=== PATIENT | male | born 1940 | race Caucasian/White ===

== ENCOUNTER → 2017-07-17 15:59 | Outpatient (CLI) | payer MEDICARE, OTHER, SELFPAY ==
--- NOTE | 2017-07-17 16:01 | RAD_ITS ---
STUDY: X-RAY CHEST REASON FOR EXAM: Male, 76 years old. Pacemaker generator change. TECHNIQUE: PA and lateral views of the chest. COMPARISON: PA and lateral chest x-ray on 3 films November 19, 2013. FINDINGS: The dual lead left subclavian cardiac pacemaker is unchanged The lungs are clear and expanded. There is no demonstrated pleural abnormality. Normal size heart. Sternal cerclage wires and vascular clips are present from a prior sternotomy and coronary artery bypass graft procedure (CABG). Normal mediastinum and nancy. Normal visualized pulmonary arteries. There is atherosclerotic calcification of the aortic arch. There are stable multilevel degenerative changes of the visualized thoracic spine. Normal visualized ribs, clavicles, and shoulders. There is no demonstrated abnormality of the visualized soft tissue structures of the upper abdomen. RAD/Chest PA and Lateral IMPRESSION: Stable x-ray examination of the chest since November 2013. Electronically Signed: Eulogio Christian MD at 12:39 EDT , Service support ,
[2017-07-17 16:21] LABS: Bacteria 0 SEEN /hpf (None Seen); Mucous, Urine 0 SEEN /hpf (<or=2+); White Blood Cells 0 SEEN /hpf (0-5)
[2017-07-17 17:31] LABS: Color, Urine Yellow (Yellow); Glucose, Dipstick Normal (Normal); Ketone-Dipstick 5 mg/dl (Negative); Leukocyte Esterase-Dipstick Negative /ul (Negative); Nitrite-Dipstick Negative (Negative); Occult Blood-Urine 250 /ul (Negative); Protein-Dipstick Negative (Negative); Specific Gravity, Urine 1.015 (1.002-1.030); Urine Bilirubin Dipstick Negative (Negative); Urine Urobilinogen Normal (Normal)
[2017-07-17 17:40] LABS: Hematocrit 35.9 % (40-54); Hemoglobin 11.7 g/dl (13.0-16.5); Mean Corp Hgb Conc 32.6 g/gl (32-36); Mean Corpuscular Hgb 30.1 pg (27.0-32.0); Mean Corpuscular Volume 92.3 fL (80-94); Mean Platelet Vol. 10.8 fl (6.2-12.0); Platelet Count 189 K/mm3 (150-450); RBC Distribution Width CV 13.9 % (11.6-14.6); RBC Distribution Width SD 46.3 fl (35.1-43.9); Red Blood Count 3.89 M/mm3 (4.6-6.2)
[2017-07-17 17:41] LABS: International Normalized Ratio 1.1; Prothrombin Time (Protime)PT. 14.6 SECONDS (11.7-14.9)
[2017-07-17 17:47] LABS: Anion Gap 8 (5-15); BUN 27 mg/dL (7-18); Calcium,Total 8.2 mg/dL (8.5-10.1); Chloride 109 mmol/L (98-107); Creatinine, Serum 1.04 mg/dL (0.70-1.30); EST Glomerular Filtration Rate 73 mL/min (>60); Est Glom Filt Rate - Afr Amer 89 mL/min (>60); Glucose 92 mg/dL (74-106); Potassium 4.3 mmol/L (3.5-5.1); Sodium Level 142 mmol/L (136-145)
[2017-07-17 17:50] LABS: Red Blood Cells-Urine 10-25 SEEN /hpf (0-5); Squamous Epithelial Cells - UA 0-5 SEEN /hpf (0-5)
[2017-07-17 17:51] LABS: Urine Clarity Sl. Cloudy (Clear)
[2017-07-17 18:25] LABS: Scan Indicated on CBC? Y/N NO
== END ==
PROVIDERS: Family Provider Internal Medicine; PCP Internal Medicine; Visit Provider Internal Medicine Cardiovascular Disease
DX: I49.5 Sick sinus syndrome (principal); I48.92 Unspecified atrial flutter; I25.10 Atherosclerotic heart disease of native coronary artery without angina pectoris; Z95.0 Presence of cardiac pacemaker
CPT/HCPCS: 36415; 71046; 80048; 81001; 85027; 85610

== ENCOUNTER → 2017-07-25 09:53 | Day surgery (SDC) | payer MEDICARE, OTHER, SELFPAY ==
[2017-07-24 09:23] VITALS: BMI 29.0
--- NOTE | 2017-07-25 10:24 | HP.PCM.COS_ITS ---
Problem List (1) Atherosclerotic heart disease of [place] coronary artery without angina pectoris Status: Chronic (2) Atrial fibrillation Status: Chronic (3) Benign essential hypertension Status: Chronic (4) Cardiac pacemaker in situ Status: Chronic Comment: Permanent Pacemaker insertion 04/20/09; Pacemaker generator change 2001, 04/13/09 (5) Hyperlipidemia Status: Chronic Qualifiers: History of Present Illness Date of Admission: 07/25/17 The patient is a 76 year old M a pacemaker generator change. He He is a gentleman with a remote history of coronary artery bypass surgery in 1996 with a left internal mammary artery to the left anterior descending artery, saphenous vein graft to obtuse marginal branch, saphenous vein graft to right coronary artery. He also has a pacemaker placed for sinus arrest. He does have parkinsons and has limited mobility. His device was interrogated on 07/11/2017 and was noted to have reached ERT on 07/04/2017. He does not have any chest discomfort/heaviness/tightness. He does not have any worsening symptoms of shortness of breath. He does not have any symptoms of congestive heart failure. He does not have any palpitations that he is aware of. He does not have any lightheadedness or dizziness. He does not have any near-syncope or syncope. He does have lower extremity edema this is not new. He does not have any symptoms of claudication. Past Medical History Past Medical History (Chronic Problems): Chronic Problems (Last Updated 07/24/17 @ 17:13 by Slim Haley) Sick sinus syndrome (Chronic) Atrial flutter (Chronic) History of coronary artery stent placement (Chronic) 03/02/08 PTCA/stent to SVG to RCA; 06/30/08 PTCA/stent to SVG to RCA; S/P CABG x 3 (Chronic) CABG, ANG to LAD, saphenous vein graft to OM1 & RCA May 1996; Cardiac pacemaker in situ (Chronic) Permanent Pacemaker insertion 04/20/09; Pacemaker generator change 04/13/09 Atherosclerotic heart disease of [place] coronary artery without angina pectoris (Chronic) Atrial fibrillation (Chronic) Benign essential hypertension (Chronic) Gastroesophageal reflux disease (Chronic) Hyperlipidemia (Chronic) CKD (chronic kidney disease), stage II (Chronic) Obstructive sleep apnea syndrome (Chronic) Parkinson's disease (Chronic) Allergies acetaminophen [From Vicodin] Allergy (Verified 07/24/17 17:09) Other hydrocodone bitartrate [From Vicodin] Allergy (Verified 07/24/17 17:09) Other Sulfa (Sulfonamide Antibiotics) Allergy (Verified 07/24/17 17:09) Other Home Medications: Ambulatory Orders Medication Instructions Recorded alfuzosin ER 10 mg tablet,extended 10 mg PO QDAY 02/24/17 release 24 hr aspirin 81 mg tablet,delayed 81 mg PO QDAY 02/24/17 release carbidopa 25 mg-levodopa 100 mg 1 tab PO BID tab 02/24/17 tablet clonazepam 0.5 mg tablet 0.5 mg PO QHS 02/24/17 finasteride 5 mg tablet 5 mg PO QDAY 02/24/17 furosemide 20 mg tablet 20 mg PO QDAY 02/24/17 isosorbide mononitrate ER 30 mg 30 mg PO QAM 02/24/17 tablet,extended release 24 hr memantine 10 mg tablet 10 mg PO BID 02/24/17 oxybutynin chloride ER 5 mg 5 mg PO QDAY 02/24/17 tablet,extended release 24 hr ranitidine 150 mg capsule 150 mg PO QHS 02/24/17 simvastatin 40 mg tablet 40 mg PO QPM 02/24/17 vitamins A,C,H-fcxy-fsytun 14,320 1 cap PO QDAY ea 02/24/17 unit-226 mg-200 unit capsule donepezil 10 mg tablet 10 mg PO QHS 02/25/17 Surgical History: coronary bypass surgery Smoking Status: Former smoker Review of Systems Constitutional: Denies: Chills, Fever, Weight Change Eyes: Denies: Blurred vision HEENT: Denies: Head Aches, Sinus Congestion, Sinus Drainage Cardiovascular: Denies: Chest Pain, Palpitations Respiratory: Denies: Cough, Shortness of breath at rest, Sputum production Gastrointestinal: Denies: Abdominal Pain, Nausea, Vomiting Genitourinary: Denies: Dysuria Musculoskeletal: Reports: Joint stiffness Neurological: Reports: Balance problems VTE Information - Inpt Only VTE Present on Admission: No - Physical Exam General: Alert, Oriented x3, - - Limited mobility d/t parkinsons HEENT: Atraumatic, PERRLA, EOMI Neck: Supple, No JVD, Negative Carotid Bruits, Trachea Midline Lungs: Clear to auscultation Cardiovascular: Regular rate, Regular Rhythm, Normal S1, Normal S2, Murmur, - - soft 2/6 CHARLIE Abdomen: Bowel Sounds Present, Soft, Non Tender, Non-Distended Extremities: No clubbing, No cyanosis, Edema Weight: 202 lb Body Mass Index (BMI) 29.0 Assessment/Plan 1. Sick sinus syndrome: Patient does have a pacemaker, he is scheduled to undergo a generator change as this has reached SNEHA opril 2017. He will scheduled to undergo a pacemaker change out today, he will follow up accordingly on an out patient basis. 2. CAD: stable, will continue with current home medications. 3. Hyperlipidemia: will continue with current medications.
--- NOTE | 2017-07-25 12:37 | CL.IE_ITS ---
Patient: LILA YOUNG Study Date: 07/25/2017 Performing: Ed Kilgore MD : [id number] Age: 76 Gender: male PROCEDURES PERFORMED [id number] REMOVAL+REPLACEMENT PACER-DUAL LEAD INDICATIONS Sinoatrial node dysfunction/Sick sinus syndrome PROCEDURE DETAILS The patient was brought to the Catheterization Lab in the postabsorptive nonsedated state. Informed consent was obtained prior to the procedure. Local anesthetic was given subcutaneously to the left up per chest area with Lidocaine 2%. Incision was made to the left upper chest. PPM generator was remove d and generator was exchanged. PPM generator was attached to the lead(s) and inserted into the pocket . PPM generator was then interrogated by the senior systems programmer. Device pocket was irrigated with antibiotic. Subcutaneous closure was completed with 3-0 Vicryl. Skin closure was completed with 4-0 Vicryl. Ster i-strips applied to left subclavicular incision. The patient tolerated the procedure well. Estimated Blood Loss: 10 ml's IMPLANTED / EX-PLANTED DEVICES EXPLANTED DEVICE(S): PPM Generator - Glue Jointer Operator: [employer] IMPLANTED DEVICE(S): PPM Generator - Glue Jointer Operator: [employer], Model #[id number] , Serial #[id number] DEVICE PARAMETERS DEVICE PARAMETERS: Mode- DDDR Lower rate- 60 Upper rate- 130 CONCLUSIONS / RECOMMENDATIONS Device Conclusions: Successful implantation of a dual chamber pacemaker battery change and replacemen t Device Recommendations: Follow up with Primary Care Physician PROCEDURE MEDICATIONS Versed 1 mg IV Oxygen: 2 L/min via nasal cannula Antibiotic given in appropriate timeframe. Ancef 2 Gm IV @ 07/25/2017 11:47:41 Signed By Ed Kilgore MD On 07/25/2017 12:36:14 Ed Kilgore MD
== END ==
PROVIDERS: Family Provider Internal Medicine; PCP Internal Medicine; Visit Provider Internal Medicine Cardiovascular Disease
DX: Z45.010 Encounter for checking and testing of cardiac pacemaker pulse generator [battery] (principal); I49.5 Sick sinus syndrome; I25.10 Atherosclerotic heart disease of native coronary artery without angina pectoris; I48.91 Unspecified atrial fibrillation; I48.92 Unspecified atrial flutter; I12.9 Hypertensive chronic kidney disease with stage 1 through stage 4 chronic kidney disease, or unspecified chronic kidney disease; N18.2 Chronic kidney disease, stage 2 (mild); E78.5 Hyperlipidemia, unspecified; K21.9 Gastro-esophageal reflux disease without esophagitis; Z95.1 Presence of aortocoronary bypass graft; G47.33 Obstructive sleep apnea (adult) (pediatric); G20 Parkinson's disease; Z95.5 Presence of coronary angioplasty implant and graft; Z87.891 Personal history of nicotine dependence; Z79.82 Long term (current) use of aspirin; Z79.899 Other long term (current) drug therapy; Z00.6 Encounter for examination for normal comparison and control in clinical research program
CPT/HCPCS: 33228; 99152; 99153; J7040; J7050

== ENCOUNTER 2017-10-01 09:31 | Inpatient (IN) | payer MEDICARE, OTHER, SELFPAY ==
[2017-10-01] VITALS (9 sets, daily range): BP systolic 115–148; BP diastolic 49–83; PULSE 60–67; RESP 15–18; TEMP 36.6–37.5; O2SAT 95–98; BMI 29.5; BMI 28.0; BMI 29.6
--- NOTE | 2017-10-01 10:06 | CT_ITS ---
STUDY: CT BRAIN WITHOUT CONTRAST REASON FOR EXAM: Male, 77 years old. Headache after a fall RADIATION DOSAGE (If Supplied By Facility): CTDIvol = ( 60.81 ) mGy, DLP = ( 1135.50 ) mGycm TECHNIQUE: Transaxial CT imaging of the brain was performed without administration of intravenous contrast material. Individualized dose optimization techniques were used for this CT. COMPARISON: None. FINDINGS: Normal soft tissue structures. Normal calvarium. There is mild cerebral atrophy with widening of the extra-axial spaces and ventricular dilatation. There are areas of decreased attenuation within the white matter tracts of the supratentorial brain, consistent with microvascular disease changes. Normal basal ganglia and thalami. Normal brainstem. Normal cerebellum. There is no intracranial hemorrhage. There are no findings of an acute ischemic infarction. There is mucoperiosteal inflammatory disease of the paranasal sinuses consistent with mild chronic sinusitis. CT/Brain/Head without Contrast IMPRESSION: Chronic involutional changes of the brain. No acute hemorrhage or significant interval change Electronically Signed: Eulogio Fernandez MD at 11:05 EDT , Service support ,
--- NOTE | 2017-10-01 10:07 | EKG12_ITS ---
Test Reason : Blood Pressure : / mmHG Vent. Rate : 060 BPM Atrial Rate : 057 BPM P-R Int : 236 ms QRS Dur : 082 ms QT Int : 434 ms P-R-T Axes : -59 000 -15 degrees QTc Int : 434 ms Atrial-paced rhythm with prolonged AV conduction Abnormal ECG Confirmed by YAMILEHT MURCIA, RADHA ([id number]), health editor CLADUIA YOUNG ([id number]) on 10/03/2017 1:41:41 PM Referred By: Tabitha Sahni Confirmed By:RADHA CARSON MD
--- NOTE | 2017-10-01 10:09 | CT_ITS ---
STUDY: CT CERVICAL SPINE WITHOUT CONTRAST REASON FOR EXAM: Male, 77 years old. Neck pain after a fall RADIATION DOSAGE (If Supplied By Facility): CTDIvol = ( 23.80 ) mGy, DLP = ( 395.53 ) mGycm TECHNIQUE: High resolution transaxial imaging was performed without contrast material. Sagittal and coronal images were reconstructed. Individualized dose optimization techniques were used for this CT. COMPARISON: 11/12/2011 FINDINGS: Normal craniovertebral junction. There are degenerative changes of the anterior atlantoaxial articulation. Normal odontoid process. There is straightening of the normal cervical lordosis. Bones are demineralized with sclerotic endplate changes. There is anatomic alignment of the cervical spine. No demonstrated fracture. Prominent degenerative spurs particularly at C5-6 and C6-7 which are causing borderline central canal stenosis. Bilateral foraminal narrowing noted throughout the C-spine. No upper rib fracture or pneumothorax. Normal visualized soft tissue structures. CT/Spine Cervical without Contras IMPRESSION: Multilevel degenerative changes, as described above. Electronically Signed: Eulogio Fernandez MD at 11:14 EDT , Service support ,
--- NOTE | 2017-10-01 10:09 | ED.RN ---
Pt monitor displays high tachy rate into 200's. palpated pulse during episode for rate of 60.
[2017-10-01 10:53] LABS: Absolute Lymphocyte Count 0.84 X10^3/ul (0.83-4.51); Absolute Neutrophil Count 8.9 X10^3/uL (2.0-7.7); Basophil# 0.01 X10^3/uL; Basophil% 0.1 % (0-1); Eosinophil# 0.04 X10^3/uL; Eosinophils% 0.4 % (0-5); Hemoglobin 12.3 g/dl (13.0-16.5); Lymphocyte # 0.84 X10^3/ul (4.0); Lymphocyte % 8.1 % (19-41); Mean Corp Hgb Conc 32.4 g/gl (32-36); Mean Corpuscular Hgb 29.5 pg (27.0-32.0); Mean Corpuscular Volume 91.1 fL (80-94); Mean Platelet Vol. 9.9 fl (6.2-12.0); Monocyte# 0.53 X10^3/uL; Monocyte% 5.1 % (0-10); Neutrophil % 86.1 % (47-70); POSITIVE COUNT NO; POSITIVE DIFFERENTIAL NO; POSITIVE MORPHOLOGY NO; Platelet Count 188 K/mm3 (150-450); RBC Distribution Width CV 13.9 % (11.6-14.6); RBC Distribution Width SD 46.3 fl (35.1-43.9); Red Blood Count 4.17 M/mm3 (4.6-6.2); White Blood Count 10.3 K/mm3 (4.4-11.0)
[2017-10-01 10:56] LABS: International Normalized Ratio 1.1; Prothrombin Time (Protime)PT. 14.3 SECONDS (11.7-14.9)
--- NOTE | 2017-10-01 11:00 | RAD_ITS ---
STUDY: X-RAY CHEST REASON FOR EXAM: Male, 77 years old. Chest pain and cough TECHNIQUE: PA and 2 lateral views of the chest. COMPARISON: 07/17/2017 FINDINGS: EKG leads overlie the chest. Stable appearance of a left subclavian pacemaker. The lungs are clear and expanded. There is no demonstrated pleural abnormality. Sternal cerclage wires and vascular clips are present from a prior sternotomy and coronary artery bypass graft procedure (CABG). Normal mediastinum and nancy. Normal visualized pulmonary arteries. Normal visualized aortic arch and descending thoracic aorta. There are diffuse degenerative changes of the visualized thoracic spine. Normal visualized ribs, clavicles, and shoulders. There is no demonstrated abnormality of the visualized soft tissue structures of the upper abdomen. RAD/Chest PA and Lateral IMPRESSION: No acute pulmonary process Electronically Signed: Eulogio Fernandez MD at 11:15 EDT , Service support ,
[2017-10-01 11:06] LABS: AST(SGOT) 21 U/L (15-37); Alanine Aminotransfer ALT/SGPT 10 U/L (16-61); Albumin, Serum 3.4 g/dL (3.2-5.0); Alkaline Phosphatase 128 U/L (45-117); Anion Gap 8 (5-15); BUN 28 mg/dL (7-18); BUN/Creat Ratio 26.9 RATIO (10-20); Calcium,Total 8.3 mg/dL (8.5-10.1); Chloride 106 mmol/L (98-107); Creatinine, Serum 1.04 mg/dL (0.70-1.30); EST Glomerular Filtration Rate 73 mL/min (>60); Est Glom Filt Rate - Afr Amer 89 mL/min (>60); Estimated Creatinine Clearance 57.59 ml/min; Globulin 3.4 g/dL (2.2-4.2); Glucose 88 mg/dL (74-106); Lipase 186 U/L (73-393); Potassium 4.2 mmol/L (3.5-5.1); Protein, Total 6.8 g/dL (6.4-8.2); Sodium Level 143 mmol/L (136-145)
[2017-10-01 12:04] LABS: Bacteria 0 SEEN /hpf (None Seen); Mucous, Urine 0 SEEN /hpf (<or=2+); Red Blood Cells-Urine 0 SEEN /hpf (0-5); Squamous Epithelial Cells - UA 0 SEEN /hpf (0-5); White Blood Cells 0 SEEN /hpf (0-5)
[2017-10-01 12:05] LABS: Color, Urine Yellow (Yellow); Glucose, Dipstick Normal (Normal); Ketone-Dipstick Negative (Negative); Leukocyte Esterase-Dipstick Negative /ul (Negative); Nitrite-Dipstick Negative (Negative); Occult Blood-Urine Negative /ul (Negative); Protein-Dipstick Negative (Negative); Urine Bilirubin Dipstick Negative (Negative); Urine Clarity Clear (Clear); Urine Urobilinogen Normal (Normal)
--- NOTE | 2017-10-01 12:34 | HP.PCM_ITS ---
Problem List (1) Syncope Status: Acute Qualifiers: Syncope type: unspecified Qualified Code(s): R55 - Syncope and collapse (2) Atrial flutter Status: Chronic Qualifiers: Atrial flutter type: unspecified Qualified Code(s): I48.92 - Unspecified atrial flutter (3) History of coronary artery stent placement Status: Chronic Comment: 03/02/08 PTCA/stent to SVG to RCA; 06/30/08 PTCA/ stent to SVG to RCA; (4) S/P CABG x 3 Status: Chronic Comment: CABG, ANG to LAD, saphenous vein graft to OM1 & RCA May 1996; (5) Cardiac pacemaker in situ Status: Chronic Comment: Permanent Pacemaker insertion 04/20/09; Pacemaker generator change 2001, 04/13/09 (6) Benign essential hypertension Status: Chronic (7) Obstructive sleep apnea syndrome Status: Chronic History of Present Illness Date of Admission: 10/01/17 Chief Complaint: Syncope The patient is a 77 year old M with PMHx of CAD s/p CABG, s/p pacemaker for sinus arrest, PAF/flutter, Parkinson's disease comes in after a syncopal episode. Patient lives with her son but is usually alone. He has a life alert watch. He has been feeling well and is in his usual state of health in the past few days. He lately complains of feeling dizzy, especially on moving. Chest pain or palpitations of fever or chills or nausea or vomiting or diarrhea. Vitals in the ED showed temperature 98.5, heart rate of 16, blood pressure 118/ 72, respiratory rate of 18, SPO2 97% on room air. Admitting blood work unremarkable. EKG shows paced rhythm, no acute ST-T changes, troponin is negative. CT scan of the brain shows chronic changes. CT scan of the spine shows multilevel degenerative changes. Past Medical History Past Medical History (Chronic Problems): Chronic Problems (Last Updated 07/24/17 @ 17:13 by Slim Haley) Sick sinus syndrome (Chronic) Atrial flutter (Chronic) History of coronary artery stent placement (Chronic) 03/02/08 PTCA/stent to SVG to RCA; 06/30/08 PTCA/stent to SVG to RCA; S/P CABG x 3 (Chronic) CABG, ANG to LAD, saphenous vein graft to OM1 & RCA May 1996; Cardiac pacemaker in situ (Chronic) Permanent Pacemaker insertion 04/20/09; Pacemaker generator change 2001, 04/13/09 Atherosclerotic heart disease of [place] coronary artery without angina pectoris (Chronic) Atrial fibrillation (Chronic) Benign essential hypertension (Chronic) Gastroesophageal reflux disease (Chronic) Hyperlipidemia (Chronic) CKD (chronic kidney disease), stage II (Chronic) Obstructive sleep apnea syndrome (Chronic) Parkinson's disease (Chronic) Medical History: Medical History (Last Updated 07/24/17 @ 17:13 by Slim Haley) Sick sinus syndrome (Chronic) I49.5 Atrial flutter (Chronic) I48.92 Atherosclerotic heart disease of [place] coronary artery without angina pectoris (Chronic) I25.10 Atrial fibrillation (Chronic) I48.91 Benign essential hypertension (Chronic) I10 Hyperlipidemia (Chronic) E78.5 CKD (chronic kidney disease), stage II (Chronic) N18.2 Obstructive sleep apnea syndrome (Chronic) G47.33 Parkinson's disease (Chronic) G20 Diverticulitis K57.92 Hiatal hernia K44.9 Nephrolithiasis N20.0 TIA (transient ischemic attack) Onset Date: ~08/2012 G45.9 Allergies acetaminophen [From Vicodin] Allergy (Verified 10/01/17 09:37) Other hydrocodone bitartrate [From Vicodin] Allergy (Verified 10/01/17 09:37) Other Sulfa (Sulfonamide Antibiotics) Allergy (Verified 10/01/17 09:37) Other Home Medications: Ambulatory Orders Medication Instructions Recorded alfuzosin ER 10 mg tablet,extended 10 mg PO QDAY 02/24/17 release 24 hr aspirin 81 mg tablet,delayed 81 mg PO QDAY 02/24/17 release carbidopa 25 mg-levodopa 100 mg 1 tab PO BID tab 02/24/17 tablet clonazepam 0.5 mg tablet 0.5 mg PO QHS 02/24/17 finasteride 5 mg tablet 5 mg PO QDAY 02/24/17 isosorbide mononitrate ER 30 mg 30 mg PO QAM 02/24/17 tablet,extended release 24 hr memantine 10 mg tablet 10 mg PO BID 02/24/17 oxybutynin chloride ER 5 mg 5 mg PO QDAY 02/24/17 tablet,extended release 24 hr ranitidine 150 mg capsule 150 mg PO QHS 02/24/17 vitamins A,C,A-csce-zywwnr 14,320 1 cap PO QDAY ea 02/24/17 unit-226 mg-200 unit capsule donepezil 10 mg tablet 10 mg PO QHS 02/25/17 furosemide 20 mg tablet 20 mg PO QDAY #90 tab 08/05/17 simvastatin 40 mg tablet 40 mg PO QPM #90 tab 09/08/17 Surgical History: Surgical History (Last Updated 07/24/17 @ 17:14 by Slim Haley) History of coronary artery stent placement (Chronic) Z95.5 03/02/08 PTCA/stent to SVG to RCA; 06/30/08 PTCA/stent to SVG to RCA; S/P CABG x 3 (Chronic) Z95.1 CABG, ANG to LAD, saphenous vein graft to OM1 & RCA May 1996; Cardiac pacemaker in situ (Chronic) Z95.0 Permanent Pacemaker insertion 04/20/09; Pacemaker generator change 2001, 04/13/09 History of knee replacement procedure of right knee Z96.651 History of laparoscopic cholecystectomy Z90.49 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 Denies: Chest Pain, Claudication, Chest Pressure, Chest Tightness, Palpitations Respiratory: Denies: Cough, Hemoptysis, Pleuritic Pain, Shortness of breath at rest, Shortness of breath upon exertion, Sputum production Gastrointestinal: Denies: Abdominal Pain, Constipation, Hematemesis, Hematochezia, Nausea, Vomiting Genitourinary: Denies: Dysuria, Frequency, Incontinence Musculoskeletal: Denies: Joint Pain, Joint stiffness, Joint swelling, Joint Tenderness Skin: Denies: Rash, Wounds Neurological: Denies: Difficulty swallowing, Focal weakness, Numbness, Tingling Psychiatric: Denies: Anxiety, Depression, Homicidal Ideations, Suicidal Ideations Hematologic/ Lymphatic: Denies: Easy Bruising, Easy Bleeding VTE Information - Inpt Only VTE Present on Admission: No VTE Pharm Prophylaxis ordered?: Yes Patient Problems: Active and Suspected Problems (Last Updated 07/24/17 @ 17:13 by Slim Haley) Syncope (Acute) - Physical Exam General: Alert, Oriented x3, Cooperative, No apparent distress HEENT: Atraumatic, PERRLA, EOMI, Normocephalic, - - Old blood, sutures over the left brow, mild periorbital edema Oral: Moist Mucosa Neck: Supple, No JVD, Negative Carotid Bruits Lungs: Clear to auscultation, Normal air movement, Diminished - at the lung bases Cardiovascular: Regular rate, Regular Rhythm, Normal S1, Normal S2, No murmurs Abdomen: Bowel Sounds Present, Soft, Non Tender, Non-Distended, No Hepato- splenomegaly Extremities: No edema Skin: No rashes, No breakdown Musculoskeletal: No Tenderness to Palpation of Joints or Extremities Lymphatic: No Cervical, Supraclavicular, or Inguinal Adenopathy Neurological: Cranial nerves II-XII grossly intact Psych/Mental Status: Normal Affect, Appropriate Vital Signs Temp Pulse Resp BP Pulse Ox 98.5 F 60 18 132/51 H 97 10/01/17 09:33 10/01/17 12:28 10/01/17 12:28 10/01/17 12:28 10/01/17 12:28 Oxygen Delivery Method Room Air Weight: 90.8 kg Body Mass Index (BMI) 29.5 Laboratory Tests Past 24 Hrs 10/01/17 10/01/17 10/01/17 10:40 10:40 10:40 WBC 10.3 RBC 4.17 L Hgb 12.3 L Hct 38.0 L MCV 91.1 MCH 29.5 MCHC 32.4 RDW 13.9 RDW Differential 46.3 H Plt Count 188 MPV 9.9 Immature Gran % (Auto) 0.200 Neut % (Auto) 86.1 H Lymph % (Auto) 8.1 L [place] % (Auto) 5.1 Eos % (Auto) 0.4 Baso % (Auto) 0.1 Absolute Neuts (auto) 8.9 H Absolute Lymphs (auto) 0.84 Total Counted Not Reportable PT 14.3 INR 1.1 Sodium 143 Potassium 4.2 Chloride 106 Carbon Dioxide 29.0 Anion Gap 8 BUN 28 H Creatinine 1.04 Estim Creat Clear Calc 57.59 Est GFR (MDRD) Af Amer 89 Est GFR (MDRD) Non-Af 73 BUN/Creatinine Ratio 26.9 H Glucose 88 Calcium 8.3 L Total Bilirubin 0.70 AST 21 ALT 10 L Alkaline Phosphatase 128 H Troponin I < 0.015 Total Protein 6.8 Albumin 3.4 Globulin 3.4 Albumin/Globulin Ratio 1.0 Lipase 186 Urine Color Urine Clarity Urine pH Ur Specific [place] Urine Protein Urine Glucose (UA) Urine Ketones Urine Occult Blood Urine Nitrite Urine Bilirubin Urine Urobilinogen Ur Leukocyte Esterase Urine RBC Urine WBC Ur Squamous Epith Cells Urine Bacteria Urine Mucus 10/01/17 11:58 WBC RBC Hgb Hct MCV MCH MCHC RDW RDW Differential Plt Count MPV Immature Gran % (Auto) Neut % (Auto) Lymph % (Auto) [place] % (Auto) Eos % (Auto) Baso % (Auto) Absolute Neuts (auto) Absolute Lymphs (auto) Total Counted PT INR Sodium Potassium Chloride Carbon Dioxide Anion Gap BUN Creatinine Estim Creat Clear Calc Est GFR (MDRD) Af Amer Est GFR (MDRD) Non-Af BUN/Creatinine Ratio Glucose Calcium Total Bilirubin AST ALT Alkaline Phosphatase Troponin I Total Protein Albumin Globulin Albumin/Globulin Ratio Lipase Urine Color Yellow Urine Clarity Clear Urine pH 6.0 Ur Specific [place] 1.010 Urine Protein Negative Urine Glucose (UA) Normal Urine Ketones Negative Urine Occult Blood Negative Urine Nitrite Negative Urine Bilirubin Negative Urine Urobilinogen Normal Ur Leukocyte Esterase Negative Urine RBC 0 SEEN Urine WBC 0 SEEN Ur Squamous Epith Cells 0 SEEN Urine Bacteria 0 SEEN Urine Mucus 0 SEEN Assessment/Plan All Active Problems (Last Updated 07/24/17 @ 17:13 by Slim Haley) Syncope (Acute) 77 year old M with PMHx of CAD s/p CABG, s/p pacemaker for sinus arrest, PAF/ Atrial flutter, Parkinson's disease comes in after a syncopal episode. 1. Syncope, unclear etiology, will ask for pacemaker interrogation, likely he could also be orthostatic from Parkinson's disease, will check orthostatic vitals, I do not see 2D-echo in the system, will order one, trend troponins, monitor on telemetry. 2. CAD s/p CABG, on aspirin, simvastatin 3. PAF/atrial flutter, status post pacemaker for sinus arrest, EKG shows paced rhythmn. 4. Parkinson's disease with dementia, on Memantine, clonazepam, Sinemet, Aricept 5. DVT prophylaxis with Heparin subcu Code Visit Inpatient E&M: 26110 Init Hosp L3
--- NOTE | 2017-10-01 12:35 | ED.DCSUM_ITS ---
- ER Visit Summary Date of Service: 10/01/17 Chief Complaint: [fAll] History of Present Illness: The patient is a 77 M [who presents the emergency department after a fall. He was in the kitchen and next thing he knows he did not know what happened and was on the floor. Complaining to a hit to the head he also has left rib pain and neck pain. He is not on any anticoagulation. He has Parkinson's disease and Parkinson's dementia and lives with his son. History and review of systems is limited because of this.] Physical Examination: [] No acute distress Contusion on right mid forehead as well as left lateral eye with overlying 2.5 cm full-thickness laceration to the left lateral orbital rim Pupils are constricted 2 mm and symmetric bilaterally Patient has mild tenderness to palpation at C3 Regular rate and rhythm no murmurs Here to auscultation bilaterally no respiratory distress he does have mild tenderness to palpation in the left lower anterior ribs there is no crepitus or bruising Abdomen is soft and nontender with no bruising Full range of motion the lower extremities without pain Motion of the upper extremities without pain Alert and oriented ?2 which is the patient's baseline he has a resting tremor more most predominant in the left upper extremity no focal neurologic deficits Test Results: [] Emergency Department Course and Treatment: [EKG was read by the computer as atrial fibrillation however I do think this is related to his artifact as is a very regular rhythm. There is no acute ischemic change. Screening labs are unremarkable. CT of the head and neck show no acute process. X-ray of the chest shows no acute process. Urinalysis is pending. This is the second episode in which he is gotten very lightheaded. Yesterday he got very dizzy and almost fell and his son took his pulse ox which is low. Here in the emergency department over several hours of observation his pulse ox has been 98 % without any dropping. I do think he requires admission and the son is agreeable. Procedure note Laceration left orbital rim Anesthetized with 2 mL's of lidocaine locally Cleanse with normal saline 5, 5-0 monofilament sutures were placed with good wound approximation and hemostasis Wound care instructions provided] Treatment Plan: [] Disposition: [Admit] Impression: [1. Syncope 2. Head laceration with suture repair] This note was generated with [employer] software. It may contain incorrect words, spelling, and punctuation that were not noted in review of the chart prior to signing ED Disposition - Plan for ED Patient: Chief Complaint: Fall Referrals: Chris Dean MD [Primary Care Provider] -
--- NOTE | 2017-10-01 12:46 | NURSING ---
Jun notified patient may transfer to PCU.
--- NOTE | 2017-10-01 15:11 | ECHOCS_ITS ---
Reason For Study: SYNCOPE/NEAR SYNCOPE Procedure This was a 2D Doppler, Color Flow transthoracic echocardiogram. Exam performed portable in patient room. Left Ventricle Normal size and thickness. The estimated ejection fraction is 65 %. Stage 1 diastolic dysfunction. No regional wall motion abnormalities noted. Right Ventricle Moderately dilated right ventricle. ICD or pacer leads identified within the right ventricle. Mild global right ventricular systolic dysfunction. Atria Normal left atrium. Normal right atrium. Normal atrial septum. Mitral Valve Mild diffuse mitral valve thickening. Tricuspid Valve Normal tricuspid valve. Mild to moderate (1-2+) tricuspid valve insufficiency. Right ventricular systolic pressure estimated to be 39 mmHg. Mild pulmonary hypertension. Aortic Valve Trisinus/trileaflet aortic valve. Mild diffuse aortic valve thickening. Pulmonic Valve Normal pulmonic valve. Great Vessels Calcified aortic root. Normal arch. Normal inferior vena cava. Inferior vena cava collapse with sniff. Pericardium/Pleural No pericardial effusion. Medication Diluted definity 2ml given slow IV push to enhance endocardial definition. MMode/2D Measurements & Calculations LVIDd: 4.5 cm IVSd: 0.89 cm Ao root diam: 3.3 cm LVIDs: 3.0 cm LVPWd: 0.91 cm LA dimension: 3.3 cm FS: 34.1 % LAV(MOD-bp): 45.8 ml LA A4 area: 15.4 cm2 LAV(MOD-bp) Indexed: 22.7 ml/m2 LAV(MOD-sp2): 58.0 ml LAV(MOD-sp4): 35.7 ml Time Measurements MV dec time: 0.26 sec Doppler Measurements & Calculations MV E max silvio: 84.8 cm/sec Lat Peak E' Silvio: 9.6 cm/sec Med Peak E' Silvio: 6.6 cm/sec MV A max silvio: 107.0 cm/sec E/E' lat: 8.8 E/E' med: 12.9 MV E/A: 0.79 Ao V2 max: 157.1 cm/sec LV V1 max: 116.9 cm/sec PA V2 max: 94.8 cm/sec Ao max P.9 mmHg LV V1 max P.5 mmHg TR max silvio: 301.8 cm/sec TR max P.5 mmHg Interpretation Summary The estimated ejection fraction is 65 %. Stage 1 diastolic dysfunction. Moderately dilated right ventricle. Mild to moderate (1-2+) tricuspid valve insufficiency. Right ventricular systolic pressure estimated to be 39 mmHg. Mild pulmonary hypertension. Compared to echo report dated 02/23/2011, no appreciable changes noted. The study was technically difficult. Contrast injection was performed. Ordering Physician: Padmini Sosa Referring Physician: SKY PAYNE Performed By: Marianne Boucher RDCS
--- NOTE | 2017-10-01 17:15 | PCM.CONS.C ---
Problem List (1) Syncope Status: Acute Qualifiers: Syncope type: unspecified Qualified Code(s): R55 - Syncope and collapse (2) Sick sinus syndrome Status: Chronic (3) Atrial flutter Status: Chronic Qualifiers: Atrial flutter type: unspecified Qualified Code(s): I48.92 - Unspecified atrial flutter (4) History of coronary artery stent placement Status: Chronic Comment: 03/02/08 PTCA/stent to SVG to RCA; 06/30/08 PTCA/stent to SVG to RCA; (5) S/P CABG x 3 Status: Chronic Comment: CABG, ANG to LAD, saphenous vein graft to OM1 & RCA May 1996; (6) Cardiac pacemaker in situ Status: Chronic Comment: Permanent Pacemaker insertion 04/20/09; Pacemaker generator change 2001, 04/13/09 (7) Atrial fibrillation Status: Chronic Qualifiers: Atrial fibrillation type: paroxysmal Qualified Code(s): I48.0 - Paroxysmal atrial fibrillation (8) Hyperlipidemia Status: Chronic Qualifiers: Reason for Consult Date of Consultation: 10/01/17 Reason for Consultation: Parkinson's disease, coronary disease status post bypass status post stents, hypertension, hypercholesterolemia, pacemaker placement History of Present Illness: The patient is a 77 year old M, patient of Dr. Giang with Parkinson's disease making it difficult to evaluate him clinically, with a history of hypertension, hypercholesterolemia, coronary disease status post bypass surgery ?3 vessels, ANG to LAD, saphenous vein graft to OM #1, and saphenous vein graft to RCA many years ago, in addition, the patient underwent angioplasty and stenting ?2 to the saphenous vein graft to the right coronary artery in February 2008, followed by repeat stenting of the in-stent restenosis of the saphenous vein graft to the RCA by Dr. Ha Stubbs at [facility] on 08/30/08 utilizing a 3.5X 23 and a 3.5X 15 Promus drug-eluting stent with an excellent result. Pacemaker initially was placed in 1975 and recently underwent battery change out in the last several months for end of life.. In addition he has paroxysmal atrial fibrillation and is apparently on anticoagulation therapy per the patient. At best I can tell the patient lives at home in a duplex next to his son, and apparently was walking on the sidewalk with his walker and fell down causing a laceration to the left side of his face. His best he can remember he did not have a syncopal event. He denied any chest pain or angina but does have chest wall pain after his fall which is reproducible. On further history he denies any previous exertional angina, chest pain and cannot recall the last time he had a stress test or an echocardiogram. Apparently he follows with an outside silk washing machine operator. His EKG demonstrated paced atrial rhythm with normal intrinsic ventricular response. According to pacemaker interrogation he preliminarily has an atrial lead which has a lot of noise and may require revision. Additional pacemaker evaluation will be completed tomorrow. [] Past Medical History Allergies/Adverse Reactions: Allergies acetaminophen [From Vicodin] Allergy (Verified 10/01/17 09:37) Other hydrocodone bitartrate [From Vicodin] Allergy (Verified 10/01/17 09:37) Other Sulfa (Sulfonamide Antibiotics) Allergy (Verified 10/01/17 09:37) Other Home Medications: Ambulatory Orders Medication Instructions Recorded alfuzosin ER 10 mg tablet,extended 10 mg PO QDAY 02/24/17 release 24 hr aspirin 81 mg tablet,delayed 81 mg PO QDAY 02/24/17 release carbidopa 25 mg-levodopa 100 mg 1 tab PO BID tab 02/24/17 tablet clonazepam 0.5 mg tablet 0.5 mg PO QHS 02/24/17 finasteride 5 mg tablet 5 mg PO QDAY 02/24/17 isosorbide mononitrate ER 30 mg 30 mg PO QAM 02/24/17 tablet,extended release 24 hr memantine 10 mg tablet 10 mg PO BID 02/24/17 oxybutynin chloride ER 5 mg 5 mg PO QDAY 02/24/17 tablet,extended release 24 hr ranitidine 150 mg capsule 150 mg PO QHS 02/24/17 vitamins A,C,A-gaqa-bpfjjm 14,320 1 cap PO QDAY ea 02/24/17 unit-226 mg-200 unit capsule donepezil 10 mg tablet 10 mg PO QHS 02/25/17 furosemide 20 mg tablet 20 mg PO QDAY #90 tab 08/05/17 simvastatin 40 mg tablet 40 mg PO QPM #90 tab 09/08/17 Past Medical History (Chronic Problems): Chronic Problems (Last Updated 07/24/17 @ 17:13 by Slim Haley) Sick sinus syndrome (Chronic) Atrial flutter (Chronic) History of coronary artery stent placement (Chronic) 03/02/08 PTCA/stent to SVG to RCA; 06/30/08 PTCA/stent to SVG to RCA; S/P CABG x 3 (Chronic) CABG, ANG to LAD, saphenous vein graft to OM1 & RCA May 1996; Cardiac pacemaker in situ (Chronic) Permanent Pacemaker insertion 04/20/09; Pacemaker generator change 2001, 04/13/09 Atherosclerotic heart disease of [place] coronary artery without angina pectoris (Chronic) Atrial fibrillation (Chronic) Benign essential hypertension (Chronic) Gastroesophageal reflux disease (Chronic) Hyperlipidemia (Chronic) CKD (chronic kidney disease), stage II (Chronic) Obstructive sleep apnea syndrome (Chronic) Parkinson's disease (Chronic) Surgical History: coronary bypass surgery Lives: With Family Smoking Status: Former smoker Tobacco Use: Non-smoker Alcohol: None Drugs: None Review of Systems - Review of Systems General: Denies: Fever, Night Sweats, Fatigue Cardiovascular: Denies: Chest Discomfort, Shortness of Breath, Orthopnea, PND, Peripheral Edema, Palpitations, Lightheadedness, Dizziness, Near Syncope, Syncope Respiratory: Denies: Cough, Sputum Production, Hemoptysis Gastrointestinal: Denies: Hematemesis, Hematochezia, Melena Genitourinary: Denies: Dysuria, Hematuria Skin: Denies: Rash Subjectve: Patient sitting in a chair, no acute distress. Objective: Vital Signs Temp Pulse Resp BP Pulse Ox 97.9 F 66 16 133/83 H 97 10/01/17 13:25 10/01/17 15:48 10/01/17 13:25 10/01/17 13:25 10/01/17 13:25 Oxygen Delivery Method Room Air Weight: 190 lb 4.143 oz Body Mass Index (BMI) 28.0 General: Awake, Alert, Oriented x 3 HEENT: PERRL, EOMI, Sclera Non Icteric Neck: Supple, Good ROM, No Lymph Node Enlargement Lungs: Clear to auscultation Cardiovascular: Regular Rhythm, Premature Ectopic Beats, Normal S1, Normal S2, No Murmurs, No Rubs, No Gallops Vascular: No Carotid Bruits, Normal Femoral Pulses, Normal Radial Pulses, Normal Dorsalis Pedal Pulse, Normal Posterior Tibial Pulses Abdomen: Bowel Sounds Present, Soft, Non Tender, No HSM, No Organomegaly Extremities: No Cyanosis, No Clubbing, No edema Neurological: No Focal Motor or Sensory Deficit 10/01/17 13:50: Troponin I < 0.015 Rhythm: EKG: ECHO: Stress Test: Cardiac Cath: PCI: CT Surgery: Holter monitor: EPS: PPM: CXR: Chest CT Scan: Assessment/Plan 1. Status post fall: Patient denies any syncopal event as a result of his fall. However his pacemaker shows an atrial lead that may require revision and may be undergoing incomplete capture. Recommend continuing the patient on telemetry at this time. We will have a more thorough evaluation of his pacemaker tomorrow with additional equipment. If the patient requires revision of his lead he may require transfer to an outside facility for this. Patient had a significant fall causing lacerations and bruising to the left side of his face. Would recommend holding off on any catheterization or intervention until this is healed. 2. Coronary artery disease: The patient denies any anginal symptoms prior to his event. I recommended that he undergo a 2D echo with Doppler if he has not done so in the last year in addition I would recommend a noninvasive dobutamine echocardiogram to evaluate for possible ischemia particularly of the inferior wall given his history of repetitive angioplasty and stenting to his saphenous vein graft to the RCA. Would recommend obtaining orthostatic blood pressures. We will hold off on adjustment to his medications until after his orthostatic blood pressures have been obtained. 3. Hyperlipidemia: His LDL and HDL cholesterol need to be evaluated. Recommend obtaining a fasting lipid profile. Continue Lipitor for now. 4. Thank you very much for the opportunity to participate in the cardiac care of your patient. Consultation time took place between 430 and 5 PM. Code Visit Inpatient E&M: 37685 Init Hosp L2
[2017-10-01] MEDS: Tamsulosin HCl 0.4 MG Capsule PO (18:23)
[2017-10-01 20:32] LABS: Cholesterol 96 mg/dL (200); High Density Lipoprotein 58 mg/dL; Triglycerides 65 mg/dL; Very Low Density Lipoprotein 13 mg/dL (5-40)
[2017-10-01] MEDS: Memantine Hydrochloride 10 MG Tablet PO (23:02)
[2017-10-01] MEDS: clonazePAM 0.5 MG Tablet PO (23:02)
[2017-10-01] MEDS: Donepezil HCl 10 MG Tablet PO (23:02)
[2017-10-01] MEDS: Famotidine 20 MG Tablet PO (23:03)
[2017-10-01] MEDS: Heparin Injection (Vial) 5,000 UNIT/ML VIAL 5000 UNIT SC (23:03)
[2017-10-01] MEDS: Atorvastatin Calcium 20 MG Tablet PO (23:03)
[2017-10-01] MEDS: Acetaminophen 325 MG Tablet 650 MG PO (23:06)
[2017-10-02] VITALS (12 sets, daily range): BP systolic 113–150; BP diastolic 60–69; PULSE 59–64; RESP 14–18; TEMP 36.5–36.8; O2SAT 96
[2017-10-02] MEDS: Heparin Injection (Vial) 5,000 UNIT/ML VIAL 5000 UNIT SC ×3 (05:16→21:55)
[2017-10-02 05:47] LABS: International Normalized Ratio 1.1; Prothrombin Time (Protime)PT. 14.3 SECONDS (11.7-14.9)
[2017-10-02 05:59] LABS: Anion Gap 6 (5-15); BUN 29 mg/dL (7-18); BUN/Creat Ratio 28.7 RATIO (10-20); Calcium,Total 8.3 mg/dL (8.5-10.1); Chloride 106 mmol/L (98-107); Creatinine, Serum 1.01 mg/dL (0.70-1.30); EST Glomerular Filtration Rate 76 mL/min (>60); Est Glom Filt Rate - Afr Amer 92 mL/min (>60); Estimated Creatinine Clearance 59.31 ml/min; Glucose 77 mg/dL (74-106); Potassium 4.1 mmol/L (3.5-5.1); Sodium Level 141 mmol/L (136-145)
[2017-10-02] MEDS: Tolterodine Tartrate 2 MG CAP.SA PO (09:34)
[2017-10-02] MEDS: Carbidopa/Levodopa 25/100 Tablet PO ×2 (09:34→16:58)
[2017-10-02] MEDS: Furosemide 20 MG Tablet PO (09:35)
[2017-10-02] MEDS: Memantine Hydrochloride 10 MG Tablet PO ×2 (09:35→21:56)
[2017-10-02] MEDS: Finasteride 5 MG Tablet PO (09:35)
[2017-10-02] MEDS: Isosorbide Mononitrate 30 MG Tablet PO (09:38)
[2017-10-02] MEDS: Aspirin E.C. 81 MG Tablet PO (09:38)
--- NOTE | 2017-10-02 10:22 | PN.CARD_ITS ---
Subjectve: Patient doing about the same as yesterday. Echo in progress. No chest pain overnight. Telemetry showed paced atrial rhythm with occasional failure to capture. Additional pacer interrogation pending. Echo pending. Objective: Vital Signs Temp Pulse Resp BP Pulse Ox 98.2 F 60 14 138/63 H 96 10/02/17 04:40 10/02/17 04:47 10/02/17 04:40 10/02/17 04:47 10/02/17 04:40 Oxygen Delivery Method Room Air Weight: 189 lb 13.088 oz Body Mass Index (BMI) 28.0 Orthostatic Vital Signs Start: 10/02/17 04:47 Freq: q24h Status: Active Protocol: Activity Type Activity Date Activity User E-Sign Co-Sign Detail Recorded Client Recorded Date Recorded By Document 10/02/17 04:47 BAM [id number] 10/02/17 04:48 BAM 10/02/17 04:47 Orthostatic Vitals Standing -Blood Pressure (90/60-120/80) 139/61 H -Extremity Use Left Arm -Pulse Rate (60-100) 62 Sitting -Blood Pressure (90/60-120/80) 150/69 H -Extremity Use Left Arm -Pulse Rate (60-100) 59 L Lying -Blood Pressure (90/60-120/80) 138/63 H -Extremity Use Left Arm -Pulse Rate (60-100) 60 Intake and Output for Last 24 Hours 09/30/17 10/01/17 10/02/17 23:59 23:59 23:59 Intake Total 360 / 360 Output Total 400 / 400 250 / 250 Balance -40 / -40 -250 / -250 General: Awake, Alert, Oriented x 3 HEENT: PERRL, EOMI, Sclera Non Icteric Neck: Supple, Good ROM, No Lymph Node Enlargement Lungs: Clear to auscultation Cardiovascular: Regular Rhythm, Normal S1, Normal S2, No Murmurs, No Rubs, No Gallops 10/01/17 13:50: Troponin I < 0.015 10/01/17 16:53: Troponin I < 0.015 10/01/17 16:53: Triglycerides 65, Cholesterol 96, LDL Cholesterol 25, VLDL Cholesterol 13, HDL Cholesterol 58 10/02/17 05:15: Sodium 141, Potassium 4.1, Chloride 106, Carbon Dioxide 29.0, Anion Gap 6, BUN 29 H, Creatinine 1.01, Est GFR (MDRD) Af Amer 92, Est GFR (MDRD ) Non-Af 76, BUN/Creatinine Ratio 28.7 H, Glucose 77, Calcium 8.3 L 10/02/17 05:15: PT 14.3, INR 1.1 Rhythm: EKG: ECHO: Normal LV function with EF of 65%, mild pulmonary hypertension with RVSP of 39 mmHg, mild to moderate tricuspid regurgitation. No pericardial effusion. Stress Test: Cardiac Cath: PCI: CT Surgery: Holter monitor: EPS: PPM: CXR: Chest CT Scan: Medical Necessity - Tobacco Use Smoking Status: Former smoker Tobacco Use: Non-smoker Assessment/Plan 1. Status post fall: Patient denies any syncopal event as a result of his fall. However his pacemaker shows an atrial lead that may require revision and may be undergoing incomplete capture. Telemetry shows a paced atrial rhythm with occasional failure to capture. Recommend continuing the patient on telemetry at this time. We will have a more thorough evaluation of his pacemaker later today with additional equipment. If the patient requires revision of his lead he may require transfer to an outside facility for this. Patient had a significant fall causing lacerations and bruising to the left side of his face. Would recommend holding off on any catheterization or intervention until this is healed. Echo today shows intact LV function with an EF of 65%, RVSP of 39 mmHg, mild to moderate TR, no pericardial effusion, no appreciable change from previous echocardiogram in 2010. His orthostatics are negative. Continue antihypertensive medications. 2. Coronary artery disease: The patient denies any anginal symptoms prior to his event. I recommended that he undergo a 2D echo with Doppler if he has not done so in the last year in addition I would recommend a noninvasive dobutamine echocardiogram to evaluate for possible ischemia particularly of the inferior wall given his history of repetitive angioplasty and stenting to his saphenous vein graft to the RCA. If his stress test is negative, I would refer him for revision of atrial lead if indicated. 3. Hyperlipidemia: His LDL and HDL cholesterol are at goal. Continue Lipitor for now. 4. Thank you very much for the opportunity to participate in the cardiac care of your patient. Code Visit Inpatient E&M: 00262 Subs Hosp L2
--- NOTE | 2017-10-02 13:18 | STRESSREP ---
Stress Test Report Date: 10/02/2017 Procedure: Pharmacologic stress nuclear imaging study Indications: Chest pain; CAD; PCI; CABG; atrial fibrillation/flutter; permanent pacemaker Consent: Per the patient Procedure: The patient underwent pharmacologic (Regadenoson) evaluation with a peak heart rate of 72 beats per minute (51 predicted maximal heart rate) and a peak blood pressure of 28/82 mmHg. The baseline ECG demonstrated a chronic atrial paced rhythm. The peak pharmacologic ECG demonstrated no obvious ECG changes. There were no cardiac dysrhythmias pretest, during pharmacologic infusion, or recovery. There was no complaint of chest discomfort during pharmacologic infusion or recovery. The examination was discontinued secondary to completion of protocol. Impression: 1. Pharmacologic (Regadenoson) evaluation 2. Peak pharmacologic ECG with no obvious ECG changes. 3. There were no additional cardiac dysrhythmias pretest, during pharmacologic infusion, or recovery 4. Nuclear images pending Myocardial perfusion imaging study: Technique: The patient was injected with 12 millicuries of technetium 99m Cardiolite and subsequently rest SPECT Cardiolite nuclear imaging was obtained in the horizontal long, vertical long, and short axis views. The patient underwent pharmacologic (Regadenoson) evaluation with a peak heart rate of 72 beats per minute (51 % percent predicted maximal heart rate) and a peak blood pressure of 128/82 mmHg. The patient was injected with 34.2 millicuries of technetium 99m Cardiolite and subsequently stress SPECT Cardiolite nuclear imaging was obtained in the horizontal long, vertical long, and short axis views. A gated Cardiolite study at peak stress was obtained. Interpretation: Rest and stress SPECT Cardiolite nuclear imaging status post realignment, normalization, and attenuation correction demonstrate the appearance of a small area of subtle diminished tracer uptake near the apical segments without significant change between rest and stress. There is end systolic thickening and brightening. The gated Cardiolite study demonstrates myocardial thickening and inward wall motion. The reported LVEF is 77 %. Impression: 1. Rest and stress SPECT currently nuclear imaging demonstrate a small area of subtle diminished tracer uptake near the apical segments without significant change between rest and stress appearing compatible with physiologic apical thinning with no myocardial perfusion changes consider diagnostic for associated stress-induced myocardial ischemia or previous myocardial injury/infarction. 2. The gated Cardiolite study reports an LVEF of 77 %. This note was generated with [employer] software. It may contain incorrect words, spelling, and punctuation that were not noted in checking the note before signing.
--- NOTE | 2017-10-02 13:36 | CASEMGMT ---
Addendum entered by Kelsi Nesbitt 10/02/17 16:57: Pt dgt in law here and asking about d/c plan. Pt present and gave SW permission to review d/c plan with dil. Information provided. She is agreeable to inpt rehab when medically ready. YANET Byrnes Original Note: Addendum entered by Kelsi Nesbitt 10/02/17 13:51: Return call from pt son and discharge plan discussed. Pt son agreeable to Inpt rehab upon discharge. SW will follow. YANET Byrnes Original Note: Social Work Met with pt in room to discuss discharge plan. Pt stating he lives in a home that is attached to his son yousuf's home and is alone during the day. Reviewed therapy notes with pt and pt agreed that he could not return home in his current state. SW presented option on inpatient rehab unit with pt as he does have a diagnosis of Parkinsons. Provided written and verbal information and pt is agreeable to inpt rehab upon d/c. Pt aware he will need to complete 3 hours of therapy a day. With pt permission, phone call placed to son Yousuf to discuss d/c plan. VM left requesting return call. Referral made to [facility] in Inpt Rehab. SW will continue to follow for post acute placement. Plan: Inpatient Rehab, pending approval YANET Byrnes
[2017-10-02] MEDS: Menthol/Lanolin/Calamine/Znox 113 GM Tube 1 APPLIC TOPICAL ×2 (14:26→21:53)
--- NOTE | 2017-10-02 16:15 | PCM.PN.HOSP ---
Patient Problems: Active and Suspected Problems (Last Updated 07/24/17 @ 17:13 by Slim Haley) Syncope (Acute) Subjective: Patient was seen and examined. Had a stress test today that was negative. Appreciate cardiology consult Pacemaker interrogation reportedly done; repeat to be done today because of questionable incomplete capture. Patient denies feeling dizzy or shortness of breath. Not orthostatic Objective: Physical Exam General: Alert, Oriented x3, Cooperative, No apparent distress HEENT: Atraumatic, PERRLA, EOMI, Normocephalic, sutures over the left brow, mild orbital ridge and periorbital edema Oral: Moist Mucosa Neck: Supple, No JVD, Negative Carotid Bruits Lungs: Clear to auscultation, Normal air movement, Diminished - at the lung bases Cardiovascular: Regular rate, Regular Rhythm, Normal S1, Normal S2, No murmurs Abdomen: Bowel Sounds Present, Soft, Non Tender, Non-Distended, No Hepato-splenomegaly Extremities: No edema Skin: No rashes, No breakdown Musculoskeletal: No Tenderness to Palpation of Joints or Extremities Lymphatic: No Cervical, Supraclavicular, or Inguinal Adenopathy Neurological: Cranial nerves II-XII grossly intact Psych/Mental Status: Normal Affect, Appropriate Vitals/I&O's: Vital Signs Temp Pulse Resp BP Pulse Ox 97.7 F L 60 18 136/68 H 96 10/02/17 15:15 10/02/17 15:20 10/02/17 15:15 10/02/17 15:15 10/02/17 15:15 Oxygen Delivery Method Room Air Weight: 86.1 kg Body Mass Index (BMI) 28.0 Orthostatic Vital Signs Start: 10/02/17 04:47 Freq: q24h Status: Active Protocol: Activity Type Activity Date Activity User E-Sign Co-Sign Detail Recorded Client Recorded Date Recorded By Document 10/02/17 04:47 BAM [id number] 10/02/17 04:48 BAM 10/02/17 04:47 Orthostatic Vitals Standing -Blood Pressure (90/60-120/80) 139/61 H -Extremity Use Left Arm -Pulse Rate (60-100) 62 Sitting -Blood Pressure (90/60-120/80) 150/69 H -Extremity Use Left Arm -Pulse Rate (60-100) 59 L Lying -Blood Pressure (90/60-120/80) 138/63 H -Extremity Use Left Arm -Pulse Rate (60-100) 60 Intake and Output for Last 24 Hours 09/30/17 10/01/17 10/02/17 23:59 23:59 23:59 Intake Total 360 / 360 300 / 300 Output Total 400 / 400 400 / 400 Balance -40 / -40 -100 / -100 Laboratory Results 10/01/17 16:53: Troponin I < 0.015 10/01/17 16:53: Triglycerides 65, Cholesterol 96, LDL Cholesterol 25, VLDL Cholesterol 13, HDL Cholesterol 58 10/02/17 05:15: Sodium 141, Potassium 4.1, Chloride 106, Carbon Dioxide 29.0, Anion Gap 6, BUN 29 H, Creatinine 1.01, Estim Creat Clear Calc 59.31, Est GFR (MDRD) Af Amer 92, Est GFR (MDRD) Non-Af 76, BUN/Creatinine Ratio 28.7 H, Glucose 77, Calcium 8.3 L 10/02/17 05:15: PT 14.3, INR 1.1 Current Medications Acetaminophen (Tylenol) 650 mg PO Q6H PRN PRN PRN Reason: Mild Pain (1-3)/Temp > 100.7 F Last Admin: 10/01/17 23:06 Dose: 650 mg [facility]) [facility] Last Admin: 10/02/17 09:38 Dose: 81 mg Atorvastatin Calcium (Lipitor) 20 mg PO QHS [facility] Last Admin: 10/01/17 23:03 Dose: 20 mg Bisacodyl (Dulcolax) 5 mg PO DAILY PRN PRN PRN Reason: Constipation Calamine/Phenol (Calmoseptine Ointment) 1 applic TOPICAL TID [facility] PRN Reason: Protocol Last Admin: 10/02/17 14:26 Dose: 1 applicatio Carbidopa/Levodopa (Sinemet) 1 tablet PO BIDAC [facility] Last Admin: 10/02/17 09:34 Dose: 1 tablet Clonazepam (Klonopin) 0.5 mg PO QHS [facility] Last Admin: 10/01/17 23:02 Dose: 0.5 mg Donepezil HCl (Aricept) 10 mg PO QHS [facility] Last Admin: 10/01/17 23:02 Dose: 10 mg Famotidine (Pepcid) 20 mg PO QHS [facility] Last Admin: 10/01/17 23:03 Dose: 20 mg Finasteride (Proscar) 5 mg PO DAILY [facility] Last Admin: 10/02/17 09:35 Dose: 5 mg Furosemide (Lasix) 20 mg PO DAILY [facility] Last Admin: 10/02/17 09:35 Dose: 20 mg Heparin Sodium (Porcine) (Heparin Na) 5,000 unit SC Q8 [facility] Last Admin: 10/02/17 14:27 Dose: 5,000 units Isosorbide Mononitrate (Imdur) 30 mg PO QAM [facility] Last Admin: 10/02/17 09:38 Dose: 30 mg Magnesium Hydroxide (Milk Of Magnesia) 30 ml PO DAILY PRN PRN Reason: Constipation Memantine (Namenda) 10 mg PO BID [facility] Last Admin: 10/02/17 09:35 Dose: 10 mg Nutritional Formula (Lactose Free) (Ensure Enlive) 120 ml PO 4X/DAY [facility] Last Admin: 10/02/17 14:39 Dose: 120 ml Ondansetron HCl (Zofran) 4 mg IV Q8H PRN PRN PRN Reason: Nausea Psyllium Hydrophilic Mucilloid (Metamucil) 1 packet PO DAILY PRN PRN PRN Reason: CONSTIPATION Tamsulosin HCl (Flomax) 0.4 mg PO DAILY@1730 [facility] Last Admin: 10/01/17 18:23 Dose: 0.4 mg Tolterodine Tartrate (Detrol La) 2 mg PO DAILY [facility] Last Admin: 10/02/17 09:34 Dose: 2 mg Medical Necessity - Tobacco Use Smoking Status: Former smoker Tobacco Use: Non-smoker Assessment/Plan All Active Problems (Last Updated 07/24/17 @ 17:13 by Slim Haley) Syncope (Acute) 77 year old M with PMHx of CAD s/p CABG, s/p pacemaker for sinus arrest, PAF/Atrial flutter, Parkinson's disease comes in after a syncopal episode. 1. Fall, Syncope, unwitnessed, patient denies syncope but no one was there to confirm, unclear etiology, pacemaker interrogation ongoing, not orthostatic, echo shows EF of 55%, diastolic dysfunction, moderately dilated right ventricle, +1-2 tricuspid regurgitation. Cardiology consulted, will up on recommendations We will continue to monitor telemetry for arrhythmias 2. Traumatic injury to the left eyebrow, status post fall, wound looks clean, will continue with conservative management 3. CAD s/p CABG, on aspirin, simvastatin 4. PAF/atrial flutter, status post pacemaker for sinus arrest, pacemaker interrogation ongoing 5. Parkinson's disease with dementia, on Memantine, clonazepam, Sinemet, Aricept 6. Debility related to recurrent falls from Parkinson's disease, patient was seen by physical and Occupational Therapy and skilled for assisted facility Patient said he will think about it. He is agreeable to go to inpatient rehab. 7. DVT prophylaxis with Heparin subcu Code Visit Inpatient E&M: 02398 Subs Hosp L2
--- NOTE | 2017-10-02 16:22 | PN_ITS ---
Patient Problems: Active and Suspected Problems (Last Updated 07/24/17 @ 17:13 by Slim Haley) Syncope (Acute) Subjective: Patient was seen and examined. Had a stress test today that was negative. Appreciate cardiology consult Pacemaker interrogation reportedly done; repeat to be done today because of questionable incomplete capture. Patient denies feeling dizzy or shortness of breath. Not orthostatic Objective: Physical Exam General: Alert, Oriented x3, Cooperative, No apparent distress HEENT: Atraumatic, PERRLA, EOMI, Normocephalic, sutures over the left brow, mild orbital ridge and periorbital edema Oral: Moist Mucosa Neck: Supple, No JVD, Negative Carotid Bruits Lungs: Clear to auscultation, Normal air movement, Diminished - at the lung bases Cardiovascular: Regular rate, Regular Rhythm, Normal S1, Normal S2, No murmurs Abdomen: Bowel Sounds Present, Soft, Non Tender, Non-Distended, No Hepato- splenomegaly Extremities: No edema Skin: No rashes, No breakdown Musculoskeletal: No Tenderness to Palpation of Joints or Extremities Lymphatic: No Cervical, Supraclavicular, or Inguinal Adenopathy Neurological: Cranial nerves II-XII grossly intact Psych/Mental Status: Normal Affect, Appropriate Vitals/I&O's: Vital Signs Temp Pulse Resp BP Pulse Ox 97.7 F L 60 18 136/68 H 96 10/02/17 15:15 10/02/17 15:20 10/02/17 15:15 10/02/17 15:15 10/02/17 15:15 Oxygen Delivery Method Room Air Weight: 86.1 kg Body Mass Index (BMI) 28.0 Orthostatic Vital Signs Start: 10/02/17 04:47 Freq: q24h Status: Active Protocol: Activity Type Activity Date Activity User E-Sign Co-Sign Detail Recorded Client Recorded Date Recorded By Document 10/02/17 04:47 BAM [id number] 10/02/17 04:48 BAM 10/02/17 04:47 Orthostatic Vitals Standing -Blood Pressure (90/60-120/80) 139/61 H -Extremity Use Left Arm -Pulse Rate (60-100) 62 Sitting -Blood Pressure (90/60-120/80) 150/69 H -Extremity Use Left Arm -Pulse Rate (60-100) 59 L Lying -Blood Pressure (90/60-120/80) 138/63 H -Extremity Use Left Arm -Pulse Rate (60-100) 60 Intake and Output for Last 24 Hours 09/30/17 10/01/17 10/02/17 23:59 23:59 23:59 Intake Total 360 / 360 300 / 300 Output Total 400 / 400 400 / 400 Balance -40 / -40 -100 / -100 Laboratory Results 10/01/17 16:53: Troponin I < 0.015 10/01/17 16:53: Triglycerides 65, Cholesterol 96, LDL Cholesterol 25, VLDL Cholesterol 13, HDL Cholesterol 58 10/02/17 05:15: Sodium 141, Potassium 4.1, Chloride 106, Carbon Dioxide 29.0, Anion Gap 6, BUN 29 H, Creatinine 1.01, Estim Creat Clear Calc 59.31, Est GFR ( MDRD) Af Amer 92, Est GFR (MDRD) Non-Af 76, BUN/Creatinine Ratio 28.7 H, Glucose 77, Calcium 8.3 L 10/02/17 05:15: PT 14.3, INR 1.1 Current Medications Acetaminophen (Tylenol) 650 mg PO Q6H PRN PRN PRN Reason: Mild Pain (1-3)/Temp > 100.7 F Last Admin: 10/01/17 23:06 Dose: 650 mg [facility] Admin: 10/02/17 09:38 Dose: 81 mg Atorvastatin Calcium (Lipitor) 20 mg PO QHS [facility] Last Admin: 10/01/17 23:03 Dose: 20 mg Bisacodyl (Dulcolax) 5 mg PO DAILY PRN PRN PRN Reason: Constipation Calamine/Phenol (Calmoseptine Ointment) 1 applic TOPICAL TID [facility] PRN Reason: Protocol Last Admin: 10/02/17 14:26 Dose: 1 applicatio Carbidopa/Levodopa (Sinemet) 1 tablet PO BIDAC [facility] Last Admin: 10/02/17 09:34 Dose: 1 tablet Clonazepam (Klonopin) 0.5 mg PO QHS [facility] Last Admin: 10/01/17 23:02 Dose: 0.5 mg Donepezil HCl (Aricept) 10 mg PO QHS [facility] Last Admin: 10/01/17 23:02 Dose: 10 mg Famotidine (Pepcid) 20 mg PO QHS [facility] Last Admin: 10/01/17 23:03 Dose: 20 mg Finasteride (Proscar) 5 mg PO DAILY [facility] Last Admin: 10/02/17 09:35 Dose: 5 mg Furosemide (Lasix) 20 mg PO DAILY [facility] Last Admin: 10/02/17 09:35 Dose: 20 mg Heparin Sodium (Porcine) (Heparin Na) 5,000 unit SC Q8 [facility] Last Admin: 10/02/17 14:27 Dose: 5,000 units Isosorbide Mononitrate (Imdur) 30 mg PO QAM [facility] Last Admin: 10/02/17 09:38 Dose: 30 mg Magnesium Hydroxide (Milk Of Magnesia) 30 ml PO DAILY PRN PRN Reason: Constipation Memantine (Namenda) 10 mg PO BID [facility] Last Admin: 10/02/17 09:35 Dose: 10 mg Nutritional Formula (Lactose Free) (Ensure Enlive) 120 ml PO 4X/DAY [facility] Last Admin: 10/02/17 14:39 Dose: 120 ml Ondansetron HCl (Zofran) 4 mg IV Q8H PRN PRN PRN Reason: Nausea Psyllium Hydrophilic Mucilloid (Metamucil) 1 packet PO DAILY PRN PRN PRN Reason: CONSTIPATION Tamsulosin HCl (Flomax) 0.4 mg PO DAILY@1730 [facility] Last Admin: 10/01/17 18:23 Dose: 0.4 mg Tolterodine Tartrate (Detrol La) 2 mg PO DAILY [facility] Last Admin: 10/02/17 09:34 Dose: 2 mg Medical Necessity - Tobacco Use Smoking Status: Former smoker Tobacco Use: Non-smoker Assessment/Plan All Active Problems (Last Updated 07/24/17 @ 17:13 by Slim Haley) Syncope (Acute) 77 year old M with PMHx of CAD s/p CABG, s/p pacemaker for sinus arrest, PAF/ Atrial flutter, Parkinson's disease comes in after a syncopal episode. 1. Fall, Syncope, unwitnessed, patient denies syncope but no one was there to confirm, unclear etiology, pacemaker interrogation ongoing, not orthostatic, echo shows EF of 55%, diastolic dysfunction, moderately dilated right ventricle , +1-2 tricuspid regurgitation. Cardiology consulted, will up on recommendations We will continue to monitor telemetry for arrhythmias 2. Traumatic injury to the left eyebrow, status post fall, wound looks clean, will continue with conservative management 3. CAD s/p CABG, on aspirin, simvastatin 4. PAF/atrial flutter, status post pacemaker for sinus arrest, pacemaker interrogation ongoing 5. Parkinson's disease with dementia, on Memantine, clonazepam, Sinemet, Aricept 6. Debility related to recurrent falls from Parkinson's disease, patient was seen by physical and Occupational Therapy and skilled for [facility] facility Patient said he will think about it. He is agreeable to go to inpatient rehab. 7. DVT prophylaxis with Heparin subcu Code Visit Inpatient E&M: 78980 Subs Hosp L2
[2017-10-02] MEDS: Tamsulosin HCl 0.4 MG Capsule PO (16:59)
[2017-10-02] MEDS: Famotidine 20 MG Tablet PO (21:56)
[2017-10-02] MEDS: Donepezil HCl 10 MG Tablet PO (21:56)
[2017-10-02] MEDS: clonazePAM 0.5 MG Tablet PO (21:56)
[2017-10-02] MEDS: Atorvastatin Calcium 20 MG Tablet PO (21:56)
[2017-10-02] MEDS: Acetaminophen 325 MG Tablet 650 MG PO (21:57)
[2017-10-03] VITALS (9 sets, daily range): BP systolic 109–137; BP diastolic 54–108; PULSE 59–62; RESP 16–18; TEMP 36.4–36.9; O2SAT 95–97
[2017-10-03] MEDS: Heparin Injection (Vial) 5,000 UNIT/ML VIAL 5000 UNIT SC ×2 (05:31→14:47)
[2017-10-03] MEDS: Menthol/Lanolin/Calamine/Znox 113 GM Tube 1 APPLIC TOPICAL ×2 (05:32→14:47)
[2017-10-03] MEDS: Acetaminophen 325 MG Tablet 650 MG PO (05:34)
[2017-10-03] MEDS: Carbidopa/Levodopa 25/100 Tablet PO ×2 (09:05→17:14)
[2017-10-03] MEDS: Aspirin E.C. 81 MG Tablet PO (09:05)
--- NOTE | 2017-10-03 09:08 | CASEMGMT ---
JULIANNE spoke with Rochelle in rehab and she said they will take patient when he is ready. JULIANNE will let her know when patient is ready as soon as JULIANNE finds out. Plan: [facility] 4th floor rehab. Yesica GIBSON
[2017-10-03] MEDS: Isosorbide Mononitrate 30 MG Tablet PO (09:21)
[2017-10-03] MEDS: Memantine Hydrochloride 10 MG Tablet PO (09:21)
[2017-10-03] MEDS: Finasteride 5 MG Tablet PO (09:21)
[2017-10-03] MEDS: Tolterodine Tartrate 2 MG CAP.SA PO (09:21)
[2017-10-03] MEDS: Furosemide 20 MG Tablet PO (09:21)
--- NOTE | 2017-10-03 11:01 | CASEMGMT ---
SW received a call from Rochelle in rehab and she said they are not going to be able to accept patient as therapy does not feel he will be able to do 3 hours of therapy. JULIANNE placed a call to referral line and requested a return call to see if they have any available beds. Yesica EVANS MSW
--- NOTE | 2017-10-03 12:00 | PCM.HP.STD ---
History of Present Illness Date of Admission: 10/03/17 Chief Complaint: Debility Rehab history and physical The patient is a 77 year old M with a history of parkinsonism, well-known to me in the outpatient setting. He is in the hospital as described by the admission H&P as below. He lives at home in an apartment which is attached to his son's house, does have intermittent falls. He was admitted to the hospital as below, and has suffered rapid decrease in his capacities as result of his hospitalization. He is now admitted to the rehab unit with a goal of maximizing his functional independence. Per admit H&P: The patient is a 77 year old M with PMHx of CAD s/p CABG, s/p pacemaker for sinus arrest, PAF/flutter, Parkinson's disease comes in after a syncopal episode. Patient lives with her son but is usually alone. He has a life alert watch. He has been feeling well and is in his usual state of health in the past few days. He lately complains of feeling dizzy, especially on moving. Chest pain or palpitations of fever or chills or nausea or vomiting or diarrhea. Vitals in the ED showed temperature 98.5, heart rate of 16, blood pressure 118/72, respiratory rate of 18, SPO2 97% on room air. Admitting blood work unremarkable. EKG shows paced rhythm, no acute ST-T changes, troponin is negative. CT scan of the brain shows chronic changes. CT scan of the spine shows multilevel degenerative changes. Past Medical History Past Medical History (Chronic Problems): Chronic Problems (Last Updated 07/24/17 @ 17:13 by Slim Haley) Sick sinus syndrome (Chronic) Atrial flutter (Chronic) History of coronary artery stent placement (Chronic) 03/02/08 PTCA/stent to SVG to RCA; 06/30/08 PTCA/stent to SVG to RCA; S/P CABG x 3 (Chronic) CABG, ANG to LAD, saphenous vein graft to OM1 & RCA May 1996; Cardiac pacemaker in situ (Chronic) Permanent Pacemaker insertion 04/20/09; Pacemaker generator change 2001, 04/13/09 Atherosclerotic heart disease of [place] coronary artery without angina pectoris (Chronic) Atrial fibrillation (Chronic) Benign essential hypertension (Chronic) Gastroesophageal reflux disease (Chronic) Hyperlipidemia (Chronic) CKD (chronic kidney disease), stage II (Chronic) Obstructive sleep apnea syndrome (Chronic) Parkinson's disease (Chronic) Medical History: Medical History (Last Updated 07/24/17 @ 17:13 by Slim Haley) Sick sinus syndrome (Chronic) I49.5 Atrial flutter (Chronic) I48.92 Atherosclerotic heart disease of [place] coronary artery without angina pectoris (Chronic) I25.10 Atrial fibrillation (Chronic) I48.91 Benign essential hypertension (Chronic) I10 Hyperlipidemia (Chronic) E78.5 CKD (chronic kidney disease), stage II (Chronic) N18.2 Obstructive sleep apnea syndrome (Chronic) G47.33 Parkinson's disease (Chronic) G20 Diverticulitis K57.92 Hiatal hernia K44.9 Nephrolithiasis N20.0 TIA (transient ischemic attack) Onset Date: ~08/2012 G45.9 Allergies acetaminophen [From Vicodin] Allergy (Verified 10/01/17 09:37) Other hydrocodone bitartrate [From Vicodin] Allergy (Verified 10/01/17 09:37) Other Sulfa (Sulfonamide Antibiotics) Allergy (Verified 10/01/17 09:37) Other Home Medications: Ambulatory Orders Medication Instructions Recorded alfuzosin ER 10 mg tablet,extended 10 mg PO QDAY 02/24/17 release 24 hr aspirin 81 mg tablet,delayed 81 mg PO QDAY 02/24/17 release carbidopa 25 mg-levodopa 100 mg 1 tab PO BID tab 02/24/17 tablet clonazepam 0.5 mg tablet 0.5 mg PO QHS 02/24/17 finasteride 5 mg tablet 5 mg PO QDAY 02/24/17 isosorbide mononitrate ER 30 mg 30 mg PO QAM 02/24/17 tablet,extended release 24 hr memantine 10 mg tablet 10 mg PO BID 02/24/17 oxybutynin chloride ER 5 mg 5 mg PO QDAY 02/24/17 tablet,extended release 24 hr ranitidine 150 mg capsule 150 mg PO QHS 02/24/17 vitamins A,C,Y-teku-mtatbf 14,320 1 cap PO QDAY ea 02/24/17 unit-226 mg-200 unit capsule donepezil 10 mg tablet 10 mg PO QHS 02/25/17 furosemide 20 mg tablet 20 mg PO QDAY #90 tab 08/05/17 simvastatin 40 mg tablet 40 mg PO QPM #90 tab 09/08/17 Surgical History: Surgical History (Last Updated 07/24/17 @ 17:14 by Slim Haley) History of coronary artery stent placement (Chronic) Z95.5 03/02/08 PTCA/stent to SVG to RCA; 06/30/08 PTCA/stent to SVG to RCA; S/P CABG x 3 (Chronic) Z95.1 CABG, AGN to LAD, saphenous vein graft to OM1 & RCA May 1996; Cardiac pacemaker in situ (Chronic) Z95.0 Permanent Pacemaker insertion 04/20/09; Pacemaker generator change 2001, 04/13/09 History of knee replacement procedure of right knee Z96.651 History of laparoscopic cholecystectomy Z90.49 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, left foot 1954 Surgical History: coronary bypass surgery Lives: With Family Smoking Status: Former smoker Tobacco Use: Non-smoker Alcohol: None Drugs: None Review of Systems Constitutional: Denies: Chills, Fever, Weight Change HEENT: Denies: Head Aches, Sinus Congestion, Sinus Drainage Cardiovascular: Denies: Chest Pain, Palpitations Respiratory: Denies: Cough, Shortness of breath at rest, Sputum production Gastrointestinal: Denies: Abdominal Pain, Nausea, Vomiting Genitourinary: Denies: Dysuria Musculoskeletal: Denies: Joint Pain, Joint Tenderness Skin: Denies: Rash, Wounds Neurological: Denies: Numbness, Tingling, Focal weakness Psychiatric: Denies: Anxiety, Depression, Homicidal Ideations, Suicidal Ideations Hematologic/ Lymphatic: Denies: Easy Bruising, Easy Bleeding VTE Information - Inpt Only VTE Present on Admission: Yes Patient Problems: Active and Suspected Problems (Last Updated 07/24/17 @ 17:13 by Slim Haley) Syncope (Acute) - Physical Exam General: Alert, Oriented x3, Cooperative, No apparent distress Abdomen: Bowel Sounds Present Extremities: No Calf Tenderness Musculoskeletal: No Tenderness to Palpation of Joints or Extremities Neurological: Cranial nerves II-XII grossly intact, - - He has a left eyebrow ecchymosis and sutured laceration. He is very bradycardia thymic, akinetic, with cogwheel rigidity. Vital Signs Temp Pulse Resp BP Pulse Ox 36.9 C 61 16 109/54 L 96 10/03/17 09:10 10/03/17 10:46 10/03/17 09:10 10/03/17 09:10 10/03/17 09:10 Oxygen Delivery Method Room Air Weight: 86.4 kg Body Mass Index (BMI) 28.0 Orthostatic Vital Signs Start: 10/02/17 04:47 Freq: q24h Status: Active Protocol: Activity Type Activity Date Activity User E-Sign Co-Sign Detail Recorded Client Recorded Date Recorded By Document 10/03/17 05:42 KDB [id number] 10/03/17 05:56 KDB 10/03/17 05:42 Orthostatic Vitals Standing -Blood Pressure (90/60-120/80) 137/108 H -Extremity Use Right Arm -Pulse Rate (60-100) 62 Sitting -Blood Pressure (90/60-120/80) 113/60 -Extremity Use Right Arm -Pulse Rate (60-100) 60 Lying -Blood Pressure (90/60-120/80) 132/63 H -Extremity Use Right Arm -Pulse Rate (60-100) 60 Intake and Output for Last 24 Hours 10/01/17 10/02/17 10/03/17 23:59 23:59 23:59 Intake Total 360 / 360 920 / 920 Output Total 400 / 400 700 / 700 Balance -40 / -40 220 / 220 Current Home Med List Medication Instructions Recorded Confirmed Type alfuzosin ER 10 mg tablet,extended 10 mg PO QDAY 02/24/17 10/01/17 History release 24 hr aspirin 81 mg tablet,delayed 81 mg PO QDAY 02/24/17 10/01/17 History release carbidopa 25 mg-levodopa 100 mg 1 tab PO BID tab 02/24/17 10/01/17 History tablet clonazepam 0.5 mg tablet 0.5 mg PO QHS 02/24/17 10/01/17 History finasteride 5 mg tablet 5 mg PO QDAY 02/24/17 10/01/17 History isosorbide mononitrate ER 30 mg 30 mg PO QAM 02/24/17 10/01/17 History tablet,extended release 24 hr memantine 10 mg tablet 10 mg PO BID 02/24/17 10/01/17 History oxybutynin chloride ER 5 mg 5 mg PO QDAY 02/24/17 10/01/17 History tablet,extended release 24 hr ranitidine 150 mg capsule 150 mg PO QHS 02/24/17 10/01/17 History vitamins A,C,K-rkxe-fnnifs 14,320 1 cap PO QDAY ea 02/24/17 10/01/17 History unit-226 mg-200 unit capsule donepezil 10 mg tablet 10 mg PO QHS 02/25/17 10/01/17 History furosemide 20 mg tablet 20 mg PO QDAY #90 tab 08/05/17 10/01/17 Rx simvastatin 40 mg tablet 40 mg PO QPM #90 tab 09/08/17 10/01/17 Rx Current Medications Generic Name Dose Route Start Last Admin Trade Name Freq PRN Reason Stop Dose Admin Acetaminophen 650 mg 10/01/17 13:23 10/03/17 05:34 Tylenol PO 650 mg Q6H PRN PRN Administration Mild Pain (1-3)/Temp > 100.7 F Aspirin 81 mg 10/02/17 08:00 10/03/17 09:05 Ecotrin PO 81 mg DAILYCM [facility] Administration Atorvastatin Calcium 20 mg 10/01/17 22:00 10/02/17 21:56 Lipitor PO 20 mg QHS [facility] Administration Bisacodyl 5 mg 10/01/17 13:23 Dulcolax PO DAILY PRN PRN Constipation Calamine/Phenol 1 applic 10/02/17 14:00 10/03/17 05:32 Calmoseptine Ointment TOPICAL 1 applicatio TID [facility] Administration Protocol Carbidopa/Levodopa 1 tablet 10/02/17 07:30 10/03/17 09:05 Sinemet PO 1 tablet BIDAC [facility] Administration Clonazepam 0.5 mg 10/01/17 22:00 10/02/17 21:56 Klonopin PO 0.5 mg QHS [facility] Administration Donepezil HCl 10 mg 10/01/17 22:00 10/02/17 21:56 Aricept PO 10 mg QHS [facility] Administration Famotidine 20 mg 10/01/17 22:00 10/02/17 21:56 Pepcid PO 20 mg QHS [facility] Administration Finasteride 5 mg 10/02/17 10:00 10/03/17 09:21 Proscar PO 5 mg DAILY [facility] Administration Furosemide 20 mg 10/02/17 10:00 10/03/17 09:21 Lasix PO 20 mg DAILY [facility] Administration Heparin Sodium (Porcine) 5,000 unit 10/01/17 22:00 10/03/17 05:31 Heparin Na SC 5,000 units Q8 [facility] Administration Isosorbide Mononitrate 30 mg 10/02/17 10:00 10/03/17 09:21 Imdur PO 30 mg QAM [facility] Administration Magnesium Hydroxide 30 ml 10/01/17 13:23 Milk Of Magnesia PO DAILY PRN Constipation Memantine 10 mg 10/01/17 22:00 10/03/17 09:21 Namenda PO 10 mg BID [facility] Administration Nutritional Formula (Lactose Free) 120 ml 10/02/17 14:00 10/03/17 09:21 Ensure Enlive PO 120 ml 4X/DAY [facility] Administration Ondansetron HCl 4 mg 10/01/17 13:23 Zofran IV Q8H PRN PRN Nausea Psyllium Hydrophilic Mucilloid 1 packet 10/01/17 13:23 Metamucil PO DAILY PRN PRN CONSTIPATION Tamsulosin HCl 0.4 mg 10/01/17 17:30 10/02/17 16:59 Flomax PO 0.4 mg DAILY@1730 [facility] Administration Tolterodine Tartrate 2 mg 10/02/17 10:00 10/03/17 09:21 Detrol La PO 2 mg DAILY [facility] Administration Assessment/Plan All Active Problems (Last Updated 07/24/17 @ 17:13 by Slim Haley) Syncope (Acute) debiltiy due to Parkinson's complicated by orthostatic hypotension status post syncope and fall. Goal of rehab is taoist of prior level functional independence. Plan: Physical therapy for gait and balance Occupational Therapy for ADLs Bowel protocol VT prophylaxis: Lovenox As needed analgesics Parkinsonism: Continue levodopa carbidopa and hydrate as needed Orthostatic hypotension: Can consider Northera
--- NOTE | 2017-10-03 12:04 | HP.PCM_ITS ---
History of Present Illness Date of Admission: 10/03/17 Chief Complaint: Debility Rehab history and physical The patient is a 77 year old M with a history of parkinsonism, well-known to me in the outpatient setting. He is in the hospital as described by the admission H&P as below. He lives at home in an apartment which is attached to his son's house, does have intermittent falls. He was admitted to the hospital as below, and has suffered rapid decrease in his capacities as result of his hospitalization. He is now admitted to the rehab unit with a goal of maximizing his functional independence. Per admit H&P: The patient is a 77 year old M with PMHx of CAD s/p CABG, s/p pacemaker for sinus arrest, PAF/flutter, Parkinson's disease comes in after a syncopal episode. Patient lives with her son but is usually alone. He has a life alert watch. He has been feeling well and is in his usual state of health in the past few days. He lately complains of feeling dizzy, especially on moving. Chest pain or palpitations of fever or chills or nausea or vomiting or diarrhea. Vitals in the ED showed temperature 98.5, heart rate of 16, blood pressure 118/ 72, respiratory rate of 18, SPO2 97% on room air. Admitting blood work unremarkable. EKG shows paced rhythm, no acute ST-T changes, troponin is negative. CT scan of the brain shows chronic changes. CT scan of the spine shows multilevel degenerative changes. Past Medical History Past Medical History (Chronic Problems): Chronic Problems (Last Updated 07/24/17 @ 17:13 by Slim Haley) Sick sinus syndrome (Chronic) Atrial flutter (Chronic) History of coronary artery stent placement (Chronic) 03/02/08 PTCA/stent to SVG to RCA; 06/30/08 PTCA/stent to SVG to RCA; S/P CABG x 3 (Chronic) CABG, ANG to LAD, saphenous vein graft to OM1 & RCA May 1996; Cardiac pacemaker in situ (Chronic) Permanent Pacemaker insertion 04/20/09; Pacemaker generator change 2001, 04/13/09 Atherosclerotic heart disease of [place] coronary artery without angina pectoris (Chronic) Atrial fibrillation (Chronic) Benign essential hypertension (Chronic) Gastroesophageal reflux disease (Chronic) Hyperlipidemia (Chronic) CKD (chronic kidney disease), stage II (Chronic) Obstructive sleep apnea syndrome (Chronic) Parkinson's disease (Chronic) Medical History: Medical History (Last Updated 07/24/17 @ 17:13 by Slim Haley) Sick sinus syndrome (Chronic) I49.5 Atrial flutter (Chronic) I48.92 Atherosclerotic heart disease of [place] coronary artery without angina pectoris (Chronic) I25.10 Atrial fibrillation (Chronic) I48.91 Benign essential hypertension (Chronic) I10 Hyperlipidemia (Chronic) E78.5 CKD (chronic kidney disease), stage II (Chronic) N18.2 Obstructive sleep apnea syndrome (Chronic) G47.33 Parkinson's disease (Chronic) G20 Diverticulitis K57.92 Hiatal hernia K44.9 Nephrolithiasis N20.0 TIA (transient ischemic attack) Onset Date: ~08/2012 G45.9 Allergies acetaminophen [From Vicodin] Allergy (Verified 10/01/17 09:37) Other hydrocodone bitartrate [From Vicodin] Allergy (Verified 10/01/17 09:37) Other Sulfa (Sulfonamide Antibiotics) Allergy (Verified 10/01/17 09:37) Other Home Medications: Ambulatory Orders Medication Instructions Recorded alfuzosin ER 10 mg tablet,extended 10 mg PO QDAY 02/24/17 release 24 hr aspirin 81 mg tablet,delayed 81 mg PO QDAY 02/24/17 release carbidopa 25 mg-levodopa 100 mg 1 tab PO BID tab 02/24/17 tablet clonazepam 0.5 mg tablet 0.5 mg PO QHS 02/24/17 finasteride 5 mg tablet 5 mg PO QDAY 02/24/17 isosorbide mononitrate ER 30 mg 30 mg PO QAM 02/24/17 tablet,extended release 24 hr memantine 10 mg tablet 10 mg PO BID 02/24/17 oxybutynin chloride ER 5 mg 5 mg PO QDAY 02/24/17 tablet,extended release 24 hr ranitidine 150 mg capsule 150 mg PO QHS 02/24/17 vitamins A,C,M-drgu-ywjonj 14,320 1 cap PO QDAY ea 02/24/17 unit-226 mg-200 unit capsule donepezil 10 mg tablet 10 mg PO QHS 02/25/17 furosemide 20 mg tablet 20 mg PO QDAY #90 tab 08/05/17 simvastatin 40 mg tablet 40 mg PO QPM #90 tab 09/08/17 Surgical History: Surgical History (Last Updated 07/24/17 @ 17:14 by Slim Haley) History of coronary artery stent placement (Chronic) Z95.5 03/02/08 PTCA/stent to SVG to RCA; 06/30/08 PTCA/stent to SVG to RCA; S/P CABG x 3 (Chronic) Z95.1 CABG, ANG to LAD, saphenous vein graft to OM1 & RCA May 1996; Cardiac pacemaker in situ (Chronic) Z95.0 Permanent Pacemaker insertion 04/20/09; Pacemaker generator change 2001, 04/13/09 History of knee replacement procedure of right knee Z96.651 History of laparoscopic cholecystectomy Z90.49 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, left foot 1954 Surgical History: coronary bypass surgery Lives: With Family Smoking Status: Former smoker Tobacco Use: Non-smoker Alcohol: None Drugs: None Review of Systems Constitutional: Denies: Chills, Fever, Weight Change HEENT: Denies: Head Aches, Sinus Congestion, Sinus Drainage Cardiovascular: Denies: Chest Pain, Palpitations Respiratory: Denies: Cough, Shortness of breath at rest, Sputum production Gastrointestinal: Denies: Abdominal Pain, Nausea, Vomiting Genitourinary: Denies: Dysuria Musculoskeletal: Denies: Joint Pain, Joint Tenderness Skin: Denies: Rash, Wounds Neurological: Denies: Numbness, Tingling, Focal weakness Psychiatric: Denies: Anxiety, Depression, Homicidal Ideations, Suicidal Ideations Hematologic/ Lymphatic: Denies: Easy Bruising, Easy Bleeding VTE Information - Inpt Only VTE Present on Admission: Yes Patient Problems: Active and Suspected Problems (Last Updated 07/24/17 @ 17:13 by Slim Haley) Syncope (Acute) - Physical Exam General: Alert, Oriented x3, Cooperative, No apparent distress Abdomen: Bowel Sounds Present Extremities: No Calf Tenderness Musculoskeletal: No Tenderness to Palpation of Joints or Extremities Neurological: Cranial nerves II-XII grossly intact, - - He has a left eyebrow ecchymosis and sutured laceration. He is very bradycardia thymic, akinetic, with cogwheel rigidity. Vital Signs Temp Pulse Resp BP Pulse Ox 36.9 C 61 16 109/54 L 96 10/03/17 09:10 10/03/17 10:46 10/03/17 09:10 10/03/17 09:10 10/03/17 09:10 Oxygen Delivery Method Room Air Weight: 86.4 kg Body Mass Index (BMI) 28.0 Orthostatic Vital Signs Start: 10/02/17 04:47 Freq: q24h Status: Active Protocol: Activity Type Activity Date Activity User E-Sign Co-Sign Detail Recorded Client Recorded Date Recorded By Document 10/03/17 05:42 KDB [id number] 10/03/17 05:56 KDB 10/03/17 05:42 Orthostatic Vitals Standing -Blood Pressure (90/60-120/80) 137/108 H -Extremity Use Right Arm -Pulse Rate (60-100) 62 Sitting -Blood Pressure (90/60-120/80) 113/60 -Extremity Use Right Arm -Pulse Rate (60-100) 60 Lying -Blood Pressure (90/60-120/80) 132/63 H -Extremity Use Right Arm -Pulse Rate (60-100) 60 Intake and Output for Last 24 Hours 10/01/17 10/02/17 10/03/17 23:59 23:59 23:59 Intake Total 360 / 360 920 / 920 Output Total 400 / 400 700 / 700 Balance -40 / -40 220 / 220 Current Home Med List Medication Instructions Recorded Confirmed Type alfuzosin ER 10 mg tablet,extended 10 mg PO QDAY 02/24/17 10/01/17 History release 24 hr aspirin 81 mg tablet,delayed 81 mg PO QDAY 02/24/17 10/01/17 History release carbidopa 25 mg-levodopa 100 mg 1 tab PO BID tab 02/24/17 10/01/17 History tablet clonazepam 0.5 mg tablet 0.5 mg PO QHS 02/24/17 10/01/17 History finasteride 5 mg tablet 5 mg PO QDAY 02/24/17 10/01/17 History isosorbide mononitrate ER 30 mg 30 mg PO QAM 02/24/17 10/01/17 History tablet,extended release 24 hr memantine 10 mg tablet 10 mg PO BID 02/24/17 10/01/17 History oxybutynin chloride ER 5 mg 5 mg PO QDAY 02/24/17 10/01/17 History tablet,extended release 24 hr ranitidine 150 mg capsule 150 mg PO QHS 02/24/17 10/01/17 History vitamins A,C,J-swwr-fktajq 14,320 1 cap PO QDAY ea 02/24/17 10/01/17 History unit-226 mg-200 unit capsule donepezil 10 mg tablet 10 mg PO QHS 02/25/17 10/01/17 History furosemide 20 mg tablet 20 mg PO QDAY #90 tab 08/05/17 10/01/17 Rx simvastatin 40 mg tablet 40 mg PO QPM #90 tab 09/08/17 10/01/17 Rx Current Medications Generic Name Dose Route Start Last Admin Trade Name Freq PRN Reason Stop Dose Admin Acetaminophen 650 mg 10/01/17 13:23 10/03/17 05:34 Tylenol PO 650 mg Q6H PRN PRN Administration Mild Pain (1-3)/Temp > 100.7 F Aspirin 81 mg 10/02/17 08:00 10/03/17 09:05 Ecotrin PO 81 mg DAILYCM OCTAVIO Administration Atorvastatin Calcium 20 mg 10/01/17 22:00 10/02/17 21:56 Lipitor PO 20 mg QHS OCTAVIO Administration Bisacodyl 5 mg 10/01/17 13:23 Dulcolax PO DAILY PRN PRN Constipation Calamine/Phenol 1 applic 10/02/17 14:00 10/03/17 05:32 Calmoseptine Ointment TOPICAL 1 applicatio TID OCTAVIO Administration Protocol Carbidopa/Levodopa 1 tablet 10/02/17 07:30 10/03/17 09:05 Sinemet PO 1 tablet BIDAC OCTAVIO Administration Clonazepam 0.5 mg 10/01/17 22:00 10/02/17 21:56 Klonopin PO 0.5 mg QHS OCTAVIO Administration Donepezil HCl 10 mg 10/01/17 22:00 10/02/17 21:56 Aricept PO 10 mg QHS OCTAVIO Administration Famotidine 20 mg 10/01/17 22:00 10/02/17 21:56 Pepcid PO 20 mg QHS OCTAVIO Administration Finasteride 5 mg 10/02/17 10:00 10/03/17 09:21 Proscar PO 5 mg DAILY OCTAVIO Administration Furosemide 20 mg 10/02/17 10:00 10/03/17 09:21 Lasix PO 20 mg DAILY OCTAVIO Administration Heparin Sodium (Porcine) 5,000 unit 10/01/17 22:00 10/03/17 05:31 Heparin Na SC 5,000 units Q8 OCTAVIO Administration Isosorbide Mononitrate 30 mg 10/02/17 10:00 10/03/17 09:21 Imdur PO 30 mg QAM OCTAVIO Administration Magnesium Hydroxide 30 ml 10/01/17 13:23 Milk Of Magnesia PO DAILY PRN Constipation Memantine 10 mg 10/01/17 22:00 10/03/17 09:21 Namenda PO 10 mg BID OCTAVIO Administration Nutritional Formula (Lactose Free) 120 ml 10/02/17 14:00 10/03/17 09:21 Ensure Enlive PO 120 ml 4X/DAY OCTAVIO Administration Ondansetron HCl 4 mg 10/01/17 13:23 Zofran IV Q8H PRN PRN Nausea Psyllium Hydrophilic Mucilloid 1 packet 10/01/17 13:23 Metamucil PO DAILY PRN PRN CONSTIPATION Tamsulosin HCl 0.4 mg 10/01/17 17:30 10/02/17 16:59 Flomax PO 0.4 mg DAILY@1730 OCTAVIO Administration Tolterodine Tartrate 2 mg 10/02/17 10:00 10/03/17 09:21 Detrol La PO 2 mg DAILY OCTAVIO Administration Assessment/Plan All Active Problems (Last Updated 07/24/17 @ 17:13 by Slim Haley) Syncope (Acute) debiltiy due to Parkinson's complicated by orthostatic hypotension status post syncope and fall. Goal of rehab is judaism of prior level functional independence. Plan: Physical therapy for gait and balance Occupational Therapy for ADLs Bowel protocol VT prophylaxis: Lovenox As needed analgesics Parkinsonism: Continue levodopa carbidopa and hydrate as needed Orthostatic hypotension: Can consider Northera
--- NOTE | 2017-10-03 12:38 | PCA ---
Patient has a difficult time with meals today, he keeps trying to feed himself and he begins using the fork properly but than all the food slides off of utensils sat next to patient for breakfast and lunch today for observation purposes i assisted him with both meals at times it was dependently feeding him
--- NOTE | 2017-10-03 13:14 | PN.CARD_ITS ---
Subjectve: Patient laying in bed, no acute distress. Telemetry showed atrial pacing. Stress test negative. Echocardiogram shows normal LV function. Objective: Vital Signs Temp Pulse Resp BP Pulse Ox 98.4 F 61 16 109/54 L 96 10/03/17 09:10 10/03/17 10:46 10/03/17 09:10 10/03/17 09:10 10/03/17 09:10 Oxygen Delivery Method Room Air Weight: 190 lb 7.67 oz Body Mass Index (BMI) 28.0 Orthostatic Vital Signs Start: 10/02/17 04:47 Freq: q24h Status: Active Protocol: Activity Type Activity Date Activity User E-Sign Co-Sign Detail Recorded Client Recorded Date Recorded By Document 10/03/17 05:42 KDB [id number] 10/03/17 05:56 KDB 10/03/17 05:42 Orthostatic Vitals Standing -Blood Pressure (90/60-120/80) 137/108 H -Extremity Use Right Arm -Pulse Rate (60-100) 62 Sitting -Blood Pressure (90/60-120/80) 113/60 -Extremity Use Right Arm -Pulse Rate (60-100) 60 Lying -Blood Pressure (90/60-120/80) 132/63 H -Extremity Use Right Arm -Pulse Rate (60-100) 60 Intake and Output for Last 24 Hours 10/01/17 10/02/17 10/03/17 23:59 23:59 23:59 Intake Total 360 / 360 920 / 920 Output Total 400 / 400 700 / 700 Balance -40 / -40 220 / 220 General: Awake, Alert, Oriented x 3 HEENT: PERRL, EOMI, Sclera Non Icteric Neck: Supple, Good ROM, No Lymph Node Enlargement Lungs: Clear to auscultation Cardiovascular: Irregular Rhythm, Normal S1, Normal S2, No Rubs, No Gallops Murmur Murmur: Grade 2/6, Holosystolic Rhythm: EKG: ECHO: Stress Test: Cardiac Cath: PCI: CT Surgery: Holter monitor: EPS: PPM: CXR: Chest CT Scan: Medical Necessity - Tobacco Use Smoking Status: Former smoker Tobacco Use: Non-smoker Assessment/Plan 1. Status post fall: Patient denies any syncopal event as a result of his fall. However his pacemaker shows an atrial lead that may require revision and may be undergoing incomplete capture. Telemetry shows a paced atrial rhythm with occasional failure to capture. Recommend continuing the patient on telemetry at this time. We will have a more thorough evaluation of his pacemaker later today with additional equipment. If the patient requires revision of his lead he may require transfer to an outside facility for this. Patient had a significant fall causing lacerations and bruising to the left side of his face. Would recommend holding off on any catheterization or intervention until this is healed. Echo today shows intact LV function with an EF of 65%, RVSP of 39 mmHg, mild to moderate TR, no pericardial effusion, no appreciable change from previous echocardiogram in 2010. His orthostatics are negative. Continue antihypertensive medications. 2. Coronary artery disease: The patient denies any anginal symptoms prior to his event. Stress test yesterday was negative for significant ischemia particularly of the inferior wall. Echocardiogram showed normal LV function, and mild pulmonary hypertension. 3. Hyperlipidemia: His LDL and HDL cholesterol are at goal. Continue Lipitor for now. 4. Thank you very much for the opportunity to participate in the cardiac care of your patient. Patient may be transferred back to halfway. Code Visit Inpatient E&M: 72087 Subs Hosp L2
--- NOTE | 2017-10-03 13:20 | CASEMGMT ---
SW spoke w/pt in room, let him know that inpt rehab is not able to take him. Pt agreeable to have SW call his son to discuss other options, though he states he is not sure SW will get a hold of him. SW explained will try. JULIANNE called son, SW explained to son Wander Friedman that now rehab is stating they can not take pt as they do not feel pt can manage 3 hours of therapy per day. Son would be okay with a referral to [facility], but does tell this SW that he thinks pt will do the 3 hours of therapy. JULIANNE called Rochelle and asked her to reconsider she states to speak w/the pt. SW spoke w/the pt about rehab. SW explained that pt would need to participate in 3 hours of therapy per day, broken up throughout the day. SW explained that if pt feels this is too much therapy, we can look into sending pt to a fpc. Pt states he wants to get back to how he was before, states was living in an apartment in his son's home, and did most things for himself. Pt states he has someone who takes him shopping every Friday, he walks through the store and pushes the cart. Pt states he will try and wants to do rehab, does not want to go to a fpc. JULIANNE called Rochelle back in rehab and let her know this, she states they will take pt. SW called son back and let him know that pt is agreeable to try and wants to go to inpt rehab, and does not want to go to a fpc. SW explained spoke to Rochelle again, reviewed what he and pt had said, and they are going to accept pt into inpt rehab when ready. SW explained it will likely be today, son asked SW to let him know when SW knows for certain. SW did also let pt know that rehab will take him, SW let him know that S spoke w/son and let him know also. Pt states understanding. SW will let son know once SW hears from doctor if pt will go to rehab today. MARGIE Dale, [employer]
--- NOTE | 2017-10-03 15:30 | CASEMGMT ---
JULIANNE spoke with physician and she said patient will be d/c to rehab today. JULIANNE called Rochelle in rehab and left her a voice mail letting her know patient is being d/c today. JULIANNE called patient's son and let him know patient will be discharged to rehab today. Plan: [facility] 4th floor rehab unit Yesica GIBSON
--- NOTE | 2017-10-03 15:49 | PCM.DC ---
- Discharge Diagnoses Current Active Problems: Current Active and Chronic Problems (Last Updated 07/24/17 @ 17:13 by Slim Haley) Syncope (Acute) Reason(s) for Visit for Discharge Instructions: Fall, ?Syncope You will use the following diet at home:: Cardiac Your food should be the consistency of: Regular Your liquids should be the consistency of: Regular/Thin Discharge Activity: Return to Normal Activity Allergies/Adverse Reactions: Allergies acetaminophen [From Vicodin] Allergy (Verified 10/01/17 09:37) Other hydrocodone bitartrate [From Vicodin] Allergy (Verified 10/01/17 09:37) Other Sulfa (Sulfonamide Antibiotics) Allergy (Verified 10/01/17 09:37) Other Medications to take at Discharge alfuzosin ER 10 mg tablet,extended release 24 hr 10 mg PO QDAY 02/24/17 aspirin 81 mg tablet,delayed release 81 mg PO QDAY 02/24/17 carbidopa 25 mg-levodopa 100 mg tablet 1 tab PO BID tab 02/24/17 clonazepam 0.5 mg tablet 0.5 mg PO QHS 02/24/17 finasteride 5 mg tablet 5 mg PO QDAY 02/24/17 isosorbide mononitrate ER 30 mg tablet,extended release 24 hr 30 mg PO QAM 02/24/17 memantine 10 mg tablet 10 mg PO BID 02/24/17 oxybutynin chloride ER 5 mg tablet,extended release 24 hr 5 mg PO QDAY 02/24/17 ranitidine 150 mg capsule 150 mg PO QHS 02/24/17 vitamins A,C,N-blrf-pqhrfe 14,320 unit-226 mg-200 unit capsule 1 cap PO QDAY ea 02/24/17 donepezil 10 mg tablet 10 mg PO QHS 02/25/17 furosemide 20 mg tablet 20 mg PO QDAY #90 tab 08/05/17 simvastatin 40 mg tablet 40 mg PO QPM #90 tab 09/08/17 Primary Care Physician: Chris Dean MD [Primary Care Provider] - Please follow up with your Primary Care Physician in: within 2 weeks of discharge Test Results: Test results from this visit will be discussed in further detail at your follow-up appointment, if applicable. Please Follow Up With: Ed Kilgore MD When: in 2 weeks Proposed Discharge Date: 10/03/17
--- NOTE | 2017-10-03 16:48 | PCM.DC.SUM ---
Discharge Date and Diagnosis - Problem List Patient Problems: Active and Suspected Problems (Last Updated 07/24/17 @ 17:13 by Slim Haley) Syncope (Acute) Date of Admission: 10/03/17 Date of Discharge: 10/03/17 - Primary Discharge Diagnosis Active and Suspected Problems (Last Updated 07/24/17 @ 17:13 by Slim Haley) Syncope (Acute) Fall - Secondary Discharge Diagnosis Chronic Problems (Last Updated 07/24/17 @ 17:13 by Slim Haley) Sick sinus syndrome (Chronic) Atrial flutter (Chronic) History of coronary artery stent placement (Chronic) 03/02/08 PTCA/stent to SVG to RCA; 06/30/08 PTCA/stent to SVG to RCA; S/P CABG x 3 (Chronic) CABG, ANG to LAD, saphenous vein graft to OM1 & RCA May 1996; Cardiac pacemaker in situ (Chronic) Permanent Pacemaker insertion 04/20/09; Pacemaker generator change 2001, 04/13/09 Atherosclerotic heart disease of [place] coronary artery without angina pectoris (Chronic) Atrial fibrillation (Chronic) Benign essential hypertension (Chronic) Gastroesophageal reflux disease (Chronic) Hyperlipidemia (Chronic) CKD (chronic kidney disease), stage II (Chronic) Obstructive sleep apnea syndrome (Chronic) Parkinson's disease (Chronic) Hospital Course and Treatment Imaging Results: Clinical Impression(s) from Imaging Studies Brain CT 10/01/17 10:06 IMPRESSION: Chronic involutional changes of the brain. No acute hemorrhage or significant interval change Electronically Signed: Eulogio Fernandez MD at 11:05 EDT , Service support , Cervical Spine CT 10/01/17 10:09 IMPRESSION: Multilevel degenerative changes, as described above. Electronically Signed: Eulogio Fernandez MD at 11:14 EDT , Service support , Chest X-Ray 10/01/17 11:00 IMPRESSION: No acute pulmonary process Electronically Signed: Eulogio Fernandez MD at 11:15 EDT , Service support , Cardiology - Dr. Trejo Operations: None Procedures: None Summary of Care Provided: T77 year old M with PMHx of CAD s/p CABG, s/p pacemaker for sinus arrest, PAF/Atrial flutter, Parkinson's disease comes in after a syncopal episode. 1. Fall, Syncope, unwitnessed, patient denies syncope but no one was there to confirm, unclear etiology, pacemaker interrogation did not review any events, not orthostatic on exam. 2D echo showed EF of 55%, diastolic dysfunction, moderately dilated right ventricle, +1-2 tricuspid regurgitation. Cardiology consulted, will up on recommendations. Cardiology consulted in this admission. Patient to follow-up with Dr. Kilgore in the outpatient 2. Traumatic injury to the left eyebrow, status post fall, wound looks clean, daily wound cleansing without dressing to be done, removal of stitches in a week. 3. CAD s/p CABG, on aspirin, simvastatin 4. PAF/atrial flutter, status post pacemaker for sinus arrest, no events on pacemaker interrogation 5. Parkinson's disease with dementia, on Memantine, clonazepam, Sinemet, Aricept Discharge Diet: Low fat/ Low Cholesterol, 2000 mg Sodium Diet Discharge Activity: Return to Normal Activity Home Medications: Medications to take at Discharge alfuzosin ER 10 mg tablet,extended release 24 hr 10 mg PO QDAY 02/24/17 aspirin 81 mg tablet,delayed release 81 mg PO QDAY 02/24/17 carbidopa 25 mg-levodopa 100 mg tablet 1 tab PO BID tab 02/24/17 clonazepam 0.5 mg tablet 0.5 mg PO QHS 02/24/17 finasteride 5 mg tablet 5 mg PO QDAY 02/24/17 isosorbide mononitrate ER 30 mg tablet,extended release 24 hr 30 mg PO QAM 02/24/17 memantine 10 mg tablet 10 mg PO BID 02/24/17 oxybutynin chloride ER 5 mg tablet,extended release 24 hr 5 mg PO QDAY 02/24/17 ranitidine 150 mg capsule 150 mg PO QHS 02/24/17 vitamins A,C,V-rdom-ezpqwd 14,320 unit-226 mg-200 unit capsule 1 cap PO QDAY ea 02/24/17 donepezil 10 mg tablet 10 mg PO QHS 02/25/17 furosemide 20 mg tablet 20 mg PO QDAY #90 tab 08/05/17 simvastatin 40 mg tablet 40 mg PO QPM #90 tab 09/08/17 Primary Care Physician: Chris Dean MD [Primary Care Provider] - Please follow up with your Primary Care Physician in: within 2 weeks of discharge Please Follow Up With: Ed Kilgore MD When: in 2 weeks Disposition: Inpt Rehab Unit/Facility Minutes spent on discharge:: 40 Patient Condition:: Stable Medical Necessity - Tobacco Use Smoking Status: Former smoker Tobacco Use: Non-smoker Meaningful Use Info Meaningful Use Diagnoses (Choose all that apply): None applicable Code Visit Inpatient E&M: 19605 Disch Hosp
[2017-10-03] MEDS: Tamsulosin HCl 0.4 MG Capsule PO (17:14)
== END 2017-10-03 18:07 | DRG 312 ==
LOC: ED 11:36 → PCU 12:43
PROVIDERS: Internal Medicine Cardiovascular Disease; Admitting Provider Internal Medicine; Emergency Provider Emergency Medicine; Family Provider Internal Medicine; PCP Internal Medicine; Visit Provider Internal Medicine
DX: R55 Syncope and collapse (principal); I48.92 Unspecified atrial flutter; G47.33 Obstructive sleep apnea (adult) (pediatric); K21.9 Gastro-esophageal reflux disease without esophagitis; E78.5 Hyperlipidemia, unspecified; I12.9 Hypertensive chronic kidney disease with stage 1 through stage 4 chronic kidney disease, or unspecified chronic kidney disease; N18.2 Chronic kidney disease, stage 2 (mild); I25.10 Atherosclerotic heart disease of native coronary artery without angina pectoris; I48.0 Paroxysmal atrial fibrillation; G31.83 Neurocognitive disorder with Lewy bodies; F02.80 Dementia in other diseases classified elsewhere, unspecified severity, without behavioral disturbance, psychotic disturbance, mood disturbance, and anxiety; I49.5 Sick sinus syndrome; S01.112A Laceration without foreign body of left eyelid and periocular area, initial encounter; W18.39XA Other fall on same level, initial encounter; Z91.81 History of falling; Z95.1 Presence of aortocoronary bypass graft; Z95.0 Presence of cardiac pacemaker; Z87.891 Personal history of nicotine dependence; Z79.82 Long term (current) use of aspirin; Z79.899 Other long term (current) drug therapy; Z86.73 Personal history of transient ischemic attack (TIA), and cerebral infarction without residual deficits
CPT/HCPCS: 36415; 70450; 71046; 72125; 78452; 80048; 80053; 80061; 81001; 83690; 84484; 85025; 85610; 93005; 93017; 93306; 97110; 97162; 97165; 97530; 97802; 99285; A9500; J7040; Q9957; A4216; C8929; J2785

== ENCOUNTER 2017-10-03 18:45 | Inpatient (IN) | payer MEDICARE, OTHER, SELFPAY ==
[2017-10-03 19:39] VITALS: BP 149/67; PULSE 62; RESP 17; TEMP 36.4; O2SAT 96; BMI 27.6; BMI 27.7
[2017-10-03] MEDS: clonazePAM 0.5 MG Tablet PO (21:46)
[2017-10-03] MEDS: Acetaminophen 325 MG Tablet 650 MG PO (21:46)
[2017-10-03] MEDS: Memantine Hydrochloride 10 MG Tablet PO (21:48)
[2017-10-03] MEDS: Atorvastatin Calcium 20 MG Tablet PO (21:48)
[2017-10-03] MEDS: Famotidine 20 MG Tablet PO (21:48)
[2017-10-03] MEDS: Donepezil HCl 10 MG Tablet PO (21:48)
[2017-10-03] MEDS: Menthol/Lanolin/Calamine/Znox 113 GM Tube 1 APPLIC TOPICAL (21:49)
[2017-10-04] MEDS: Menthol/Lanolin/Calamine/Znox 113 GM Tube 1 APPLIC TOPICAL ×3 (06:29→20:02)
[2017-10-04] MEDS: Acetaminophen 325 MG Tablet 650 MG PO ×2 (06:30→20:04)
--- NOTE | 2017-10-04 06:33 | NURSING ---
c/o chest pain when coughing. Coughing only noted this am. Denies chest pain when not coughing. No diaphoresis, nausea. Tylenol given for pain
[2017-10-04] MEDS: Carbidopa/Levodopa 25/100 Tablet PO ×2 (07:42→18:02)
[2017-10-04] MEDS: Memantine Hydrochloride 10 MG Tablet PO ×2 (07:42→20:01)
[2017-10-04] MEDS: Tolterodine Tartrate 2 MG CAP.SA PO (07:42)
[2017-10-04] MEDS: Furosemide 20 MG Tablet PO (07:42)
[2017-10-04] MEDS: Isosorbide Mononitrate 30 MG Tablet PO (07:42)
[2017-10-04] MEDS: Aspirin E.C. 81 MG Tablet PO (07:42)
[2017-10-04] MEDS: Finasteride 5 MG Tablet PO (07:52)
[2017-10-04 08:00] LABS: Hematocrit 40.8 % (40-54); Hemoglobin 13.6 g/dl (13.0-16.5); Mean Corp Hgb Conc 33.3 g/gl (32-36); Mean Corpuscular Hgb 30.6 pg (27.0-32.0); Mean Corpuscular Volume 91.7 fL (80-94); Mean Platelet Vol. 10.5 fl (6.2-12.0); Platelet Count 209 K/mm3 (150-450); RBC Distribution Width CV 13.9 % (11.6-14.6); RBC Distribution Width SD 46.2 fl (35.1-43.9); Red Blood Count 4.45 M/mm3 (4.6-6.2); White Blood Count 7.6 K/mm3 (4.4-11.0)
[2017-10-04 08:04] LABS: Scan Indicated on CBC? Y/N NO
[2017-10-04 08:25] VITALS: BP 147/76; PULSE 61; RESP 17; TEMP 36.7; O2SAT 95
[2017-10-04 08:31] LABS: Anion Gap 6 (5-15); BUN 27 mg/dL (7-18); BUN/Creat Ratio 25.7 RATIO (10-20); Calcium,Total 8.6 mg/dL (8.5-10.1); Chloride 104 mmol/L (98-107); Creatinine, Serum 1.05 mg/dL (0.70-1.30); EST Glomerular Filtration Rate 72 mL/min (>60); Est Glom Filt Rate - Afr Amer 88 mL/min (>60); Estimated Creatinine Clearance 55.19 ml/min; Glucose 82 mg/dL (74-106); Sodium Level 139 mmol/L (136-145)
[2017-10-04] MEDS: Enoxaparin 40 MG/0.4 ML Syringe SC (10:33)
[2017-10-04 11:27] VITALS: O2SAT 97
[2017-10-04] MEDS: Magnesium Hydroxide 30 ML UDC PO (13:13)
[2017-10-04] MEDS: Tamsulosin HCl 0.4 MG Capsule PO (18:02)
[2017-10-04 19:46] VITALS: BP 138/67; PULSE 64; RESP 17; TEMP 37; O2SAT 94
[2017-10-04] MEDS: Famotidine 20 MG Tablet PO (20:01)
[2017-10-04] MEDS: clonazePAM 0.5 MG Tablet PO (20:01)
[2017-10-04] MEDS: Senna/Docusate Sodium 1 Tablet 2 TABLET PO (20:02)
[2017-10-04] MEDS: Atorvastatin Calcium 20 MG Tablet PO (20:02)
[2017-10-04] MEDS: Donepezil HCl 10 MG Tablet PO (20:02)
[2017-10-04] MEDS: Bisacodyl 10 MG Suppository RECTAL (22:16)
[2017-10-05] MEDS: Enoxaparin 40 MG/0.4 ML Syringe SC (06:26)
[2017-10-05] MEDS: Menthol/Lanolin/Calamine/Znox 113 GM Tube 1 APPLIC TOPICAL ×3 (06:26→19:54)
[2017-10-05 07:45] VITALS: BP 122/65; PULSE 60; RESP 18; TEMP 36.8; O2SAT 94
[2017-10-05] MEDS: Isosorbide Mononitrate 30 MG Tablet PO (07:48)
[2017-10-05] MEDS: Senna/Docusate Sodium 1 Tablet 2 TABLET PO ×2 (07:48→19:53)
[2017-10-05] MEDS: Finasteride 5 MG Tablet PO (07:48)
[2017-10-05] MEDS: Furosemide 20 MG Tablet PO (07:48)
[2017-10-05] MEDS: Memantine Hydrochloride 10 MG Tablet PO ×2 (07:48→19:54)
[2017-10-05] MEDS: Carbidopa/Levodopa 25/100 Tablet PO ×2 (07:48→16:23)
[2017-10-05] MEDS: Aspirin E.C. 81 MG Tablet PO (07:48)
[2017-10-05] MEDS: Tolterodine Tartrate 2 MG CAP.SA PO (07:49)
--- NOTE | 2017-10-05 13:05 | PCM.PN.HOSP ---
Subjective: Patient was admitted to the rehab on 10/03/17 an episode of fall for which is unclear if he had syncope associated with it. He sustained laceration to the left eyebrow status post suturing. Patient was managed on the telemetry floor with no acute events. Prostatic vitals was negative. Cardiology was consulted. No events were seen on interrogation of the pacemaker. Patient has history of Parkinson's disease and has been having recurrent falls. Vitals/I&O's: Vital Signs Temp Pulse Resp BP Pulse Ox 98.3 F 60 18 122/65 H 94 10/05/17 07:45 10/05/17 07:45 10/05/17 07:45 10/05/17 07:45 10/05/17 07:45 Oxygen Delivery Method Room Air Weight: 84.8 kg Body Mass Index (BMI) 27.6 Intake and Output for Last 24 Hours 10/03/17 10/04/17 10/05/17 23:59 23:59 23:59 Intake Total 120 / 120 Output Total 100 / 100 400 / 400 Balance -100 / -100 -280 / -280 General: Alert, Oriented x3, Cooperative, No apparent distress, - - Slow to respond to questions ,which is not new HEENT: Atraumatic, PERRLA, EOMI, Normocephalic, - Oral: Moist Mucosa Neck: Supple Lungs: Clear to auscultation, Normal air movement Cardiovascular: Regular rate, Regular Rhythm, Normal S1, Normal S2, No murmurs Abdomen: Bowel Sounds Present, Soft, Non Tender, Non-Distended, No Hepato-splenomegaly Extremities: No edema Skin: No rashes, No breakdown Musculoskeletal: No Tenderness to Palpation of Joints or Extremities Lymphatic: No Cervical, Supraclavicular, or Inguinal Adenopathy Neurological: Cranial nerves II-XII grossly intact, Neuro grossly intact, - - Left upper extremity spasticity/cogwheel rigidity with bradycardia and power of about 3-4 out of 5. The rest of his extremities are6 5/5 Psych/Mental Status: Normal Affect, Appropriate Current Medications Acetaminophen (Tylenol) 650 mg PO Q6H PRN PRN PRN Reason: Mild Pain (0-3/10)/Headache Last Admin: 10/04/17 20:04 Dose: 650 mg Aspirin (Ecotrin) 81 mg PO DAILYCM [facility] Last Admin: 10/05/17 07:48 Dose: 81 mg Atorvastatin Calcium (Lipitor) 20 mg PO QHS [facility] Last Admin: 10/04/17 20:02 Dose: 20 mg Bisacodyl (Dulcolax) 10 mg RECTAL .PRN X 1 PRN PRN Reason: Constipation Last Admin: 10/04/17 22:16 Dose: 10 mg Calamine/Phenol (Calmoseptine Ointment) 1 applic TOPICAL TID [facility] PRN Reason: Protocol Last Admin: 10/05/17 06:26 Dose: 1 applicatio Carbidopa/Levodopa (Sinemet) 1 tablet PO 0730,1800 [facility] Last Admin: 10/05/17 07:48 Dose: 1 tablet Clonazepam (Klonopin) 0.5 mg PO QHS [facility] Last Admin: 10/04/17 20:01 Dose: 0.5 mg Donepezil HCl (Aricept) 10 mg PO QHS [facility] Last Admin: 10/04/17 20:02 Dose: 10 mg Enoxaparin Sodium (Lovenox) 40 mg SC DAILY@0600 [facility] Last Admin: 10/05/17 06:26 Dose: 40 mg Famotidine (Pepcid) 20 mg PO QHS [facility] Last Admin: 10/04/17 20:01 Dose: 20 mg Finasteride (Proscar) 5 mg PO DAILY [facility] Last Admin: 10/05/17 07:48 Dose: 5 mg Furosemide (Lasix) 20 mg PO DAILY [facility] Last Admin: 10/05/17 07:48 Dose: 20 mg Isosorbide Mononitrate (Imdur) 30 mg PO QAM [facility] Last Admin: 10/05/17 07:48 Dose: 30 mg Magnesium Hydroxide (Milk Of Magnesia) 30 ml PO .PRN X 1 PRN PRN Reason: Constipation Last Admin: 10/04/17 13:13 Dose: 30 ml Memantine (Namenda) 10 mg PO BID [facility] Last Admin: 10/05/17 07:48 Dose: 10 mg Nutritional Formula (Lactose Free) (Ensure Enlive) 120 ml PO 4X/DAY [facility] Last Admin: 10/05/17 07:48 Dose: 120 ml Senna/Docusate Sodium (Senokot-S, Yodit-Colace) 2 tablet PO BID [facility] Last Admin: 10/05/17 07:48 Dose: 2 tablet Tamsulosin HCl (Flomax) 0.4 mg PO DAILY@1730 [facility] Last Admin: 10/04/17 18:02 Dose: 0.4 mg Tolterodine Tartrate (Detrol La) 2 mg PO DAILY [facility] Last Admin: 10/05/17 07:49 Dose: 2 mg Medical Necessity - Tobacco Use Smoking Status: Former smoker Assessment/Plan All Active Problems (Last Updated 07/24/17 @ 17:13 by Slim Haley) Syncope (Acute) 77 year old M with PMHx of CAD s/p CABG, s/p pacemaker for sinus arrest, PAF/Atrial flutter, Parkinson's disease comes in after a syncopal episode. 1. Debility related to recent fall, history of recurrent falls, history of Parkinson's disease 2. Traumatic injury to the left eyebrow, sustained during fall, wound is clean, will follow up with wound care and removal of stitches in a couple of days. 3. CAD status post CABG, on aspirin and simvastatin, Lasix, Imdur, 4. Paroxysmal atrial fibrillation, 5. Status post pacemaker, recent pacemaker check in recent hospitalization 6. Parkinson's disease with dementia on Memantine, clonazepam, Sinemet, Aricept 7. BPH, overflow incontinence on Flomax and tolterodine 8. DVT prophylaxis - on Lovenox subcu Code Visit Inpatient E&M: 23137 Subs Hosp L2
[2017-10-05] MEDS: Tamsulosin HCl 0.4 MG Capsule PO (16:55)
--- NOTE | 2017-10-05 18:36 | NURSING ---
patient had 2 very small soft stool this shift, rectal check done, soft stool noted. no bm since 09/29/2017 soap suds enema given. patient tolerated well.
[2017-10-05] MEDS: Acetaminophen 325 MG Tablet 650 MG PO (19:53)
[2017-10-05] MEDS: clonazePAM 0.5 MG Tablet PO (19:53)
[2017-10-05] MEDS: Famotidine 20 MG Tablet PO (19:54)
[2017-10-05] MEDS: Donepezil HCl 10 MG Tablet PO (19:54)
[2017-10-05] MEDS: Atorvastatin Calcium 20 MG Tablet PO (19:54)
[2017-10-05 20:04] VITALS: BP 122/69; PULSE 64; RESP 16; TEMP 36.7; O2SAT 96
[2017-10-06] MEDS: Enoxaparin 40 MG/0.4 ML Syringe SC (05:31)
[2017-10-06] MEDS: Menthol/Lanolin/Calamine/Znox 113 GM Tube 1 APPLIC TOPICAL ×3 (05:31→20:43)
[2017-10-06] MEDS: Acetaminophen 325 MG Tablet 650 MG PO ×2 (05:35→13:55)
[2017-10-06 07:25] VITALS: BP 111/55; PULSE 60; RESP 18; TEMP 36.7; O2SAT 92
[2017-10-06] MEDS: Senna/Docusate Sodium 1 Tablet 2 TABLET PO ×2 (07:54→20:44)
[2017-10-06] MEDS: Finasteride 5 MG Tablet PO (07:54)
[2017-10-06] MEDS: Isosorbide Mononitrate 30 MG Tablet PO (07:55)
[2017-10-06] MEDS: Carbidopa/Levodopa 25/100 Tablet PO ×2 (07:55→15:49)
[2017-10-06] MEDS: Tolterodine Tartrate 2 MG CAP.SA PO (07:55)
[2017-10-06] MEDS: Furosemide 20 MG Tablet PO (07:55)
[2017-10-06] MEDS: Aspirin E.C. 81 MG Tablet PO (07:55)
[2017-10-06] MEDS: Memantine Hydrochloride 10 MG Tablet PO ×2 (07:55→20:44)
--- NOTE | 2017-10-06 10:46 | PCM.PN.NEU ---
Subjective: Patient seen and examined. No new events overnight. Having some back pain which is chronic, Tylenol works well for him. Tolerating therapy, denies any dizziness, or weakness. Tolerating regular diet. - Physical Exam General: Alert, Oriented x3, Cooperative HEENT: Atraumatic, PERRLA, EOMI, Normocephalic Neck: Supple, No JVD, Negative Carotid Bruits Lungs: Clear to auscultation, Normal air movement Cardiovascular: Regular rate, No murmurs Abdomen: Bowel Sounds Present, Soft, Non Tender Extremities: No edema, Capillary Refill Less than 3 Seconds Skin: No rashes, No breakdown Musculoskeletal: No Tenderness to Palpation of Joints or Extremities Neurological: Cranial nerves II-XII grossly intact Psych/Mental Status: Normal Affect, Appropriate, Alert and oriented to time, place, person, mood and affect Vital Signs Temp Pulse Resp BP Pulse Ox 98.1 F 60 18 111/55 L 92 10/06/17 07:25 10/06/17 07:25 10/06/17 07:25 10/06/17 07:25 10/06/17 07:25 Oxygen Delivery Method Room Air Weight: 84.8 kg Body Mass Index (BMI) 27.6 Intake and Output for Last 24 Hours 10/04/17 10/05/17 10/06/17 23:59 23:59 23:59 Intake Total 120 / 120 110 / 110 Output Total 400 / 400 Balance -280 / -280 110 / 110 Active Medications Acetaminophen (Tylenol) 650 mg PO Q6H PRN PRN PRN Reason: Mild Pain (0-3/10)/Headache Last Admin: 10/06/17 05:35 Dose: 650 mg [facility] ([facility]) [facility] Last Admin: 10/06/17 07:55 Dose: 81 mg Atorvastatin Calcium (Lipitor) 20 mg PO QHS [facility] Last Admin: 10/05/17 19:54 Dose: 20 mg Bisacodyl (Dulcolax) 10 mg RECTAL .PRN X 1 PRN PRN Reason: Constipation Last Admin: 10/04/17 22:16 Dose: 10 mg Calamine/Phenol (Calmoseptine Ointment) 1 applic TOPICAL TID [facility] PRN Reason: Protocol Last Admin: 10/06/17 05:31 Dose: 1 applicatio Carbidopa/Levodopa (Sinemet) 1 tablet PO 0700,1600 [facility] Last Admin: 10/06/17 07:55 Dose: 1 tablet Clonazepam (Klonopin) 0.5 mg PO QHS [facility] Last Admin: 10/05/17 19:53 Dose: 0.5 mg Donepezil HCl (Aricept) 10 mg PO QHS [facility] Last Admin: 10/05/17 19:54 Dose: 10 mg Enoxaparin Sodium (Lovenox) 40 mg SC DAILY@0600 [facility] Last Admin: 10/06/17 05:31 Dose: 40 mg Famotidine (Pepcid) 20 mg PO QHS [facility] Last Admin: 10/05/17 19:54 Dose: 20 mg Finasteride (Proscar) 5 mg PO DAILY [facility] Last Admin: 10/06/17 07:54 Dose: 5 mg Furosemide (Lasix) 20 mg PO DAILY [facility] Last Admin: 10/06/17 07:55 Dose: 20 mg Isosorbide Mononitrate (Imdur) 30 mg PO QAM [facility] Last Admin: 10/06/17 07:55 Dose: 30 mg Magnesium Hydroxide (Milk Of Magnesia) 30 ml PO .PRN X 1 PRN PRN Reason: Constipation Last Admin: 10/04/17 13:13 Dose: 30 ml Memantine (Namenda) 10 mg PO BID [facility] Last Admin: 10/06/17 07:55 Dose: 10 mg Nutritional Formula (Lactose Free) (Ensure Enlive) 120 ml PO 4X/DAY [facility] Last Admin: 10/06/17 10:01 Dose: 120 ml Senna/Docusate Sodium (Senokot-S, Yodit-Colace) 2 tablet PO BID [facility] Last Admin: 10/06/17 07:54 Dose: 2 tablet Tamsulosin HCl (Flomax) 0.4 mg PO DAILY@1730 [facility] Last Admin: 10/05/17 16:55 Dose: 0.4 mg Tolterodine Tartrate (Detrol La) 2 mg PO DAILY [facility] Last Admin: 10/06/17 07:55 Dose: 2 mg Medical Necessity - Tobacco Use Smoking Status: Former smoker Assessment/Plan All Active Problems (Last Updated 07/24/17 @ 17:13 by Slim Haley) Syncope (Acute) Debility due to Parkinson's complicated by orthostatic hypotension status post syncope and fall. Goal of rehab is yazidi of prior level functional independence. Plan: - Physical therapy for gait and balance - Occupational Therapy for ADLs - Bowel protocol - VT prophylaxis: Lovenox - As needed analgesics - Parkinsonism: Continue levodopa carbidopa and hydrate as needed - Orthostatic hypotension: Can consider Northera - Fall precautions
[2017-10-06 16:48] VITALS: O2SAT 96
[2017-10-06] MEDS: Tamsulosin HCl 0.4 MG Capsule PO (17:33)
[2017-10-06] MEDS: Donepezil HCl 10 MG Tablet PO (20:43)
[2017-10-06] MEDS: Famotidine 20 MG Tablet PO (20:44)
[2017-10-06] MEDS: clonazePAM 0.5 MG Tablet PO (20:44)
[2017-10-06] MEDS: Atorvastatin Calcium 20 MG Tablet PO (20:44)
[2017-10-06 22:00] VITALS: BP 120/68; PULSE 62; RESP 18; TEMP 36.8; O2SAT 94
--- NOTE | 2017-10-07 02:27 | NURSING ---
Reviewed and agree with [employer]IST documentation and FIMs charting.
[2017-10-07] MEDS: Menthol/Lanolin/Calamine/Znox 113 GM Tube 1 APPLIC TOPICAL ×3 (07:30→20:24)
[2017-10-07] MEDS: Enoxaparin 40 MG/0.4 ML Syringe SC (07:30)
[2017-10-07] MEDS: Carbidopa/Levodopa 25/100 Tablet PO ×3 (07:30→17:33)
[2017-10-07 09:17] VITALS: BP 97/53; PULSE 60; RESP 17; TEMP 36.8; O2SAT 95
--- NOTE | 2017-10-07 09:46 | PN.NEURO_ITS ---
Subjective: Patient seen and examined. Became very dizzy orthostatic blood pressures where obtain was severely orthostatic started on Midodrine 2.5 mg, his lasix, and Imdur was held, along with his Flomax. He also complained of chest pains during physical therapy session. He has a pacemaker in place and has an extensive history of coronary artery disease. He said chest pain was fleeting and could only describe the nature of the chest pain. has since resolved, he had a EKG and troponins check. He denies any shortness of breath, blurry vision , or headaches. - Physical Exam General: Alert, Oriented x3, Cooperative HEENT: Atraumatic, PERRLA, EOMI, Normocephalic Neck: Supple, No JVD, Negative Carotid Bruits Lungs: Clear to auscultation, Normal air movement Cardiovascular: Regular rate, No murmurs Abdomen: Bowel Sounds Present, Soft, Non Tender Extremities: No edema, Capillary Refill Less than 3 Seconds Skin: No rashes, No breakdown Musculoskeletal: No Tenderness to Palpation of Joints or Extremities Neurological: Cranial nerves II-XII grossly intact Psych/Mental Status: Normal Affect, Appropriate, Alert and oriented to time, place, person, mood and affect Vital Signs Temp Pulse Resp BP Pulse Ox 98.2 F 60 17 97/53 L 95 10/07/17 09:17 10/07/17 09:17 10/07/17 09:17 10/07/17 09:17 10/07/17 09:17 Oxygen Delivery Method Room Air Weight: 84.8 kg Body Mass Index (BMI) 27.6 Intake and Output for Last 24 Hours 10/05/17 10/06/17 10/07/17 23:59 23:59 23:59 Intake Total 270 / 270 180 / 180 Balance 270 / 270 180 / 180 Active Medications Acetaminophen (Tylenol) 650 mg PO Q6H PRN PRN PRN Reason: Mild Pain (0-3/10)/Headache Last Admin: 10/06/17 13:55 Dose: 650 mg Aspirin (Ecotrin) 81 mg PO DAILYCM [facility] Last Admin: 10/07/17 10:27 Dose: 81 mg Atorvastatin Calcium (Lipitor) 20 mg PO QHS [facility] Last Admin: 10/06/17 20:44 Dose: 20 mg Bisacodyl (Dulcolax) 10 mg RECTAL .PRN X 1 PRN PRN Reason: Constipation Last Admin: 10/04/17 22:16 Dose: 10 mg Calamine/Phenol (Calmoseptine Ointment) 1 applic TOPICAL TID [facility] PRN Reason: Protocol Last Admin: 10/07/17 15:53 Dose: 1 applicatio Carbidopa/Levodopa (Sinemet) 1 tablet PO 0700,1000,1600 [facility] Last Admin: 10/07/17 10:27 Dose: 1 tablet Clonazepam (Klonopin) 0.5 mg PO QHS [facility] Last Admin: 10/06/17 20:44 Dose: 0.5 mg Donepezil HCl (Aricept) 10 mg PO QHS [facility] Last Admin: 10/06/17 20:43 Dose: 10 mg Enoxaparin Sodium (Lovenox) 40 mg SC DAILY@0600 [facility] Last Admin: 10/07/17 07:30 Dose: 40 mg Famotidine (Pepcid) 20 mg PO QHS [facility] Last Admin: 10/06/17 20:44 Dose: 20 mg Finasteride (Proscar) 5 mg PO DAILY [facility] Last Admin: 10/07/17 10:27 Dose: 5 mg Magnesium Hydroxide (Milk Of Magnesia) 30 ml PO .PRN X 1 PRN PRN Reason: Constipation Last Admin: 10/04/17 13:13 Dose: 30 ml Memantine (Namenda) 10 mg PO BID [facility] Last Admin: 10/07/17 10:27 Dose: 10 mg Midodrine (Proamatine) 2.5 mg PO 0700,1100,1600 [facility] Nutritional Formula (Lactose Free) (Ensure Enlive) 120 ml PO 4X/DAY [facility] Last Admin: 10/07/17 15:53 Dose: 120 ml Senna/Docusate Sodium (Senokot-S, Yodit-Colace) 2 tablet PO BID [facility] Last Admin: 10/07/17 10:26 Dose: 2 tablet Sodium Chloride ([place] Nasal [place]) 1 spray NASAL TID PRN PRN PRN Reason: NASAL DRYNESS Tolterodine Tartrate (Detrol La) 2 mg PO DAILY [facility] Last Admin: 10/07/17 10:28 Dose: 2 mg Medical Necessity - Tobacco Use Smoking Status: Former smoker Assessment/Plan All Active Problems (Last Updated 07/24/17 @ 17:13 by Slim Haley) Syncope (Acute) Debility due to Parkinson's complicated by orthostatic hypotension status post syncope and fall. Goal of rehab is quaker of prior level functional independence. Plan: - Physical therapy for gait and balance - Occupational Therapy for ADLs - Bowel protocol - VT prophylaxis: Lovenox - As needed analgesics - Parkinsonism: levodopa carbidopa dosage was increased, continue to hydrate as needed - Orthostatic hypotension: started on Midodrine 2.5mg, 500cc fluid bolus given, his Lasix and Imdur are being held, Hospitalist recommended holding the Flomax as well. - Fall precautions
[2017-10-07 10:17] VITALS: BP 129/73; BP 152/68; BP 65/32; PULSE 60; PULSE 63; PULSE 95
[2017-10-07] MEDS: Senna/Docusate Sodium 1 Tablet 2 TABLET PO ×2 (10:26→20:24)
[2017-10-07] MEDS: Aspirin E.C. 81 MG Tablet PO (10:27)
[2017-10-07] MEDS: Finasteride 5 MG Tablet PO (10:27)
[2017-10-07] MEDS: Memantine Hydrochloride 10 MG Tablet PO ×2 (10:27→20:23)
[2017-10-07] MEDS: Tolterodine Tartrate 2 MG CAP.SA PO (10:28)
[2017-10-07] MEDS: Midodrine HCl 5 MG Tablet 2.5 MG PO ×2 (13:16→16:00)
--- NOTE | 2017-10-07 13:21 | PN_ITS ---
Subjective: Patient seen and examined. He had complained of some chest pain while having physical therapy. He has a pacemaker in place and has an extensive history of coronary artery disease. He said chest pain was fleeting and could only describe the nature of the chest pain. At resolved at time of review. He was in the process of getting an EKG done and troponins check. He denied any fever or chills, any cough or chest pain and shortness of breath, abdominal pain, any diarrhea vomiting. He was also noted to be orthostatics positive today and his Imdur and Lasix were held. Review of systems otherwise negative. Vitals/I&O's: Vital Signs Temp Pulse Resp BP Pulse Ox 98.2 F 63 17 152/68 H 95 10/07/17 09:17 10/07/17 10:17 10/07/17 09:17 10/07/17 10:17 10/07/17 09:17 Oxygen Delivery Method Room Air Weight: 186 lb 15.232 oz Body Mass Index (BMI) 27.6 Orthostatic Vital Signs Start: 10/07/17 10:17 Freq: q24h Status: Active Protocol: Activity Type Activity Date Activity User E-Sign Co-Sign Detail Recorded Client Recorded Date Recorded By Document 10/07/17 10:17 AO [id number] 10/07/17 10:18 AO 10/07/17 10:17 Orthostatic Vitals Standing -Blood Pressure (90/60-120/80) 65/32 L -Pulse Rate (60-100) 95 Sitting -Blood Pressure (90/60-120/80) 129/73 H -Extremity Use Right Arm -Pulse Rate (60-100) 60 Lying -Blood Pressure (90/60-120/80) 152/68 H -Extremity Use Right Arm -Pulse Rate (60-100) 63 Intake and Output for Last 24 Hours 10/05/17 10/06/17 10/07/17 23:59 23:59 23:59 Intake Total 270 / 270 180 / 180 Balance 270 / 270 180 / 180 General: Alert, Oriented x3, Cooperative HEENT: Atraumatic, PERRLA, EOMI, Normocephalic Oral: Moist Mucosa Neck: Supple, No JVD, Negative Carotid Bruits Lungs: Clear to auscultation, Normal air movement, No rhonchi, No wheeze, No rales Cardiovascular: Regular rate, Regular Rhythm, Normal S1, Normal S2, No murmurs, - - pace maker in situ Abdomen: Bowel Sounds Present, Soft, Non Tender, Non-Distended, No Hepato- splenomegaly Extremities: No clubbing, No cyanosis, No edema, Capillary Refill Less than 3 Seconds Skin: No rashes, No breakdown Musculoskeletal: No Tenderness to Palpation of Joints or Extremities Lymphatic: No Cervical, Supraclavicular, or Inguinal Adenopathy Neurological: Cranial nerves II-XII grossly intact, - - resting tremors, mainly of RUE. Psych/Mental Status: Flat Affect Current Medications Acetaminophen (Tylenol) 650 mg PO Q6H PRN PRN PRN Reason: Mild Pain (0-3/10)/Headache Last Admin: 10/06/17 13:55 Dose: 650 mg [facility] Admin: 10/07/17 10:27 Dose: 81 mg Atorvastatin Calcium (Lipitor) 20 mg PO QHS [facility] Last Admin: 10/06/17 20:44 Dose: 20 mg Bisacodyl (Dulcolax) 10 mg RECTAL .PRN X 1 PRN PRN Reason: Constipation Last Admin: 10/04/17 22:16 Dose: 10 mg Calamine/Phenol (Calmoseptine Ointment) 1 applic TOPICAL TID [facility] PRN Reason: Protocol Last Admin: 10/07/17 07:30 Dose: 1 applicatio Carbidopa/Levodopa (Sinemet) 1 tablet PO 0700,1000,1600 [facility] Last Admin: 10/07/17 10:27 Dose: 1 tablet Clonazepam (Klonopin) 0.5 mg PO QHS [facility] Last Admin: 10/06/17 20:44 Dose: 0.5 mg Donepezil HCl (Aricept) 10 mg PO QHS [facility] Last Admin: 10/06/17 20:43 Dose: 10 mg Enoxaparin Sodium (Lovenox) 40 mg SC DAILY@0600 [facility] Last Admin: 10/07/17 07:30 Dose: 40 mg Famotidine (Pepcid) 20 mg PO QHS [facility] Last Admin: 10/06/17 20:44 Dose: 20 mg Finasteride (Proscar) 5 mg PO DAILY [facility] Last Admin: 10/07/17 10:27 Dose: 5 mg Furosemide (Lasix) 20 mg PO DAILY [facility] Last Admin: 10/07/17 11:50 Dose: Not Given Isosorbide Mononitrate (Imdur) 30 mg PO QAM [facility] Last Admin: 10/07/17 11:50 Dose: Not Given Magnesium Hydroxide (Milk Of Magnesia) 30 ml PO .PRN X 1 PRN PRN Reason: Constipation Last Admin: 10/04/17 13:13 Dose: 30 ml Memantine (Namenda) 10 mg PO BID [facility] Last Admin: 10/07/17 10:27 Dose: 10 mg Midodrine (Proamatine) 2.5 mg PO 0700,1100,1600 [facility] Nutritional Formula (Lactose Free) (Ensure Enlive) 120 ml PO 4X/DAY [facility] Last Admin: 10/07/17 10:28 Dose: 120 ml Senna/Docusate Sodium (Senokot-S, Yodit-Colace) 2 tablet PO BID [facility] Last Admin: 10/07/17 10:26 Dose: 2 tablet Sodium Chloride ([place] Nasal [place]) 1 spray NASAL TID PRN PRN PRN Reason: NASAL DRYNESS Tamsulosin HCl (Flomax) 0.4 mg PO DAILY@1730 [facility] Last Admin: 10/06/17 17:33 Dose: 0.4 mg Tolterodine Tartrate (Detrol La) 2 mg PO DAILY [facility] Last Admin: 10/07/17 10:28 Dose: 2 mg Medical Necessity - Tobacco Use Smoking Status: Former smoker Assessment/Plan All Active Problems (Last Updated 07/24/17 @ 17:13 by Slim Haley) Syncope (Acute) 77 year old M with PMHx of CAD s/p CABG, s/p pacemaker for sinus arrest, PAF/ Atrial flutter, Parkinson's disease admitted s/p syncopal episode and frequent falls. 1. Debility due to mechanical fall * has history of frequent falls. May be related to gait imbalance from Parkinson 's disease * fall precautions. * PT/OT on board * will monitor * 3. Traumatic laceration to left eyebrow * stitches clean. Resolving. * will monitor * 3. Chest pain * had a fleeting episode of chest pain today; cannot give much history about the chest pain. * troponin and EKG ordered * 4. paroxysmal atrial fibrillation: rate controlled. stable 5. Orthostatic hypotension: * was severely orthstatic today. Imdur and lasix on hold. Will hold flomax also.Received a bolus of IVF of NS 500cc * started on fludrocortisone today 6. Parkinsons' disease with dementia * on memantine, clonazepam, sinemet and aricept * 7. BPH: on flomax and tolterodine. Will hold flomax o/a of urinary incontinence DVT prophylaxis: lovenox Code status: full code Code Visit Inpatient E&M: 01118 Subs Hosp L2
--- NOTE | 2017-10-07 14:28 | EKG12_ITS ---
Test Reason : CHEST PAIN Blood Pressure : / mmHG Vent. Rate : 060 BPM Atrial Rate : 036 BPM P-R Int : 000 ms QRS Dur : 084 ms QT Int : 408 ms P-R-T Axes : 000 003 -02 degrees QTc Int : 408 ms Electronic atrial pacemaker Confirmed by YAMILETH MURCIA, RADHA ([id number]), communications editor CLAUDIA YOUNG ([id number] on 10/13/2017 3:41:53 PM Referred By: JIMENA Confirmed By:RADHA CARSON MD
[2017-10-07 19:40] VITALS: PULSE 62; RESP 17; O2SAT 95
[2017-10-07 19:42] VITALS: BP 107/61; PULSE 62; RESP 17; TEMP 36.6; O2SAT 95
[2017-10-07] MEDS: Atorvastatin Calcium 20 MG Tablet PO (20:23)
[2017-10-07] MEDS: Donepezil HCl 10 MG Tablet PO (20:23)
[2017-10-07] MEDS: Famotidine 20 MG Tablet PO (20:23)
[2017-10-07] MEDS: clonazePAM 0.5 MG Tablet PO (20:23)
[2017-10-08] MEDS: Enoxaparin 40 MG/0.4 ML Syringe SC (06:11)
[2017-10-08] MEDS: Carbidopa/Levodopa 25/100 Tablet PO ×3 (06:12→16:40)
[2017-10-08] MEDS: Midodrine HCl 5 MG Tablet 2.5 MG PO ×3 (06:12→16:40)
[2017-10-08] MEDS: Menthol/Lanolin/Calamine/Znox 113 GM Tube 1 APPLIC TOPICAL ×3 (06:13→19:54)
[2017-10-08 07:43] VITALS: BP 119/59; PULSE 60; RESP 18; TEMP 36.6; O2SAT 94
[2017-10-08] MEDS: Finasteride 5 MG Tablet PO (07:57)
[2017-10-08] MEDS: Aspirin E.C. 81 MG Tablet PO (07:57)
[2017-10-08] MEDS: Memantine Hydrochloride 10 MG Tablet PO ×2 (07:57→19:55)
[2017-10-08] MEDS: Lactulose 20 GM/30 ML UDC 10 GM PO (07:57)
[2017-10-08] MEDS: Tolterodine Tartrate 2 MG CAP.SA PO (07:57)
[2017-10-08] MEDS: Senna/Docusate Sodium 1 Tablet 2 TABLET PO ×2 (07:57→19:55)
[2017-10-08] MEDS: Polyethylene Glycol 3350 17 GM PACKET PO (07:58)
--- NOTE | 2017-10-08 08:51 | PN.NEURO_ITS ---
Subjective: Patient seen and examined. Tolerating adjustment to his Parkinson's medication , staff feels he is moving slightly better. Was started on Midodrine 2.5mg for positive Orthostatic blood pressures, on Saturday 10/07. - Physical Exam General: Alert, Oriented x3, Cooperative HEENT: Atraumatic, PERRLA, EOMI, Normocephalic Neck: Supple, No JVD, Negative Carotid Bruits Lungs: Clear to auscultation, Normal air movement Cardiovascular: Regular rate, No murmurs Abdomen: Bowel Sounds Present, Soft, Non Tender Extremities: No edema, Capillary Refill Less than 3 Seconds Skin: No rashes, No breakdown Musculoskeletal: No Tenderness to Palpation of Joints or Extremities Neurological: Cranial nerves II-XII grossly intact Psych/Mental Status: Normal Affect, Appropriate, Alert and oriented to time, place, person, mood and affect Vital Signs Temp Pulse Resp BP Pulse Ox 97.9 F 60 18 119/59 L 94 10/08/17 07:43 10/08/17 07:43 10/08/17 07:43 10/08/17 07:43 10/08/17 07:43 Oxygen Delivery Method Room Air Weight: 84.8 kg Body Mass Index (BMI) 27.6 Orthostatic Vital Signs Start: 10/07/17 10:17 Freq: q24h Status: Active Protocol: Activity Type Activity Date Activity User E-Sign Co-Sign Detail Recorded Client Recorded Date Recorded By Document 10/07/17 10:17 AO [id number] 10/07/17 10:18 AO 10/07/17 10:17 Orthostatic Vitals Standing -Blood Pressure (90/60-120/80) 65/32 L -Pulse Rate (60-100) 95 Sitting -Blood Pressure (90/60-120/80) 129/73 H -Extremity Use Right Arm -Pulse Rate (60-100) 60 Lying -Blood Pressure (90/60-120/80) 152/68 H -Extremity Use Right Arm -Pulse Rate (60-100) 63 Intake and Output for Last 24 Hours 10/06/17 10/07/17 10/08/17 23:59 23:59 23:59 Intake Total 270 / 270 420 / 420 Balance 270 / 270 420 / 420 Laboratory Tests Past 24 Hrs 10/07/17 15:00 Troponin I < 0.015 Active Medications Acetaminophen (Tylenol) 650 mg PO Q6H PRN PRN PRN Reason: Mild Pain (0-3/10)/Headache Last Admin: 10/06/17 13:55 Dose: 650 mg [facility]) [facility] Last Admin: 10/08/17 07:57 Dose: 81 mg Atorvastatin Calcium (Lipitor) 20 mg PO QHS [facility] Last Admin: 10/07/17 20:23 Dose: 20 mg Bisacodyl (Dulcolax) 10 mg RECTAL .PRN X 1 PRN PRN Reason: Constipation Last Admin: 10/04/17 22:16 Dose: 10 mg Calamine/Phenol (Calmoseptine Ointment) 1 applic TOPICAL TID [facility] PRN Reason: Protocol Last Admin: 10/08/17 06:13 Dose: 1 applicatio Carbidopa/Levodopa (Sinemet) 1 tablet PO 0700,1000,1600 [facility] Last Admin: 10/08/17 06:12 Dose: 1 tablet Clonazepam (Klonopin) 0.5 mg PO QHS [facility] Last Admin: 10/07/17 20:23 Dose: 0.5 mg Donepezil HCl (Aricept) 10 mg PO QHS [facility] Last Admin: 10/07/17 20:23 Dose: 10 mg Enoxaparin Sodium (Lovenox) 40 mg SC DAILY@0600 [facility] Last Admin: 10/08/17 06:11 Dose: 40 mg Famotidine (Pepcid) 20 mg PO QHS [facility] Last Admin: 10/07/17 20:23 Dose: 20 mg Finasteride (Proscar) 5 mg PO DAILY [facility] Last Admin: 10/08/17 07:57 Dose: 5 mg Lactulose (Chronulac, Cephulac) 10 gm PO DAILY [facility] Last Admin: 10/08/17 07:57 Dose: 10 gm Magnesium Hydroxide (Milk Of Magnesia) 30 ml PO .PRN X 1 PRN PRN Reason: Constipation Last Admin: 10/04/17 13:13 Dose: 30 ml Memantine (Namenda) 10 mg PO BID [facility] Last Admin: 10/08/17 07:57 Dose: 10 mg Midodrine (Proamatine) 2.5 mg PO 0700,1100,1600 [facility] Last Admin: 10/08/17 06:12 Dose: 2.5 mg Nutritional Formula (Lactose Free) (Ensure Enlive) 120 ml PO 4X/DAY [facility] Last Admin: 10/07/17 20:23 Dose: 120 ml Polyethylene Glycol (Miralax) 17 gm PO DAILY [facility] Last Admin: 10/08/17 07:58 Dose: 17 gm Senna/Docusate Sodium (Senokot-S, Yodit-Colace) 2 tablet PO BID [facility] Last Admin: 10/08/17 07:57 Dose: 2 tablet Sodium Chloride ([place] Nasal [place]) 1 spray NASAL TID PRN PRN PRN Reason: NASAL DRYNESS Tolterodine Tartrate (Detrol La) 2 mg PO DAILY [facility] Last Admin: 10/08/17 07:57 Dose: 2 mg Medical Necessity - Tobacco Use Smoking Status: Former smoker Assessment/Plan All Active Problems (Last Updated 07/24/17 @ 17:13 by Slim Haley) Syncope (Acute) Debility due to Parkinson's complicated by orthostatic hypotension status post syncope and fall. Goal of rehab is restorationist of prior level functional independence. Plan: - Physical therapy for gait and balance - Occupational Therapy for ADLs - Bowel protocol - VT prophylaxis: Lovenox - As needed analgesics - Parkinsonism: levodopa carbidopa dosage was increased, continue to hydrate as needed - Orthostatic hypotension: started on Midodrine 2.5mg, 500cc fluid bolus given, his Lasix and Imdur are being held, Hospitalist recommended holding the Flomax as well. - Fall precautions - D/C sutures from left eyebrow on Friday, 10/11
[2017-10-08] MEDS: Acetaminophen 325 MG Tablet 650 MG PO ×2 (09:21→16:41)
[2017-10-08 10:17] VITALS: BP 104/68; BP 122/67; BP 129/60; PULSE 60; PULSE 66; PULSE 74
[2017-10-08 19:45] VITALS: BP 124/74; PULSE 60; RESP 16; TEMP 36.5; O2SAT 95
[2017-10-08] MEDS: clonazePAM 0.5 MG Tablet PO (19:54)
[2017-10-08] MEDS: Donepezil HCl 10 MG Tablet PO (19:54)
[2017-10-08] MEDS: Famotidine 20 MG Tablet PO (19:55)
[2017-10-08] MEDS: Atorvastatin Calcium 20 MG Tablet PO (19:55)
--- NOTE | 2017-10-09 03:14 | NURSING ---
Reviewed and agree with DRIVER UTILITY WORKER documentation and FIMs charting
--- NOTE | 2017-10-09 03:14 | NURSING ---
Pt repositioned to supine position with heels and legs elevated on pillows. Pt Attends dry at this time and pt denies need to urinate.
[2017-10-09] MEDS: Enoxaparin 40 MG/0.4 ML Syringe SC (05:23)
[2017-10-09] MEDS: Menthol/Lanolin/Calamine/Znox 113 GM Tube 1 APPLIC TOPICAL ×3 (05:23→21:06)
[2017-10-09] MEDS: Acetaminophen 325 MG Tablet 650 MG PO ×2 (05:23→21:08)
[2017-10-09] MEDS: Magnesium Hydroxide 30 ML UDC PO (05:25)
[2017-10-09] MEDS: Carbidopa/Levodopa 25/100 Tablet PO ×4 (07:32→16:33)
[2017-10-09] MEDS: Midodrine HCl 5 MG Tablet 2.5 MG PO ×3 (07:32→16:00)
[2017-10-09] MEDS: Aspirin E.C. 81 MG Tablet PO (07:32)
[2017-10-09] MEDS: Lactulose 20 GM/30 ML UDC 10 GM PO (07:33)
[2017-10-09] MEDS: Polyethylene Glycol 3350 17 GM PACKET PO (07:33)
[2017-10-09 08:07] VITALS: PULSE 61; RESP 16; TEMP 36.5; O2SAT 95
[2017-10-09 10:00] VITALS: BP 110/57; BP 114/60; BP 89/45; PULSE 60; PULSE 61; PULSE 68
[2017-10-09] MEDS: Finasteride 5 MG Tablet PO (10:00)
[2017-10-09] MEDS: Tolterodine Tartrate 2 MG CAP.SA PO (10:00)
[2017-10-09] MEDS: Memantine Hydrochloride 10 MG Tablet PO ×2 (10:04→21:02)
--- NOTE | 2017-10-09 14:41 | CASEMGMT ---
Team meeting held. Patient present as well as patient sonWander. No discharge date set at this time. Patient approved 16 Medicare days with a discharge on or by 10/19/17. Patient to continue with further care and treatment on the Inpatient Rehab Unit. Patient with a discharge plan of home vs. SNF. Patient family planning to have chosen possible SNF options by the next team meeting. Patient family declining for this psychosocial rehabilitation counselor to provide patient with a list of SNF's. Plan is to re-team patient next week. Support given. Will continue to follow. Radha HOLT, G[employer]VEL TRUCK DRIVER
--- NOTE | 2017-10-09 15:48 | PCM.PN.NEU ---
Subjective: Staffed in team meeting. Family at bed side, questions answered. With Physical therapy, requires a max assist of 2 - 3 to get in and out of the bed. He is able to walk 200 feet with a walker and assist of 2 with wheel chair follow. With Occupational therapy, he is a total assist for basic care. He is max assist for personal care, he requires 2 persons for toileting due to balance issues. He is minimal assist for feeding, occasionally requiring more help and requiring total feed. With Speech therapy, they will do a meal analysis to see if he would be appropriate for mechanical soft diet. They will continue to do voice therapy. With Nursing, patient was positive for Orthostatic blood pressures, he was started on Midodrine 2.5 mg TID. His Sinemet was increased to QID to help with his freezing episodes and stiffness. Will re-team next 10/16. - Physical Exam General: Alert, Oriented x3, Cooperative HEENT: Atraumatic, PERRLA, EOMI, Normocephalic Neck: Supple, No JVD, Negative Carotid Bruits Lungs: Clear to auscultation, Normal air movement Cardiovascular: Regular rate, No murmurs Abdomen: Bowel Sounds Present, Soft, Non Tender Extremities: No edema, Capillary Refill Less than 3 Seconds Skin: No rashes, No breakdown Musculoskeletal: No Tenderness to Palpation of Joints or Extremities Neurological: Cranial nerves II-XII grossly intact Psych/Mental Status: Normal Affect, Appropriate, Alert and oriented to time, place, person, mood and affect Vital Signs Temp Pulse Resp BP Pulse Ox 97.7 F L 61 16 114/60 95 10/09/17 08:07 10/09/17 10:00 10/09/17 08:07 10/09/17 10:00 10/09/17 08:07 Oxygen Delivery Method Room Air Weight: 84.8 kg Body Mass Index (BMI) 27.6 Orthostatic Vital Signs Start: 10/07/17 10:17 Freq: q24h Status: Active Protocol: Activity Type Activity Date Activity User E-Sign Co-Sign Detail Recorded Client Recorded Date Recorded By Document 10/09/17 10:00 BL [id number] 10/09/17 10:38 BL 10/09/17 10:00 Orthostatic Vitals Standing -Blood Pressure (90/60-120/80) 89/45 L -Extremity Use Right Arm -Pulse Rate (60-100) 68 Sitting -Blood Pressure (90/60-120/80) 110/57 L -Extremity Use Right Arm -Pulse Rate (60-100) 60 Lying -Blood Pressure (90/60-120/80) 114/60 -Extremity Use Right Arm -Pulse Rate (60-100) 61 Intake and Output for Last 24 Hours 10/07/17 10/08/17 10/09/17 23:59 23:59 23:59 Intake Total 420 / 420 200 / 200 Balance 420 / 420 200 / 200 Active Medications Acetaminophen (Tylenol) 650 mg PO Q6H PRN PRN PRN Reason: Mild Pain (0-3/10)/Headache Last Admin: 10/09/17 05:23 Dose: 650 mg [facility] Last Admin: 10/09/17 07:32 Dose: 81 mg Atorvastatin Calcium (Lipitor) 20 mg PO QHS [facility] Last Admin: 10/08/17 19:55 Dose: 20 mg Bisacodyl (Dulcolax) 10 mg RECTAL .PRN X 1 PRN PRN Reason: Constipation Last Admin: 10/04/17 22:16 Dose: 10 mg Calamine/Phenol (Calmoseptine Ointment) 1 applic TOPICAL TID [facility] PRN Reason: Protocol Last Admin: 10/09/17 05:23 Dose: 1 applicatio Carbidopa/Levodopa (Sinemet) 1 tablet PO 0700,1000,1300,1700 [facility] Last Admin: 10/09/17 13:25 Dose: 1 tablet Clonazepam (Klonopin) 0.5 mg PO QHS [facility] Last Admin: 10/08/17 19:54 Dose: 0.5 mg Donepezil HCl (Aricept) 10 mg PO QHS [facility] Last Admin: 10/08/17 19:54 Dose: 10 mg Enoxaparin Sodium (Lovenox) 40 mg SC DAILY@0600 [facility] Last Admin: 10/09/17 05:23 Dose: 40 mg Famotidine (Pepcid) 20 mg PO QHS [facility] Last Admin: 10/08/17 19:55 Dose: 20 mg Finasteride (Proscar) 5 mg PO DAILY [facility] Last Admin: 10/09/17 10:00 Dose: 5 mg Lactulose (Chronulac, Cephulac) 10 gm PO DAILY [facility] Last Admin: 10/09/17 07:33 Dose: 10 gm Loratadine (Claritin) 5 mg PO DAILY PRN PRN Reason: ALLERGIES Magnesium Hydroxide (Milk Of Magnesia) 30 ml PO .PRN X 1 PRN PRN Reason: Constipation Last Admin: 10/09/17 05:25 Dose: 30 ml Memantine (Namenda) 10 mg PO BID [facility] Last Admin: 10/09/17 10:04 Dose: 10 mg Midodrine (Proamatine) 2.5 mg PO 0700,1100,1600 [facility] Last Admin: 10/09/17 11:15 Dose: 2.5 mg Nutritional Formula (Lactose Free) (Ensure Enlive) 120 ml PO 4X/DAY [facility] Last Admin: 10/09/17 14:54 Dose: Not Given Polyethylene Glycol (Miralax) 17 gm PO DAILY [facility] Last Admin: 10/09/17 07:33 Dose: 17 gm Senna/Docusate Sodium (Senokot-S, Yodit-Colace) 2 tablet PO BID [facility] Last Admin: 10/09/17 12:15 Dose: Not Given Sodium Chloride ([place] Nasal [place]) 1 spray NASAL TID PRN PRN PRN Reason: NASAL DRYNESS Tolterodine Tartrate (Detrol La) 2 mg PO DAILY [facility] Last Admin: 10/09/17 10:00 Dose: 2 mg Medical Necessity - Tobacco Use Smoking Status: Former smoker Assessment/Plan All Active Problems (Last Updated 07/24/17 @ 17:13 by Slim Haley) Syncope (Acute) Debility due to Parkinson's complicated by orthostatic hypotension status post syncope and fall. Goal of rehab is muslim of prior level functional independence. Plan: - Physical therapy for gait and balance - Occupational Therapy for ADLs - Bowel protocol - VT prophylaxis: Lovenox - As needed analgesics - Parkinsonism: levodopa carbidopa dosage was increased, continue to hydrate as needed - Orthostatic hypotension: started on Midodrine 2.5mg, 500cc fluid bolus given, his Lasix and Imdur are being held, Hospitalist recommended holding the Flomax as well. - Fall precautions - D/C sutures from left eyebrow on Friday, 10/11 - Meal analysis by speech therapy to assess the appropriateness of a mechanical soft diet.
--- NOTE | 2017-10-09 15:57 | PN.NEURO_ITS ---
Subjective: Staffed in team meeting. Family at bed side, questions answered. With Physical therapy, requires a max assist of 2 - 3 to get in and out of the bed. He is able to walk 200 feet with a walker and assist of 2 with wheel chair follow. With Occupational therapy, he is a total assist for basic care. He is max assist for personal care, he requires 2 persons for toileting due to balance issues. He is minimal assist for feeding, occasionally requiring more help and requiring total feed. With Speech therapy, they will do a meal analysis to see if he would be appropriate for mechanical soft diet. They will continue to do voice therapy. With Nursing, patient was positive for Orthostatic blood pressures, he was started on Midodrine 2.5 mg TID. His Sinemet was increased to QID to help with his freezing episodes and stiffness. Will re-team next 10/16. - Physical Exam General: Alert, Oriented x3, Cooperative HEENT: Atraumatic, PERRLA, EOMI, Normocephalic Neck: Supple, No JVD, Negative Carotid Bruits Lungs: Clear to auscultation, Normal air movement Cardiovascular: Regular rate, No murmurs Abdomen: Bowel Sounds Present, Soft, Non Tender Extremities: No edema, Capillary Refill Less than 3 Seconds Skin: No rashes, No breakdown Musculoskeletal: No Tenderness to Palpation of Joints or Extremities Neurological: Cranial nerves II-XII grossly intact Psych/Mental Status: Normal Affect, Appropriate, Alert and oriented to time, place, person, mood and affect Vital Signs Temp Pulse Resp BP Pulse Ox 97.7 F L 61 16 114/60 95 10/09/17 08:07 10/09/17 10:00 10/09/17 08:07 10/09/17 10:00 10/09/17 08:07 Oxygen Delivery Method Room Air Weight: 84.8 kg Body Mass Index (BMI) 27.6 Orthostatic Vital Signs Start: 10/07/17 10:17 Freq: q24h Status: Active Protocol: Activity Type Activity Date Activity User E-Sign Co-Sign Detail Recorded Client Recorded Date Recorded By Document 10/09/17 10:00 BL [id number] 10/09/17 10:38 BL 10/09/17 10:00 Orthostatic Vitals Standing -Blood Pressure (90/60-120/80) 89/45 L -Extremity Use Right Arm -Pulse Rate (60-100) 68 Sitting -Blood Pressure (90/60-120/80) 110/57 L -Extremity Use Right Arm -Pulse Rate (60-100) 60 Lying -Blood Pressure (90/60-120/80) 114/60 -Extremity Use Right Arm -Pulse Rate (60-100) 61 Intake and Output for Last 24 Hours 10/07/17 10/08/17 10/09/17 23:59 23:59 23:59 Intake Total 420 / 420 200 / 200 Balance 420 / 420 200 / 200 Active Medications Acetaminophen (Tylenol) 650 mg PO Q6H PRN PRN PRN Reason: Mild Pain (0-3/10)/Headache Last Admin: 10/09/17 05:23 Dose: 650 mg [facility] Last Admin: 10/09/17 07:32 Dose: 81 mg Atorvastatin Calcium (Lipitor) 20 mg PO QHS [facility] Last Admin: 10/08/17 19:55 Dose: 20 mg Bisacodyl (Dulcolax) 10 mg RECTAL .PRN X 1 PRN PRN Reason: Constipation Last Admin: 10/04/17 22:16 Dose: 10 mg Calamine/Phenol (Calmoseptine Ointment) 1 applic TOPICAL TID [facility] PRN Reason: Protocol Last Admin: 10/09/17 05:23 Dose: 1 applicatio Carbidopa/Levodopa (Sinemet) 1 tablet PO 0700,1000,1300,1700 [facility] Last Admin: 10/09/17 13:25 Dose: 1 tablet Clonazepam (Klonopin) 0.5 mg PO QHS [facility] Last Admin: 10/08/17 19:54 Dose: 0.5 mg Donepezil HCl (Aricept) 10 mg PO QHS [facility] Last Admin: 10/08/17 19:54 Dose: 10 mg Enoxaparin Sodium (Lovenox) 40 mg SC DAILY@0600 [facility] Last Admin: 10/09/17 05:23 Dose: 40 mg Famotidine (Pepcid) 20 mg PO QHS [facility] Last Admin: 10/08/17 19:55 Dose: 20 mg Finasteride (Proscar) 5 mg PO DAILY [facility] Last Admin: 10/09/17 10:00 Dose: 5 mg Lactulose (Chronulac, Cephulac) 10 gm PO DAILY [facility] Last Admin: 10/09/17 07:33 Dose: 10 gm Loratadine (Claritin) 5 mg PO DAILY PRN PRN Reason: ALLERGIES Magnesium Hydroxide (Milk Of Magnesia) 30 ml PO .PRN X 1 PRN PRN Reason: Constipation Last Admin: 10/09/17 05:25 Dose: 30 ml Memantine (Namenda) 10 mg PO BID [facility] Last Admin: 10/09/17 10:04 Dose: 10 mg Midodrine (Proamatine) 2.5 mg PO 0700,1100,1600 [facility] Last Admin: 10/09/17 11:15 Dose: 2.5 mg Nutritional Formula (Lactose Free) (Ensure Enlive) 120 ml PO 4X/DAY [facility] Last Admin: 10/09/17 14:54 Dose: Not Given Polyethylene Glycol (Miralax) 17 gm PO DAILY [facility] Last Admin: 10/09/17 07:33 Dose: 17 gm Senna/Docusate Sodium (Senokot-S, Yodit-Colace) 2 tablet PO BID [facility] Last Admin: 10/09/17 12:15 Dose: Not Given Sodium Chloride ([place] Nasal [place]) 1 spray NASAL TID PRN PRN PRN Reason: NASAL DRYNESS Tolterodine Tartrate (Detrol La) 2 mg PO DAILY [facility] Last Admin: 10/09/17 10:00 Dose: 2 mg Medical Necessity - Tobacco Use Smoking Status: Former smoker Assessment/Plan All Active Problems (Last Updated 07/24/17 @ 17:13 by Slim Haley) Syncope (Acute) Debility due to Parkinson's complicated by orthostatic hypotension status post syncope and fall. Goal of rehab is protestant of prior level functional independence. Plan: - Physical therapy for gait and balance - Occupational Therapy for ADLs - Bowel protocol - VT prophylaxis: Lovenox - As needed analgesics - Parkinsonism: levodopa carbidopa dosage was increased, continue to hydrate as needed - Orthostatic hypotension: started on Midodrine 2.5mg, 500cc fluid bolus given, his Lasix and Imdur are being held, Hospitalist recommended holding the Flomax as well. - Fall precautions - D/C sutures from left eyebrow on Friday, 10/11 - Meal analysis by speech therapy to assess the appropriateness of a mechanical soft diet.
--- NOTE | 2017-10-09 16:27 | PCM.PN.HOSP ---
Subjective: Patient seen and examined. He was comfortably watching TV and had no complaints. Per nurse, Sinemet increased per neurology. Patient had no complaints and denied any fever, chills, cough, chest pain, SOB, abdominal pain, diarrhea or vomiting. Review of systems otherwise negative. Vitals/I&O's: Vital Signs Temp Pulse Resp BP Pulse Ox 97.7 F L 61 16 114/60 95 10/09/17 08:07 10/09/17 10:00 10/09/17 08:07 10/09/17 10:00 10/09/17 08:07 Oxygen Delivery Method Room Air Weight: 186 lb 15.232 oz Body Mass Index (BMI) 27.6 Orthostatic Vital Signs Start: 10/07/17 10:17 Freq: q24h Status: Active Protocol: Activity Type Activity Date Activity User E-Sign Co-Sign Detail Recorded Client Recorded Date Recorded By Document 10/09/17 10:00 BL [id number] 10/09/17 10:38 BL 10/09/17 10:00 Orthostatic Vitals Standing -Blood Pressure (90/60-120/80) 89/45 L -Extremity Use Right Arm -Pulse Rate (60-100) 68 Sitting -Blood Pressure (90/60-120/80) 110/57 L -Extremity Use Right Arm -Pulse Rate (60-100) 60 Lying -Blood Pressure (90/60-120/80) 114/60 -Extremity Use Right Arm -Pulse Rate (60-100) 61 Intake and Output for Last 24 Hours 10/07/17 10/08/17 10/09/17 23:59 23:59 23:59 Intake Total 420 / 420 200 / 200 Balance 420 / 420 200 / 200 General: Alert, Cooperative, No apparent distress HEENT: Atraumatic, PERRLA, EOMI, Normocephalic Oral: Moist Mucosa Neck: Supple, No JVD, Negative Carotid Bruits Lungs: Clear to auscultation, Normal air movement, No rhonchi, No wheeze, No rales Cardiovascular: Regular rate, Regular Rhythm, Normal S1, Normal S2, No murmurs Abdomen: Bowel Sounds Present, Soft, Non Tender, Non-Distended, No Hepato-splenomegaly Extremities: No clubbing, No cyanosis, No edema, Capillary Refill Less than 3 Seconds Skin: No rashes, No breakdown, - - resolving laceration with stitches on left supraorbital region Musculoskeletal: No Tenderness to Palpation of Joints or Extremities Lymphatic: No Cervical, Supraclavicular, or Inguinal Adenopathy Neurological: Cranial nerves II-XII grossly intact, - - tremors of UEs have improved Current Medications Acetaminophen (Tylenol) 650 mg PO Q6H PRN PRN PRN Reason: Mild Pain (0-3/10)/Headache Last Admin: 10/09/17 05:23 Dose: 650 mg [facility] Last Admin: 10/09/17 07:32 Dose: 81 mg Atorvastatin Calcium (Lipitor) 20 mg PO QHS [facility] Last Admin: 10/08/17 19:55 Dose: 20 mg Bisacodyl (Dulcolax) 10 mg RECTAL .PRN X 1 PRN PRN Reason: Constipation Last Admin: 10/04/17 22:16 Dose: 10 mg Calamine/Phenol (Calmoseptine Ointment) 1 applic TOPICAL TID [facility] PRN Reason: Protocol Last Admin: 10/09/17 16:02 Dose: 1 applicatio Carbidopa/Levodopa (Sinemet) 1 tablet PO 0700,1000,1300,1700 [facility] Last Admin: 10/09/17 13:25 Dose: 1 tablet Clonazepam (Klonopin) 0.5 mg PO QHS [facility] Last Admin: 10/08/17 19:54 Dose: 0.5 mg Donepezil HCl (Aricept) 10 mg PO QHS [facility] Last Admin: 10/08/17 19:54 Dose: 10 mg Enoxaparin Sodium (Lovenox) 40 mg SC DAILY@0600 [facility] Last Admin: 10/09/17 05:23 Dose: 40 mg Famotidine (Pepcid) 20 mg PO QHS [facility] Last Admin: 10/08/17 19:55 Dose: 20 mg Finasteride (Proscar) 5 mg PO DAILY [facility] Last Admin: 10/09/17 10:00 Dose: 5 mg Lactulose (Chronulac, Cephulac) 10 gm PO DAILY [facility] Last Admin: 10/09/17 07:33 Dose: 10 gm Loratadine (Claritin) 5 mg PO DAILY PRN PRN Reason: ALLERGIES Magnesium Hydroxide (Milk Of Magnesia) 30 ml PO .PRN X 1 PRN PRN Reason: Constipation Last Admin: 10/09/17 05:25 Dose: 30 ml Memantine (Namenda) 10 mg PO BID [facility] Last Admin: 10/09/17 10:04 Dose: 10 mg Midodrine (Proamatine) 2.5 mg PO 0700,1100,1600 [facility] Last Admin: 10/09/17 16:00 Dose: 2.5 mg Nutritional Formula (Lactose Free) (Ensure Enlive) 120 ml PO 4X/DAY [facility] Last Admin: 10/09/17 14:54 Dose: Not Given Polyethylene Glycol (Miralax) 17 gm PO DAILY [facility] Last Admin: 10/09/17 07:33 Dose: 17 gm Senna/Docusate Sodium (Senokot-S, Yodit-Colace) 2 tablet PO BID [facility] Last Admin: 10/09/17 12:15 Dose: Not Given Sodium Chloride ([place] Nasal [place]) 1 spray NASAL TID PRN PRN PRN Reason: NASAL DRYNESS Tolterodine Tartrate (Detrol La) 2 mg PO DAILY [facility] Last Admin: 10/09/17 10:00 Dose: 2 mg Medical Necessity - Tobacco Use Smoking Status: Former smoker Assessment/Plan All Active Problems (Last Updated 07/24/17 @ 17:13 by Slim Haley) Syncope (Acute) 77 year old M with PMHx of CAD s/p CABG, s/p pacemaker for sinus arrest, PAF/Atrial flutter, Parkinson's disease admitted s/p syncopal episode and frequent falls. 1. Debility due to mechanical fall has history of frequent falls. May be related to gait imbalance from Parkinson's disease fall precautions. PT/OT on board will monitor 3. Traumatic laceration to left eyebrow Resolving. will monitor 4. paroxysmal atrial fibrillation: rate controlled. stable 5. Orthostatic hypotension: remains orthostatic positive. On midodrine; lasix and imdur remain on hold. 6. Parkinsons' disease with dementia on memantine, clonazepam, sinemet and aricept. Sinemet increased per neurology 7. BPH: on flomax and tolterodine. flomax on hold o/a of orthostatic hypotension. DVT prophylaxis: lovenox Code status: full code Code Visit Inpatient E&M: 47334 Subs Hosp L2
--- NOTE | 2017-10-09 16:31 | PN_ITS ---
Subjective: Patient seen and examined. He was comfortably watching TV and had no complaints. Per nurse, Sinemet increased per neurology. Patient had no complaints and denied any fever, chills, cough, chest pain, SOB, abdominal pain , diarrhea or vomiting. Review of systems otherwise negative. Vitals/I&O's: Vital Signs Temp Pulse Resp BP Pulse Ox 97.7 F L 61 16 114/60 95 10/09/17 08:07 10/09/17 10:00 10/09/17 08:07 10/09/17 10:00 10/09/17 08:07 Oxygen Delivery Method Room Air Weight: 186 lb 15.232 oz Body Mass Index (BMI) 27.6 Orthostatic Vital Signs Start: 10/07/17 10:17 Freq: q24h Status: Active Protocol: Activity Type Activity Date Activity User E-Sign Co-Sign Detail Recorded Client Recorded Date Recorded By Document 10/09/17 10:00 BL [id number] 10/09/17 10:38 BL 10/09/17 10:00 Orthostatic Vitals Standing -Blood Pressure (90/60-120/80) 89/45 L -Extremity Use Right Arm -Pulse Rate (60-100) 68 Sitting -Blood Pressure (90/60-120/80) 110/57 L -Extremity Use Right Arm -Pulse Rate (60-100) 60 Lying -Blood Pressure (90/60-120/80) 114/60 -Extremity Use Right Arm -Pulse Rate (60-100) 61 Intake and Output for Last 24 Hours 10/07/17 10/08/17 10/09/17 23:59 23:59 23:59 Intake Total 420 / 420 200 / 200 Balance 420 / 420 200 / 200 General: Alert, Cooperative, No apparent distress HEENT: Atraumatic, PERRLA, EOMI, Normocephalic Oral: Moist Mucosa Neck: Supple, No JVD, Negative Carotid Bruits Lungs: Clear to auscultation, Normal air movement, No rhonchi, No wheeze, No rales Cardiovascular: Regular rate, Regular Rhythm, Normal S1, Normal S2, No murmurs Abdomen: Bowel Sounds Present, Soft, Non Tender, Non-Distended, No Hepato- splenomegaly Extremities: No clubbing, No cyanosis, No edema, Capillary Refill Less than 3 Seconds Skin: No rashes, No breakdown, - - resolving laceration with stitches on left supraorbital region Musculoskeletal: No Tenderness to Palpation of Joints or Extremities Lymphatic: No Cervical, Supraclavicular, or Inguinal Adenopathy Neurological: Cranial nerves II-XII grossly intact, - - tremors of UEs have improved Current Medications Acetaminophen (Tylenol) 650 mg PO Q6H PRN PRN PRN Reason: Mild Pain (0-3/10)/Headache Last Admin: 10/09/17 05:23 Dose: 650 mg [facility] ([facility]) [facility] Last Admin: 10/09/17 07:32 Dose: 81 mg Atorvastatin Calcium (Lipitor) 20 mg PO QHS [facility] Last Admin: 10/08/17 19:55 Dose: 20 mg Bisacodyl (Dulcolax) 10 mg RECTAL .PRN X 1 PRN PRN Reason: Constipation Last Admin: 10/04/17 22:16 Dose: 10 mg Calamine/Phenol (Calmoseptine Ointment) 1 applic TOPICAL TID [facility] PRN Reason: Protocol Last Admin: 10/09/17 16:02 Dose: 1 applicatio Carbidopa/Levodopa (Sinemet) 1 tablet PO 0700,1000,1300,1700 [facility] Last Admin: 10/09/17 13:25 Dose: 1 tablet Clonazepam (Klonopin) 0.5 mg PO QHS [facility] Last Admin: 10/08/17 19:54 Dose: 0.5 mg Donepezil HCl (Aricept) 10 mg PO QHS [facility] Last Admin: 10/08/17 19:54 Dose: 10 mg Enoxaparin Sodium (Lovenox) 40 mg SC DAILY@0600 [facility] Last Admin: 10/09/17 05:23 Dose: 40 mg Famotidine (Pepcid) 20 mg PO QHS [facility] Last Admin: 10/08/17 19:55 Dose: 20 mg Finasteride (Proscar) 5 mg PO DAILY [facility] Last Admin: 10/09/17 10:00 Dose: 5 mg Lactulose (Chronulac, Cephulac) 10 gm PO DAILY [facility] Last Admin: 10/09/17 07:33 Dose: 10 gm Loratadine (Claritin) 5 mg PO DAILY PRN PRN Reason: ALLERGIES Magnesium Hydroxide (Milk Of Magnesia) 30 ml PO .PRN X 1 PRN PRN Reason: Constipation Last Admin: 10/09/17 05:25 Dose: 30 ml Memantine (Namenda) 10 mg PO BID [facility] Last Admin: 10/09/17 10:04 Dose: 10 mg Midodrine (Proamatine) 2.5 mg PO 0700,1100,1600 [facility] Last Admin: 10/09/17 16:00 Dose: 2.5 mg Nutritional Formula (Lactose Free) (Ensure Enlive) 120 ml PO 4X/DAY [facility] Last Admin: 10/09/17 14:54 Dose: Not Given Polyethylene Glycol (Miralax) 17 gm PO DAILY [facility] Last Admin: 10/09/17 07:33 Dose: 17 gm Senna/Docusate Sodium (Senokot-S, Yodit-Colace) 2 tablet PO BID [facility] Last Admin: 10/09/17 12:15 Dose: Not Given Sodium Chloride ([place] Nasal [place]) 1 spray NASAL TID PRN PRN PRN Reason: NASAL DRYNESS Tolterodine Tartrate (Detrol La) 2 mg PO DAILY [facility] Last Admin: 10/09/17 10:00 Dose: 2 mg Medical Necessity - Tobacco Use Smoking Status: Former smoker Assessment/Plan All Active Problems (Last Updated 07/24/17 @ 17:13 by Slim Haley) Syncope (Acute) 77 year old M with PMHx of CAD s/p CABG, s/p pacemaker for sinus arrest, PAF/ Atrial flutter, Parkinson's disease admitted s/p syncopal episode and frequent falls. 1. Debility due to mechanical fall * has history of frequent falls. May be related to gait imbalance from Parkinson 's disease * fall precautions. * PT/OT on board * will monitor * 3. Traumatic laceration to left eyebrow * Resolving. * will monitor * 4. paroxysmal atrial fibrillation: rate controlled. stable 5. Orthostatic hypotension: * remains orthostatic positive. On midodrine; lasix and imdur remain on hold. 6. Parkinsons' disease with dementia * on memantine, clonazepam, sinemet and aricept. Sinemet increased per neurology * 7. BPH: on flomax and tolterodine. flomax on hold o/a of orthostatic hypotension. DVT prophylaxis: lovenox Code status: full code Code Visit Inpatient E&M: 54271 Subs Hosp L2
[2017-10-09 20:49] VITALS: BP 114/59; PULSE 61; RESP 18; TEMP 36.6; O2SAT 96
[2017-10-09] MEDS: Senna/Docusate Sodium 1 Tablet 2 TABLET PO (21:01)
[2017-10-09] MEDS: Famotidine 20 MG Tablet PO (21:02)
[2017-10-09] MEDS: Donepezil HCl 10 MG Tablet PO (21:02)
[2017-10-09] MEDS: Atorvastatin Calcium 20 MG Tablet PO (21:02)
[2017-10-09] MEDS: clonazePAM 0.5 MG Tablet PO (21:02)
[2017-10-10] MEDS: Enoxaparin 40 MG/0.4 ML Syringe SC (06:21)
[2017-10-10] MEDS: Midodrine HCl 5 MG Tablet 2.5 MG PO ×3 (06:22→16:29)
[2017-10-10] MEDS: Menthol/Lanolin/Calamine/Znox 113 GM Tube 1 APPLIC TOPICAL ×3 (06:23→22:09)
[2017-10-10] MEDS: Carbidopa/Levodopa 25/100 Tablet PO ×4 (06:23→16:29)
[2017-10-10 06:49] VITALS: BP 156/67; BP 159/77; BP 97/47; PULSE 60; PULSE 62; PULSE 98; RESP 16; TEMP 36.6; O2SAT 97
--- NOTE | 2017-10-10 07:02 | NURSING ---
reviewed and agree with charting of Kenya Mccarthy, student nurse
[2017-10-10] MEDS: Aspirin E.C. 81 MG Tablet PO (08:11)
[2017-10-10] MEDS: Lactulose 20 GM/30 ML UDC 10 GM PO (08:11)
[2017-10-10] MEDS: Memantine Hydrochloride 10 MG Tablet PO ×2 (08:12→21:42)
[2017-10-10] MEDS: Tolterodine Tartrate 2 MG CAP.SA PO (08:12)
[2017-10-10] MEDS: Polyethylene Glycol 3350 17 GM PACKET PO (08:12)
[2017-10-10] MEDS: Finasteride 5 MG Tablet PO (08:12)
[2017-10-10] MEDS: Loratadine 10 MG Tablet 5 MG PO (08:13)
--- NOTE | 2017-10-10 16:18 | NURSING ---
right eye sclera reddened. upper eye lid lashes a small amt of moist green drng noted. dr pradhan notified new order for ciprofloxacin eye drops to right eye for total of 5 days.
[2017-10-10] MEDS: Ciprofloxacin 0.3% 2.5ml Bottle 1 DRP RIGHT EYE ×2 (17:51→21:42)
[2017-10-10 19:03] VITALS: BP 123/63; PULSE 60; RESP 20; TEMP 36.4; O2SAT 95
[2017-10-10] MEDS: Famotidine 20 MG Tablet PO (21:41)
[2017-10-10] MEDS: clonazePAM 0.5 MG Tablet PO (21:41)
[2017-10-10] MEDS: Donepezil HCl 10 MG Tablet PO (21:42)
[2017-10-10] MEDS: Atorvastatin Calcium 20 MG Tablet PO (21:42)
[2017-10-10] MEDS: Senna/Docusate Sodium 1 Tablet 2 TABLET PO (21:43)
[2017-10-10 22:00] VITALS: PULSE 60; RESP 15; O2SAT 95
[2017-10-11] MEDS: Ciprofloxacin 0.3% 2.5ml Bottle 1 DRP RIGHT EYE ×6 (02:30→21:19)
[2017-10-11] MEDS: Menthol/Lanolin/Calamine/Znox 113 GM Tube 1 APPLIC TOPICAL ×3 (06:01→21:19)
[2017-10-11] MEDS: Enoxaparin 40 MG/0.4 ML Syringe SC (06:01)
[2017-10-11] MEDS: Midodrine HCl 5 MG Tablet 2.5 MG PO ×3 (06:54→15:55)
[2017-10-11] MEDS: Carbidopa/Levodopa 25/100 Tablet PO ×4 (06:54→16:16)
[2017-10-11 07:06] VITALS: BP 141/74; BP 146/70; BP 94/39; PULSE 60
[2017-10-11] MEDS: Aspirin E.C. 81 MG Tablet PO (09:13)
[2017-10-11] MEDS: Lactulose 20 GM/30 ML UDC 10 GM PO (09:13)
[2017-10-11] MEDS: Tolterodine Tartrate 2 MG CAP.SA PO (09:14)
[2017-10-11] MEDS: Memantine Hydrochloride 10 MG Tablet PO ×2 (09:14→21:18)
[2017-10-11] MEDS: Finasteride 5 MG Tablet PO (09:14)
[2017-10-11] MEDS: Senna/Docusate Sodium 1 Tablet 2 TABLET PO ×2 (09:14→21:18)
[2017-10-11] MEDS: Polyethylene Glycol 3350 17 GM PACKET PO (09:14)
[2017-10-11] MEDS: Loratadine 10 MG Tablet 5 MG PO (09:15)
[2017-10-11 09:30] VITALS: BP 100/59; PULSE 60; RESP 16; TEMP 36.6; O2SAT 93
[2017-10-11 09:52] VITALS: PULSE 60
--- NOTE | 2017-10-11 15:43 | PCM.PN.HOSP ---
Subjective: Patient seen and examined. He was noticed to have a pink right eye yesterday with pus-like discharge, so I started him on ciprofloxacin eye drops. Patient had no complaints and was sitting comfortably watching TV. Per his nurse, patient remains orthostatic positive and neurology has increased his morning dose of midodrine. Review of systems otherwise negative. Right pinkeye is improving and discharges likely resolved. Patient denies any fever chills, cough or chest pain, shortness of breath, any abdominal pain, any diarrhea or vomiting. Review of systems was otherwise negative. Vitals/I&O's: Vital Signs Temp Pulse Resp BP Pulse Ox 97.9 F 60 16 100/59 L 93 10/11/17 09:30 10/11/17 09:52 10/11/17 09:30 10/11/17 09:30 10/11/17 09:30 Oxygen Delivery Method Room Air Weight: 186 lb 15.232 oz Body Mass Index (BMI) 27.6 Orthostatic Vital Signs Start: 10/07/17 10:17 Freq: q24h Status: Active Protocol: Activity Type Activity Date Activity User E-Sign Co-Sign Detail Recorded Client Recorded Date Recorded By Document 10/11/17 07:06 [facility] [id number] 10/11/17 07:17 [facility] 10/11/17 07:06 Orthostatic Vitals Standing -Blood Pressure (90/60-120/80) 94/39 L -Extremity Use Left Arm -Pulse Rate (60-100) 60 Sitting -Blood Pressure (90/60-120/80) 146/70 H -Extremity Use Left Arm -Pulse Rate (60-100) 60 Lying -Blood Pressure (90/60-120/80) 141/74 H -Extremity Use Left Arm -Pulse Rate (60-100) 60 Intake and Output for Last 24 Hours 10/09/17 10/10/17 10/11/17 23:59 23:59 23:59 Intake Total 200 / 200 360 / 360 360 / 360 Output Total 150 / 150 Balance 200 / 200 210 / 210 360 / 360 General: Alert, Oriented x3, Cooperative, No apparent distress HEENT: Atraumatic, PERRLA, EOMI, Normocephalic, - - mild right conjuctival erythema; minimal crusting over right eyelids Oral: Moist Mucosa Neck: Supple, No JVD, Negative Carotid Bruits Lungs: Clear to auscultation, Normal air movement, No rhonchi, No wheeze, No rales Cardiovascular: Regular rate, Regular Rhythm, Normal S1, Normal S2, No murmurs Abdomen: Bowel Sounds Present, Soft, Non Tender, Non-Distended, No Hepato-splenomegaly Extremities: No clubbing, No cyanosis, No edema, Capillary Refill Less than 3 Seconds Skin: No rashes, No breakdown Musculoskeletal: No Tenderness to Palpation of Joints or Extremities Lymphatic: No Cervical, Supraclavicular, or Inguinal Adenopathy Neurological: Cranial nerves II-XII grossly intact, Neuro grossly intact, - - still has mild resting tremors of mainly the LUE Current Medications Acetaminophen (Tylenol) 650 mg PO Q6H PRN PRN PRN Reason: Mild Pain (0-3/10)/Headache Last Admin: 10/09/17 21:08 Dose: 650 mg [facility]) [facility] Last Admin: 10/11/17 09:13 Dose: 81 mg Atorvastatin Calcium (Lipitor) 20 mg PO QHS [facility] Last Admin: 10/10/17 21:42 Dose: 20 mg Bisacodyl (Dulcolax) 10 mg RECTAL .PRN X 1 PRN PRN Reason: Constipation Last Admin: 10/04/17 22:16 Dose: 10 mg Calamine/Phenol (Calmoseptine Ointment) 1 applic TOPICAL TID [facility] PRN Reason: Protocol Last Admin: 10/11/17 14:16 Dose: 1 applicatio Carbidopa/Levodopa (Sinemet) 1 tablet PO 0700,1000,1300,1700 [facility] Last Admin: 10/11/17 12:09 Dose: 1 tablet Ciprofloxacin HCl (Ciloxan) 1 drop RIGHT EYE Q4 [facility] Stop: 10/15/17 18:01 Last Admin: 10/11/17 14:17 Dose: 1 drop Clonazepam (Klonopin) 0.5 mg PO QHS [facility] Last Admin: 10/10/17 21:41 Dose: 0.5 mg Donepezil HCl (Aricept) 10 mg PO QHS [facility] Last Admin: 10/10/17 21:42 Dose: 10 mg Enoxaparin Sodium (Lovenox) 40 mg SC DAILY@0600 [facility] Last Admin: 10/11/17 06:01 Dose: 40 mg Famotidine (Pepcid) 20 mg PO QHS [facility] Last Admin: 10/10/17 21:41 Dose: 20 mg Finasteride (Proscar) 5 mg PO DAILY [facility] Last Admin: 10/11/17 09:14 Dose: 5 mg Lactulose (Chronulac, Cephulac) 10 gm PO DAILY [facility] Last Admin: 10/11/17 09:13 Dose: 10 gm Loratadine (Claritin) 5 mg PO DAILY PRN PRN Reason: ALLERGIES Last Admin: 10/11/17 09:15 Dose: 5 mg Magnesium Hydroxide (Milk Of Magnesia) 30 ml PO .PRN X 1 PRN PRN Reason: Constipation Last Admin: 10/09/17 05:25 Dose: 30 ml Memantine (Namenda) 10 mg PO BID [facility] Last Admin: 10/11/17 09:14 Dose: 10 mg Midodrine (Proamatine) 5 mg PO 0700 [facility] Midodrine (Proamatine) 2.5 mg PO 1100,1600 [facility] Nutritional Formula (Lactose Free) (Ensure Enlive) 120 ml PO 4X/DAY [facility] Last Admin: 10/11/17 14:17 Dose: 120 ml Polyethylene Glycol (Miralax) 17 gm PO DAILY [facility] Last Admin: 10/11/17 09:14 Dose: 17 gm Senna/Docusate Sodium (Senokot-S, Yodit-Colace) 2 tablet PO BID [facility] Last Admin: 10/11/17 09:14 Dose: 2 tablet Sodium Chloride ([place] Nasal [place]) 1 spray NASAL TID PRN PRN PRN Reason: NASAL DRYNESS Tolterodine Tartrate (Detrol La) 2 mg PO DAILY [facility] Last Admin: 10/11/17 09:14 Dose: 2 mg Medical Necessity - Tobacco Use Smoking Status: Former smoker Assessment/Plan All Active Problems (Last Updated 07/24/17 @ 17:13 by Silm Haley) Syncope (Acute) 77 year old M with PMHx of CAD s/p CABG, s/p pacemaker for sinus arrest, PAF/Atrial flutter, Parkinson's disease admitted s/p syncopal episode and frequent falls. 1. Debility due to mechanical fall has history of frequent falls. May be related to gait imbalance from Parkinson's disease fall precautions. PT/OT on board will monitor 2. Bacterial conjuctivitis of right eye erythema and discharge resolving. on ciprofloxacin eye drops to right eye 4x daily-stop date is 10/15/17 4. Traumatic laceration to left eyebrow Resolving. will monitor 5. paroxysmal atrial fibrillation: rate controlled. stable 6. Orthostatic hypotension: remains orthostatic positive. On midodrin per neuro, morning midodrine dose increased. lasix and imdur remain on hold. 6. Parkinsons' disease with dementia on memantine, clonazepam, sinemet and aricept. Sinemet increased per neurology 7. BPH: on flomax and tolterodine. flomax on hold o/a of orthostatic hypotension. DVT prophylaxis: lovenox Code status: full code Code Visit Inpatient E&M: 53933 Subs Hosp L2
--- NOTE | 2017-10-11 15:48 | PN_ITS ---
Subjective: Patient seen and examined. He was noticed to have a pink right eye yesterday with pus-like discharge, so I started him on ciprofloxacin eye drops. Patient had no complaints and was sitting comfortably watching TV. Per his nurse, patient remains orthostatic positive and neurology has increased his morning dose of midodrine. Review of systems otherwise negative. Right pinkeye is improving and discharges likely resolved. Patient denies any fever chills, cough or chest pain, shortness of breath, any abdominal pain, any diarrhea or vomiting. Review of systems was otherwise negative. Vitals/I&O's: Vital Signs Temp Pulse Resp BP Pulse Ox 97.9 F 60 16 100/59 L 93 10/11/17 09:30 10/11/17 09:52 10/11/17 09:30 10/11/17 09:30 10/11/17 09:30 Oxygen Delivery Method Room Air Weight: 186 lb 15.232 oz Body Mass Index (BMI) 27.6 Orthostatic Vital Signs Start: 10/07/17 10:17 Freq: q24h Status: Active Protocol: Activity Type Activity Date Activity User E-Sign Co-Sign Detail Recorded Client Recorded Date Recorded By Document 10/11/17 07:06 [facility] [id number] 10/11/17 07:17 [facility] 10/11/17 07:06 Orthostatic Vitals Standing -Blood Pressure (90/60-120/80) 94/39 L -Extremity Use Left Arm -Pulse Rate (60-100) 60 Sitting -Blood Pressure (90/60-120/80) 146/70 H -Extremity Use Left Arm -Pulse Rate (60-100) 60 Lying -Blood Pressure (90/60-120/80) 141/74 H -Extremity Use Left Arm -Pulse Rate (60-100) 60 Intake and Output for Last 24 Hours 10/09/17 10/10/17 10/11/17 23:59 23:59 23:59 Intake Total 200 / 200 360 / 360 360 / 360 Output Total 150 / 150 Balance 200 / 200 210 / 210 360 / 360 General: Alert, Oriented x3, Cooperative, No apparent distress HEENT: Atraumatic, PERRLA, EOMI, Normocephalic, - - mild right conjuctival erythema; minimal crusting over right eyelids Oral: Moist Mucosa Neck: Supple, No JVD, Negative Carotid Bruits Lungs: Clear to auscultation, Normal air movement, No rhonchi, No wheeze, No rales Cardiovascular: Regular rate, Regular Rhythm, Normal S1, Normal S2, No murmurs Abdomen: Bowel Sounds Present, Soft, Non Tender, Non-Distended, No Hepato- splenomegaly Extremities: No clubbing, No cyanosis, No edema, Capillary Refill Less than 3 Seconds Skin: No rashes, No breakdown Musculoskeletal: No Tenderness to Palpation of Joints or Extremities Lymphatic: No Cervical, Supraclavicular, or Inguinal Adenopathy Neurological: Cranial nerves II-XII grossly intact, Neuro grossly intact, - - still has mild resting tremors of mainly the LUE Current Medications Acetaminophen (Tylenol) 650 mg PO Q6H PRN PRN PRN Reason: Mild Pain (0-3/10)/Headache Last Admin: 10/09/17 21:08 Dose: 650 mg [facility]) [facility] Admin: 10/11/17 09:13 Dose: 81 mg Atorvastatin Calcium (Lipitor) 20 mg PO QHS [facility] Last Admin: 10/10/17 21:42 Dose: 20 mg Bisacodyl (Dulcolax) 10 mg RECTAL .PRN X 1 PRN PRN Reason: Constipation Last Admin: 10/04/17 22:16 Dose: 10 mg Calamine/Phenol (Calmoseptine Ointment) 1 applic TOPICAL TID [facility] PRN Reason: Protocol Last Admin: 10/11/17 14:16 Dose: 1 applicatio Carbidopa/Levodopa (Sinemet) 1 tablet PO 0700,1000,1300,1700 [facility] Last Admin: 10/11/17 12:09 Dose: 1 tablet Ciprofloxacin HCl (Ciloxan) 1 drop RIGHT EYE Q4 [facility] Stop: 10/15/17 18:01 Last Admin: 10/11/17 14:17 Dose: 1 drop Clonazepam (Klonopin) 0.5 mg PO QHS [facility] Last Admin: 10/10/17 21:41 Dose: 0.5 mg Donepezil HCl (Aricept) 10 mg PO QHS [facility] Last Admin: 10/10/17 21:42 Dose: 10 mg Enoxaparin Sodium (Lovenox) 40 mg SC DAILY@0600 [facility] Last Admin: 10/11/17 06:01 Dose: 40 mg Famotidine (Pepcid) 20 mg PO QHS [facility] Last Admin: 10/10/17 21:41 Dose: 20 mg Finasteride (Proscar) 5 mg PO DAILY [facility] Last Admin: 10/11/17 09:14 Dose: 5 mg Lactulose (Chronulac, Cephulac) 10 gm PO DAILY [facility] Last Admin: 10/11/17 09:13 Dose: 10 gm Loratadine (Claritin) 5 mg PO DAILY PRN PRN Reason: ALLERGIES Last Admin: 10/11/17 09:15 Dose: 5 mg Magnesium Hydroxide (Milk Of Magnesia) 30 ml PO .PRN X 1 PRN PRN Reason: Constipation Last Admin: 10/09/17 05:25 Dose: 30 ml Memantine (Namenda) 10 mg PO BID [facility] Last Admin: 10/11/17 09:14 Dose: 10 mg Midodrine (Proamatine) 5 mg PO 0700 [facility] Midodrine (Proamatine) 2.5 mg PO 1100,1600 [facility] Nutritional Formula (Lactose Free) (Ensure Enlive) 120 ml PO 4X/DAY [facility] Last Admin: 10/11/17 14:17 Dose: 120 ml Polyethylene Glycol (Miralax) 17 gm PO DAILY [facility] Last Admin: 10/11/17 09:14 Dose: 17 gm Senna/Docusate Sodium (Senokot-S, Yodit-Colace) 2 tablet PO BID [facility] Last Admin: 10/11/17 09:14 Dose: 2 tablet Sodium Chloride ([place] Nasal [place]) 1 spray NASAL TID PRN PRN PRN Reason: NASAL DRYNESS Tolterodine Tartrate (Detrol La) 2 mg PO DAILY [facility] Last Admin: 10/11/17 09:14 Dose: 2 mg Medical Necessity - Tobacco Use Smoking Status: Former smoker Assessment/Plan All Active Problems (Last Updated 07/24/17 @ 17:13 by Slim Haley) Syncope (Acute) 77 year old M with PMHx of CAD s/p CABG, s/p pacemaker for sinus arrest, PAF/ Atrial flutter, Parkinson's disease admitted s/p syncopal episode and frequent falls. 1. Debility due to mechanical fall * has history of frequent falls. May be related to gait imbalance from Parkinson 's disease * fall precautions. * PT/OT on board * will monitor * 2. Bacterial conjuctivitis of right eye * erythema and discharge resolving. * on ciprofloxacin eye drops to right eye 4x daily-stop date is 10/15/17 * 4. Traumatic laceration to left eyebrow * Resolving. * will monitor * 5. paroxysmal atrial fibrillation: rate controlled. stable 6. Orthostatic hypotension: * remains orthostatic positive. On midodrin per neuro, morning midodrine dose increased. * lasix and imdur remain on hold. 6. Parkinsons' disease with dementia * on memantine, clonazepam, sinemet and aricept. Sinemet increased per neurology * 7. BPH: on flomax and tolterodine. flomax on hold o/a of orthostatic hypotension. DVT prophylaxis: lovenox Code status: full code Code Visit Inpatient E&M: 50751 Subs Hosp L2
[2017-10-11 19:25] VITALS: BP 113/56; PULSE 61; RESP 18; TEMP 36.6; O2SAT 97
[2017-10-11 20:28] VITALS: BP 124/61; BP 84/37; BP 96/54; PULSE 60; PULSE 62; PULSE 63
[2017-10-11] MEDS: Atorvastatin Calcium 20 MG Tablet PO (21:18)
[2017-10-11] MEDS: clonazePAM 0.5 MG Tablet PO (21:18)
[2017-10-11] MEDS: Famotidine 20 MG Tablet PO (21:18)
[2017-10-11] MEDS: Donepezil HCl 10 MG Tablet PO (21:19)
[2017-10-12] MEDS: Ciprofloxacin 0.3% 2.5ml Bottle 1 DRP RIGHT EYE ×6 (02:28→21:00)
[2017-10-12 06:37] VITALS: BP 133/69; BP 151/78; BP 73/38; PULSE 60; PULSE 61; PULSE 79
[2017-10-12] MEDS: Carbidopa/Levodopa 25/100 Tablet PO ×4 (07:01→17:07)
[2017-10-12] MEDS: Menthol/Lanolin/Calamine/Znox 113 GM Tube 1 APPLIC TOPICAL ×3 (07:02→21:00)
[2017-10-12] MEDS: Midodrine HCl 5 MG Tablet PO (07:02)
[2017-10-12] MEDS: Enoxaparin 40 MG/0.4 ML Syringe SC (07:02)
[2017-10-12] MEDS: Memantine Hydrochloride 10 MG Tablet PO ×2 (09:01→20:59)
[2017-10-12] MEDS: Aspirin E.C. 81 MG Tablet PO (09:01)
[2017-10-12] MEDS: Finasteride 5 MG Tablet PO (09:01)
[2017-10-12] MEDS: Senna/Docusate Sodium 1 Tablet 2 TABLET PO ×2 (09:01→20:58)
[2017-10-12] MEDS: Tolterodine Tartrate 2 MG CAP.SA PO (09:01)
[2017-10-12] MEDS: Lactulose 20 GM/30 ML UDC 10 GM PO (09:01)
[2017-10-12] MEDS: Polyethylene Glycol 3350 17 GM PACKET PO (09:02)
[2017-10-12 10:00] VITALS: BP 123/66; PULSE 60; RESP 17; TEMP 36.5; O2SAT 96
[2017-10-12] MEDS: Midodrine HCl 5 MG Tablet 2.5 MG PO ×2 (11:03→16:15)
--- NOTE | 2017-10-12 12:29 | NURSING ---
Walked pt 1 lap in hallway with wheelchair follow, pt tolerated well.
--- NOTE | 2017-10-12 13:21 | NURSING ---
pt doing nustep
--- NOTE | 2017-10-12 18:03 | NURSING ---
Pt. ambulated in hallway with wheelchair follow by hand paint mixer, pt tolerated well.
[2017-10-12 19:16] VITALS: BP 133/69; PULSE 64; RESP 16; TEMP 36.6; O2SAT 96
[2017-10-12 20:30] VITALS: BP 115/59; BP 123/64; PULSE 59
--- NOTE | 2017-10-12 20:30 | NURSING ---
PT BEING HELD UPRIGHT WITH 2 STAFF AND USE OF WALKER AND BP MACHINE UNABLE TO REGISTER BY WITH 3 ATTEMPTS. STAFF UNABLE TO SUPPORT PT SAFELY ANY LONGER AND PT RETURNED TO BED WITH MUCH EFFORT.
[2017-10-12] MEDS: Atorvastatin Calcium 20 MG Tablet PO (20:59)
[2017-10-12] MEDS: Famotidine 20 MG Tablet PO (20:59)
[2017-10-12] MEDS: Donepezil HCl 10 MG Tablet PO (21:00)
[2017-10-12] MEDS: clonazePAM 0.5 MG Tablet PO (21:00)
[2017-10-13] MEDS: Ciprofloxacin 0.3% 2.5ml Bottle 1 DRP RIGHT EYE ×6 (02:21→20:23)
[2017-10-13] MEDS: Enoxaparin 40 MG/0.4 ML Syringe SC (05:34)
[2017-10-13] MEDS: Menthol/Lanolin/Calamine/Znox 113 GM Tube 1 APPLIC TOPICAL ×3 (05:35→20:24)
[2017-10-13 06:16] VITALS: BP 101/53; BP 149/77; PULSE 60; PULSE 64
[2017-10-13] MEDS: Midodrine HCl 5 MG Tablet PO ×2 (06:20→16:02)
[2017-10-13] MEDS: Carbidopa/Levodopa 25/100 Tablet PO ×4 (06:24→16:49)
[2017-10-13] MEDS: Aspirin E.C. 81 MG Tablet PO (08:21)
[2017-10-13 10:00] VITALS: BP 155/73; PULSE 60; RESP 12; TEMP 36.4; O2SAT 95
[2017-10-13] MEDS: Tolterodine Tartrate 2 MG CAP.SA PO (10:09)
[2017-10-13] MEDS: Polyethylene Glycol 3350 17 GM PACKET PO (10:09)
[2017-10-13] MEDS: Finasteride 5 MG Tablet PO (10:09)
[2017-10-13] MEDS: Lactulose 20 GM/30 ML UDC 10 GM PO (10:09)
[2017-10-13] MEDS: Senna/Docusate Sodium 1 Tablet 2 TABLET PO ×2 (10:09→20:26)
[2017-10-13] MEDS: Memantine Hydrochloride 10 MG Tablet PO ×2 (10:09→20:25)
[2017-10-13] MEDS: Midodrine HCl 5 MG Tablet 2.5 MG PO ×2 (10:32→16:02)
[2017-10-13 18:00] VITALS: BP 135/62; BP 135/67; BP 82/47; PULSE 60; PULSE 62; PULSE 64
[2017-10-13 20:11] VITALS: BP 150/72; PULSE 66; RESP 17; TEMP 36.5; O2SAT 94
[2017-10-13] MEDS: Sodium Chloride 0.65% 1 SPRAY SPRAY.BTL NASAL (20:20)
[2017-10-13] MEDS: Donepezil HCl 10 MG Tablet PO (20:24)
[2017-10-13] MEDS: Atorvastatin Calcium 20 MG Tablet PO (20:25)
[2017-10-13] MEDS: Famotidine 20 MG Tablet PO (20:25)
[2017-10-13] MEDS: clonazePAM 0.5 MG Tablet PO (20:25)
[2017-10-13 21:45] VITALS: BP 130/64; BP 138/66; BP 86/49; PULSE 60; PULSE 64; PULSE 66
[2017-10-14] MEDS: Ciprofloxacin 0.3% 2.5ml Bottle 1 DRP RIGHT EYE ×6 (02:30→20:29)
[2017-10-14] MEDS: Enoxaparin 40 MG/0.4 ML Syringe SC (05:38)
[2017-10-14] MEDS: Menthol/Lanolin/Calamine/Znox 113 GM Tube 1 APPLIC TOPICAL ×3 (05:38→20:30)
[2017-10-14 07:03] VITALS: BP 144/77; PULSE 60; RESP 17; TEMP 36.5; O2SAT 95
[2017-10-14] MEDS: Aspirin E.C. 81 MG Tablet PO (07:24)
[2017-10-14] MEDS: Senna/Docusate Sodium 1 Tablet 2 TABLET PO ×2 (07:24→20:31)
[2017-10-14] MEDS: Carbidopa/Levodopa 25/100 Tablet PO ×4 (07:24→16:01)
[2017-10-14] MEDS: Lactulose 20 GM/30 ML UDC 10 GM PO (07:24)
[2017-10-14] MEDS: Finasteride 5 MG Tablet PO (07:24)
[2017-10-14] MEDS: Memantine Hydrochloride 10 MG Tablet PO ×2 (10:54→20:31)
[2017-10-14] MEDS: Tolterodine Tartrate 2 MG CAP.SA PO (10:54)
[2017-10-14] MEDS: Midodrine HCl 5 MG Tablet 2.5 MG PO ×2 (10:57→16:01)
[2017-10-14] MEDS: Loratadine 10 MG Tablet 5 MG PO (13:23)
--- NOTE | 2017-10-14 16:34 | PCM.PN.HOSP ---
Subjective: Patient seen and examined. He was working with speech therapy at time of review. Patient still needs assistance to carry out his activities of daily living. He denies any fever or chills, any cough or chest pain, shortness of breath, abdominal pain, any diarrhea or vomiting. Review of systems otherwise negative. Family meeting scheduled for to decide goals of care. Vitals/I&O's: Vital Signs Temp Pulse Resp BP Pulse Ox 97.7 F L 60 17 144/77 H 95 10/14/17 07:03 10/14/17 07:03 10/14/17 07:03 10/14/17 07:03 10/14/17 07:03 Oxygen Delivery Method Room Air Weight: 186 lb 15.232 oz Body Mass Index (BMI) 27.6 Orthostatic Vital Signs Start: 10/07/17 10:17 Freq: Status: Active Protocol: Activity Type Activity Date Activity User E-Sign Co-Sign Detail Recorded Client Recorded Date Recorded By Document 10/13/17 21:45 CAK [id number] 10/14/17 01:17 CAK 10/13/17 21:45 Orthostatic Vitals Standing -Blood Pressure (90/60-120/80) 86/49 L -Extremity Use Right Arm -Pulse Rate (60-100) 64 Sitting -Blood Pressure (90/60-120/80) 130/64 H -Extremity Use Right Arm -Pulse Rate (60-100) 60 Lying -Blood Pressure (90/60-120/80) 138/66 H -Extremity Use Right Arm -Pulse Rate (60-100) 66 Intake and Output for Last 24 Hours 10/12/17 10/13/17 10/14/17 23:59 23:59 23:59 Intake Total 720 / 720 480 / 480 Balance 720 / 720 480 / 480 General: Alert, Oriented x3, Cooperative, No apparent distress HEENT: Atraumatic, PERRLA, EOMI, Normocephalic Oral: Moist Mucosa Neck: Supple, No JVD, Negative Carotid Bruits Lungs: Clear to auscultation, Normal air movement, No rhonchi, No wheeze Cardiovascular: Regular rate, Regular Rhythm, Normal S1, Normal S2, No murmurs Abdomen: Bowel Sounds Present, Soft, Non Tender, Non-Distended, No Hepato-splenomegaly Extremities: No clubbing, No cyanosis, No edema, Capillary Refill Less than 3 Seconds, - - in PETE stockings o/a of orthostatic hypotension Skin: No rashes, No breakdown Musculoskeletal: No Tenderness to Palpation of Joints or Extremities Lymphatic: No Cervical, Supraclavicular, or Inguinal Adenopathy Neurological: Cranial nerves II-XII grossly intact, Motor Exam 5/5 strength throughout Psych/Mental Status: Normal Affect, Appropriate Current Medications Acetaminophen (Tylenol) 650 mg PO Q6H PRN PRN PRN Reason: Mild Pain (0-3/10)/Headache Last Admin: 10/09/17 21:08 Dose: 650 mg [facility]) [facility] Last Admin: 10/14/17 07:24 Dose: 81 mg Atorvastatin Calcium (Lipitor) 20 mg PO QHS [facility] Last Admin: 10/13/17 20:25 Dose: 20 mg Bisacodyl (Dulcolax) 10 mg RECTAL .PRN X 1 PRN PRN Reason: Constipation Last Admin: 10/04/17 22:16 Dose: 10 mg Calamine/Phenol (Calmoseptine Ointment) 1 applic TOPICAL TID [facility] PRN Reason: Protocol Last Admin: 10/14/17 13:19 Dose: 1 applicatio Carbidopa/Levodopa (Sinemet) 1 tablet PO 0700,1000,1300,1700 [facility] Last Admin: 10/14/17 16:01 Dose: 1 tablet Ciprofloxacin HCl (Ciloxan) 1 drop RIGHT EYE Q4 [facility] Stop: 10/15/17 18:01 Last Admin: 10/14/17 13:13 Dose: 1 drop Clonazepam (Klonopin) 0.5 mg PO QHS [facility] Last Admin: 10/13/17 20:25 Dose: 0.5 mg Donepezil HCl (Aricept) 10 mg PO QHS [facility] Last Admin: 10/13/17 20:24 Dose: 10 mg Enoxaparin Sodium (Lovenox) 40 mg SC DAILY@0600 [facility] Last Admin: 10/14/17 05:38 Dose: 40 mg Famotidine (Pepcid) 20 mg PO QHS [facility] Last Admin: 10/13/17 20:25 Dose: 20 mg Finasteride (Proscar) 5 mg PO DAILY [facility] Last Admin: 10/14/17 07:24 Dose: 5 mg Lactulose (Chronulac, Cephulac) 10 gm PO DAILY [facility] Last Admin: 10/14/17 07:24 Dose: 10 gm Loratadine (Claritin) 5 mg PO DAILY PRN PRN Reason: ALLERGIES Last Admin: 10/14/17 13:23 Dose: 5 mg Magnesium Hydroxide (Milk Of Magnesia) 30 ml PO .PRN X 1 PRN PRN Reason: Constipation Last Admin: 10/09/17 05:25 Dose: 30 ml Memantine (Namenda) 10 mg PO BID [facility] Last Admin: 10/14/17 10:54 Dose: 10 mg Midodrine (Proamatine) 5 mg PO 0700 [facility] Last Admin: 10/13/17 16:02 Dose: 5 mg Midodrine (Proamatine) 2.5 mg PO 1100,1600 [facility] Last Admin: 10/14/17 16:01 Dose: 2.5 mg Nutritional Formula (Lactose Free) (Ensure Enlive) 120 ml PO 4X/DAY [facility] Last Admin: 10/14/17 13:13 Dose: 120 ml Polyethylene Glycol (Miralax) 17 gm PO DAILY [facility] Last Admin: 10/14/17 10:56 Dose: Not Given Senna/Docusate Sodium (Senokot-S, Yodit-Colace) 2 tablet PO BID [facility] Last Admin: 10/14/17 07:24 Dose: 2 tablet Sodium Chloride ([place] Nasal [place]) 1 spray NASAL TID PRN PRN PRN Reason: NASAL DRYNESS Last Admin: 10/13/17 20:20 Dose: 1 drop Tolterodine Tartrate (Detrol La) 2 mg PO DAILY [facility] Last Admin: 10/14/17 10:54 Dose: 2 mg Medical Necessity - Tobacco Use Smoking Status: Former smoker Assessment/Plan All Active Problems (Last Updated 07/24/17 @ 17:13 by Slim Haley) Syncope (Acute) 77 year old M with PMHx of CAD s/p CABG, s/p pacemaker for sinus arrest, PAF/Atrial flutter, Parkinson's disease admitted s/p syncopal episode and frequent falls. 1. Debility due to mechanical fall fall precautions. PT/OT on board will monitor 2. Bacterial conjuctivitis of right eye erythema and discharge resolved. on ciprofloxacin eye drops to right eye 4x daily-stop date is 10/15/17 4. Traumatic laceration to left eyebrow Resolved 5. paroxysmal atrial fibrillation: rate controlled. stable 6. Orthostatic hypotension: remains orthostatic positive. On midodrine per neuro, morning midodrine dose increased. lasix and imdur remain on hold. PETE hose stockings in place 6. Parkinsons' disease with dementia on memantine, clonazepam, sinemet and aricept. Sinemet increased per neurology 7. BPH: on flomax and tolterodine. flomax on hold o/a of orthostatic hypotension. DVT prophylaxis: lovenox Code status: full code Code Visit Inpatient E&M: 13385 Subs Hosp L2
--- NOTE | 2017-10-14 16:39 | PN_ITS ---
Subjective: Patient seen and examined. He was working with speech therapy at time of review. Patient still needs assistance to carry out his activities of daily living. He denies any fever or chills, any cough or chest pain, shortness of breath, abdominal pain, any diarrhea or vomiting. Review of systems otherwise negative. Family meeting scheduled for to decide goals of care. Vitals/I&O's: Vital Signs Temp Pulse Resp BP Pulse Ox 97.7 F L 60 17 144/77 H 95 10/14/17 07:03 10/14/17 07:03 10/14/17 07:03 10/14/17 07:03 10/14/17 07:03 Oxygen Delivery Method Room Air Weight: 186 lb 15.232 oz Body Mass Index (BMI) 27.6 Orthostatic Vital Signs Start: 10/07/17 10:17 Freq: Status: Active Protocol: Activity Type Activity Date Activity User E-Sign Co-Sign Detail Recorded Client Recorded Date Recorded By Document 10/13/17 21:45 CAK [id number] 10/14/17 01:17 CAK 10/13/17 21:45 Orthostatic Vitals Standing -Blood Pressure (90/60-120/80) 86/49 L -Extremity Use Right Arm -Pulse Rate (60-100) 64 Sitting -Blood Pressure (90/60-120/80) 130/64 H -Extremity Use Right Arm -Pulse Rate (60-100) 60 Lying -Blood Pressure (90/60-120/80) 138/66 H -Extremity Use Right Arm -Pulse Rate (60-100) 66 Intake and Output for Last 24 Hours 10/12/17 10/13/17 10/14/17 23:59 23:59 23:59 Intake Total 720 / 720 480 / 480 Balance 720 / 720 480 / 480 General: Alert, Oriented x3, Cooperative, No apparent distress HEENT: Atraumatic, PERRLA, EOMI, Normocephalic Oral: Moist Mucosa Neck: Supple, No JVD, Negative Carotid Bruits Lungs: Clear to auscultation, Normal air movement, No rhonchi, No wheeze Cardiovascular: Regular rate, Regular Rhythm, Normal S1, Normal S2, No murmurs Abdomen: Bowel Sounds Present, Soft, Non Tender, Non-Distended, No Hepato- splenomegaly Extremities: No clubbing, No cyanosis, No edema, Capillary Refill Less than 3 Seconds, - - in PETE stockings o/a of orthostatic hypotension Skin: No rashes, No breakdown Musculoskeletal: No Tenderness to Palpation of Joints or Extremities Lymphatic: No Cervical, Supraclavicular, or Inguinal Adenopathy Neurological: Cranial nerves II-XII grossly intact, Motor Exam 5/5 strength throughout Psych/Mental Status: Normal Affect, Appropriate Current Medications Acetaminophen (Tylenol) 650 mg PO Q6H PRN PRN PRN Reason: Mild Pain (0-3/10)/Headache Last Admin: 10/09/17 21:08 Dose: 650 mg [facility]) [facility] Last Admin: 10/14/17 07:24 Dose: 81 mg Atorvastatin Calcium (Lipitor) 20 mg PO QHS [facility] Last Admin: 10/13/17 20:25 Dose: 20 mg Bisacodyl (Dulcolax) 10 mg RECTAL .PRN X 1 PRN PRN Reason: Constipation Last Admin: 10/04/17 22:16 Dose: 10 mg Calamine/Phenol (Calmoseptine Ointment) 1 applic TOPICAL TID [facility] PRN Reason: Protocol Last Admin: 10/14/17 13:19 Dose: 1 applicatio Carbidopa/Levodopa (Sinemet) 1 tablet PO 0700,1000,1300,1700 [facility] Last Admin: 10/14/17 16:01 Dose: 1 tablet Ciprofloxacin HCl (Ciloxan) 1 drop RIGHT EYE Q4 [facility] Stop: 10/15/17 18:01 Last Admin: 10/14/17 13:13 Dose: 1 drop Clonazepam (Klonopin) 0.5 mg PO QHS [facility] Last Admin: 10/13/17 20:25 Dose: 0.5 mg Donepezil HCl (Aricept) 10 mg PO QHS [facility] Last Admin: 10/13/17 20:24 Dose: 10 mg Enoxaparin Sodium (Lovenox) 40 mg SC DAILY@0600 [facility] Last Admin: 10/14/17 05:38 Dose: 40 mg Famotidine (Pepcid) 20 mg PO QHS [facility] Last Admin: 10/13/17 20:25 Dose: 20 mg Finasteride (Proscar) 5 mg PO DAILY [facility] Last Admin: 10/14/17 07:24 Dose: 5 mg Lactulose (Chronulac, Cephulac) 10 gm PO DAILY [facility] Last Admin: 10/14/17 07:24 Dose: 10 gm Loratadine (Claritin) 5 mg PO DAILY PRN PRN Reason: ALLERGIES Last Admin: 10/14/17 13:23 Dose: 5 mg Magnesium Hydroxide (Milk Of Magnesia) 30 ml PO .PRN X 1 PRN PRN Reason: Constipation Last Admin: 10/09/17 05:25 Dose: 30 ml Memantine (Namenda) 10 mg PO BID [facility] Last Admin: 10/14/17 10:54 Dose: 10 mg Midodrine (Proamatine) 5 mg PO 0700 [facility] Last Admin: 10/13/17 16:02 Dose: 5 mg Midodrine (Proamatine) 2.5 mg PO 1100,1600 [facility] Last Admin: 10/14/17 16:01 Dose: 2.5 mg Nutritional Formula (Lactose Free) (Ensure Enlive) 120 ml PO 4X/DAY [facility] Last Admin: 10/14/17 13:13 Dose: 120 ml Polyethylene Glycol (Miralax) 17 gm PO DAILY [facility] Last Admin: 10/14/17 10:56 Dose: Not Given Senna/Docusate Sodium (Senokot-S, Yodit-Colace) 2 tablet PO BID [facility] Last Admin: 10/14/17 07:24 Dose: 2 tablet Sodium Chloride ([place] Nasal [place]) 1 spray NASAL TID PRN PRN PRN Reason: NASAL DRYNESS Last Admin: 10/13/17 20:20 Dose: 1 drop Tolterodine Tartrate (Detrol La) 2 mg PO DAILY [facility] Last Admin: 10/14/17 10:54 Dose: 2 mg Medical Necessity - Tobacco Use Smoking Status: Former smoker Assessment/Plan All Active Problems (Last Updated 07/24/17 @ 17:13 by Slim Haley) Syncope (Acute) 77 year old M with PMHx of CAD s/p CABG, s/p pacemaker for sinus arrest, PAF/ Atrial flutter, Parkinson's disease admitted s/p syncopal episode and frequent falls. 1. Debility due to mechanical fall * fall precautions. * PT/OT on board * will monitor * 2. Bacterial conjuctivitis of right eye * erythema and discharge resolved. * on ciprofloxacin eye drops to right eye 4x daily-stop date is 10/15/17 * 4. Traumatic laceration to left eyebrow * Resolved 5. paroxysmal atrial fibrillation: rate controlled. stable 6. Orthostatic hypotension: * remains orthostatic positive. On midodrine per neuro, morning midodrine dose increased. * lasix and imdur remain on hold. * PETE hose stockings in place 6. Parkinsons' disease with dementia * on memantine, clonazepam, sinemet and aricept. Sinemet increased per neurology * 7. BPH: on flomax and tolterodine. flomax on hold o/a of orthostatic hypotension. DVT prophylaxis: lovenox Code status: full code Code Visit Inpatient E&M: 07761 Subs Hosp L2
[2017-10-14 20:17] VITALS: BP 148/70; PULSE 62; RESP 18; TEMP 36.4; O2SAT 18
[2017-10-14] MEDS: clonazePAM 0.5 MG Tablet PO (20:23)
[2017-10-14] MEDS: Donepezil HCl 10 MG Tablet PO (20:30)
[2017-10-14] MEDS: Atorvastatin Calcium 20 MG Tablet PO (20:31)
[2017-10-14] MEDS: Famotidine 20 MG Tablet PO (20:31)
[2017-10-15] MEDS: Ciprofloxacin 0.3% 2.5ml Bottle 1 DRP RIGHT EYE ×5 (01:04→16:55)
[2017-10-15] MEDS: Enoxaparin 40 MG/0.4 ML Syringe SC (06:22)
[2017-10-15] MEDS: Menthol/Lanolin/Calamine/Znox 113 GM Tube 1 APPLIC TOPICAL ×3 (06:22→20:35)
[2017-10-15] MEDS: Midodrine HCl 5 MG Tablet PO (06:23)
[2017-10-15] MEDS: Carbidopa/Levodopa 25/100 Tablet PO ×4 (06:23→16:55)
[2017-10-15 08:09] VITALS: BP 136/66; PULSE 62; RESP 17; TEMP 36.4; O2SAT 96
[2017-10-15] MEDS: Polyethylene Glycol 3350 17 GM PACKET PO (08:19)
[2017-10-15] MEDS: Senna/Docusate Sodium 1 Tablet 2 TABLET PO ×2 (08:19→20:34)
[2017-10-15] MEDS: Finasteride 5 MG Tablet PO (08:20)
[2017-10-15] MEDS: Memantine Hydrochloride 10 MG Tablet PO ×2 (08:20→20:34)
[2017-10-15] MEDS: Aspirin E.C. 81 MG Tablet PO (08:20)
[2017-10-15] MEDS: Tolterodine Tartrate 2 MG CAP.SA PO (08:20)
[2017-10-15] MEDS: Lactulose 20 GM/30 ML UDC 10 GM PO (08:20)
[2017-10-15] MEDS: Loratadine 10 MG Tablet 5 MG PO (09:50)
[2017-10-15] MEDS: Midodrine HCl 5 MG Tablet 2.5 MG PO (11:00)
--- NOTE | 2017-10-15 12:05 | PCM.RU.PYE ---
Admission Information Status Changes from Prescreening?: No changes Identified Actual Problem List:: Falls, Cognitve Impr/Memory Loss, Alteration in Nutrition, Mobility Impaired, Self Care Deficit, Ineffect.D/C Plan r/t Psy Potential Problem List:: DVT, Bleeding, Infection, UTI, Aspiration, Falls, Skin Integrity, Depression Risk of Complications DVT: LMWH, PETE Hose, Sequential Compression Device Bleeding: Monitor Lab Values, Nursing to Teach Precautions for anti-coagulation therapy., Wound, if applicable, to be assessed every shift., Stroke patients assessed for lethargy or change in status. Infection: Clinical Staff to Monitor for S/S of infection:, S/S of infection include fever, redness, warmth, etc. Urinary Tract Infection: Monitor for frequency, burning, discomfort, or incontinence., Nursing will obtain urine sample for urinalysis and C&S when ordered. Aspiration: Clinical staff will monitor for coughing, drooling, congestion., Speech will evaluate swallowing and dsyphasia., Nursing will monitor patient swallowing during meals. Falls: Patient will be evaluated for Fall Precautions, Patient will be placed on Fall Precautions as indicated per protocol. Skin Breakdown: Nursing will assess skin daily using assessment tool., Nursing will place on Skin Breakdown Precautions as indicated. Pain: Clinical staff will assess patient's pain level per protocol., Medications will be given, if needed, and the pain level reassessed., Other methods: Massage, distraction, decrease stimulus, etc. used PRN. Plan of Care Patient requires physician specializing in physical medicine and rehab oversight to provide close medical supervision of rehab issues including: Pain Management, Sleep Problems, Bowel and Bladder, Medical and co-morbidity Management, DVT prophylaxis, Rehabilitation Leadership, Coordination of treatment team Patient needs Physical Therapy: For a minimum of 1 hour, At least 5 out of 7 days Patient needs Physical Therapy to improve:: Mobility, Mobility, Mobility, Strengthening, Transfers, Stretching, ROM, Endurance, Stairs, Gait, Balance Patient needs Occupational Therapy: For a minimum of 1 hour, At least 5 out of 7 days Patient needs Occupational Therapy to improve ADL's incl.: Eating, Grooming, Bathing, Dressing, Toileting, Toilet transfers, Community Reintegration, Higher functioning activities, Household tasks, Adaptive Equipment, Splinting, Other activities as determined Patient requires speech therapy: For a minimum of 1 hour, At least 5 out of 7 days Patient requires speech therapy for: Swallowing, Cognition, Language Skills, Compensatory Strategies Patient requires 24/ Rehabilitation Nursing for: Pain Issues, Identifying and preventing risk factors, Monitoring and reporting current medical conditions, Assisting with ambulation, transfer, and all ADL's, Teaching patients about disease process and medications, Family teaching, Providing safe environment, Bowel and Bladder Issues, Skin integrity, Medication Management Patient needs Food Quality Tester/ Case Management for: Discharge Planning, Arranging Home Equipment or Services, Family Interventions Patient needs Dietary and Nutrition Services for: Adequate Nutrition, Nutritional Supplements, Nutritional Education Goals Patient will remain: free from falls, or injury at time of discharge. Patient will perform bed mobility at: MOD I level of assist. Patient will complete transfers from bed to chair at: MOD I level of assist. Patient will ambulate: 100 feet, with MOD I assist, with LRD Patient will complete upper body dressing at: MOD I level of assist. Patient will complete lower body dressing at: MOD I level of assist. Patient will complete toileting at: MOD I level of assist. Patient will perform bathing at: MOD I level of assist. Patient will complete grooming at: MOD I level of assist. Patient will complete home management skills at: MOD I level of assist. Patient will achieve: 12 stairs, at MOD I assist Patient will have pain level of: of 3 or less Patient's skin will: remain intact, free from infection. Patient will receive: adequate nutrition. Discharge Planning Pt Prognosis for Sig. Practical Improv. w/in Reasonable Time: Good Anticipated D/C Destination: Home with Outpt Therapy Was Preadmission Assessment Accurate?: Yes
--- NOTE | 2017-10-15 16:52 | NURSING ---
Pt. returned from Dr. Kilgore appt. NNOs at this time.
[2017-10-15 20:00] VITALS: BP 105/57; PULSE 84; RESP 16; TEMP 36.8; O2SAT 93
[2017-10-15] MEDS: Atorvastatin Calcium 20 MG Tablet PO (20:34)
[2017-10-15] MEDS: Donepezil HCl 10 MG Tablet PO (20:34)
[2017-10-15] MEDS: Famotidine 20 MG Tablet PO (20:34)
[2017-10-15] MEDS: clonazePAM 0.5 MG Tablet PO (20:34)
--- NOTE | 2017-10-16 01:47 | NURSING ---
REVIEWED AND AGREE WITH DIRECTOR TECHNICAL'S FIM AND HANDOFF CHARTING.
[2017-10-16] MEDS: Menthol/Lanolin/Calamine/Znox 113 GM Tube 1 APPLIC TOPICAL ×3 (06:05→21:34)
[2017-10-16] MEDS: Magnesium Hydroxide 30 ML UDC PO (06:05)
[2017-10-16] MEDS: Enoxaparin 40 MG/0.4 ML Syringe SC (06:05)
[2017-10-16] MEDS: Carbidopa/Levodopa 25/100 Tablet PO ×4 (06:57→16:16)
[2017-10-16] MEDS: Midodrine HCl 5 MG Tablet PO (06:58)
[2017-10-16 07:18] VITALS: BP 138/75; PULSE 60; RESP 16; TEMP 36.5; O2SAT 96
[2017-10-16] MEDS: Tolterodine Tartrate 2 MG CAP.SA PO (08:33)
[2017-10-16] MEDS: Loratadine 10 MG Tablet 5 MG PO (08:33)
[2017-10-16] MEDS: Finasteride 5 MG Tablet PO (08:34)
[2017-10-16] MEDS: Aspirin E.C. 81 MG Tablet PO (08:34)
[2017-10-16] MEDS: Lactulose 20 GM/30 ML UDC 10 GM PO (08:34)
[2017-10-16] MEDS: Senna/Docusate Sodium 1 Tablet 2 TABLET PO ×2 (08:36→21:33)
[2017-10-16] MEDS: Memantine Hydrochloride 10 MG Tablet PO ×2 (08:37→21:33)
--- NOTE | 2017-10-16 09:34 | CASEMGMT ---
Team meeting held. Patient present as well as patient family. Patient Medicare days are up on 10/19/17. Team currently recommending for patient to transition to a skilled facility. Patient and patient family agreeable to recommendation and are between either the [facility] or the [facility]. The family and patient are wanting to discuss further and get back to this social insurance specialist later today or by 9:00am tomorrow morning. Support given. Proposed discharge date: 10/19/17 PLAN: Discharge to SNF. Radha HOLT, PROJECT ADMINISTRATIVE ASSISTANT
--- NOTE | 2017-10-16 09:41 | PCM.TXEXTCAR ---
- Diet 10/03/17 19:48 Diet: Regular Diet Food consistency:: Soft Liquid Consistency:: Regular/Thin Dietary Modifications:: Soft Diet Diet Comments: Cut into bites sizes; weighted utensils, scoop dish, dble handled cup w/lid - Routine Orders/Code Status O2 Liters per Minute: 2 O2 Frequency: PRN Keep PO Greater than or Equal to (%): 90 Code Status: Full Code - Wound(s) left elbow Wound Type: Abrasion left eyebrow Wound Type: Laceration - Therapies Weight Bearing: Full weight bearing Physical Therapy: Eval and Treat Occupational Therapy: Eval and Treat Speech Therapy: Eval and Treat - Problem/Diagnosis (1) Parkinson's disease Status: Chronic Current Visit: Yes - Allergies/Procedures Done in Hospital Allergies/Adverse Reactions: Allergies acetaminophen [From Vicodin] Allergy (Verified 10/15/17 15:28) Other hydrocodone bitartrate [From Vicodin] Allergy (Verified 10/15/17 15:28) Other Sulfa (Sulfonamide Antibiotics) Allergy (Verified 10/15/17 15:28) Other Procedures: None - Type of Care/Length of Stay Estimated LOS: More Than 30 Days Type of Care Needed: Skilled Rehab Potential: Good Prognosis: Good - Additional Orders/Day of Discharge H&P will serve as current which was dated: 10/03/17 Day of Discharge: 10/19/17 - Dietary and Speech Recommendations Dietitian Recommendations/Changes: Current weight as able. Continue regular/soft diet with ensure enlive on medpass as tolerated. - Follow Up Care Primary Care Physician: Chris Dean MD [Primary Care Provider] -
--- NOTE | 2017-10-16 09:44 | TREXTCAR_ITS ---
- Diet 10/03/17 19:48 Diet: Regular Diet Food consistency:: Soft Liquid Consistency:: Regular/Thin Dietary Modifications:: Soft Diet Diet Comments: Cut into bites sizes; weighted utensils, scoop dish, dble handled cup w/lid - Routine Orders/Code Status O2 Liters per Minute: 2 O2 Frequency: PRN Keep PO Greater than or Equal to (%): 90 Code Status: Full Code - Wound(s) left elbow Wound Type: Abrasion left eyebrow Wound Type: Laceration - Therapies Weight Bearing: Full weight bearing Physical Therapy: Eval and Treat Occupational Therapy: Eval and Treat Speech Therapy: Eval and Treat - Problem/Diagnosis (1) Parkinson's disease Status: Chronic Current Visit: Yes - Allergies/Procedures Done in Hospital Allergies/Adverse Reactions: Allergies acetaminophen [From Vicodin] Allergy (Verified 10/15/17 15:28) Other hydrocodone bitartrate [From Vicodin] Allergy (Verified 10/15/17 15:28) Other Sulfa (Sulfonamide Antibiotics) Allergy (Verified 10/15/17 15:28) Other Procedures: None - Type of Care/Length of Stay Estimated LOS: More Than 30 Days Type of Care Needed: Skilled Rehab Potential: Good Prognosis: Good - Additional Orders/Day of Discharge H&P will serve as current which was dated: 10/03/17 Day of Discharge: 10/19/17 - Dietary and Speech Recommendations Dietitian Recommendations/Changes: Current weight as able. Continue regular/ soft diet with ensure enlive on medpass as tolerated. - Follow Up Care Primary Care Physician: Chris Dean MD [Primary Care Provider] -
--- NOTE | 2017-10-16 09:46 | DCINST_ITS ---
- Discharge Diagnoses Current Active Problems: Current Active and Chronic Problems (Last Updated 07/24/17 @ 17:13 by Slim Haley) Parkinson's disease (Chronic) Reason(s) for Visit for Discharge Instructions: parkinsons, debility You will use the following diet at home:: No restrictions Your food should be the consistency of: Regular Your liquids should be the consistency of: Regular/Thin Discharge Activity: Return to Normal Activity Weight Bearing Status: Weight bearing as tolerated Lifting Restrictions: 10 lbs Allergies/Adverse Reactions: Allergies acetaminophen [From Vicodin] Allergy (Verified 10/15/17 15:28) Other hydrocodone bitartrate [From Vicodin] Allergy (Verified 10/15/17 15:28) Other Sulfa (Sulfonamide Antibiotics) Allergy (Verified 10/15/17 15:28) Other Medications to take at Discharge alfuzosin ER 10 mg tablet,extended release 24 hr 10 mg PO QDAY 02/24/17 aspirin 81 mg tablet,delayed release 81 mg PO QDAY 02/24/17 carbidopa 25 mg-levodopa 100 mg tablet 1 tab PO BID tab 02/24/17 clonazepam 0.5 mg tablet 0.5 mg PO QHS 02/24/17 finasteride 5 mg tablet 5 mg PO QDAY 02/24/17 memantine 10 mg tablet 10 mg PO BID 02/24/17 oxybutynin chloride ER 5 mg tablet,extended release 24 hr 5 mg PO QDAY 02/24/17 ranitidine 150 mg capsule 150 mg PO QHS 02/24/17 vitamins A,C,O-[id number]-qywzki 14,320 unit-226 mg-200 unit capsule 1 cap PO QDAY ea 02/24/17 donepezil 10 mg tablet 10 mg PO QHS 02/25/17 Simvastatin 40 mg PO QPM 10/03/17 midodrine 2.5 mg tablet 2.5 mg PO QDAY tab 10/16/17 midodrine 5 mg tablet 5 mg PO BID tab 10/16/17 Primary Care Physician: Chris Dean MD [Primary Care Provider] - Test Results: Test results from this visit will be discussed in further detail at your follow- up appointment, if applicable. Proposed Discharge Date: 10/19/17
--- NOTE | 2017-10-16 09:47 | DS.PCM_ITS ---
Rehab Discharge Summary DATE OF ADMISSION: 10/03/17 DATE OF DISCHARGE: 10/19/17 - Rehab Diagnosis parkinsons, debility Discharge Diet: No Restrictions Discharge Activity: Return to Normal Activity Weight Bearing Status: Weight bearing as tolerated Lifting Restrict to (lbs):: 10 Home Medications: Medications to take at Discharge alfuzosin ER 10 mg tablet,extended release 24 hr 10 mg PO QDAY 02/24/17 aspirin 81 mg tablet,delayed release 81 mg PO QDAY 02/24/17 carbidopa 25 mg-levodopa 100 mg tablet 1 tab PO BID tab 02/24/17 clonazepam 0.5 mg tablet 0.5 mg PO QHS 02/24/17 finasteride 5 mg tablet 5 mg PO QDAY 02/24/17 memantine 10 mg tablet 10 mg PO BID 02/24/17 oxybutynin chloride ER 5 mg tablet,extended release 24 hr 5 mg PO QDAY 02/24/17 ranitidine 150 mg capsule 150 mg PO QHS 02/24/17 vitamins A,C,L-jvwo-hqeopw 14,320 unit-226 mg-200 unit capsule 1 cap PO QDAY ea 02/24/17 donepezil 10 mg tablet 10 mg PO QHS 02/25/17 Simvastatin 40 mg PO QPM 10/03/17 midodrine 2.5 mg tablet 2.5 mg PO QDAY tab 10/16/17 midodrine 5 mg tablet 5 mg PO BID tab 10/16/17 Primary Care Physician: Chris Dean MD [Primary Care Provider] - Disposition: Home Minutes spent on discharge:: 45 Patient Condition:: Good Rehab Course The patient is a 77 year old M with a history of parkinsonism, well-known to me in the outpatient setting. He was in the hospital as described by the admission H&P as below. He lives at home in an apartment which is attached to his son's house, does have intermittent falls. He was admitted to the hospital as below, and has suffered rapid decrease in his capacities as result of his hospitalization. He is now admitted to the rehab unit with a goal of maximizing his functional independence. Per admit H&P: The patient is a 77 year old M with PMHx of CAD s/p CABG, s/p pacemaker for sinus arrest, PAF/flutter, Parkinson's disease comes in after a syncopal episode. Patient lives with her son but is usually alone. He has a life alert watch. He has been feeling well and is in his usual state of health in the past few days. He lately complains of feeling dizzy, especially on moving. Chest pain or palpitations of fever or chills or nausea or vomiting or diarrhea. Vitals in the ED showed temperature 98.5, heart rate of 16, blood pressure 118/ 72, respiratory rate of 18, SPO2 97% on room air. Admitting blood work unremarkable. EKG shows paced rhythm, no acute ST-T changes, troponin is negative. CT scan of the brain shows chronic changes. CT scan of the spine shows multilevel degenerative changes. the patients rehab course was uneventful. He tolerated therapies. Physical therapy, Occupational Therapy and speech therapy were all initiated. He improved however it was not felt that he could yet returned home so he will be transferred to a [facility] today for further therapies and convalescence in the hopes that he can still return home to his previous level functional independence. Meaningful Use Info Meaningful Use Diagnoses (Choose all that apply): None applicable
--- NOTE | 2017-10-16 09:50 | PCM.PN.NEU ---
Subjective: No new complaints. Tolerating therapies. No GI or complaints. He is staffed in team meeting today. He is doing well with a Rollator walker. He requires minimal assistance with his upper body care but does need help with his lower body care due to balance. Nursing is noting no issues although he does need 2 people assistance for toileting. Speech therapy is noted improved swallowing and feeding and he is consuming 100% of his diet. Plan to discharge to alf on Friday. His son is present as well as his [id number], questions are answered. - Physical Exam General: Alert, No apparent distress Neurological: Cranial nerves II-XII grossly intact, - - His bradycardia phrenic, masked facies. No tremor. Vital Signs Temp Pulse Resp BP Pulse Ox 36.5 C L 60 16 138/75 H 96 10/16/17 07:18 10/16/17 07:18 10/16/17 07:18 10/16/17 07:18 10/16/17 07:18 Oxygen Delivery Method Room Air Weight: 84.4 kg Body Mass Index (BMI) 27.6 Orthostatic Vital Signs Start: 10/07/17 10:17 Freq: Status: Active Protocol: Activity Type Activity Date Activity User E-Sign Co-Sign Detail Recorded Client Recorded Date Recorded By Document 10/13/17 21:45 [facility] [id number] 10/14/17 01:17 CABenjie 10/13/17 21:45 Orthostatic Vitals Standing -Blood Pressure (90/60-120/80) 86/49 L -Extremity Use Right Arm -Pulse Rate (60-100) 64 Sitting -Blood Pressure (90/60-120/80) 130/64 H -Extremity Use Right Arm -Pulse Rate (60-100) 60 Lying -Blood Pressure (90/60-120/80) 138/66 H -Extremity Use Right Arm -Pulse Rate (60-100) 66 Intake and Output for Last 24 Hours 10/14/17 10/15/17 10/16/17 23:59 23:59 23:59 Intake Total 480 / 480 520 / 520 80 / 80 Balance 480 / 480 520 / 520 80 / 80 Current Medications Generic Name Dose Route Start Last Admin Trade Name Freq PRN Reason Stop Dose Admin Acetaminophen 650 mg 10/03/17 19:43 10/09/17 21:08 Tylenol PO 650 mg Q6H PRN PRN Administration Mild Pain (0-3/10)/Headache Aspirin 81 mg 10/04/17 08:00 10/16/17 08:34 Ecotrin PO 81 mg DAILYCM OCTAVIO Administration Atorvastatin Calcium 20 mg 10/03/17 22:00 10/15/17 20:34 Lipitor PO 20 mg QHS OCTAVIO Administration Bisacodyl 10 mg 10/03/17 19:43 10/04/17 22:16 Dulcolax RECTAL 10 mg .PRN X 1 PRN Administration Constipation Calamine/Phenol 1 applic 10/03/17 22:00 10/16/17 06:05 Calmoseptine Ointment TOPICAL 1 applicatio TID OCTAVIO Administration Protocol Carbidopa/Levodopa 1 tablet 10/09/17 13:00 10/16/17 06:57 Sinemet PO 1 tablet 0700,1000,1300,1700 OCTAVIO Administration Clonazepam 0.5 mg 10/03/17 22:00 10/15/17 20:34 Klonopin PO 0.5 mg QHS OCTAVIO Administration Donepezil HCl 10 mg 10/03/17 22:00 10/15/17 20:34 Aricept PO 10 mg QHS OCTAVIO Administration Enoxaparin Sodium 40 mg 10/05/17 06:00 10/16/17 06:05 Lovenox SC 40 mg DAILY@0600 OCTAVIO Administration Famotidine 20 mg 10/03/17 22:00 10/15/17 20:34 Pepcid PO 20 mg QHS OCTAVIO Administration Finasteride 5 mg 10/04/17 10:00 10/16/17 08:34 Proscar PO 5 mg DAILY OCTAVIO Administration Lactulose 10 gm 10/08/17 10:00 10/16/17 08:34 Chronulac, Cephulac PO 10 gm DAILY OCTAVIO Administration Loratadine 5 mg 10/09/17 09:24 10/16/17 08:33 Claritin PO 5 mg DAILY PRN Administration ALLERGIES Magnesium Hydroxide 30 ml 10/03/17 19:43 10/16/17 06:05 Milk Of Magnesia PO 30 ml .PRN X 1 PRN Administration Constipation Memantine 10 mg 10/03/17 22:00 10/16/17 08:37 Namenda PO 10 mg BID OCTAVIO Administration Midodrine 5 mg 10/12/17 07:00 10/16/17 06:58 Proamatine PO 5 mg 0700 OCTAVIO Administration Midodrine 2.5 mg 10/11/17 16:00 10/15/17 16:54 Proamatine PO Not Given 1100,1600 OCTAIVO Nutritional Formula (Lactose Free) 120 ml 10/03/17 22:00 10/16/17 08:32 Ensure Enlive PO 120 ml 4X/DAY OCTAVIO Administration Polyethylene Glycol 17 gm 10/08/17 10:00 10/15/17 08:19 Miralax PO 17 gm DAILY OCTAVIO Administration Senna/Docusate Sodium 2 tablet 10/04/17 22:00 10/16/17 08:36 Senokot-S, Yodit-Colace PO 2 tablet BID OCTAVIO Administration Sodium Chloride 1 spray 10/07/17 09:32 10/13/17 20:20 [place] Nasal [place] NASAL 1 drop TID PRN PRN Administration NASAL DRYNESS Tolterodine Tartrate 2 mg 10/04/17 10:00 10/16/17 08:33 Detrol La PO 2 mg DAILY OCTAVIO Administration Medical Necessity - Tobacco Use Smoking Status: Former smoker Assessment/Plan All Active Problems (Last Updated 07/24/17 @ 17:13 by Slim Haley) Syncope (Acute) He will be due to parkinsonism complicated by static hypotension and mild to moderate dementia. Goal of therapy is cheondoism of prior level functional independence. Plan: Physical therapy for gait and balance Occupational Therapy for ADLs Speech therapy As needed analgesics Bowel protocol DT prophylaxis: Lovenox Orthostatic hypotension: Asymptomatic on Midrin. No hypertension. Continue. Discharge to [facility] planned 10/19
--- NOTE | 2017-10-16 09:53 | PN.NEURO_ITS ---
Subjective: No new complaints. Tolerating therapies. No GI or complaints. He is staffed in team meeting today. He is doing well with a Rollator walker. He requires minimal assistance with his upper body care but does need help with his lower body care due to balance. Nursing is noting no issues although he does need 2 people assistance for toileting. Speech therapy is noted improved swallowing and feeding and he is consuming 100% of his diet. Plan to discharge to group home on Friday. His son is present as well as his [id number] , questions are answered. - Physical Exam General: Alert, No apparent distress Neurological: Cranial nerves II-XII grossly intact, - - His bradycardia phrenic , masked facies. No tremor. Vital Signs Temp Pulse Resp BP Pulse Ox 36.5 C L 60 16 138/75 H 96 10/16/17 07:18 10/16/17 07:18 10/16/17 07:18 10/16/17 07:18 10/16/17 07:18 Oxygen Delivery Method Room Air Weight: 84.4 kg Body Mass Index (BMI) 27.6 Orthostatic Vital Signs Start: 10/07/17 10:17 Freq: Status: Active Protocol: Activity Type Activity Date Activity User E-Sign Co-Sign Detail Recorded Client Recorded Date Recorded By Document 10/13/17 21:[address] [facility] [id number] 10/14/17 01:17 CABenjie 10/13/17 21:45 Orthostatic Vitals Standing -Blood Pressure (90/60-120/80) 86/49 L -Extremity Use Right Arm -Pulse Rate (60-100) 64 Sitting -Blood Pressure (90/60-120/80) 130/64 H -Extremity Use Right Arm -Pulse Rate (60-100) 60 Lying -Blood Pressure (90/60-120/80) 138/66 H -Extremity Use Right Arm -Pulse Rate (60-100) 66 Intake and Output for Last 24 Hours 10/14/17 10/15/17 10/16/17 23:59 23:59 23:59 Intake Total 480 / 480 520 / 520 80 / 80 Balance 480 / 480 520 / 520 80 / 80 Current Medications Generic Name Dose Route Start Last Admin Trade Name Freq PRN Reason Stop Dose Admin Acetaminophen 650 mg 10/03/17 19:43 10/09/17 21:08 Tylenol PO 650 mg Q6H PRN PRN Administration Mild Pain (0-3/10)/Headache Aspirin 81 mg 10/04/17 08:00 10/16/17 08:34 Ecotrin PO 81 mg DAILYCM OCTAVIO Administration Atorvastatin Calcium 20 mg 10/03/17 22:00 10/15/17 20:34 Lipitor PO 20 mg QHS OCTAVIO Administration Bisacodyl 10 mg 10/03/17 19:43 10/04/17 22:16 Dulcolax RECTAL 10 mg .PRN X 1 PRN Administration Constipation Calamine/Phenol 1 applic 10/03/17 22:00 10/16/17 06:05 Calmoseptine Ointment TOPICAL 1 applicatio TID OCTAVIO Administration Protocol Carbidopa/Levodopa 1 tablet 10/09/17 13:00 10/16/17 06:57 Sinemet PO 1 tablet 0700,1000,1300,1700 OCTAVIO Administration Clonazepam 0.5 mg 10/03/17 22:00 10/15/17 20:34 Klonopin PO 0.5 mg QHS OCTAVIO Administration Donepezil HCl 10 mg 10/03/17 22:00 10/15/17 20:34 Aricept PO 10 mg QHS OCTAVIO Administration Enoxaparin Sodium 40 mg 10/05/17 06:00 10/16/17 06:05 Lovenox SC 40 mg DAILY@0600 OCTAVIO Administration Famotidine 20 mg 10/03/17 22:00 10/15/17 20:34 Pepcid PO 20 mg QHS OCTAVIO Administration Finasteride 5 mg 10/04/17 10:00 10/16/17 08:34 Proscar PO 5 mg DAILY OCTAVIO Administration Lactulose 10 gm 10/08/17 10:00 10/16/17 08:34 Chronulac, Cephulac PO 10 gm DAILY OCTAVIO Administration Loratadine 5 mg 10/09/17 09:24 10/16/17 08:33 Claritin PO 5 mg DAILY PRN Administration ALLERGIES Magnesium Hydroxide 30 ml 10/03/17 19:43 10/16/17 06:05 Milk Of Magnesia PO 30 ml .PRN X 1 PRN Administration Constipation Memantine 10 mg 10/03/17 22:00 10/16/17 08:37 Namenda PO 10 mg BID OCTAVIO Administration Midodrine 5 mg 10/12/17 07:00 10/16/17 06:58 Proamatine PO 5 mg 0700 OCTAVIO Administration Midodrine 2.5 mg 10/11/17 16:00 10/15/17 16:54 Proamatine PO Not Given 1100,1600 OCTAVIO Nutritional Formula (Lactose Free) 120 ml 10/03/17 22:00 10/16/17 08:32 Ensure Enlive PO 120 ml 4X/DAY OCTAVIO Administration Polyethylene Glycol 17 gm 10/08/17 10:00 10/15/17 08:19 Miralax PO 17 gm DAILY OCTAVIO Administration Senna/Docusate Sodium 2 tablet 10/04/17 22:00 10/16/17 08:36 Senokot-S, Yodit-Colace PO 2 tablet BID OCTAVIO Administration Sodium Chloride 1 spray 10/07/17 09:32 10/13/17 20:20 Nadine Nasal [place] NASAL 1 drop TID PRN PRN Administration NASAL DRYNESS Tolterodine Tartrate 2 mg 10/04/17 10:00 10/16/17 08:33 Detrol La PO 2 mg DAILY OCTAVIO Administration Medical Necessity - Tobacco Use Smoking Status: Former smoker Assessment/Plan All Active Problems (Last Updated 07/24/17 @ 17:13 by Slim Haley) Syncope (Acute) He will be due to parkinsonism complicated by static hypotension and mild to moderate dementia. Goal of therapy is [place] of prior level functional independence. Plan: Physical therapy for gait and balance Occupational Therapy for ADLs Speech therapy As needed analgesics Bowel protocol DT prophylaxis: Lovenox Orthostatic hypotension: Asymptomatic on Midrin. No hypertension. Continue. Discharge to [facility] planned 10/19
[2017-10-16] MEDS: Midodrine HCl 5 MG Tablet 2.5 MG PO ×2 (10:57→16:16)
[2017-10-16] MEDS: Polyethylene Glycol 3350 17 GM PACKET PO (10:57)
--- NOTE | 2017-10-16 14:35 | PCM.PN.HOSP ---
Subjective: Patient seen and examined. He has no complaints and feels well. Per nurse, no active events. He is scheduled to be discharged to a retirement on Friday. He has been doing well with speech therapy and physical therapy. He denies any fever or chills, cough or chest pain, shortness of breath, abdominal pain, diarrhea vomiting. Review of systems is otherwise negative. Labs and vitals reviewed. Vitals/I&O's: Vital Signs Temp Pulse Resp BP Pulse Ox 97.7 F L 60 16 138/75 H 96 10/16/17 07:18 10/16/17 07:18 10/16/17 07:18 10/16/17 07:18 10/16/17 07:18 Oxygen Delivery Method Room Air Weight: 186 lb 1.122 oz Body Mass Index (BMI) 27.6 Orthostatic Vital Signs Start: 10/07/17 10:17 Freq: Status: Active Protocol: Activity Type Activity Date Activity User E-Sign Co-Sign Detail Recorded Client Recorded Date Recorded By Document 10/13/17 21:45 [facility] [id number] 10/14/17 01:17 CAK 10/13/17 21:45 Orthostatic Vitals Standing -Blood Pressure (90/60-120/80) 86/49 L -Extremity Use Right Arm -Pulse Rate (60-100) 64 Sitting -Blood Pressure (90/60-120/80) 130/64 H -Extremity Use Right Arm -Pulse Rate (60-100) 60 Lying -Blood Pressure (90/60-120/80) 138/66 H -Extremity Use Right Arm -Pulse Rate (60-100) 66 Intake and Output for Last 24 Hours 10/14/17 10/15/17 10/16/17 23:59 23:59 23:59 Intake Total 480 / 480 520 / 520 80 / 80 Balance 480 / 480 520 / 520 80 / 80 General: Alert, Oriented x3, Cooperative, No apparent distress HEENT: Atraumatic, PERRLA, EOMI, Normocephalic Oral: Moist Mucosa Neck: Supple, No JVD, Negative Carotid Bruits Lungs: Clear to auscultation, Normal air movement, No rhonchi, No wheeze, No rales Cardiovascular: Regular rate, Regular Rhythm, Normal S1, Normal S2, No murmurs Abdomen: Bowel Sounds Present, Soft, Non Tender, Non-Distended, No Hepato-splenomegaly Extremities: No clubbing, No cyanosis, No edema, Capillary Refill Less than 3 Seconds Skin: No rashes, No breakdown Musculoskeletal: No Tenderness to Palpation of Joints or Extremities Lymphatic: No Cervical, Supraclavicular, or Inguinal Adenopathy Neurological: Cranial nerves II-XII grossly intact, Motor Exam 5/5 strength throughout Psych/Mental Status: Normal Affect, Appropriate, Alert and oriented to time, place, person, mood and affect Current Medications Acetaminophen (Tylenol) 650 mg PO Q6H PRN PRN PRN Reason: Mild Pain (0-3/10)/Headache Last Admin: 10/09/17 21:08 Dose: 650 mg [facility]) [facility] Last Admin: 10/16/17 08:34 Dose: 81 mg Atorvastatin Calcium (Lipitor) 20 mg PO QHS [facility] Last Admin: 10/15/17 20:34 Dose: 20 mg Bisacodyl (Dulcolax) 10 mg RECTAL .PRN X 1 PRN PRN Reason: Constipation Last Admin: 10/04/17 22:16 Dose: 10 mg Calamine/Phenol (Calmoseptine Ointment) 1 applic TOPICAL TID [facility] PRN Reason: Protocol Last Admin: 10/16/17 14:11 Dose: 1 applicatio Carbidopa/Levodopa (Sinemet) 1 tablet PO 0700,1000,1300,1700 [facility] Last Admin: 10/16/17 14:10 Dose: 1 tablet Clonazepam (Klonopin) 0.5 mg PO QHS [facility] Last Admin: 10/15/17 20:34 Dose: 0.5 mg Donepezil HCl (Aricept) 10 mg PO QHS [facility] Last Admin: 10/15/17 20:34 Dose: 10 mg Enoxaparin Sodium (Lovenox) 40 mg SC DAILY@0600 [facility] Last Admin: 10/16/17 06:05 Dose: 40 mg Famotidine (Pepcid) 20 mg PO QHS [facility] Last Admin: 10/15/17 20:34 Dose: 20 mg Finasteride (Proscar) 5 mg PO DAILY [facility] Last Admin: 10/16/17 08:34 Dose: 5 mg Lactulose (Chronulac, Cephulac) 10 gm PO DAILY [facility] Last Admin: 10/16/17 08:34 Dose: 10 gm Loratadine (Claritin) 5 mg PO DAILY PRN PRN Reason: ALLERGIES Last Admin: 10/16/17 08:33 Dose: 5 mg Magnesium Hydroxide (Milk Of Magnesia) 30 ml PO .PRN X 1 PRN PRN Reason: Constipation Last Admin: 10/16/17 06:05 Dose: 30 ml Memantine (Namenda) 10 mg PO BID [facility] Last Admin: 10/16/17 08:37 Dose: 10 mg Midodrine (Proamatine) 5 mg PO 0700 [facility] Last Admin: 10/16/17 06:58 Dose: 5 mg Midodrine (Proamatine) 2.5 mg PO 1100,1600 [facility] Last Admin: 10/16/17 10:57 Dose: 2.5 mg Nutritional Formula (Lactose Free) (Ensure Enlive) 120 ml PO 4X/DAY [facility] Last Admin: 10/16/17 14:11 Dose: 120 ml Polyethylene Glycol (Miralax) 17 gm PO DAILY [facility] Last Admin: 10/16/17 10:57 Dose: 17 gm Senna/Docusate Sodium (Senokot-S, Yodit-Colace) 2 tablet PO BID [facility] Last Admin: 10/16/17 08:36 Dose: 2 tablet Sodium Chloride ([place] Nasal [place]) 1 spray NASAL TID PRN PRN PRN Reason: NASAL DRYNESS Last Admin: 10/13/17 20:20 Dose: 1 drop Tolterodine Tartrate (Detrol La) 2 mg PO DAILY [facility] Last Admin: 10/16/17 08:33 Dose: 2 mg Medical Necessity - Tobacco Use Smoking Status: Former smoker Assessment/Plan All Active Problems (Last Updated 07/24/17 @ 17:13 by Slim Haley) Syncope (Acute) 77 year old M with PMHx of CAD s/p CABG, s/p pacemaker for sinus arrest, PAF/Atrial flutter, Parkinson's disease admitted s/p syncopal episode and frequent falls. 1. Debility due to mechanical fall fall precautions. PT/OT on board due to be discharged to SNF on Friday 2. Bacterial conjuctivitis of right eye resolved. Ended a course of ciprofloxacin eye drop on 10/15/17. 4. Traumatic laceration to left eyebrow Resolved 5. paroxysmal atrial fibrillation: rate controlled. stable 6. Orthostatic hypotension: remains orthostatic positive. On midodrine lasix and imdur remain on hold. PETE hose stockings in place 6. Parkinsons' disease with dementia on memantine, clonazepam, sinemet and aricept. Sinemet increased per neurology 7. BPH: on flomax and tolterodine. flomax on hold o/a of orthostatic hypotension. DVT prophylaxis: lovenox Code status: full code Code Visit Inpatient E&M: 33471 Subs Hosp L2
--- NOTE | 2017-10-16 14:39 | PN_ITS ---
Subjective: Patient seen and examined. He has no complaints and feels well. Per nurse, no active events. He is scheduled to be discharged to a long-term on Friday. He has been doing well with speech therapy and physical therapy. He denies any fever or chills, cough or chest pain, shortness of breath, abdominal pain, diarrhea vomiting. Review of systems is otherwise negative. Labs and vitals reviewed. Vitals/I&O's: Vital Signs Temp Pulse Resp BP Pulse Ox 97.7 F L 60 16 138/75 H 96 10/16/17 07:18 10/16/17 07:18 10/16/17 07:18 10/16/17 07:18 10/16/17 07:18 Oxygen Delivery Method Room Air Weight: 186 lb 1.122 oz Body Mass Index (BMI) 27.6 Orthostatic Vital Signs Start: 10/07/17 10:17 Freq: Status: Active Protocol: Activity Type Activity Date Activity User E-Sign Co-Sign Detail Recorded Client Recorded Date Recorded By Document 10/13/17 21:45 [facility]K [id number] 10/14/17 01:17 CAK 10/13/17 21:45 Orthostatic Vitals Standing -Blood Pressure (90/60-120/80) 86/49 L -Extremity Use Right Arm -Pulse Rate (60-100) 64 Sitting -Blood Pressure (90/60-120/80) 130/64 H -Extremity Use Right Arm -Pulse Rate (60-100) 60 Lying -Blood Pressure (90/60-120/80) 138/66 H -Extremity Use Right Arm -Pulse Rate (60-100) 66 Intake and Output for Last 24 Hours 10/14/17 10/15/17 10/16/17 23:59 23:59 23:59 Intake Total 480 / 480 520 / 520 80 / 80 Balance 480 / 480 520 / 520 80 / 80 General: Alert, Oriented x3, Cooperative, No apparent distress HEENT: Atraumatic, PERRLA, EOMI, Normocephalic Oral: Moist Mucosa Neck: Supple, No JVD, Negative Carotid Bruits Lungs: Clear to auscultation, Normal air movement, No rhonchi, No wheeze, No rales Cardiovascular: Regular rate, Regular Rhythm, Normal S1, Normal S2, No murmurs Abdomen: Bowel Sounds Present, Soft, Non Tender, Non-Distended, No Hepato- splenomegaly Extremities: No clubbing, No cyanosis, No edema, Capillary Refill Less than 3 Seconds Skin: No rashes, No breakdown Musculoskeletal: No Tenderness to Palpation of Joints or Extremities Lymphatic: No Cervical, Supraclavicular, or Inguinal Adenopathy Neurological: Cranial nerves II-XII grossly intact, Motor Exam 5/5 strength throughout Psych/Mental Status: Normal Affect, Appropriate, Alert and oriented to time, place, person, mood and affect Current Medications Acetaminophen (Tylenol) 650 mg PO Q6H PRN PRN PRN Reason: Mild Pain (0-3/10)/Headache Last Admin: 10/09/17 21:08 Dose: 650 mg [facility] Last Admin: 10/16/17 08:34 Dose: 81 mg Atorvastatin Calcium (Lipitor) 20 mg PO QHS [facility] Last Admin: 10/15/17 20:34 Dose: 20 mg Bisacodyl (Dulcolax) 10 mg RECTAL .PRN X 1 PRN PRN Reason: Constipation Last Admin: 10/04/17 22:16 Dose: 10 mg Calamine/Phenol (Calmoseptine Ointment) 1 applic TOPICAL TID [facility] PRN Reason: Protocol Last Admin: 10/16/17 14:11 Dose: 1 applicatio Carbidopa/Levodopa (Sinemet) 1 tablet PO 0700,1000,1300,1700 [facility] Last Admin: 10/16/17 14:10 Dose: 1 tablet Clonazepam (Klonopin) 0.5 mg PO QHS [facility] Last Admin: 10/15/17 20:34 Dose: 0.5 mg Donepezil HCl (Aricept) 10 mg PO QHS [facility] Last Admin: 10/15/17 20:34 Dose: 10 mg Enoxaparin Sodium (Lovenox) 40 mg SC DAILY@0600 [facility] Last Admin: 10/16/17 06:05 Dose: 40 mg Famotidine (Pepcid) 20 mg PO QHS [facility] Last Admin: 10/15/17 20:34 Dose: 20 mg Finasteride (Proscar) 5 mg PO DAILY [facility] Last Admin: 10/16/17 08:34 Dose: 5 mg Lactulose (Chronulac, Cephulac) 10 gm PO DAILY [facility] Last Admin: 10/16/17 08:34 Dose: 10 gm Loratadine (Claritin) 5 mg PO DAILY PRN PRN Reason: ALLERGIES Last Admin: 10/16/17 08:33 Dose: 5 mg Magnesium Hydroxide (Milk Of Magnesia) 30 ml PO .PRN X 1 PRN PRN Reason: Constipation Last Admin: 10/16/17 06:05 Dose: 30 ml Memantine (Namenda) 10 mg PO BID [facility] Last Admin: 10/16/17 08:37 Dose: 10 mg Midodrine (Proamatine) 5 mg PO 0700 [facility] Last Admin: 10/16/17 06:58 Dose: 5 mg Midodrine (Proamatine) 2.5 mg PO 1100,1600 [facility] Last Admin: 10/16/17 10:57 Dose: 2.5 mg Nutritional Formula (Lactose Free) (Ensure Enlive) 120 ml PO 4X/DAY [facility] Last Admin: 10/16/17 14:11 Dose: 120 ml Polyethylene Glycol (Miralax) 17 gm PO DAILY [facility] Last Admin: 10/16/17 10:57 Dose: 17 gm Senna/Docusate Sodium (Senokot-S, Yodit-Colace) 2 tablet PO BID [facility] Last Admin: 10/16/17 08:36 Dose: 2 tablet Sodium Chloride (Traill Nasal Woodman) 1 spray NASAL TID PRN PRN PRN Reason: NASAL DRYNESS Last Admin: 10/13/17 20:20 Dose: 1 drop Tolterodine Tartrate (Detrol La) 2 mg PO DAILY [facility] Last Admin: 10/16/17 08:33 Dose: 2 mg Medical Necessity - Tobacco Use Smoking Status: Former smoker Assessment/Plan All Active Problems (Last Updated 07/24/17 @ 17:13 by Slim Haley) Syncope (Acute) 77 year old M with PMHx of CAD s/p CABG, s/p pacemaker for sinus arrest, PAF/ Atrial flutter, Parkinson's disease admitted s/p syncopal episode and frequent falls. 1. Debility due to mechanical fall * fall precautions. * PT/OT on board * due to be discharged to SNF on Friday * 2. Bacterial conjuctivitis of right eye * resolved. Ended a course of ciprofloxacin eye drop on 10/15/17. * * 4. Traumatic laceration to left eyebrow * Resolved 5. paroxysmal atrial fibrillation: rate controlled. stable 6. Orthostatic hypotension: * remains orthostatic positive. On midodrine * lasix and imdur remain on hold. * PETE hose stockings in place 6. Parkinsons' disease with dementia * on memantine, clonazepam, sinemet and aricept. Sinemet increased per neurology * 7. BPH: on flomax and tolterodine. flomax on hold o/a of orthostatic hypotension. DVT prophylaxis: lovenox Code status: full code Code Visit Inpatient E&M: 54514 Subs Hosp L2
[2017-10-16 19:00] VITALS: BP 135/67; PULSE 62; RESP 17; TEMP 36.6; O2SAT 97
[2017-10-16] MEDS: Donepezil HCl 10 MG Tablet PO (21:33)
[2017-10-16] MEDS: clonazePAM 0.5 MG Tablet PO (21:33)
[2017-10-16] MEDS: Atorvastatin Calcium 20 MG Tablet PO (21:34)
[2017-10-16 22:00] VITALS: RESP 17
[2017-10-17] MEDS: Enoxaparin 40 MG/0.4 ML Syringe SC (06:04)
[2017-10-17] MEDS: Menthol/Lanolin/Calamine/Znox 113 GM Tube 1 APPLIC TOPICAL ×3 (06:33→23:29)
[2017-10-17] MEDS: Carbidopa/Levodopa 25/100 Tablet PO ×4 (07:45→16:07)
[2017-10-17] MEDS: Midodrine HCl 5 MG Tablet PO (07:45)
[2017-10-17] MEDS: Senna/Docusate Sodium 1 Tablet 2 TABLET PO ×2 (07:46→23:16)
[2017-10-17] MEDS: Memantine Hydrochloride 10 MG Tablet PO ×2 (07:46→23:16)
[2017-10-17] MEDS: Aspirin E.C. 81 MG Tablet PO (07:46)
[2017-10-17] MEDS: Finasteride 5 MG Tablet PO (07:46)
[2017-10-17] MEDS: Tolterodine Tartrate 2 MG CAP.SA PO (07:46)
[2017-10-17] MEDS: Lactulose 20 GM/30 ML UDC 10 GM PO (07:48)
[2017-10-17] MEDS: Polyethylene Glycol 3350 17 GM PACKET PO (07:48)
--- NOTE | 2017-10-17 09:17 | CASEMGMT ---
Social Work Telephone call from patient son, Wander. Wander reporting that first choice for placement in the [facility] and second choice is the [facility]. Telephone call to [facility], they do not have any openings at this time. Telephone call to the [facility], Jan[facility]. Referral made. Janett to get back with this long term care social worker after clinicals have been reviewed. Proposed discharge date: 10/19/17 PLAN: Discharge to [facility] pending response. Radha HOLT, GUIDANCE SERVICES COORDINATOR
[2017-10-17 10:00] VITALS: BP 117/58; PULSE 59; RESP 17; TEMP 36.6; O2SAT 96
[2017-10-17] MEDS: Midodrine HCl 5 MG Tablet 2.5 MG PO ×2 (10:36→16:00)
[2017-10-17] MEDS: Loratadine 10 MG Tablet 5 MG PO (10:37)
--- NOTE | 2017-10-17 11:33 | CASEMGMT ---
Social Work Telephone call from the [facility]. Janett reporting to be able to accept patient on 10/19/17. Telephone call to patient son, Wander. This community mental health social worker communicating above information. Wander voicing understanding and aware that the [facility] was unable to accept patient due to not having any openings. Wander is planning to provide transportation for patient on day of discharge in the afternoon. Wander reporting to have family to assist with the transfer as well. Support given. PASRR completed in [facility]. Results faxed to the [facility]. Will fax discharge information when obtained. Proposed discharge date: 10/19/17 PLAN: Discharge to the [facility] [facility]. Radha HOLT, CENTRAL OFFICE OPERATOR
--- NOTE | 2017-10-17 12:19 | CASEMGMT ---
Social Work Discharge orders faxed to the [facility]. Proposed discharge date: 10/19/17 PLAN: Discharge to the [facility] skilled. Radha HOLT, ORNAMENTAL IRONWORKER
[2017-10-17 20:20] VITALS: BP 155/78; PULSE 61; RESP 18; TEMP 36.6; O2SAT 98
[2017-10-17 22:00] VITALS: RESP 15
[2017-10-17] MEDS: clonazePAM 0.5 MG Tablet PO (23:15)
[2017-10-17] MEDS: Atorvastatin Calcium 20 MG Tablet PO (23:16)
[2017-10-17] MEDS: Donepezil HCl 10 MG Tablet PO (23:16)
[2017-10-17] MEDS: Famotidine 20 MG Tablet PO (23:16)
[2017-10-18] MEDS: Enoxaparin 40 MG/0.4 ML Syringe SC (05:44)
[2017-10-18] MEDS: Menthol/Lanolin/Calamine/Znox 113 GM Tube 1 APPLIC TOPICAL ×3 (05:48→21:29)
[2017-10-18] MEDS: Carbidopa/Levodopa 25/100 Tablet PO ×4 (07:30→16:53)
[2017-10-18] MEDS: Midodrine HCl 5 MG Tablet PO (07:30)
[2017-10-18] MEDS: Polyethylene Glycol 3350 17 GM PACKET PO (07:31)
[2017-10-18] MEDS: Aspirin E.C. 81 MG Tablet PO (07:31)
[2017-10-18] MEDS: Senna/Docusate Sodium 1 Tablet 2 TABLET PO ×2 (07:31→21:29)
[2017-10-18] MEDS: Lactulose 20 GM/30 ML UDC 10 GM PO (07:31)
[2017-10-18] MEDS: Finasteride 5 MG Tablet PO (07:32)
[2017-10-18] MEDS: Tolterodine Tartrate 2 MG CAP.SA PO (07:33)
[2017-10-18] MEDS: Memantine Hydrochloride 10 MG Tablet PO ×2 (07:33→21:29)
[2017-10-18] MEDS: Loratadine 10 MG Tablet 5 MG PO (07:34)
[2017-10-18 09:03] VITALS: BP 94/53; PULSE 60; RESP 14; TEMP 36.4; O2SAT 96
[2017-10-18] MEDS: Midodrine HCl 5 MG Tablet 2.5 MG PO ×2 (11:03→15:59)
--- NOTE | 2017-10-18 14:26 | PCM.PROGNOTE ---
Subjective: Chief complaint: Follow-up after consultation for medical management after admission to rehabilitation unit after patient suffered syncope due to orthostatic hypotension secondary to Parkinson's disease, debility and functional decline. Patient seen and examined. No acute events overnight. Nursing staff reported no problems. His vital signs are stable. - Physical Exam General: Alert, Cooperative, No apparent distress HEENT: Atraumatic, PERRLA, EOMI, Normocephalic Oral: Moist Mucosa, No Gingival or Mucosal Lesions/ Ulcerations Neck: Supple, No JVD, Negative Carotid Bruits, Trachea Midline, Thyroid Normal Size and Texture Lungs: Clear to auscultation, No rhonchi, No wheeze, No rales, Diminished Cardiovascular: Normal S1, Normal S2, PMI Normal, Irregular Rate Abdomen: Bowel Sounds Present, Soft, Non Tender, Non-Distended, No Hepato-splenomegaly Extremities: No clubbing, No cyanosis, No edema Skin: No rashes, No breakdown Lymphatic: No Cervical, Supraclavicular, or Inguinal Adenopathy Neurological: Cranial nerves II-XII grossly intact, Motor Exam 5/5 strength throughout Psych/Mental Status: Normal Affect, Appropriate Vital Signs Temp Pulse Resp BP Pulse Ox 97.6 F L 60 14 94/53 L 96 10/18/17 09:03 10/18/17 09:03 10/18/17 09:03 10/18/17 09:03 10/18/17 09:03 Oxygen Delivery Method Room Air Weight: 186 lb 1.122 oz Body Mass Index (BMI) 27.6 Orthostatic Vital Signs Start: 10/07/17 10:17 Freq: Status: Active Protocol: Activity Type Activity Date Activity User E-Sign Co-Sign Detail Recorded Client Recorded Date Recorded By Document 10/13/17 21:45 [facility] [id number] 10/14/17 01:17 CAK 10/13/17 21:45 Orthostatic Vitals Standing -Blood Pressure (90/60-120/80) 86/49 L -Extremity Use Right Arm -Pulse Rate (60-100) 64 Sitting -Blood Pressure (90/60-120/80) 130/64 H -Extremity Use Right Arm -Pulse Rate (60-100) 60 Lying -Blood Pressure (90/60-120/80) 138/66 H -Extremity Use Right Arm -Pulse Rate (60-100) 66 Intake and Output for Last 24 Hours 08/09/18 08/10/18 08/11/18 23:59 23:59 23:59 Intake Total 200 / 200 540 / 540 240 / 240 Output Total 150 / 150 Balance 200 / 200 390 / 390 240 / 240 Medical Necessity - Tobacco Use Smoking Status: Former smoker Assessment/Plan All Active Problems (Last Updated 07/24/17 @ 17:13 by Slim Haley) Syncope (Acute) This is a 77 years old male patient admitted to rehabilitation unit for physical and occupational therapy after he suffered syncope secondary to orthostatic hypotension due to Parkinson's disease also found to have significant debility and functional decline. #1 functional decline/debility: Due to mechanical fall. Multifactorial secondary to aging, multiple medical problems including Parkinson's disease and dementia. Patient's vital signs are stable. Routine blood work from October 05, 2079 reviewed, was unremarkable. Nursing staff reported no issues or acute problems. Plan is to have patient go to senior care facility tomorrow. #2 syncope/orthostatic hypotension: Attributed to autonomic dysfunction secondary to Parkinson's disease. Patient's blood pressure has been stable but still having orthostatic hypotension. He is on midodrine. He is not on any antihypertensive medications or diuretics. Plan for close monitoring. #3 bacterial conjunctivitis of the right eye: Completed course of ciprofloxacin eyedrops. #4 paroxysmal atrial fibrillation: Status post pacemaker. Rate stable. He is on aspirin only. He is not on any medication for rate control and he is not on anticoagulation. #5 traumatic laceration of the left eyebrow: Resolved. #6 Parkinson's disease/dementia: Continue Sinemet, Aricept and Namenda. #7 benign prostatic hypertrophy: Continue Proscar and Detrol. #8 DVT prophylaxis: Subcu Lovenox. This note was generated with [employer] dictation software. It may contain incorrect words, spelling, and punctuation that were not noted in checking the note before signing. Code Visit Inpatient E&M: 89456 Subs Hosp L2
--- NOTE | 2017-10-18 14:34 | PN_ITS ---
Subjective: Chief complaint: Follow-up after consultation for medical management after admission to rehabilitation unit after patient suffered syncope due to orthostatic hypotension secondary to Parkinson's disease, debility and functional decline. Patient seen and examined. No acute events overnight. Nursing staff reported no problems. His vital signs are stable. - Physical Exam General: Alert, Cooperative, No apparent distress HEENT: Atraumatic, PERRLA, EOMI, Normocephalic Oral: Moist Mucosa, No Gingival or Mucosal Lesions/ Ulcerations Neck: Supple, No JVD, Negative Carotid Bruits, Trachea Midline, Thyroid Normal Size and Texture Lungs: Clear to auscultation, No rhonchi, No wheeze, No rales, Diminished Cardiovascular: Normal S1, Normal S2, PMI Normal, Irregular Rate Abdomen: Bowel Sounds Present, Soft, Non Tender, Non-Distended, No Hepato- splenomegaly Extremities: No clubbing, No cyanosis, No edema Skin: No rashes, No breakdown Lymphatic: No Cervical, Supraclavicular, or Inguinal Adenopathy Neurological: Cranial nerves II-XII grossly intact, Motor Exam 5/5 strength throughout Psych/Mental Status: Normal Affect, Appropriate Vital Signs Temp Pulse Resp BP Pulse Ox 97.6 F L 60 14 94/53 L 96 10/18/17 09:03 10/18/17 09:03 10/18/17 09:03 10/18/17 09:03 10/18/17 09:03 Oxygen Delivery Method Room Air Weight: 186 lb 1.122 oz Body Mass Index (BMI) 27.6 Orthostatic Vital Signs Start: 10/07/17 10:17 Freq: Status: Active Protocol: Activity Type Activity Date Activity User E-Sign Co-Sign Detail Recorded Client Recorded Date Recorded By Document 10/13/17 21:45 [facility] [id number] 10/14/17 01:17 CAK 10/13/17 21:45 Orthostatic Vitals Standing -Blood Pressure (90/60-120/80) 86/49 L -Extremity Use Right Arm -Pulse Rate (60-100) 64 Sitting -Blood Pressure (90/60-120/80) 130/64 H -Extremity Use Right Arm -Pulse Rate (60-100) 60 Lying -Blood Pressure (90/60-120/80) 138/66 H -Extremity Use Right Arm -Pulse Rate (60-100) 66 Intake and Output for Last 24 Hours 08/09/18 08/10/18 08/11/18 23:59 23:59 23:59 Intake Total 200 / 200 540 / 540 240 / 240 Output Total 150 / 150 Balance 200 / 200 390 / 390 240 / 240 Medical Necessity - Tobacco Use Smoking Status: Former smoker Assessment/Plan All Active Problems (Last Updated 07/24/17 @ 17:13 by Slim Haley) Syncope (Acute) This is a 77 years old male patient admitted to rehabilitation unit for physical and occupational therapy after he suffered syncope secondary to orthostatic hypotension due to Parkinson's disease also found to have significant debility and functional decline. #1 functional decline/debility: Due to mechanical fall. Multifactorial secondary to aging, multiple medical problems including Parkinson's disease and dementia. Patient's vital signs are stable. Routine blood work from October 05, 2079 reviewed, was unremarkable. Nursing staff reported no issues or acute problems. Plan is to have patient go to alf facility tomorrow. #2 syncope/orthostatic hypotension: Attributed to autonomic dysfunction secondary to Parkinson's disease. Patient's blood pressure has been stable but still having orthostatic hypotension. He is on midodrine. He is not on any antihypertensive medications or diuretics. Plan for close monitoring. #3 bacterial conjunctivitis of the right eye: Completed course of ciprofloxacin eyedrops. #4 paroxysmal atrial fibrillation: Status post pacemaker. Rate stable. He is on aspirin only. He is not on any medication for rate control and he is not on anticoagulation. #5 traumatic laceration of the left eyebrow: Resolved. #6 Parkinson's disease/dementia: Continue Sinemet, Aricept and Namenda. #7 benign prostatic hypertrophy: Continue Proscar and Detrol. #8 DVT prophylaxis: Subcu Lovenox. This note was generated with [employer] dictation software. It may contain incorrect words, spelling, and punctuation that were not noted in checking the note before signing. Code Visit Inpatient E&M: 49678 Subs Hosp L2
[2017-10-18 19:10] VITALS: BP 133/62; PULSE 61; RESP 18; TEMP 36.6; O2SAT 98
[2017-10-18] MEDS: Donepezil HCl 10 MG Tablet PO (21:29)
[2017-10-18] MEDS: Famotidine 20 MG Tablet PO (21:29)
[2017-10-18] MEDS: Atorvastatin Calcium 20 MG Tablet PO (21:29)
[2017-10-18] MEDS: clonazePAM 0.5 MG Tablet PO (21:31)
[2017-10-19] MEDS: Menthol/Lanolin/Calamine/Znox 113 GM Tube 1 APPLIC TOPICAL ×2 (06:00→13:38)
[2017-10-19] MEDS: Midodrine HCl 5 MG Tablet PO (06:00)
[2017-10-19] MEDS: Carbidopa/Levodopa 25/100 Tablet PO ×4 (06:00→16:29)
[2017-10-19] MEDS: Enoxaparin 40 MG/0.4 ML Syringe SC (06:00)
[2017-10-19] MEDS: Lactulose 20 GM/30 ML UDC 10 GM PO (08:37)
[2017-10-19] MEDS: Senna/Docusate Sodium 1 Tablet 2 TABLET PO (08:38)
[2017-10-19] MEDS: Polyethylene Glycol 3350 17 GM PACKET PO (08:38)
[2017-10-19] MEDS: Tolterodine Tartrate 2 MG CAP.SA PO (08:38)
[2017-10-19] MEDS: Loratadine 10 MG Tablet 5 MG PO (08:38)
[2017-10-19] MEDS: Memantine Hydrochloride 10 MG Tablet PO (08:38)
[2017-10-19] MEDS: Finasteride 5 MG Tablet PO (08:38)
[2017-10-19] MEDS: Aspirin E.C. 81 MG Tablet PO (08:38)
[2017-10-19 09:55] VITALS: BP 118/58; PULSE 60; RESP 18; TEMP 36.6; O2SAT 96
[2017-10-19] MEDS: Midodrine HCl 5 MG Tablet 2.5 MG PO ×2 (11:07→16:28)
--- NOTE | 2017-10-19 16:37 | NURSING ---
report given to [facility] at the [facility] [place] and family here now to take patient.
[2017-10-19 16:38] VITALS: BP 118/58; PULSE 60; RESP 18; TEMP 36.6; O2SAT 96
== END 2017-10-19 16:44 | disposition skilled nursing facility (03) | DRG 948 ==
PROVIDERS: Psychiatry & Neurology Neurology; Admitting Provider Psychiatry & Neurology Neurology; Family Provider Internal Medicine; PCP Internal Medicine; Visit Provider Student in an Organized Health Care Education/Training Program
DX: R53.81 Other malaise (principal); G20 Parkinson's disease; I48.0 Paroxysmal atrial fibrillation; Z95.1 Presence of aortocoronary bypass graft; I25.10 Atherosclerotic heart disease of native coronary artery without angina pectoris; Z87.891 Personal history of nicotine dependence; I12.9 Hypertensive chronic kidney disease with stage 1 through stage 4 chronic kidney disease, or unspecified chronic kidney disease; N18.2 Chronic kidney disease, stage 2 (mild); G47.33 Obstructive sleep apnea (adult) (pediatric); K21.9 Gastro-esophageal reflux disease without esophagitis; E78.5 Hyperlipidemia, unspecified; Z91.81 History of falling; S01.112D Laceration without foreign body of left eyelid and periocular area, subsequent encounter; W19.XXXD Unspecified fall, subsequent encounter; Z95.0 Presence of cardiac pacemaker; N39.490 Overflow incontinence; N40.1 Benign prostatic hyperplasia with lower urinary tract symptoms; I95.1 Orthostatic hypotension; H10.89 Other conjunctivitis
CPT/HCPCS: 80048; 84484; 85027; 92507; 92522; 92526; 93005; 97110; 97116; 97163; 97166; 97530; 97535; 97802; J7040; A4216

== ENCOUNTER → 2018-01-30 14:00 | Outpatient (REF) | payer MEDICARE, OTHER, SELFPAY | LOC: OLS.WCC 14:00 | PROVIDERS: Visit Provider Family Medicine | DX: R30.0 Dysuria (principal) | CPT/HCPCS: 87086; 87088; 87186 ==

== ENCOUNTER → 2018-02-20 14:00 | Outpatient (REF) | payer MEDICARE, OTHER, SELFPAY ==
--- OUTSIDE RECORDS SUMMARY | 2018-05-27 10:10 | XMS RPT_ITS ---
:1940 Author Organization OHIP Support Name Relationship Address Phone Jcarlos Young Unavailable Unavailable + [place] [address] Kenny Young Unavailable Unavailable + [place] [address] R Unavailable Unavailable Unavailable Jcarlos Young Unavailable Unavailable + [place] [address] Kenny Young Unavailable Unavailable + [place] [address] R Unavailable Unavailable Unavailable Jcarlos Young Unavailable Unavailable + [place] [address] Kenny Young Unavailable Unavailable + [place] [address] R Unavailable Unavailable Unavailable Jcarlos Young Unavailable Unavailable + [place] [address] Kenny Young Unavailable Unavailable + [place] [address] R Unavailable Unavailable Unavailable Jcarlos Young Unavailable Unavailable + [place] [address] Kenny Young Unavailable Unavailable + [place] [address] R Unavailable Unavailable Unavailable Jcarlos Young Unavailable Unavailable + [place] [address] Kenny Young Unavailable Unavailable + [place] [address] R Unavailable Unavailable Unavailable JCARLOS YOUNG Unavailable Unavailable + [place] [address] WOODROW YOUNGE Unavailable Unavailable + [place] [address] R Unavailable Unavailable Unavailable Jcarlos Young Unavailable Unavailable + [place] [address] Woodrow Younge Unavailable Unavailable + [place] [address] R Unavailable Unavailable Unavailable YOUNG, JCARLOS Unavailable Unavailable + [place] [address] YOUNG, KENNY Unavailable Unavailable + [place] [address] R Unavailable Unavailable Unavailable YOUNG, JCARLOS Unavailable Unavailable + [place] [address] YOUNG, KENNY Unavailable Unavailable + [place] [address] R Unavailable Unavailable Unavailable YOUNG, JCARLOS Unavailable Unavailable + [place] [address] YOUNG, KENNY Unavailable Unavailable + [place] [address] R Unavailable Unavailable Unavailable YOUNG, JCARLOS Unavailable Unavailable + [place] [address] YOUNG, KENNY Unavailable Unavailable + [place] [address] R Unavailable Unavailable Unavailable YOUNG, JCARLOS Unavailable Unavailable + [place] [address] YOUNG, KENNY Unavailable Unavailable + [place] [address] R Unavailable Unavailable Unavailable YOUNG, JCARLOS Unavailable Unavailable + [place] [address] YOUNG, KENNY Unavailable Unavailable + [place] [address] R Unavailable Unavailable Unavailable YOUNG, JCARLOS Unavailable Unavailable + [place] [address] YOUNG, KENNY Unavailable Unavailable + [place] [address] R Unavailable Unavailable Unavailable YOUNG, JCARLOS Unavailable Unavailable + [place] [address] YOUNG, KENNY Unavailable Unavailable + [place] [address] R Unavailable Unavailable Unavailable YOUNG, JCARLOS Unavailable Unavailable + [place] [address] YOUNG, KENNY Unavailable Unavailable + [place] [address] R Unavailable Unavailable Unavailable YOUNG, JCARLOS Unavailable Unavailable + [place] [address] YOUNG, KENNY Unavailable Unavailable + [place] [address] R Unavailable Unavailable Unavailable YOUNG, JCARLOS Unavailable Unavailable + [place] [address] YOUNG, KENNY Unavailable . + [place] [address] R Unavailable Unavailable Unavailable YOUNG, JCARLOS Unavailable Unavailable + [place] [address] YOUNG, KENNY Unavailable . + [place] [address] R Unavailable Unavailable Unavailable YOUNG, JCARLOS Unavailable Unavailable + [place] [address] YOUNG, KENNY Unavailable Unavailable + [place] [address] R Unavailable Unavailable Unavailable YOUNG, JCARLOS Unavailable Unavailable + [place] [address] YOUNG, KENNY Unavailable Unavailable + [place] [address] R Unavailable Unavailable Unavailable YOUNG, JCARLOS Unavailable Unavailable + [place] [address] YOUNG, KENNY Unavailable Unavailable + [place] [address] R Unavailable Unavailable Unavailable YOUNG, JCARLOS Unavailable Unavailable + [place] [address] YOUNG, KENNY Unavailable Unavailable + [place] [address] R Unavailable Unavailable Unavailable YOUNG, JCARLOS Unavailable Unavailable + [place] [address] YOUNG, KENNY Unavailable Unavailable + [place] [address] R Unavailable Unavailable Unavailable YOUNG, JCARLOS Unavailable Unavailable + YOUNG, KENNY Unavailable Unavailable + R Unavailable Unavailable Unavailable YOUNG, JCARLOS Unavailable Unavailable + YOUNG, KENNY Unavailable Unavailable + R Unavailable Unavailable Unavailable YOUNG, JCARLOS Unavailable Unavailable + YOUNG, KENNY Unavailable Unavailable + R Unavailable Unavailable Unavailable YOUNG, JCARLOS Unavailable Unavailable + YOUNG, KENNY Unavailable Unavailable + R Unavailable Unavailable Unavailable YOUNG, JCARLOS Unavailable Unavailable + YOUNG, KENNY Unavailable Unavailable + R Unavailable Unavailable Unavailable YOUNG, JCARLOS Unavailable Unavailable + YOUNG, KENNY Unavailable Unavailable + R Unavailable Unavailable Unavailable JCARLOS YOUNG Unavailable NA + [place], [place] YOUNGWOODROWE Unavailable NA + [place], [place] R Unavailable Unavailable Unavailable JCARLOS YOUNG Unavailable NA + [place], [place] YOUNG, KENNY Unavailable NA + [place], [place] R Unavailable Unavailable Unavailable JCARLOS YOUNG Unavailable NA + [place], [place] YOUNG, KENNY Unavailable NA + [place], [place] R Unavailable Unavailable Unavailable JCARLOS YOUNG Unavailable NA + [place], [place] YOUNG, KENNY Unavailable NA + [place], [place] R Unavailable Unavailable Unavailable Care Team Providers Name Role Phone CHRIS DEAN Attending Unavailable MITCHELL PETERS (C S S REPRESENTATIVE) Referring Unavailable CHRIS DEAN Referring Unavailable Driss Young Attending Unavailable Berkley Carson Attending Unavailable Chris Dean Referring Unavailable Chris Dean Primary Care Unavailable Paintsil, Whigham Admitting Unavailable Burt Trejo Attending Unavailable Tabitha Sahni Referring Unavailable Chris Dean Primary Care Unavailable Burt Trejo Consulting Unavailable Paintsil, Whigham Consulting Unavailable Morgan Tinsley Admitting Unavailable Nereyda Dunn Attending Unavailable Chris Dean Primary Care Unavailable Win Teran Consulting Unavailable Paintsil, Whigham Consulting Unavailable Alicia Duval Consulting Unavailable OsifeAbdi wang Consulting Unavailable Merna Jacob Consulting Unavailable Megan Carver Consulting Unavailable Gerald Paulson Consulting Unavailable Sherwin Castillo Consulting Unavailable Burt Rae Consulting Unavailable Alok Sams Consulting Unavailable Blake Buck Consulting Unavailable Blake Babin Consulting Unavailable Carolyn Melgoza Consulting Unavailable Carlos Mcneal Consulting Unavailable Rayna English Consulting Unavailable Lynda Kellogg Consulting Unavailable Ana Maria Grimaldo Consulting Unavailable Migdalia Casey Consulting Unavailable Getachew La Consulting Unavailable Yuval Lawton Consulting Unavailable Ruslan Kapoor Consulting Unavailable Jose Alejandro Kemp Consulting Unavailable Linnea, Farhat Consulting Unavailable Gbaruk, Kombian Consulting Unavailable [place], Dann Consulting Unavailable Tone Cárdenas Consulting Unavailable Abe Monroe Consulting Unavailable Ha Charles Consulting Unavailable Koram, Nereyda Starla Consulting Unavailable Felicia, Chalo Consulting Unavailable Anil, Shane Consulting Unavailable Hemanth, Poncho Consulting Unavailable Mg De Consulting Unavailable Mg Dimas Consulting Unavailable Mahnazsktate, Danica Consulting Unavailable Geoffrey, Reagan Consulting Unavailable Jensen Hoang Consulting Unavailable Mae, Agaai Consulting Unavailable Ukponmwan, Uyigue Consulting Unavailable Raul Smith Consulting Unavailable Mushtaq Caban Consulting Unavailable Dorota Sorto GREY INSPECTOR-C Consulting Unavailable Ha Rodriguez GREY INSPECTOR-C Consulting Unavailable Angelo Wheatley Consulting Unavailable Karen Cano Consulting Unavailable Luis Eduardo Santillan Consulting Unavailable Mg De Attending Unavailable Morgan Tinsley Admitting Unavailable Paintsil, Whigham Attending Unavailable Chris Dean Primary Care Unavailable Win Teran Consulting Unavailable Paintsil, Whigham Consulting Unavailable Alicia Duval Consulting Unavailable Osashvin, Madikfarheenuma Consulting Unavailable Merna Jacob Consulting Unavailable Megan Carver Consulting Unavailable Lorene, Gerald Consulting Unavailable Sherwin Castillo Consulting Unavailable Burt Rae Consulting Unavailable Alok Sams Consulting Unavailable Blake Buck Consulting Unavailable Blake Babin Consulting Unavailable Carolyn Melgoza Consulting Unavailable Elizabet, Ghasem Consulting Unavailable Rayna English Consulting Unavailable Lynda Kellogg Consulting Unavailable Ana Maria Grimaldo Consulting Unavailable Migdalia Casey Consulting Unavailable Getachew La Consulting Unavailable Yuval Lawton Consulting Unavailable Ruslan Kapoor Consulting Unavailable GolJose Alejandro krishna Consulting Unavailable Linnea, Farhat Consulting Unavailable Gbaruk, Kombian Consulting Unavailable Jeremiah, Dann Consulting Unavailable Tone Cárdenas Consulting Unavailable Abe Monroe Consulting Unavailable Ha Charles Consulting Unavailable Koram, Nereyda Starla Consulting Unavailable Felicia, Chalo Consulting Unavailable Anil, Shane Consulting Unavailable Hemanth, Poncho Consulting Unavailable Mg De Consulting Unavailable Mg Dimas Consulting Unavailable Annabellee, Danica Consulting Unavailable Geoffrey, Reagan Consulting Unavailable Jensen Hoang Consulting Unavailable Luis Wall Consulting Unavailable Ukponmwan, Uyigue Consulting Unavailable Imamura, Yoichi Consulting Unavailable Hourmouzis, Mushtaq Consulting Unavailable Dorota Sorto NP-C Consulting Unavailable Ha Rodriguez NP-C Consulting Unavailable Angelo Wheatley Consulting Unavailable Karen Cano Consulting Unavailable Luis Eduardo Santillan Consulting Unavailable Morgan Tinsley Consulting Unavailable Morgan Tinsley Admitting Unavailable Chris Dean Primary Care Unavailable Quin Terandoyiefren Consulting Unavailable Nereyda Dunn Attending Unavailable Paintsil, Whigham Consulting Unavailable Alicia Duval Consulting Unavailable Mikaela Adenuma Consulting Unavailable Merna Jacob Consulting Unavailable Megan Carver Consulting Unavailable Gerald Paulson Consulting Unavailable Sherwin Castillo Consulting Unavailable Burt Rae Consulting Unavailable Alok Sams Consulting Unavailable Blake Buck Consulting Unavailable Blake Babin Consulting Unavailable Carolyn Melgoza Consulting Unavailable Carlos Mcneal Consulting Unavailable Rayna English Consulting Unavailable Lynda Kellogg Consulting Unavailable Ana Maria Grimaldo Consulting Unavailable Migdalia Casey Consulting Unavailable Getachew La Consulting Unavailable Yuval Lawton Consulting Unavailable Ruslan Kapoor Consulting Unavailable Jose Alejandro Kemp Consulting Unavailable Farhat Yarbrough Consulting Unavailable Katrina Gonzalez Consulting Unavailable Dann Daniels Consulting Unavailable Tone Cárdenas Consulting Unavailable Abe Monroe Consulting Unavailable Ha Charles Consulting Unavailable Mona, Nereyda Starla Consulting Unavailable Chalo [place] Consulting Unavailable Shane Ma Consulting Unavailable Hemanth Poncho Consulting Unavailable Mg De Consulting Unavailable Mg Dimas Consulting Unavailable Danica Mendez Consulting Unavailable Reagan Hale Consulting Unavailable Jensen Hoang Consulting Unavailable Mae, Rahulrmlalaai Consulting Unavailable Ukponmwan, Uyigue Consulting Unavailable Imamura, Yoichi Consulting Unavailable Chellymouzscout, Mushtaq Consulting Unavailable Dorota Sorto NP-C Consulting Unavailable Ha Rodriguez NP-C Consulting Unavailable Angelo Wheatley Consulting Unavailable Karen Cano Consulting Unavailable Luis Eduardo Santillan Consulting Unavailable Paintsil, Whigham Admitting Unavailable Burt Trejo Attending Unavailable Tabitha Sahni Referring Unavailable Dean, Chris Primary Care Unavailable Burt Trejo Consulting Unavailable Paintsil, Whigham Consulting Unavailable Paintsil, Whigham Admitting Unavailable Paintsil, Whigham Attending Unavailable Kaitlyn, Tabitha Referring Unavailable Dean, Chris Primary Care Unavailable Burt Trejo Consulting Unavailable Paintsil, Whigham Consulting Unavailable Paintsil, Whigham Admitting Unavailable Burt Trejo Attending Unavailable Kaitlyn, Tabitha Referring Unavailable Dean, Chris Primary Care Unavailable Burt Trejo Consulting Unavailable Paintsil, Whigham Consulting Unavailable Paintsil, Whigham Admitting Unavailable Paintsil, Whigham Attending Unavailable Kaitlyn, Tabitha Referring Unavailable Dean, Chris Primary Care Unavailable Burt Trejo Consulting Unavailable Paintsil, Whigham Consulting Unavailable Karen Cano Attending Unavailable Dean, Chris Referring Unavailable Dean, Chris Primary Care Unavailable Ornelas, Lacy Attending Unavailable Berkley Carson Attending Unavailable Karen Cano Attending Unavailable Dean, Chris Primary Care Unavailable Jame, Ed Consulting Unavailable DeFinSlim butterfield Attending Unavailable Jame, Ed Attending Unavailable Edan, Chris Primary Care Unavailable Jame, Colden Attending Unavailable Jame, Colden Referring Unavailable Dean, Chris Primary Care Unavailable Berkley Carson Attending Unavailable Dean, Chris Referring Unavailable Dean, Chris Primary Care Unavailable Jame, Colden Attending Unavailable Dean, Chris Referring Unavailable OrnelasLacy Attending Unavailable Driss Young Attending Unavailable Hannah, Driss Attending Unavailable Kenisha, Mg Attending Unavailable Moodbobbi, gM Attending Unavailable DavyHandyDeandre SAnu Referring Unavailable Mg De Attending Unavailable Burt Trejo Attending Unavailable Mg Mckinney Attending Unavailable Morgan Tinsley Admitting Unavailable Ashelfah, Ghasejenn Attending Unavailable Dean, Chris Primary Care Unavailable Adetoro, Adedoyin Consulting Unavailable Paintsil, Whigham Consulting Unavailable Alicia Duval Consulting Unavailable Osifeso, Chukwuma Consulting Unavailable Merna Jacob Consulting Unavailable Megan Carver Consulting Unavailable Gerald Paulson Consulting Unavailable Sherwin Castillo Consulting Unavailable Burt Rae Consulting Unavailable Alok Sams Consulting Unavailable Blake Buck Consulting Unavailable Blake Babin Consulting Unavailable AdugCarolyn murphy Consulting Unavailable Ashelfah, Ghasem Consulting Unavailable Rayna English Consulting Unavailable Lynda Kellogg Consulting Unavailable Ana Maria Grimaldo Consulting Unavailable Migdalia Casey Consulting Unavailable Abhinav, Rosajen Consulting Unavailable Yuval Lawton Consulting Unavailable Ruslan Kapoor Consulting Unavailable Jose Alejandro Kemp Consulting Unavailable Farhat Yarbrough Consulting Unavailable Katrina Gonzalez Consulting Unavailable Dann Daniels Consulting Unavailable Tone Cárdenas Consulting Unavailable Abe Monroe Consulting Unavailable Ha Charles Consulting Unavailable Eirka Dunna Starla Consulting Unavailable Chalo [place] Consulting Unavailable Shane Ma Consulting Unavailable Hemanth, Poncho Consulting Unavailable Mg De Consulting Unavailable Mg Dimas Consulting Unavailable Danica Mendez Consulting Unavailable Reagan Hale Consulting Unavailable Jensen Hoang Consulting Unavailable Luis Wall Consulting Unavailable Noel Garcia Consulting Unavailable Raul Smith Consulting Unavailable Mushtaq Caban Consulting Unavailable Dorota Sorto NP-C Consulting Unavailable Ha Rodriguez GREY INSPECTOR-C Consulting Unavailable Angelo Wheatley Consulting Unavailable Karen Cano Consulting Unavailable Luis Eduardo Santillan Consulting Unavailable Driss Diaz Attending Unavailable Chris Dean Referring Unavailable Chris Dean Primary Care Unavailable Erika Dunna Starla Attending Unavailable Erika Dunna Starla Attending Unavailable Morgan Tinsley Admitting Unavailable Nereyda Dunn Attending Unavailable Chris Dean Primary Care Unavailable Adetoro, Adedoyin Consulting Unavailable Paintsil, Whigham Consulting Unavailable Alicia Duval Consulting Unavailable Osifeso, Chukwuma Consulting Unavailable Greenup, Merna Consulting Unavailable Semenramses, Megan Consulting Unavailable Gagandeepingraza, Gerald Consulting Unavailable Sherwin Castillo Consulting Unavailable Burt Rae Consulting Unavailable Alok Sams Consulting Unavailable Blake Buck Consulting Unavailable Blake Babin Consulting Unavailable Adugna, Fraol Consulting Unavailable Ashelfah, Ghasem Consulting Unavailable , Kymberlyel Consulting Unavailable Lynda Kellogg Consulting Unavailable Dillan, Ana Maria Consulting Unavailable Migdalia Casey Consulting Unavailable Abhinav, Ifijen Consulting Unavailable Yuval Lawton Consulting Unavailable Ruslan Kapoor Consulting Unavailable Goltomi, Jose Alejandro Consulting Unavailable Farhat Yarbrough Consulting Unavailable Gbaruk, Kombian Consulting Unavailable Dann Daniels Consulting Unavailable Tone Cárdenas Consulting Unavailable Abe Monroe Consulting Unavailable Ha Charles Consulting Unavailable Nereyda Dunn Consulting Unavailable Felicia, Chalo Consulting Unavailable Anil, Shane Consulting Unavailable Hemanth, Poncho Consulting Unavailable Kenisha, Mg Consulting Unavailable Mg Dimas Consulting Unavailable Semasktate, Danica Consulting Unavailable Geoffrey, Reagan Consulting Unavailable Jensen Hoang Consulting Unavailable Rahul Wallrmrebecca Consulting Unavailable Ukponmwan, Uyigue Consulting Unavailable Imamura, Yoichi Consulting Unavailable Hourmouzscout, Mushtaq Consulting Unavailable Dorota Sorto NP-C Consulting Unavailable Ha Rodriguez GREY INSPECTOR-C Consulting Unavailable Angelo Wheatley Consulting Unavailable Karen Cano Consulting Unavailable Luis Eduardo Santillan Consulting Unavailable Chris Dean Primary Care Unavailable Kaitlyn, Tabitha Referring Unavailable Paintsil, Whigham Admitting Unavailable Paintsil, Whigham Attending Unavailable Burt Trejo Consulting Unavailable Paintsil, Whigham Admitting Unavailable Paintsil, Whigham Attending Unavailable Kaitlyn, Tabitha Referring Unavailable Chris Dean Primary Care Unavailable Burt Trejo Consulting Unavailable Paintsil, Whigham Consulting Unavailable PROBLEMS PROBLEMS DATE TYPE CONDITION / CODE ATTENDING STATUS SOURCE 03/12/2018 Unknown N39.0 - Urinary tract YoungDriss infection, site not Community specified / Hospital N39.0(ICD-10) Repository 03/25/2018 Unknown R30.0 - Dysuria / Driss Young R30.0(ICD-10) Community Hospital Repository 10/15/2017 Unknown R06.00 - Dyspnea, RoofDriss Active [place] unspecified / Community R06.00(ICD-10) Hospital Repository 11/17/2017 Unknown 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 / I25.10(ICD-10) 11/17/2017 Unknown I48.0 - Paroxysmal MoodisMg montoya Active [place] atrial fibrillation / Community I48.0(ICD-10) Hospital Repository 10/13/2017 Unknown Z95.0 - Presence of Antoni Cano cardiac pacemaker / [facility] Community Z95.0(ICD-10) Hospital Repository 07/18/2017 Unknown I49.5 - Sick sinus Berkley Carson Active [place] syndrome / Community I49.5(ICD-10) Hospital Repository 07/18/2017 Unknown I48.92 - Unspecified Berkley Carson Active [place] atrial flutter / Community I48.92(ICD-10) Hospital Repository 07/18/2017 Unknown I48.91 - Unspecified Berkley Carson Active [place] atrial fibrillation / Community I48.91(ICD-10) Hospital Repository 07/18/2017 Unknown Z95.5 - 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 coli Raymond Count >100,000 Presumptive E. coli: REACTION Amoxacillin/Clavulanic Acid $ 16 I Ampicillin $ >=32 R Ampicillin/Sulbactam $ 16 I Cefazolin $ 16 I Cefepime $ <=1 S Ceftriaxone $ <=1 S Ciprofloxacin $ <=0.25 S ESBL - Ertapenim $$$ <=0.5 S Gentamicin $ <=1 S Imipenem *NF <=0.25 S Levofloxacin $ <=0.12 S Nitrofurantoin $ <=16 S Piperacillin/Tazobactam $$ <=4 S Tobramycin $ <=1 S Trimethoprim/Sulfametho $ <=20 S (NF) indicates non-formulary drug at [facility]. Approval by Infectious Disease Specialist required before non-formulary drugs may be ordered and/or dispensed. Performed By: #### M100.0650 #### [facility] [address] [place], [address] Observed: 01/30/2018 Status: F Source: [place] CULTURE, URINE 2:00 PM [facility] REPOSITORY Urine Culture ORGANISM 1: Presumptive E. coli Raymond Count >100,000 Presumptive E. coli: REACTION Amoxacillin/Clavulanic Acid $ 16 I Ampicillin $ >=32 R Ampicillin/Sulbactam $ 16 I Cefazolin $ <=4 S Cefepime $ <=1 S Ceftriaxone $ <=1 S Ciprofloxacin $ <=0.25 S ESBL - Ertapenim $$$ <=0.5 S Gentamicin $ <=1 S Imipenem *NF <=0.25 S Levofloxacin $ <=0.12 S Nitrofurantoin $ <=16 S Piperacillin/Tazobactam $$ <=4 S Tobramycin $ <=1 S Trimethoprim/Sulfametho $ <=20 S (NF) indicates non-formulary drug at [facility]. Approval by Infectious Disease Specialist required before non-formulary drugs may be ordered and/or dispensed. Performed By: #### M100.0650 #### [facility] [address], [place], [id number] CBC-COMPLETE BLOOD CNT Collected: 01/05/2018 Status: F Source: [place] NO DIFF 5:10 AM [facility] REPOSITORY Order Comment: 128/1 TYPE CODE TESTS RESULT OUT OF RANGE REFERENCE UNITS LAB L100.1000 4.4-11.0 K/mm3 Normal WBC 8.9 LAB L100.1200 4.6-6.2 M/mm3 Low RBC 4.06 LAB L100.1300 13.0-16.5 g/dl Low HGB 12.2 LAB L100.1400 40-54 % Low HCT 38.2 LAB L100.1500 80-94 fL High MCV 94.1 LAB L100.1600 27.0-32.0 pg Normal MCH 30.0 LAB L100.1700 32-36 g/gl Low MCHC 31.9 LAB L100.1810 11.6-14.6 % Normal RDW CV 14.3 LAB L100.1820 35.1-43.9 fl High RDW SD 47.4 LAB L100.1900 150-450 K/mm3 Normal PLT 247 LAB L100.2000 6.2-12.0 fl Normal MPV 10.7 Performed By: #### L100.0500 #### [facility] [address] [place], [address] BASIC METABOLIC Collected: 01/05/2018 Status: F Source: [place] PROFILE (BMP) 5:10 AM [facility] REPOSITORY Order Comment: 128/1 TYPE CODE TESTS RESULT OUT OF RANGE REFERENCE UNITS LAB L501.0100 74-106 mg/dL Normal GLU 74 Result Comment: Please note revised GLUCOSE reference range effective 2017. LAB L501.1000 7-18 mg/dL High BUN 27 LAB L501.1100 0.70-1.30 mg/dL Normal CREAT,SERUM 0.74 Result Comment: The validity of the calculated GFR AND GFRAA in patients over 70 years has not been determined. Clinical correlation is essential. LAB L501.1110 >60 mL/min Normal EST GFR 108 Result Comment: Non- GFR Calc LAB L501.1115 >60 mL/min Normal EST GFR - AA 130 Result Comment: GFR Calc LAB L501.1300 10-20 RATIO High BUN/CRE 36.3 LAB L501.2200 8.5-10.1 mg/dL Low CA 8.1 LAB L501.5300 136-145 mmol/L NA Normal 145 LAB L501.5600 3.5-5.1 mmol/L K Normal 3.9 LAB L501.5900 98-107 mmol/L High CL 108 LAB L501.6100 21.0-32.0 mmol/L Normal CO2 28.0 LAB L501.6200 5-15 Normal GAP 9 Performed By: #### L500.2500 #### [facility] [address] [place], [address] CBC-COMPLETE BLOOD CNT Collected: 11/28/2017 Status: F Source: [place] NO DIFF 6:30 AM [facility] REPOSITORY Order Comment: ROOM 137 TYPE CODE TESTS RESULT OUT OF RANGE REFERENCE UNITS LAB L100.1000 4.4-11.0 K/mm3 Normal WBC 8.6 LAB L100.1200 4.6-6.2 M/mm3 Low RBC 4.39 LAB L100.1300 13.0-16.5 g/dl Normal HGB 13.4 LAB L100.1400 40-54 % Low HCT 39.8 LAB L100.1500 80-94 fL Normal MCV 90.7 LAB L100.1600 27.0-32.0 pg Normal MCH 30.5 LAB L100.1700 32-36 g/gl Normal MCHC 33.7 LAB L100.1810 11.6-14.6 % Normal RDW CV 13.8 LAB L100.1820 35.1-43.9 fl High RDW SD 45.4 LAB L100.1900 150-450 K/mm3 Normal PLT 243 LAB L100.2000 6.2-12.0 fl Normal MPV 10.4 Performed By: #### L100.0500 #### [facility] [address] [place], [place], [id number] BASIC METABOLIC Collected: 11/28/2017 Status: F Source: [place] PROFILE ([facility]) 6:30 AM [facility] REPOSITORY Order Comment: ROOM 137 TYPE CODE TESTS RESULT OUT OF RANGE REFERENCE UNITS LAB L501.0100 74-106 mg/dL Normal GLU 79 Result Comment: Please note revised GLUCOSE reference range effective 2017. LAB L501.1000 7-18 mg/dL High BUN 21 LAB L501.1100 0.70-1.30 mg/dL Normal CREAT,SERUM 0.94 Result Comment: The validity of the calculated GFR AND GFRAA in patients over 70 years has not been determined. Clinical correlation is essential. LAB L501.1110 >60 mL/min Normal EST GFR 82 Result Comment: Non- GFR Calc LAB L501.1115 >60 mL/min Normal EST GFR - AA 100 Result Comment: GFR Calc LAB L501.1300 10-20 RATIO High BUN/CRE 22.4 LAB L501.2200 8.5-10.1 mg/dL Low CA 8.4 LAB L501.5300 136-145 mmol/L NA Normal 141 LAB L501.5600 3.5-5.1 mmol/L K Normal 4.0 LAB L501.5900 98-107 mmol/L CL Normal 104 LAB L501.6100 21.0-32.0 mmol/L Normal CO2 29.0 LAB L501.6200 5-15 Normal GAP 8 Performed By: #### L500.2500 #### [facility] [address] [place], [place], [address] URINALYSIS, ROUTINE Collected: 11/27/2017 Status: F Source: DEVANTE (DIPSTICK) 2:00 AM [facility] REPOSITORY Order Comment: How was Urine Obtained? CLEAN CATCH TYPE CODE TESTS RESULT OUT OF RANGE REFERENCE UNITS LAB L400.3000 Yellow COLOR Normal Yellow LAB L400.3050 Clear Normal CLARITY Clear LAB L400.3200 Normal mg/dl Normal GLUCOSE, UR Normal LAB L400.3300 Negative mg/dL Normal BILIRUBIN URINE Negative LAB L400.3400 Negative mg/dl High 5 KETONE UR LAB L400.3465 1.002-1.030 Normal SP.GR. DIPSTX 1.025 LAB L400.3550 5.0 - 8.0 pH UR Normal 5.0 LAB L400.3600 Negative mg/dl High PROT 15 DIPSTX LAB L400.3700 Normal mg/dl High 1 UROBILI LAB L400.3750 Negative Normal NITRITE UR Negative LAB L400.3780 Negative /ul Normal OCCULT BLOOD-UR Negative LAB L400.3800 Negative /ul High LEUK 25 ESTERASE Performed By: #### L400.2010 #### [facility] [address] [place], [address] Observed: 11/27/2017 Status: F Source: DEVANTE CULTURE, URINE 2:00 AM [facility] REPOSITORY Urine Culture Below infection level. ORGANISM 1: Mixed Gram Pos AND Gram Neg Org Raymond Count <1000 Performed By: #### M100.0650 #### [facility] [address] [place], [address] URINALYSIS, COMPLETE Collected: 11/15/2017 Status: F Source: DEVANTE 3:00 AM [facility] REPOSITORY Order Comment: How was Urine Obtained? CATHETER SPECIMEN TYPE CODE TESTS RESULT OUT OF RANGE REFERENCE UNITS LAB L400.3000 Yellow COLOR Normal Yellow LAB L400.3050 Clear Normal CLARITY Clear LAB L400.3200 Normal mg/dl Normal GLUCOSE, UR Normal LAB L400.3300 Negative mg/dL Normal BILIRUBIN URINE Negative LAB L400.3400 Negative mg/dl Normal KETONE UR Negative LAB L400.3465 1.002-1.030 Normal SP.GR. DIPSTX 1.015 LAB L400.3550 5.0 - 8.0 pH UR Normal 6.5 LAB L400.3600 Negative mg/dl PROT Normal DIPSTX Negative LAB L400.3700 Normal mg/dl Normal UROBILI Normal LAB L400.3750 Negative Normal NITRITE UR Negative LAB L400.3780 Negative /ul Normal OCCULT BLOOD-UR Negative LAB L400.3800 Negative /ul LEUK Normal ESTERASE Negative LAB L400.4050 0-5 /hpf WBC 0 Normal SEEN LAB L400.4100 0-5 /hpf 0 Normal RBC-UA SEEN LAB L400.4150 0-5 /hpf SQUAM 0 Normal EPI SEEN LAB L400.4300 None Seen /hpf 0 Normal BACTERIA SEEN LAB L400.4350 <or=2+ /hpf 0 Normal MUCUS, URINE SEEN Performed By: #### L400.0001 #### [facility] [address] [place], [address] Observed: 11/15/2017 Status: F Source: MERRILL CULTURE, URINE 3:00 AM [facility] REPOSITORY Urine Culture Culture exhibits no growth. Performed By: #### M100.0650 #### [facility] [address] [place], [address] CARDIOLOGY VISIT Observed: 10/22/2017 Status: F Source: MERRILL REPORT 11:51 AM [facility] REPOSITORY [facility] [place] [address] OFFICE VISIT Date of Service: 10/15/17 MR#: [id number] Acct: [id number] Name: IVAN YOUNG Rep #: [id number] : 1940 Provider: NIKOLAY Diaz Age/Sex: 77/M Location: [facility] Status: Signed HPI HPI Details: IVAN YOUNG is a 77 M who presents to the office today for a cardiovascular follow-up. He has a history of coronary artery disease with bypass surgery 1996. He had an ANG to his LAD, SVG to OM1 and RCA. He also has a pacemaker for sinus arrest. He also has a history of paroxysmal atrial fibrillation/flutter. He presented to [facility] emergency department in September 2017 after a syncopal episode. He underwent an echocardiogram that showed ejection fraction of 65%, RVSP of 39 mmHg, mild to moderate TR, no pericardial effusion, and no appreciable changes compared to echocardiogram in 2010. He also underwent a stress test which was negative for stress-induced myocardial ischemia. He was then transferred to rehab unit. While on rehab unit he was noted to be significantly orthostatic. His Lasix and Imdur was discontinued and he was started on midodrine. He presents today from the rehab unit. Staff expressed some concern regarding SOB. Patient is unable to elaborate. He believes this has occurred at rest and when doing spirometer. He describes some decreased sensation and feeling as if he is always falling over and that his feet are sliding from underneath him. He denies any chest pain, left arm, jaw, or neck pain. His activity level is currently very minimal with physical therapy. He denies any lightheadedness, dizziness, near syncope, syncope, edema, claudication, orthopnea, PND, fever, chills, blood in urine, blood in stool, myalgia, or on expandable fatigue. Intake Vital Signs10/15/17 Height 5 ft 9 in 10/15/17 Blood Pressure 110/58 10/15/17 Blood Pressure Location Lt brachial 10/15/17 Blood Pressure Position Sitting Intake Visit Reasons: DC 7-27, currently in IR unit Lye Boiler Required: No Accompanied by: Daughter In Law Is patient in pain?: No Allergies acetaminophen [From Vicodin] Allergy (Verified 10/15/17 15:28) Other hydrocodone bitartrate [From Vicodin] Allergy (Verified 10/15/17 15:28) Other Sulfa (Sulfonamide Antibiotics) Allergy (Verified 10/15/17 15:28) Other Medications alfuzosin ER 10 mg tablet,extended release 24 hr 10 mg PO QDAY 02/24/17 [History Confirmed 10/03/17] aspirin 81 mg tablet,delayed release 81 mg PO QDAY 02/24/17 [History Confirmed 10/03/17] carbidopa 25 mg-levodopa 100 mg tablet 1 tab PO BID tab 02/24/17 [History Confirmed 10/03/17] clonazepam 0.5 mg tablet 0.5 mg PO QHS 02/24/17 [History Confirmed 10/03/17] finasteride 5 mg tablet 5 mg PO QDAY 02/24/17 [History Confirmed 10/03/17] memantine 10 mg tablet 10 mg PO BID 02/24/17 [History Confirmed 10/03/17] oxybutynin chloride ER 5 mg tablet,extended release 24 hr 5 mg PO QDAY 02/24/17 [History Confirmed 10/03/17] ranitidine 150 mg capsule 150 mg PO QHS 02/24/17 [History Confirmed 10/03/17] vitamins A,C,K-qion-pauogp 14,320 unit-226 mg-200 unit capsule 1 cap PO QDAY ea 02/24/17 [History Confirmed 10/03/17] donepezil 10 mg tablet 10 mg PO QHS 02/25/17 [History Confirmed 10/03/17] Simvastatin 40 mg PO QPM 10/03/17 [History Confirmed 10/03/17] midodrine 2.5 mg tablet 2.5 mg PO QDAY tab 10/16/17 [History Confirmed 10/16/17] midodrine 5 mg tablet 5 mg PO BID tab 10/16/17 [History Confirmed 10/16/17] Ejection fraction %: 55 to 59 PFSH Medical History Sick sinus syndrome (Chronic) Atrial flutter (Chronic) Atherosclerotic heart disease of [place] coronary artery without angina pectoris (Chronic) Atrial fibrillation (Chronic) Benign essential hypertension (Chronic) Hyperlipidemia (Chronic) CKD (chronic kidney disease), stage II (Chronic) Obstructive sleep apnea syndrome (Chronic) Parkinson's disease (Chronic) Diverticulitis (Chronic) Hiatal hernia (Chronic) Nephrolithiasis (Chronic) TIA (transient ischemic attack) (Chronic 08/2012) Surgical History History of coronary artery stent placement (Chronic) S/P CABG x 3 (Chronic) Cardiac pacemaker in situ (Chronic) History of knee replacement procedure of right knee (Chronic) History of laparoscopic cholecystectomy (Chronic) Hx of amputation (Chronic) History of cataract surgery (Resolved) Family History Father CHF (congestive heart failure) Mother CAD (coronary artery disease) Hx of CABG Social History Smoking Status: Former smoker alcohol intake: never caffeine: Yes Type: coffee Number of servings: 1 ROS Const Const: Negative for fatigue, weakness, body ache, fever(s) or chills ENT ENT: Negative for dizziness Cardio Chest Pain: No Palpitations: No Edema: None Muscle aches with walking: None Resp Respiratory: Positive for SOB with activity and SOB at rest; negative for SOB orthopnea\SOB lying down or paroxysmal nocturnal dyspnea GI GI: Negative nausea, black,tarry stools, bright, red blood in stools or vomiting blood/hematemesis : Negative for hematuria or frequent nighttime urination/ nocturia Musc Musc: Negative for muscle aches/ myalgia Skin Skin: Negative non-healing lesions or rash Neuro Neuro: Negative for weakness, dizziness, lightheadedness, near syncope, syncope or orthostatic symptoms Endo Endo: Negative for fatigue Allergy Allergy/Immunology: Negative for rash Cardiology Exam Const Appearance: cooperative, healthy appearing, well developed, well groomed and no acute distress Nutritional Appearance: well nourished and average body habitus Orientation: alert, awake and oriented x3 Limitations: physical limitations Has Parkinson's Head Head: normal to inspection, normocephalic and atraumatic Ears: hearing grossly normal bilaterally and external ears normal Nose: external nose normal, nasal mucous membranes and turbinates normal, nares normal, septum normal, no nasal discharge Face and Sinus: face symmetric Mouth: oral mucosae normal, tongue normal, oropharynx normal and moist mucous membranes Teeth and gingiva: dentition normal Throat: posterior oropharynx normal, tonsils normal and uvula midline Eyes General: appearance normal, both eyes and all related structures Eyelids: eyelids normal Conjunctivae: conjunctivae normal Pupils: PERRL, normal by confrontation and accommodation normal EOM: EOM intact bilaterally Neck Neck: normal visual inspection, trachea midline and no JVD JVD: +5 Carotids: normal carotid upstroke and bounding pulses Chest Chest inspection: normal inspection of the chest, symmetric chest movement, normal respiratory effort and Pacemaker/ICD Yes left pectoral incision Auscultation: Bilateral: Clear to Auscultation Cardio Palpation: normal PMI Rate: regular rate Rhythm: regular rhythm Heart sounds: S1 normal, S2 normal and normal, physiologic split S2; negative rub, gallop or murmur GI GI: normal to inspection, soft, no hepatosplenomegaly and bowel sounds present Neuro General: alert, awake and oriented x3 Gait: ataxic and gait assisted Motor: tremor Skin Skin: no rashes or lesions noted Extremities Pulses: Normal: Right Femoral Pulse, Left Femoral Pulse Lower Extremity Edema: +1: Bilateral Musculoskel Musculoskeletal: No joint tenderness Psych Psychological: normal affect Supplemental Info Echocardiogram from September 2017 showed ejection fraction of 65%, stage I diastolic dysfunction, moderately dilated right ventricle, mild to moderate tricuspid valve insufficiency, RVSP of 39 mmHg, mild pulmonary hypertension, and when compared to previous echo in February 2011 no appreciable changes noted. Stress test from September 2017 showed a peak EKG with no obvious EKG changes and nuclear images considered negative for stress-induced myocardial ischemia. Heart catheterization in 2008 demonstrated normal left main, LAD with moderate proximal to mid segment disease. Left circumflex with first obtuse marginal branch totally occluded. RCA with totally occluded in the mid segment. SVG to the RCA which was previously stented and noted to have patent stents with mild disease. SVG to the circumflex is patent with no significant disease. ANG nonselectively engaged which is noted to be patent. Pacemaker check from September 2017 no MS episodes, no VT episodes, presenting rhythm of AAI pacing at 60 ppm with no noise on atrial lead, AP=93%, MATERIAL SPREADER=less than 1%, and battery longevity approximately 10 years. Assessment AND Plan 1. Shortness of breath R06.02; R06.00; R06.01 Plan - FER Perez The exact etiology of patient's dyspnea is unclear at this time. Given that his Imdur and Lasix has been discontinued due to orthostatic hypotension it is possible that his pulmonary pressures are slightly increased and/or he has some fluid volume component. Thus a BNP will be added to his next lab draw to ensure fluid volume status and to obtain baseline to guide future care. Due to significant orthostatic hypotension these medications will continue to be held. Depending on his overall course, he may require low-dose as needed diuretic. Orders Orders: 2. Atherosclerosis of [place] coronary artery of [place] heart without angina pectoris I25.10 Plan - FER Perez His most recent echocardiogram in September 2017 showed a preserved ejection fraction of 65%. His stress test in September 2007 was negative for stress-induced myocardial ischemia. Patient denies any chest pain, arm pain, jaw pain, neck pain, or fatigue suggestive of angina at this time. We will continue to monitor this. We will not make any medication regimen changes and will continue risk factor modification. 3. S/P CABG x 3 Z95.1 CABG, ANG to LAD, saphenous vein graft to OM1 AND RCA May 1996; Plan - FER Perez He will continue current treatment plan as outlined above. 4. History of coronary artery stent placement Z95.5 03/02/08 PTCA/stent to SVG to RCA; 06/30/08 PTCA/stent to SVG to RCA; Plan - FER Perez He will continue current treatment plan as outlined. 5. Paroxysmal atrial fibrillation I48.0 FER Nance His most recent pacemaker check from September 2017 showed no MS episodes. His rate is well controlled. We will continue to monitor. 6. Cardiac pacemaker in situ Z95.0 Permanent Pacemaker insertion 04/20/09; Pacemaker generator change 2001, 04/13/09 FER Nance Pacemaker check from September 2017 no MS episodes, no VT episodes, presenting rhythm of AAI pacing at 60 ppm with no noise on atrial lead, AP=93%, MATERIAL SPREADER=less than 1%, and battery longevity approximately 10 years. Patient's pacemaker/ICD appears to be functioning appropriately. We will continue to monitor this with routine/scheduled follow-ups. 7. Benign essential hypertension I10 FER Nance Most recently his blood pressure has been noted to be low when going to a standing position. He has been started on midodrine for this. 8. Pure hypercholesterolemia E78.00; E78.0 FER Nance Lipid panel from September 2017 show cholesterol: 96, HDL: 58, LDL: 25, and triglycerides: 65. He will continue with current statin medication. 9. Parkinson's disease G20 Plan - FER Perez This may be contributing to his fluctuating blood pressure readings. Plan Detail Additional Comments - FER Perez Discussed the above patient with Dr. Kilgore, he agrees with the plan of care. Thank you for allowing us to participate in the patients plan of care, if you have any questions please do not hesitate to call. This note was generated using a voice recognition system and there may be incorrect words, spelling or punctuation that were not noted when reviewing the office note prior to saving. Follow Up 3 Months (GREY INSPECTOR/PA) Coding Level of Care Code Off vis,est,level 3 Diagnoses Shortness of breath R06.02; R06.00; R06.01 Dyspnea type: shortness of breath Atherosclerosis of [place] coronary artery of [place] heart without angina pectoris I25.10 [place] vs. transplanted heart: [place] heart S/P CABG x 3 Z95.1 History of coronary artery stent placement Z95.5 Paroxysmal atrial fibrillation I48.0 Atrial fibrillation type: paroxysmal Cardiac pacemaker in situ Z95.0 Benign essential hypertension I10 Pure hypercholesterolemia E78.00; E78.0 Hyperlipidemia type: pure hypercholesterolemia Parkinson's disease G20 Coding Level of Care Code Off vis,est,level 3 Diagnoses Shortness of breath R06.02; R06.00; R06.01 Dyspnea type: shortness of breath Atherosclerosis of [place] coronary artery of [place] heart without angina pectoris I25.10 [place] vs. transplanted heart: [place] heart S/P CABG x 3 Z95.1 History of coronary artery stent placement Z95.5 Paroxysmal atrial fibrillation I48.0 Atrial fibrillation type: paroxysmal Cardiac pacemaker in situ Z95.0 Benign essential hypertension I10 Pure hypercholesterolemia E78.00; E78.0 Hyperlipidemia type: pure hypercholesterolemia Parkinson's disease G20 10/16/17 0915 <Electronically signed by Driss Diaz GREY INSPECTOR-C> Date Driss Diaz GREY INSPECTOR-C 10/22/17 1151<Electronically signed by Ed Kilgore MD> Cosigner Signature: Date (if applicable) Ed Kilgore MD CC: Chris Dean MD TRANSFER TO [facility] Observed: 10/17/2017 Status: F Source: [facility] 11:37 AM [facility] REPOSITORY [facility] Medical Records Department [address] [place] [address] Transfer to [facility] MR#: [id number] Acct: [id number] Name: IVAN YOUNG Rep #: [id number] : 1940 77 From: Morgan Tinsley MD PCP: Chris Dean MD Status: ADM IN IVAN YOUNG [id number] (Patient) (Health Ins. Claim No.) (Day of Discharge to Facility) Certification of patient admission REQUIRED AT TIME OF ADMISSION. I CERTIFY THAT POST-HOSPITAL ECF SERVICES ARE REQUIRED TO BE GIVEN ON AN IN-PATIENT BASIS BECAUSE OF THE ABOVE NAMED PATIENT'S NEED FOR CORRECTION CARE ON A CONTINUING BASIS FOR THE CONDITION(S) FOR WHICH HE/SHE WAS RECEIVING IN-PATIENT HOSPITAL SERVICES PRIOR TO HIS/HER TRANSFER TO THE [facility]. 10/17/171136 <Electronically signed by Morgan Tinsley MD> Date Morgan Tinsley MD - Diet 10/03/17 19:48 Diet: Regular Diet Food consistency:: Soft Liquid Consistency:: Regular/Thin Dietary Modifications:: Soft Diet Diet Comments: Cut into bites sizes; weighted utensils, scoop dish, dble handled cup w/lid - Routine Orders/Code Status O2 Liters per Minute: 2 O2 Frequency: PRN Keep PO Greater than or Equal to (%): 90 Code Status: Full Code - Wound(s) left elbow Wound Type: Abrasion left eyebrow Wound Type: Laceration - Therapies Weight Bearing: Full weight bearing Physical Therapy: Eval and Treat Occupational Therapy: Eval and Treat Speech Therapy: Eval and Treat - Problem/Diagnosis (1) Parkinson's disease Status: Chronic Current Visit: Yes - Allergies/Procedures Done in Hospital Allergies/Adverse Reactions: Allergies acetaminophen [From Vicodin] Allergy (Verified 10/15/17 15:28) Other hydrocodone bitartrate [From Vicodin] Allergy (Verified 10/15/17 15:28) Other Sulfa (Sulfonamide Antibiotics) Allergy (Verified 10/15/17 15:28) Other Procedures: None - Type of Care/Length of Stay Estimated LOS: More Than 30 Days Type of Care Needed: Skilled Rehab Potential: Good Prognosis: Good - Additional Orders/Day of Discharge H AND P will serve as current which was dated: 10/03/17 Day of Discharge: 10/19/17 - Dietary and Speech Recommendations Dietitian Recommendations/Changes: Current weight as able. Continue regular/soft diet with ensure enlive on medpass as tolerated. - Follow Up Care Primary Care Physician: Chris Dean MD [Primary Care Provider] - 10/17/171136 <Electronically signed by Morgan Tinsley MD> Date Morgan Tinsley MD CC: FER Sorto; MARCOS Wheatley; Luis Wall MD; Mushtaq Caban; Win Teran M.D.; Padmini Sosa MD; Alicia Duval; Merna Jacob MD; Megan Carver; Abdi Aden MD; Burt Rae MD; Gerald Paulson; Sherwin Castillo MD; Alok Sams MD; Blake Buck DO; Blake Babin MD; Carolyn Melgoza MD; Carlos Mcneal; Lynda Kellogg MD; Rayna English MD; Ana Maria Grimaldo MD; Migdalia Casey MD; Getachew La M.D.; Jose Alejandro Kemp M.D.; Yuval Lawton MD; Farhat Yarbrough D.O.; Ruslan Kapoor MD; Katrina Gonzalez MD; Dann Daniels M.D.; Tone Cárdenas; Ha Charles DO; Ha Rodriguez NP; Karen Cano; Abe Monroe M.D.; Nereyda Dunn MD; Chalo Duarte MD; Mg De MD; Mg Dimas MD; Shane Ma MD; Poncho Saxena M.D.; Danica Mendez MD; Luis Eduardo Santillan; Jensen Hoang MD; Reagan Hale M.D.; Noel Garcia MD; Chris Dean MD; Raul Smith M.D. Signed DISCHARGE INSTRUCTION Observed: 10/17/2017 Status: F Source: [place] 11:37 AM [facility] REPOSITORY [facility] Medical Records Department [address] [place] [address] Instructions for Home/Discharge Instructions 10/16/17 0944 MR#: [id number] Acct: [id number] Name: IVAN YOUNG Rep #: [id number] : 1940 77 From: Morgan Tinsley MD PCP: Chris Dean MD Status: ADM IN - Discharge Diagnoses Current Active Problems: Current Active and Chronic Problems (Last Updated 07/24/17 @ 17:13 by Slim Halye) Parkinson's disease (Chronic) Reason(s) for Visit for Discharge Instructions: parkinsons, debility You will use the following diet at home:: No restrictions Your food should be the consistency of: Regular Your liquids should be the consistency of: Regular/Thin Discharge Activity: Return to Normal Activity Weight Bearing Status: Weight bearing as tolerated Lifting Restrictions: 10 lbs Allergies/Adverse Reactions: Allergies acetaminophen [From Vicodin] Allergy (Verified 10/15/17 15:28) Other hydrocodone bitartrate [From Vicodin] Allergy (Verified 10/15/17 15:28) Other Sulfa (Sulfonamide Antibiotics) Allergy (Verified 10/15/17 15:28) Other Medications to take at Discharge alfuzosin ER 10 mg tablet,extended release 24 hr 10 mg PO QDAY 02/24/17 aspirin 81 mg tablet,delayed release 81 mg PO QDAY 02/24/17 carbidopa 25 mg-levodopa 100 mg tablet 1 tab PO BID tab 02/24/17 clonazepam 0.5 mg tablet 0.5 mg PO QHS 02/24/17 finasteride 5 mg tablet 5 mg PO QDAY 02/24/17 memantine 10 mg tablet 10 mg PO BID 02/24/17 oxybutynin chloride ER 5 mg tablet,extended release 24 hr 5 mg PO QDAY 02/24/17 ranitidine 150 mg capsule 150 mg PO QHS 02/24/17 vitamins A,C,W-abei-iextab 14,320 unit-226 mg-200 unit capsule 1 cap PO QDAY ea 02/24/17 donepezil 10 mg tablet 10 mg PO QHS 02/25/17 Simvastatin 40 mg PO QPM 10/03/17 midodrine 2.5 mg tablet 2.5 mg PO QDAY tab 10/16/17 midodrine 5 mg tablet 5 mg PO BID tab 10/16/17 Primary Care Physician: Chris Dean MD [Primary Care Provider] - Test Results: Test results from this visit will be discussed in further detail at your follow-up appointment, if applicable. Proposed Discharge Date: 10/19/17 10/17/17 1137 <Electronically signed by Morgan Tinsley MD> Date Morgan Tinsley MD CC: FER Sorto; MARCOS Wheatley; Luis Wall MD; Mushtaq Caban; Win Teran M.D.; Padmini Sosa MD; Alicia Duval; Merna Jacob MD; Megan Carver; Abdi Aden MD; Burt Rae MD; Gerald Paulson; Sherwin Castillo MD; Alok aSms MD; Blake Buck DO; Blake Babin MD; Carolyn Melgoza MD; Carlos Mcneal; Lynda Kellogg MD; Rayna English MD; Ana Maria Grimaldo MD; Migdalia Casey MD; Getachew La M.D.; Jose Alejandro Kemp M.D.; Yuval Lawton MD; Farhat Yarbrough D.O.; Ruslan Kapoor MD; Katrina Gonzalez MD; Dann Daniels M.D.; Tone Cárdenas; Ha Charles DO; Ha Rodriguez NP; Karen Cano; Abe Monroe M.D.; Nereyda Dunn MD; Chalo Duarte MD; Mg De MD; Mg Dimas MD; Shane Ma MD; Poncho Saxena M.D.; Danica Mendez MD; Luis Eduardo Santillan; Jensen Hoang MD; Reagan Hale M.D.; Noel Garcia MD; Chris Dean MD; Raul Smith M.D. DISCHARGE SUMMARY Observed: 10/17/2017 Status: F Source: [place] 11:37 AM [facility] REPOSITORY [facility] Medical Records Department [address] [place] [address] Discharge Summary 10/16/17 0946 MR#: [id number] Acct: [id number] Name: IVAN YOUNG Rep #: [id number] : 1940 77 From: Morgan Tinsley MD PCP: Chris Dean MD Status: ADM IN Y Location: [place] [address] Rehab Discharge Summary DATE OF ADMISSION: 10/03/17 DATE OF DISCHARGE: 10/19/17 - Rehab Diagnosis parkinsons, debility Discharge Diet: No Restrictions Discharge Activity: Return to Normal Activity Weight Bearing Status: Weight bearing as tolerated Lifting Restrict to (lbs):: 10 Home Medications: Medications to take at Discharge alfuzosin ER 10 mg tablet,extended release 24 hr 10 mg PO QDAY 02/24/17 aspirin 81 mg tablet,delayed release 81 mg PO QDAY 02/24/17 carbidopa 25 mg-levodopa 100 mg tablet 1 tab PO BID tab 02/24/17 clonazepam 0.5 mg tablet 0.5 mg PO QHS 02/24/17 finasteride 5 mg tablet 5 mg PO QDAY 02/24/17 memantine 10 mg tablet 10 mg PO BID 02/24/17 oxybutynin chloride ER 5 mg tablet,extended release 24 hr 5 mg PO QDAY 02/24/17 ranitidine 150 mg capsule 150 mg PO QHS 02/24/17 vitamins A,C,Z-dhot-cfclqg 14,320 unit-226 mg-200 unit capsule 1 cap PO QDAY ea 02/24/17 donepezil 10 mg tablet 10 mg PO QHS 02/25/17 Simvastatin 40 mg PO QPM 10/03/17 midodrine 2.5 mg tablet 2.5 mg PO QDAY tab 10/16/17 midodrine 5 mg tablet 5 mg PO BID tab 10/16/17 Primary Care Physician: Chris Dean MD [Primary Care Provider] - Disposition: Home Minutes spent on discharge:: 45 Patient Condition:: Good Rehab Course The patient is a 77 year old M with a history of parkinsonism, well-known to me in the outpatient setting. He was in the hospital as described by the admission H AND P as below. He lives at home in an apartment which is attached to his son's house, does have intermittent falls. He was admitted to the hospital as below, and has suffered rapid decrease in his capacities as result of his hospitalization. He is now admitted to the rehab unit with a goal of maximizing his functional independence. Per admit H AND P: The patient is a 77 year old M with PMHx of CAD s/p CABG, s/p pacemaker for sinus arrest, PAF/flutter, Parkinson's disease comes in after a syncopal episode. Patient lives with her son but is usually alone. He has a life alert watch. He has been feeling well and is in his usual state of health in the past few days. He lately complains of feeling dizzy, especially on moving. Chest pain or palpitations of fever or chills or nausea or vomiting or diarrhea. Vitals in the ED showed temperature 98.5, heart rate of 16, blood pressure 118/72, respiratory rate of 18, SPO2 97% on room air. Admitting blood work unremarkable. EKG shows paced rhythm, no acute ST-T changes, troponin is negative. CT scan of the brain shows chronic changes. CT scan of the spine shows multilevel degenerative changes. the patients rehab course was uneventful. He tolerated therapies. Physical therapy, Occupational Therapy and speech therapy were all initiated. He improved however it was not felt that he could yet returned home so he will be transferred to a fci today for further therapies and convalescence in the hopes that he can still return home to his previous level functional independence. Meaningful Use Info Meaningful Use Diagnoses (Choose all that apply): None applicable 10/17/17 1137 <Electronically signed by Morgan Tinsley MD> Date Morgan Tinsley MD Cosigner Signature (if applicable): Date CC: Morgan Tinsley MD; Chris Dean MD Signed 12 LEAD ELECTROCARDIOGRAM Observed: 10/13/2017 Status: F Source: DEVANTE 3:42 PM [facility] REPOSITORY [facility] [place] [address] 12 Lead EKG 10/07/17 1556 MR#: [id number] Acct: [id number] Name: IVAN YOUNG Rep #: [id number] : 1940 77 From: Mg Mckinney MD Attending Dr: Nereyda Dunn MD Status: ADM IN Ordering Dr: Deandre Bhatti MD Date: 10/07/17 Location: Sex: M C Admitted: 10/03/17 Test Reason : CHEST PAIN Blood Pressure : / mmHG Vent. Rate : 060 BPM Atrial Rate : 036 BPM P-R Int : 000 ms QRS Dur : 084 ms QT Int : 408 ms P-R-T Axes : 000 003 -02 degrees QTc Int : 408 ms Electronic atrial pacemaker Confirmed by YAMILETH MURCIA, MG ([id number]), editor index CLAUDIA YOUNG ([id number]) on 10/13/2017 3:41:53 PM Referred By: DAVY Confirmed By:MG MCKINNEY MD 10/13/17 1542 Date Mg Mckinney MD CC: Xander Bhatti MD; Nereyda Dunn MD; Chris Dean MD Signed TROPONIN-I Collected: 10/07/2017 Status: F Source: MERRILL 3:00 PM [facility] REPOSITORY TYPE CODE TESTS RESULT OUT OF RANGE REFERENCE UNITS LAB L501.4010 <0.045 ng/mL Normal < 0.015 TROPONIN-I Result Comment: TROPONIN-I EXPECTED VALUES <0.045 Negative 0.045 - 0.590 Consistent with Cardiac Damage > OR = 0.600 Critical Value Not every elevated troponin is indicative of KS. These values should be used with clinical judgement in examining the patient's clinical picture for diagnosis. To establish a diagnosis of KS versus myocardial injury, there must be a demonstrated rise and/or fall in the troponin values, in addition to ischemic symptoms, EKG changes, new regional wall motion abnormality, and/or angiographical evidence. PLEASE NOTE: REFERENCE RANGES EDITED 17 Performed By: #### L501.4010 #### [facility] [place], [address] HISTORY AND PHYSICAL Observed: 10/06/2017 Status: F Source: MERRILL EXAM 7:43 AM [facility] REPOSITORY [facility] Medical Records Department [address] [place] [address] History and Physical 10/03/17 1200 MR#: [id number] Acct: [id number] Name: IVAN YOUNG Rep #: [id number] : 1940 77 From: Morgan Tinsley MD PCP: Chris Dean MD Status: DIS IN Y Location: [place] [address] History of Present Illness Date of Admission: 10/03/17 Chief Complaint: Debility Rehab history and physical The patient is a 77 year old M with a history of parkinsonism, well-known to me in the outpatient setting. He is in the hospital as described by the admission H AND P as below. He lives at home in an apartment which is attached to his son's house, does have intermittent falls. He was admitted to the hospital as below, and has suffered rapid decrease in his capacities as result of his hospitalization. He is now admitted to the rehab unit with a goal of maximizing his functional independence. Per admit H AND P: The patient is a 77 year old M with PMHx of CAD s/p CABG, s/p pacemaker for sinus arrest, PAF/flutter, Parkinson's disease comes in after a syncopal episode. Patient lives with her son but is usually alone. He has a life alert watch. He has been feeling well and is in his usual state of health in the past few days. He lately complains of feeling dizzy, especially on moving. Chest pain or palpitations of fever or chills or nausea or vomiting or diarrhea. Vitals in the ED showed temperature 98.5, heart rate of 16, blood pressure 118/72, respiratory rate of 18, SPO2 97% on room air. Admitting blood work unremarkable. EKG shows paced rhythm, no acute ST-T changes, troponin is negative. CT scan of the brain shows chronic changes. CT scan of the spine shows multilevel degenerative changes. Past Medical History Past Medical History (Chronic Problems): Chronic Problems (Last Updated 07/24/17 @ 17:13 by Slim Haley) Sick sinus syndrome (Chronic) Atrial flutter (Chronic) History of coronary artery stent placement (Chronic) 03/02/08 PTCA/stent to SVG to RCA; 06/30/08 PTCA/stent to SVG to RCA; S/P CABG x 3 (Chronic) CABG, ANG to LAD, saphenous vein graft to OM1 AND RCA May 1996; Cardiac pacemaker in situ (Chronic) Permanent Pacemaker insertion 04/20/09; Pacemaker generator change 2001, 04/13/09 Atherosclerotic heart disease of [place] coronary artery without angina pectoris (Chronic) Atrial fibrillation (Chronic) Benign essential hypertension (Chronic) Gastroesophageal reflux disease (Chronic) Hyperlipidemia (Chronic) CKD (chronic kidney disease), stage II (Chronic) Obstructive sleep apnea syndrome (Chronic) Parkinson's disease (Chronic) Medical History: Medical History (Last Updated 07/24/17 @ 17:13 by Slim Haley) Sick sinus syndrome (Chronic) I49.5 Atrial flutter (Chronic) I48.92 Atherosclerotic heart disease of [place] coronary artery without angina pectoris (Chronic) I25.10 Atrial fibrillation (Chronic) I48.91 Benign essential hypertension (Chronic) I10 Hyperlipidemia (Chronic) E78.5 CKD (chronic kidney disease), stage II (Chronic) N18.2 Obstructive sleep apnea syndrome (Chronic) G47.33 Parkinson's disease (Chronic) G20 Diverticulitis K57.92 Hiatal hernia K44.9 Nephrolithiasis N20.0 TIA (transient ischemic attack) Onset Date: 08/2012 G45.9 Allergies acetaminophen [From Vicodin] Allergy (Verified 10/01/17 09:37) Other hydrocodone bitartrate [From Vicodin] Allergy (Verified 10/01/17 09:37) Other Sulfa (Sulfonamide Antibiotics) Allergy (Verified 10/01/17 09:37) Other Home Medications: Ambulatory Orders Medication Instructions Recorded alfuzosin ER 10 mg tablet,extended 10 mg PO QDAY 02/24/17 Surgical History: Surgical History (Last Updated 07/24/17 @ 17:14 by Slim Haley) History of coronary artery stent placement (Chronic) Z95.5 03/02/08 PTCA/stent to SVG to RCA; 06/30/08 PTCA/stent to SVG to RCA; S/P CABG x 3 (Chronic) Z95.1 CABG, ANG to LAD, saphenous vein graft to OM1 AND RCA May 1996; Cardiac pacemaker in situ (Chronic) Z95.0 Permanent Pacemaker insertion 04/20/09; Pacemaker generator change 2001, 04/13/09 History of knee replacement procedure of right knee Z96.651 History of laparoscopic cholecystectomy Z90.49 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, left foot 1954 Surgical History: coronary bypass surgery Lives: With Family Smoking Status: Former smoker Tobacco Use: Non-smoker Alcohol: None Drugs: None Review of Systems Constitutional: Denies: Chills, Fever, Weight Change HEENT: Denies: Head Aches, Sinus Congestion, Sinus Drainage Cardiovascular: Denies: Chest Pain, Palpitations Respiratory: Denies: Cough, Shortness of breath at rest, Sputum production Gastrointestinal: Denies: Abdominal Pain, Nausea, Vomiting Genitourinary: Denies: Dysuria Musculoskeletal: Denies: Joint Pain, Joint Tenderness Skin: Denies: Rash, Wounds Neurological: Denies: Numbness, Tingling, Focal weakness Psychiatric: Denies: Anxiety, Depression, Homicidal Ideations, Suicidal Ideations Hematologic/ Lymphatic: Denies: Easy Bruising, Easy Bleeding VTE Information - Inpt Only VTE Present on Admission: Yes Patient Problems: Active and Suspected Problems (Last Updated 07/24/17 @ 17:13 by Slim Haley) Syncope (Acute) - Physical Exam General: Alert, Oriented x3, Cooperative, No apparent distress Abdomen: Bowel Sounds Present Extremities: No Calf Tenderness Musculoskeletal: No Tenderness to Palpation of Joints or Extremities Neurological: Cranial nerves II-XII grossly intact, - - He has a left eyebrow ecchymosis and sutured laceration. He is very bradycardia thymic, akinetic, with cogwheel rigidity. Vital Signs Temp Pulse Resp BP Pulse Ox 36.9 C 61 16 109/54 L 96 10/03/17 09:10 10/03/17 10:46 10/03/17 09:10 10/03/17 09:10 10/03/17 09:10 Oxygen Delivery Method Room Air Weight: 86.4 kg Body Mass Index (BMI) 28.0 Orthostatic Vital Signs Start: 10/02/17 04:47 Freq: q24h Status: Active Protocol: Activity Type Activity Date Activity User E-Sign Co-Sign Detail Recorded Client Recorded Date Recorded By Document 10/03/17 05:42 KDB [id number] 10/03/17 05:56 KDB Orthostatic Vitals Standing -Blood Pressure (90/60-120/80) 137/108 H -Extremity Use Right Arm -Pulse Rate (60-100) 62 Sitting -Blood Pressure (90/60-120/80) 113/60 Intake and Output for Last 24 Hours Intake Total 360 / 360 920 / 920 Output Total 400 / 400 700 / 700 Balance -40 / -40 220 / 220 Current Home Med List Medication Instructions Recorded Confirmed Type alfuzosin ER 10 mg tablet,extended 10 mg PO QDAY 02/24/17 10/01/17 History Current Medications Generic Name Dose Route Start Last Admin Trade Name Freq PRN Reason Stop Dose Admin Acetaminophen 650 mg 10/01/17 13:23 10/03/17 05:34 Tylenol PO 650 mg Assessment/Plan All Active Problems (Last Updated 07/24/17 @ 17:13 by Slim Haley) Syncope (Acute) debiltiy due to Parkinson's complicated by orthostatic hypotension status post syncope and fall. Goal of rehab is sikh of prior level functional independence. Plan: Physical therapy for gait and balance Occupational Therapy for ADLs Bowel protocol VT prophylaxis: Lovenox As needed analgesics Parkinsonism: Continue levodopa carbidopa and hydrate as needed Orthostatic hypotension: Can consider Northera 10/06/17 0743 <Electronically signed by Morgan Tinsley MD> Date Morgan Tinsley MD Cosigner Signature: Date (if applicable) CC: Morgan Tinsley MD; Chris Dean MD Signed CBC-COMPLETE BLOOD CNT Collected: 10/04/2017 Status: F Source: DEVANTE NO DIFF 7:30 AM [facility] REPOSITORY TYPE CODE TESTS RESULT OUT OF RANGE REFERENCE UNITS LAB L100.1000 4.4-11.0 K/mm3 Normal WBC 7.6 LAB L100.1200 4.6-6.2 M/mm3 Low RBC 4.45 LAB L100.1300 13.0-16.5 g/dl Normal HGB 13.6 LAB L100.1400 40-54 % Normal HCT 40.8 LAB L100.1500 80-94 fL Normal MCV 91.7 LAB L100.1600 27.0-32.0 pg Normal MCH 30.6 LAB L100.1700 32-36 g/gl Normal MCHC 33.3 LAB L100.1810 11.6-14.6 % Normal RDW CV 13.9 LAB L100.1820 35.1-43.9 fl High RDW SD 46.2 LAB L100.1900 150-450 K/mm3 Normal PLT 209 LAB L100.2000 6.2-12.0 fl Normal MPV 10.5 Performed By: #### L100.0500 #### [facility] [address] [place], [address] BASIC METABOLIC Collected: 10/04/2017 Status: F Source: [place] PROFILE (BMP) 7:20 AM [facility] REPOSITORY TYPE CODE TESTS RESULT OUT OF RANGE REFERENCE UNITS LAB L501.0100 74-106 mg/dL Normal GLU 82 Result Comment: Please note revised GLUCOSE reference range effective 2017. LAB L501.1000 7-18 mg/dL High BUN 27 LAB L501.1100 0.70-1.30 mg/dL Normal CREAT,SERUM 1.05 Result Comment: The validity of the calculated GFR AND GFRAA in patients over 70 years has not been determined. Clinical correlation is essential. LAB L501.1110 >60 mL/min Normal EST GFR 72 Result Comment: Non- GFR Calc LAB L501.1115 >60 mL/min Normal EST GFR - AA 88 Result Comment: GFR Calc LAB L501.1255 ml/min Normal Estimated CRCL 55.19 LAB L501.1300 10-20 RATIO High BUN/CRE 25.7 LAB L501.2200 8.5-10 mg/dL Normal .1 CA 8.6 LAB L501.5300 136-14 mmol/L Normal 5 NA 139 LAB L501.5600 3.5-5. mmol/L Normal 1 K 5.0 Result Comment: Slight Hemolysis, Result may be falsely increased. LAB L501.5900 98-107 mmol/L Normal CL 104 LAB L501.6100 21.0-32.0 mmol/L Normal CO2 29.0 LAB L501.6200 5-15 Normal 6 GAP Performed By: #### L500.2500 #### [facility] [address] [place], [address] DISCHARGE SUMMARY Observed: 10/03/2017 Status: F Source: [place]LL 5:16 PM [facility] REPOSITORY [facility] Medical Records Department [address] [place] [address] Discharge Summary 10/03/17 1648 MR#: [id number] Acct: [id number] Name: IVAN YOUNG Rep #: [id number] : 1940 77 From: Padmini Sosa MD PCP: Chris Dean MD Status: ADM IN Y Location: [place] [address] Discharge Date and Diagnosis - Problem List Patient Problems: Active and Suspected Problems (Last Updated 07/24/17 @ 17:13 by [employer]) Syncope (Acute) Date of Admission: 10/03/17 Date of Discharge: 10/03/17 - Primary Discharge Diagnosis Active and Suspected Problems (Last Updated 07/24/17 @ 17:13 by [employer]) Syncope (Acute) Fall - Secondary Discharge Diagnosis Chronic Problems (Last Updated 07/24/17 @ 17:13 by Slim Haley) Sick sinus syndrome (Chronic) Atrial flutter (Chronic) History of coronary artery stent placement (Chronic) 03/02/08 PTCA/stent to SVG to RCA; 06/30/08 PTCA/stent to SVG to RCA; S/P CABG x 3 (Chronic) CABG, ANG to LAD, saphenous vein graft to OM1 AND RCA May 1996; Cardiac pacemaker in situ (Chronic) Permanent Pacemaker insertion 04/20/09; Pacemaker generator change 2001, 04/13/09 Atherosclerotic heart disease of [place] coronary artery without angina pectoris (Chronic) Atrial fibrillation (Chronic) Benign essential hypertension (Chronic) Gastroesophageal reflux disease (Chronic) Hyperlipidemia (Chronic) CKD (chronic kidney disease), stage II (Chronic) Obstructive sleep apnea syndrome (Chronic) Parkinson's disease (Chronic) Hospital Course and Treatment Imaging Results: Clinical Impression(s) from Imaging Studies Brain CT 10/01/17 10:06 IMPRESSION: Chronic involutional changes of the brain. No acute hemorrhage or significant interval change Electronically Signed: Eulogio Fernandez MD at 11:05 EDT , Service support , Cervical Spine CT 10/01/17 10:09 IMPRESSION: Multilevel degenerative changes, as described above. Electronically Signed: Eulogio Fernandez MD at 11:14 EDT , Service support , Chest X-Ray 10/01/17 11:00 IMPRESSION: No acute pulmonary process Electronically Signed: Eulogio Fernandez MD at 11:15 EDT , Service support , Cardiology - Dr. Trejo Operations: None Procedures: None Summary of Care Provided: T77 year old M with PMHx of CAD s/p CABG, s/p pacemaker for sinus arrest, PAF/Atrial flutter, Parkinson's disease comes in after a syncopal episode. 1. Fall, Syncope, unwitnessed, patient denies syncope but no one was there to confirm, unclear etiology, pacemaker interrogation did not review any events, not orthostatic on exam. 2D echo showed EF of 55%, diastolic dysfunction, moderately dilated right ventricle, +1-2 tricuspid regurgitation. Cardiology consulted, will up on recommendations. Cardiology consulted in this admission. Patient to follow-up with Dr. Kilgore in the outpatient 2. Traumatic injury to the left eyebrow, status post fall, wound looks clean, daily wound cleansing without dressing to be done, removal of stitches in a week. 3. CAD s/p CABG, on aspirin, simvastatin 4. PAF/atrial flutter, status post pacemaker for sinus arrest, no events on pacemaker interrogation 5. Parkinson's disease with dementia, on Memantine, clonazepam, Sinemet, Aricept Discharge Diet: Low fat/ Low Cholesterol, 2000 mg Sodium Diet Discharge Activity: Return to Normal Activity Home Medications: Medications to take at Discharge alfuzosin ER 10 mg tablet,extended release 24 hr 10 mg PO QDAY 02/24/17 aspirin 81 mg tablet,delayed release 81 mg PO QDAY 12/18/17 carbidopa 25 mg-levodopa 100 mg tablet 1 tab PO BID tab 02/24/17 clonazepam 0.5 mg tablet 0.5 mg PO QHS 02/24/17 finasteride 5 mg tablet 5 mg PO QDAY 02/24/17 isosorbide mononitrate ER 30 mg tablet,extended release 24 hr 30 mg PO QAM 02/24/17 memantine 10 mg tablet 10 mg PO BID 02/24/17 oxybutynin chloride ER 5 mg tablet,extended release 24 hr 5 mg PO QDAY 02/24/17 ranitidine 150 mg capsule 150 mg PO QHS 02/24/17 vitamins A,C,A-vyvh-bgqvsv 14,320 unit-226 mg-200 unit capsule 1 cap PO QDAY ea 02/24/17 donepezil 10 mg tablet 10 mg PO QHS 02/25/17 furosemide 20 mg tablet 20 mg PO QDAY #90 tab 08/05/17 simvastatin 40 mg tablet 40 mg PO QPM #90 tab 09/08/17 Primary Care Physician: Chris Dean MD [Primary Care Provider] - Please follow up with your Primary Care Physician in: within 2 weeks of discharge Please Follow Up With: Ed Kilgore MD When: in 2 weeks Disposition: Inpt Rehab Unit/Facility Minutes spent on discharge:: 40 Patient Condition:: Stable Medical Necessity - Tobacco Use Smoking Status: Former smoker Tobacco Use: Non-smoker Meaningful Use Info Meaningful Use Diagnoses (Choose all that apply): None applicable Code Visit Inpatient E AND M: 88378 Disch Hosp 10/03/17 1716 <Electronically signed by Padmini Sosa MD> Date Padmini Sosa MD Cosigner Signature (if applicable): Date CC: Padmini Sosa MD; Chris Dean MD Signed DISCHARGE INSTRUCTION Observed: 10/03/2017 Status: F Source: [place] 4:48 PM [facility] REPOSITORY [facility] Medical Records Department [address] [place] [address] Instructions for Home/Discharge Instructions 10/03/17 1549 MR#: [id number] Acct: [id number] Name: IVAN YOUNG Rep #: [id number] : 1940 77 From: Padmini Sosa MD PCP: Chris Dean MD Status: ADM IN - Discharge Diagnoses Current Active Problems: Current Active and Chronic Problems (Last Updated 07/24/17 @ 17:13 by Slim Haley) Syncope (Acute) Reason(s) for Visit for Discharge Instructions: Fall, ?Syncope You will use the following diet at home:: Cardiac Your food should be the consistency of: Regular Your liquids should be the consistency of: Regular/Thin Discharge Activity: Return to Normal Activity Allergies/Adverse Reactions: Allergies acetaminophen [From Vicodin] Allergy (Verified 10/01/17 09:37) Other hydrocodone bitartrate [From Vicodin] Allergy (Verified 10/01/17 09:37) Other Sulfa (Sulfonamide Antibiotics) Allergy (Verified 10/01/17 09:37) Other Medications to take at Discharge alfuzosin ER 10 mg tablet,extended release 24 hr 10 mg PO QDAY 02/24/17 aspirin 81 mg tablet,delayed release 81 mg PO QDAY 02/24/17 carbidopa 25 mg-levodopa 100 mg tablet 1 tab PO BID tab 02/24/17 clonazepam 0.5 mg tablet 0.5 mg PO QHS 02/24/17 finasteride 5 mg tablet 5 mg PO QDAY 02/24/17 isosorbide mononitrate ER 30 mg tablet,extended release 24 hr 30 mg PO QAM 02/24/17 memantine 10 mg tablet 10 mg PO BID 02/24/17 oxybutynin chloride ER 5 mg tablet,extended release 24 hr 5 mg PO QDAY 02/24/17 ranitidine 150 mg capsule 150 mg PO QHS 02/24/17 vitamins A,C,H-btew-xqdnpk 14,320 unit-226 mg-200 unit capsule 1 cap PO QDAY ea 02/24/17 donepezil 10 mg tablet 10 mg PO QHS 02/25/17 furosemide 20 mg tablet 20 mg PO QDAY #90 tab 08/05/17 simvastatin 40 mg tablet 40 mg PO QPM #90 tab 09/08/17 Primary Care Physician: Chris Dean MD [Primary Care Provider] - Please follow up with your Primary Care Physician in: within 2 weeks of discharge Test Results: Test results from this visit will be discussed in further detail at your follow-up appointment, if applicable. Please Follow Up With: Ed Kilgore MD When: in 2 weeks Proposed Discharge Date: 10/03/17 10/03/17 1648 <Electronically signed by Padmini Sosa MD> Date Padmini Sosa MD CC: Burt Trejo MD; Chris Dean MD 12 LEAD ELECTROCARDIOGRAM Observed: 10/03/2017 Status: F Source: [place] 1:41 PM [facility] REPOSITORY [facility] Cardiovascular Services [address] [place] [address] 12 Lead EKG 10/01/17 1028 MR#: [id number] Acct: [id number] Name: HANNAHIVAN Rep #: [id number] : 1940 77 From: Mg Mckinney MD Attending Dr: Padmini Sosa MD Status: ADM IN Ordering Dr: Tabitha Sahni Date: 10/01/17 Location: [facility] Sex: M C Admitted: 10/01/17 Test Reason : Blood Pressure : / mmHG Vent. Rate : 060 BPM Atrial Rate : 057 BPM P-R Int : 236 ms QRS Dur : 082 ms QT Int : 434 ms P-R-T Axes : -59 000 -15 degrees QTc Int : 434 ms Atrial-paced rhythm with prolonged AV conduction Abnormal ECG Confirmed by YAMILETH MURCIA, MG ([id number]), editor index CLAUDIA YOUNG ([id number]) on 10/03/2017 1:41:41 PM Referred By: Tabitha Sahni Confirmed By:MG MCKINNEY MD 10/03/17 1341 Date Mg Mckinney MD CC: Padmini Sosa MD; Tabitha Sahni; Chris Dean MD Signed STRESS REPORT Observed: 10/02/2017 Status: F Source: [place] 1:23 PM [facility] REPOSITORY [facility] Cardiovascular Services [address] [place] [address] MR#: [id number] Acct: [id number] Name: IVAN YOUNG Rep #: [id number] : 1940 77 From: Mg Mckinney MD Primary Care: Chris Dean MD Status: ADM IN Ordering Dr: Sex: Jenn Miller Stress Test Report Date: 10/02/2017 Procedure: Pharmacologic stress nuclear imaging study Indications: Chest pain; CAD; PCI; CABG; atrial fibrillation/flutter; permanent pacemaker Consent: Per the patient Procedure: The patient underwent pharmacologic (Regadenoson) evaluation with a peak heart rate of 72 beats per minute (51 predicted maximal heart rate) and a peak blood pressure of 28/82 mmHg. The baseline ECG demonstrated a chronic atrial paced rhythm. The peak pharmacologic ECG demonstrated no obvious ECG changes. There were no cardiac dysrhythmias pretest, during pharmacologic infusion, or recovery. There was no complaint of chest discomfort during pharmacologic infusion or recovery. The examination was discontinued secondary to completion of protocol. Impression: 1. Pharmacologic (Regadenoson) evaluation 2. Peak pharmacologic ECG with no obvious ECG changes. 3. There were no additional cardiac dysrhythmias pretest, during pharmacologic infusion, or recovery 4. Nuclear images pending Myocardial perfusion imaging study: Technique: The patient was injected with 12 millicuries of technetium 99m Cardiolite and subsequently rest SPECT Cardiolite nuclear imaging was obtained in the horizontal long, vertical long, and short axis views. The patient underwent pharmacologic (Regadenoson) evaluation with a peak heart rate of 72 beats per minute (51 % percent predicted maximal heart rate) and a peak blood pressure of 128/82 mmHg. The patient was injected with 34.2 millicuries of technetium 99m Cardiolite and subsequently stress SPECT Cardiolite nuclear imaging was obtained in the horizontal long, vertical long, and short axis views. A gated Cardiolite study at peak stress was obtained. Interpretation: Rest and stress SPECT Cardiolite nuclear imaging status post realignment, normalization, and attenuation correction demonstrate the appearance of a small area of subtle diminished tracer uptake near the apical segments without significant change between rest and stress. There is end systolic thickening and brightening. The gated Cardiolite study demonstrates myocardial thickening and inward wall motion. The reported LVEF is 77 %. Impression: 1. Rest and stress SPECT currently nuclear imaging demonstrate a small area of subtle diminished tracer uptake near the apical segments without significant change between rest and stress appearing compatible with physiologic apical thinning with no myocardial perfusion changes consider diagnostic for associated stress-induced myocardial ischemia or previous myocardial injury/infarction. 2. The gated Cardiolite study reports an LVEF of 77 %. This note was generated with Dynadmic[employer] software. It may contain incorrect words, spelling, and punctuation that were not noted in checking the note before signing. 10/02/17 1323 <Electronically signed by Mg Mckinney MD> Date Mg Mckinney MD CC: Padmini Sosa MD; Tabitha Sahni; Chris Dean MD Date Dictated: 10/02/17 1318 Date Transcribed: 10/02/171317 Shake Loader: PM Signed ECHO, COMPLETE W/ Observed: 10/02/2017 Status: F Source: [facility] CONTRAST 10:21 AM [facility] REPOSITORY [facility] Cardiovascular Services [address] [place] [id number] Echo Complete W/ Contrast 10/02/17 0841 MR#: [id number] Acct: [id number] Name: IVAN YOUNG Rep #: [id number] : 1940 77 From: Burt Trejo MD Attending Dr: Pdamini Sosa MD Status: ADM IN Ordering Dr: Padmini Sosa MD Date: 10/01/17 Location: [facility] Sex: M C Admitted: 10/01/17 Reason For Study: SYNCOPE/NEAR SYNCOPE Procedure This was a 2D Doppler, Color Flow transthoracic echocardiogram. Exam performed portable in patient room. Left Ventricle Normal size and thickness. The estimated ejection fraction is 65 %. Stage 1 diastolic dysfunction. No regional wall motion abnormalities noted. Right Ventricle Moderately dilated right ventricle. ICD or pacer leads identified within the right ventricle. Mild global right ventricular systolic dysfunction. Atria Normal left atrium. Normal right atrium. Normal atrial septum. Mitral Valve Mild diffuse mitral valve thickening. Tricuspid Valve Normal tricuspid valve. Mild to moderate (1-2+) tricuspid valve insufficiency. Right ventricular systolic pressure estimated to be 39 mmHg. Mild pulmonary hypertension. Aortic Valve Trisinus/trileaflet aortic valve. Mild diffuse aortic valve thickening. Pulmonic Valve Normal pulmonic valve. Great Vessels Calcified aortic root. Normal arch. Normal inferior vena cava. Inferior vena cava collapse with sniff. Pericardium/Pleural No pericardial effusion. Medication Diluted definity 2ml given slow IV push to enhance endocardial definition. MMode/2D Measurements AND Calculations LVIDd: 4.5 cm IVSd: 0.89 cm Ao root diam: 3.3 cm LVIDs: 3.0 cm LVPWd: 0.91 cm LA dimension: 3.3 cm FS: 34.1 % LAV(MOD-bp): 45.8 ml LA A4 area: 15.4 cm2 LAV(MOD-bp) Indexed: 22.7 ml/m2 LAV(MOD-sp2): 58.0 ml LAV(MOD-sp4): 35.7 ml Time Measurements MV dec time: 0.26 sec Doppler Measurements AND Calculations MV E max ehsan: 84.8 cm/sec Lat Peak E' Ehsan: 9.6 cm/sec Med Peak E' Ehsan: 6.6 cm/sec MV A max ehsan: 107.0 cm/sec E/E' lat: 8.8 E/E' med: 12.9 MV E/A: 0.79 Ao V2 max: 157.1 cm/sec LV V1 max: 116.9 cm/sec PA V2 max: 94.8 cm/sec Ao max P.9 mmHg LV V1 max P.5 mmHg TR max ehsan: 301.8 cm/sec TR max P.5 mmHg Interpretation Summary The estimated ejection fraction is 65 %. Stage 1 diastolic dysfunction. Moderately dilated right ventricle. Mild to moderate (1-2+) tricuspid valve insufficiency. Right ventricular systolic pressure estimated to be 39 mmHg. Mild pulmonary hypertension. Compared to echo report dated 02/23/2011, no appreciable changes noted. The study was technically difficult. Contrast injection was performed. Ordering Physician: Padmini Sosa Referring Physician: CHRIS DEAN Performed By: Marianne Boucher RDCS 10/02/17 1020 Date Burt Trejo MD CC: Padmini Sosa MD; Tabitha Dean MD Date Dictated: 10/02/17 0841 Date Transcribed: 10/02/17 1020 Shake Loader: Signed BASIC METABOLIC Collected: 10/02/2017 Status: F Source: [facility]ANTE PROFILE (BMP) 5:15 AM [facility] REPOSITORY TYPE CODE TESTS RESULT OUT OF RANGE REFERENCE UNITS LAB L501.0100 74-106 mg/dL Normal GLU 77 Result Comment: Please note revised GLUCOSE reference range effective 2017. LAB L501.1000 7-18 mg/dL High BUN 29 LAB L501.1100 0.70-1.30 mg/dL Normal CREAT,SERUM 1.01 Result Comment: The validity of the calculated GFR AND GFRAA in patients over 70 years has not been determined. Clinical correlation is essential. LAB L501.1110 >60 mL/min Normal EST GFR 76 Result Comment: Non- GFR Calc LAB L501.1115 >60 mL/min Normal EST GFR - AA 92 Result Comment: GFR Calc LAB L501.1255 ml/min Normal Estimated CRCL 59.31 LAB L501.1300 10-20 RATIO High BUN/CRE 28.7 LAB L501.2200 8.5-10 mg/dL Low .1 CA 8.3 LAB L501.5300 136-14 mmol/L Normal 5 NA 141 LAB L501.5600 3.5-5. mmol/L Normal 1 K 4.1 LAB L501.5900 98-107 mmol/L Normal CL 106 LAB L501.6100 21.0-3 mmol/L Normal 2.0 CO2 29.0 LAB L501.6200 5-15 Normal GAP 6 Performed By: #### L500.2500 #### [facility] [address] [place], [address] PROTHROMBIN TIME W/INR Collected: 10/02/2017 Status: F Source: DEVANTE 5:15 AM [facility] REPOSITORY TYPE CODE TESTS RESULT OUT OF RANGE REFERENCE UNITS LAB L300.4150 11.7-14.9 SECONDS Normal PROTIME 14.3 LAB L300.4200 Normal INR 1.1 Performed By: #### L300.3900 #### [facility] [address] [place], [address] CONSULTATION Observed: 10/01/2017 Status: F Source: DEVANTE 5:26 PM [facility] REPOSITORY [facility] Medical Records Department [address] [place] [address] Consultation 10/01/17 1715 MR#: [id number] Acct: [id number] Name: IVAN YOUNG Rep #: [id number] : 1940 77 From: Burt Trejo MD PCP: Chris Dean MD Status: ADM IN Y Location: [place] [address] Problem List (1) Syncope Status: Acute Qualifiers: Syncope type: unspecified Qualified Code(s): R55 - Syncope and collapse (2) Sick sinus syndrome Status: Chronic (3) Atrial flutter Status: Chronic Qualifiers: Atrial flutter type: unspecified Qualified Code(s): I48.92 - Unspecified atrial flutter (4) History of coronary artery stent placement Status: Chronic Comment: 03/02/08 PTCA/stent to SVG to RCA; 06/30/08 PTCA/stent to SVG to RCA; (5) S/P CABG x 3 Status: Chronic Comment: CABG, ANG to LAD, saphenous vein graft to OM1 AND RCA May 1996; (6) Cardiac pacemaker in situ Status: Chronic Comment: Permanent Pacemaker insertion 04/20/09; Pacemaker generator change 2001, 04/13/09 (7) Atrial fibrillation Status: Chronic Qualifiers: Atrial fibrillation type: paroxysmal Qualified Code(s): I48.0 - Paroxysmal atrial fibrillation (8) Hyperlipidemia Status: Chronic Qualifiers: Reason for Consult Date of Consultation: 10/01/17 Reason for Consultation: Parkinson's disease, coronary disease status post bypass status post stents, hypertension, hypercholesterolemia, pacemaker placement History of Present Illness: The patient is a 77 year old M, patient of Dr. Giang with Parkinson's disease making it difficult to evaluate him clinically, with a history of hypertension, hypercholesterolemia, coronary disease status post bypass surgery 3 vessels, ANG to LAD, saphenous vein graft to OM #1, and saphenous vein graft to RCA many years ago, in addition, the patient underwent angioplasty and stenting 2 to the saphenous vein graft to the right coronary artery in February 2008, followed by repeat stenting of the in-stent restenosis of the saphenous vein graft to the RCA by Dr. Ha Stubbs at [facility] on 08/30/08 utilizing a 3.5X 23 and a 3.5X 15 Promus drug-eluting stent with an excellent result. Pacemaker initially was placed in 1975 and recently underwent battery change out in the last several months for end of life.. In addition he has paroxysmal atrial fibrillation and is apparently on anticoagulation therapy per the patient. At best I can tell the patient lives at home in a duplex next to his son, and apparently was walking on the sidewalk with his walker and fell down causing a laceration to the left side of his face. His best he can remember he did not have a syncopal event. He denied any chest pain or angina but does have chest wall pain after his fall which is reproducible. On further history he denies any previous exertional angina, chest pain and cannot recall the last time he had a stress test or an echocardiogram. Apparently he follows with an outside medical typist. His EKG demonstrated paced atrial rhythm with normal intrinsic ventricular response. According to pacemaker interrogation he preliminarily has an atrial lead which has a lot of noise and may require revision. Additional pacemaker evaluation will be completed tomorrow. [] Past Medical History Allergies/Adverse Reactions: Allergies acetaminophen [From Vicodin] Allergy (Verified 10/01/17 09:37) Other hydrocodone bitartrate [From Vicodin] Allergy (Verified 10/01/17 09:37) Other Sulfa (Sulfonamide Antibiotics) Allergy (Verified 10/01/17 09:37) Other Home Medications: Ambulatory Orders Medication Instructions Recorded alfuzosin ER 10 mg tablet,extended 10 mg PO QDAY 02/24/17 Past Medical History (Chronic Problems): Chronic Problems (Last Updated 07/24/17 @ 17:13 by Slim Haley) Sick sinus syndrome (Chronic) Atrial flutter (Chronic) History of coronary artery stent placement (Chronic) 03/02/08 PTCA/stent to SVG to RCA; 06/30/08 PTCA/stent to SVG to RCA; S/P CABG x 3 (Chronic) CABG, ANG to LAD, saphenous vein graft to OM1 AND RCA May 1996; Cardiac pacemaker in situ (Chronic) Permanent Pacemaker insertion 04/20/09; Pacemaker generator change 2001, 04/13/09 Atherosclerotic heart disease of [place] coronary artery without angina pectoris (Chronic) Atrial fibrillation (Chronic) Benign essential hypertension (Chronic) Gastroesophageal reflux disease (Chronic) Hyperlipidemia (Chronic) CKD (chronic kidney disease), stage II (Chronic) Obstructive sleep apnea syndrome (Chronic) Parkinson's disease (Chronic) Surgical History: coronary bypass surgery Lives: With Family Smoking Status: Former smoker Tobacco Use: Non-smoker Alcohol: None Drugs: None Review of Systems - Review of Systems General: Denies: Fever, Night Sweats, Fatigue Cardiovascular: Denies: Chest Discomfort, Shortness of Breath, Orthopnea, PND, Peripheral Edema, Palpitations, Lightheadedness, Dizziness, Near Syncope, Syncope Respiratory: Denies: Cough, Sputum Production, Hemoptysis Gastrointestinal: Denies: Hematemesis, Hematochezia, Melena Genitourinary: Denies: Dysuria, Hematuria Skin: Denies: Rash Subjectve: Patient sitting in a chair, no acute distress. Objective: Vital Signs Temp Pulse Resp BP Pulse Ox 97.9 F 66 16 133/83 H 97 10/01/17 13:25 10/01/17 15:48 10/01/17 13:25 10/01/17 13:25 10/01/17 13:25 Oxygen Delivery Method Room Air Weight: 190 lb 4.143 oz Body Mass Index (BMI) 28.0 General: Awake, Alert, Oriented x 3 HEENT: PERRL, EOMI, Sclera Non Icteric Neck: Supple, Good ROM, No Lymph Node Enlargement Lungs: Clear to auscultation Cardiovascular: Regular Rhythm, Premature Ectopic Beats, Normal S1, Normal S2, No Murmurs, No Rubs, No Gallops Vascular: No Carotid Bruits, Normal Femoral Pulses, Normal Radial Pulses, Normal Dorsalis Pedal Pulse, Normal Posterior Tibial Pulses Abdomen: Bowel Sounds Present, Soft, Non Tender, No HSM, No Organomegaly Extremities: No Cyanosis, No Clubbing, No edema Neurological: No Focal Motor or Sensory Deficit 10/01/17 13:50: Troponin I < 0.015 Rhythm: EKG: ECHO: Stress Test: Cardiac Cath: PCI: CT Surgery: Holter monitor: EPS: PPM: CXR: Chest CT Scan: Assessment/Plan 1. Status post fall: Patient denies any syncopal event as a result of his fall. However his pacemaker shows an atrial lead that may require revision and may be undergoing incomplete capture. Recommend continuing the patient on telemetry at this time. We will have a more thorough evaluation of his pacemaker tomorrow with additional equipment. If the patient requires revision of his lead he may require transfer to an outside facility for this. Patient had a significant fall causing lacerations and bruising to the left side of his face. Would recommend holding off on any catheterization or intervention until this is healed. 2. Coronary artery disease: The patient denies any anginal symptoms prior to his event. I recommended that he undergo a 2D echo with Doppler if he has not done so in the last year in addition I would recommend a noninvasive dobutamine echocardiogram to evaluate for possible ischemia particularly of the inferior wall given his history of repetitive angioplasty and stenting to his saphenous vein graft to the RCA. Would recommend obtaining orthostatic blood pressures. We will hold off on adjustment to his medications until after his orthostatic blood pressures have been obtained. 3. Hyperlipidemia: His LDL and HDL cholesterol need to be evaluated. Recommend obtaining a fasting lipid profile. Continue Lipitor for now. 4. Thank you very much for the opportunity to participate in the cardiac care of your patient. Consultation time took place between 430 and 5 PM. Code Visit Inpatient E AND M: [id number] Init Hosp L2 10/01/17 1726 <Electronically signed by Burt Trejo MD> Date Burt Trejo MD Cosigner Signature (if applicable): Date CC: Tabitha Sahni; Burt Trejo MD; Chris Dean MD Signed TROPONIN-I Collected: 10/01/2017 Status: F Source: DEVANTE 4:53 PM [facility] REPOSITORY Order Comment: 'TROP' Serial specimen #1, #2 or #3: 3 TYPE CODE TESTS RESULT OUT OF RANGE REFERENCE UNITS LAB L501.4010 <0.045 ng/mL Normal < 0.015 TROPONIN-I Result Comment: TROPONIN-I EXPECTED VALUES <0.045 Negative 0.045 - 0.590 Consistent with Cardiac Damage > OR = 0.600 Critical Value Not every elevated troponin is indicative of [place]. These values should be used with clinical judgement in examining the patient's clinical picture for diagnosis. To establish a diagnosis of KS versus myocardial injury, there must be a demonstrated rise and/or fall in the troponin values, in addition to ischemic symptoms, EKG changes, new regional wall motion abnormality, and/or angiographical evidence. PLEASE NOTE: REFERENCE RANGES EDITED 17 Performed By: #### L501.4010 #### [facility] [address] [place], [address] LIPID PROFILE Collected: 10/01/2017 Status: F Source: MERRILL 4:53 PM [facility] REPOSITORY TYPE CODE TESTS RESULT OUT OF RANGE REFERENCE UNITS LAB L501.4900 200 mg/dL Normal CHOL 96 Result Comment: <200 mg/dL Desirable 200-240 mg/dL Borderline >240 mg/dL High Risk LAB L501.5000 mg/dL Normal TRIG 65 Result Comment: The drugs N-Acetylcysteine and Metamizole may falsely depress this assay. Serum Triglycerides Reference Interval Normal <150 mg/dL Borderline high 150 - 199 mg/dL High 200 - 499 mg/dL Very High > or = 500 mg/dL LAB L501.6400 mg/dL Normal HDL 58 Result Comment: The drugs N-Acetylcysteine and Metamizole may falsely depress this assay. Reference Range HDL <40 mg/dL Low HDL Cholesterol HDL >or= 60 mg/dL High HDL Cholesterol LAB L501.6500 0-130 mg/dL Normal LDL 25 LAB L501.6600 5-40 mg/dL Normal VLDL 13 Performed By: #### L500.4100 #### [facility] [address] [place], [address] HISTORY AND PHYSICAL Observed: 10/01/2017 Status: F Source: MERRILL EXAM 3:14 PM [facility] REPOSITORY [facility] Medical Records Department [address] [place] [address] [place] [address] History and Physical 10/01/17 1233 MR#: [id number] Acct: [id number] Name: IVAN YOUNG Rep #: [id number] : 1940 77 From: Padmini Sosa MD PCP: Chris Dean MD Status: ADM IN Location: [place] [address] Problem List (1) Syncope Status: Acute Qualifiers: Syncope type: unspecified Qualified Code(s): R55 - Syncope and collapse (2) Atrial flutter Status: Chronic Qualifiers: Atrial flutter type: unspecified Qualified Code(s): I48.92 - Unspecified atrial flutter (3) History of coronary artery stent placement Status: Chronic Comment: 03/02/08 PTCA/stent to SVG to RCA; 06/30/08 PTCA/stent to SVG to RCA; (4) S/P CABG x 3 Status: Chronic Comment: CABG, ANG to LAD, saphenous vein graft to OM1 AND RCA May 1996; (5) Cardiac pacemaker in situ Status: Chronic Comment: Permanent Pacemaker insertion 04/20/09; Pacemaker generator change 2001, 04/13/09 (6) Benign essential hypertension Status: Chronic (7) Obstructive sleep apnea syndrome Status: Chronic History of Present Illness Date of Admission: 10/01/17 Chief Complaint: Syncope The patient is a 77 year old M with PMHx of CAD s/p CABG, s/p pacemaker for sinus arrest, PAF/flutter, Parkinson's disease comes in after a syncopal episode. Patient lives with her son but is usually alone. He has a life alert watch. He has been feeling well and is in his usual state of health in the past few days. He lately complains of feeling dizzy, especially on moving. Chest pain or palpitations of fever or chills or nausea or vomiting or diarrhea. Vitals in the ED showed temperature 98.5, heart rate of 16, blood pressure 118/72, respiratory rate of 18, SPO2 97% on room air. Admitting blood work unremarkable. EKG shows paced rhythm, no acute ST-T changes, troponin is negative. CT scan of the brain shows chronic changes. CT scan of the spine shows multilevel degenerative changes. Past Medical History Past Medical History (Chronic Problems): Chronic Problems (Last Updated 07/24/17 @ 17:13 by Slim Haley) Sick sinus syndrome (Chronic) Atrial flutter (Chronic) History of coronary artery stent placement (Chronic) 03/02/08 PTCA/stent to SVG to RCA; 06/30/08 PTCA/stent to SVG to RCA; S/P CABG x 3 (Chronic) CABG, ANG to LAD, saphenous vein graft to OM1 AND RCA May 1996; Cardiac pacemaker in situ (Chronic) Permanent Pacemaker insertion 04/20/09; Pacemaker generator change 04/13/09 Atherosclerotic heart disease of [place] coronary artery without angina pectoris (Chronic) Atrial fibrillation (Chronic) Benign essential hypertension (Chronic) Gastroesophageal reflux disease (Chronic) Hyperlipidemia (Chronic) CKD (chronic kidney disease), stage II (Chronic) Obstructive sleep apnea syndrome (Chronic) Parkinson's disease (Chronic) Medical History: Medical History (Last Updated 07/24/17 @ 17:13 by Slim Haley) Sick sinus syndrome (Chronic) I49.5 Atrial flutter (Chronic) I48.92 Atherosclerotic heart disease of [place] coronary artery without angina pectoris (Chronic) I25.10 Atrial fibrillation (Chronic) I48.91 Benign essential hypertension (Chronic) I10 Hyperlipidemia (Chronic) E78.5 CKD (chronic kidney disease), stage II (Chronic) N18.2 Obstructive sleep apnea syndrome (Chronic) G47.33 Parkinson's disease (Chronic) G20 Diverticulitis K57.92 Hiatal hernia K44.9 Nephrolithiasis N20.0 TIA (transient ischemic attack) Onset Date: 08/2012 G45.9 Allergies acetaminophen [From Vicodin] Allergy (Verified 10/01/17 09:37) Other hydrocodone bitartrate [From Vicodin] Allergy (Verified 10/01/17 09:37) Other Sulfa (Sulfonamide Antibiotics) Allergy (Verified 10/01/17 09:37) Other Home Medications: Ambulatory Orders Medication Instructions Recorded alfuzosin ER 10 mg tablet,extended 10 mg PO QDAY 02/24/17 Surgical History: Surgical History (Last Updated 07/24/17 @ 17:14 by Slim Haley) History of coronary artery stent placement (Chronic) Z95.5 03/02/08 PTCA/stent to SVG to RCA; 06/30/08 PTCA/stent to SVG to RCA; S/P CABG x 3 (Chronic) Z95.1 CABG, ANG to LAD, saphenous vein graft to OM1 AND RCA May 1996; Cardiac pacemaker in situ (Chronic) Z95.0 Permanent Pacemaker insertion 04/20/09; Pacemaker generator change 2001, 04/13/09 History of knee replacement procedure of right knee Z96.651 History of laparoscopic cholecystectomy Z90.49 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 Denies: Chest Pain, Claudication, Chest Pressure, Chest Tightness, Palpitations Respiratory: Denies: Cough, Hemoptysis, Pleuritic Pain, Shortness of breath at rest, Shortness of breath upon exertion, Sputum production Gastrointestinal: Denies: Abdominal Pain, Constipation, Hematemesis, Hematochezia, Nausea, Vomiting Genitourinary: Denies: Dysuria, Frequency, Incontinence Musculoskeletal: Denies: Joint Pain, Joint stiffness, Joint swelling, Joint Tenderness Skin: Denies: Rash, Wounds Neurological: Denies: Difficulty swallowing, Focal weakness, Numbness, Tingling Psychiatric: Denies: Anxiety, Depression, Homicidal Ideations, Suicidal Ideations Hematologic/ Lymphatic: Denies: Easy Bruising, Easy Bleeding VTE Information - Inpt Only VTE Present on Admission: No VTE Pharm Prophylaxis ordered?: Yes Patient Problems: Active and Suspected Problems (Last Updated 07/24/17 @ 17:13 by Slim Haley) Syncope (Acute) - Physical Exam General: Alert, Oriented x3, Cooperative, No apparent distress HEENT: Atraumatic, PERRLA, EOMI, Normocephalic, - - Old blood, sutures over the left brow, mild periorbital edema Oral: Moist Mucosa Neck: Supple, No JVD, Negative Carotid Bruits Lungs: Clear to auscultation, Normal air movement, Diminished - at the lung bases Cardiovascular: Regular rate, Regular Rhythm, Normal S1, Normal S2, No murmurs Abdomen: Bowel Sounds Present, Soft, Non Tender, Non-Distended, No Hepato-splenomegaly Extremities: No edema Skin: No rashes, No breakdown Musculoskeletal: No Tenderness to Palpation of Joints or Extremities Lymphatic: No Cervical, Supraclavicular, or Inguinal Adenopathy Neurological: Cranial nerves II-XII grossly intact Psych/Mental Status: Normal Affect, Appropriate Vital Signs Temp Pulse Resp BP Pulse Ox 98.5 F 60 18 132/51 H 97 10/01/17 09:33 10/01/17 12:28 10/01/17 12:28 10/01/17 12:28 10/01/17 12:28 Oxygen Delivery Method Room Air Weight: 90.8 kg Body Mass Index (BMI) 29.5 Laboratory Tests Past 24 Hrs WBC 10.3 RBC 4.17 L Hgb 12.3 L Hct 38.0 L MCV 91.1 MCH 29.5 MCHC 32.4 RDW 13.9 WBC RBC Hgb Hct MCV MCH MCHC RDW RDW Differential Plt Count Assessment/Plan All Active Problems (Last Updated 07/24/17 @ 17:13 by Slim Haley) Syncope (Acute) 77 year old M with PMHx of CAD s/p CABG, s/p pacemaker for sinus arrest, PAF/Atrial flutter, Parkinson's disease comes in after a syncopal episode. 1. Syncope, unclear etiology, will ask for pacemaker interrogation, likely he could also be orthostatic from Parkinson's disease, will check orthostatic vitals, I do not see 2D-echo in the system, will order one, trend troponins, monitor on telemetry. 2. CAD s/p CABG, on aspirin, simvastatin 3. PAF/atrial flutter, status post pacemaker for sinus arrest, EKG shows paced rhythmn. 4. Parkinson's disease with dementia, on Memantine, clonazepam, Sinemet, Aricept 5. DVT prophylaxis with Heparin subcu Code Visit Inpatient E AND M: [id number] Init Hosp L3 10/01/17 1514 <Electronically signed by Padmini Sosa MD> Date Padmini Sosa MD Cosigner Signature: Date (if applicable) CC: Padmini Sosa MD; Chris Dean MD Signed TROPONIN-I Collected: 10/01/2017 Status: F Source: DEVANTE 1:50 PM [facility] REPOSITORY Order Comment: 'TROP' Serial specimen #1, #2 or #3: 2 TYPE CODE TESTS RESULT OUT OF RANGE REFERENCE UNITS LAB L501.4010 <0.045 ng/mL Normal < 0.015 TROPONIN-I Result Comment: TROPONIN-I EXPECTED VALUES <0.045 Negative 0.045 - 0.590 Consistent with Cardiac Damage > OR = 0.600 Critical Value Not every elevated troponin is indicative of [place]. These values should be used with clinical judgement in examining the patient's clinical picture for diagnosis. To establish a diagnosis of [place] versus myocardial injury, there must be a demonstrated rise and/or fall in the troponin values, in addition to ischemic symptoms, EKG changes, new regional wall motion abnormality, and/or angiographical evidence. PLEASE NOTE: REFERENCE RANGES EDITED 17 Performed By: #### L501.4010 #### [facility] [address] [facility] [place], [address] EMERGENCY DEPARTMENT Observed: 10/01/2017 Status: F Source: [facility] SUMMARY 12:35 PM [facility] REPOSITORY [facility] Medical Records Department [address] [facility] [place] [address] Emergency Department Summary 10/01/17 1231 MR#: [id number] Acct: [id number] Name: IVAN YOUNG Rep #: [id number] : 1940 77 From: Tabitha Sahni PCP: Chris Dean MD Status: REG ER - ER Visit Summary Date of Service: 10/01/17 Chief Complaint: [fAll] History of Present Illness: The patient is a 77 M [who presents the emergency department after a fall. He was in the kitchen and next thing he knows he did not know what happened and was on the floor. Complaining to a hit to the head he also has left rib pain and neck pain. He is not on any anticoagulation. He has Parkinson's disease and Parkinson's dementia and lives with his son. History and review of systems is limited because of this.] Physical Examination: [] No acute distress Contusion on right mid forehead as well as left lateral eye with overlying 2.5 cm full-thickness laceration to the left lateral orbital rim Pupils are constricted 2 mm and symmetric bilaterally Patient has mild tenderness to palpation at C3 Regular rate and rhythm no murmurs Here to auscultation bilaterally no respiratory distress he does have mild tenderness to palpation in the left lower anterior ribs there is no crepitus or bruising Abdomen is soft and nontender with no bruising Full range of motion the lower extremities without pain Motion of the upper extremities without pain Alert and oriented 2 which is the patient's baseline he has a resting tremor more most predominant in the left upper extremity no focal neurologic deficits Test Results: [] Emergency Department Course and Treatment: [EKG was read by the computer as atrial fibrillation however I do think this is related to his artifact as is a very regular rhythm. There is no acute ischemic change. Screening labs are unremarkable. CT of the head and neck show no acute process. X-ray of the chest shows no acute process. Urinalysis is pending. This is the second episode in which he is gotten very lightheaded. Yesterday he got very dizzy and almost fell and his son took his pulse ox which is low. Here in the emergency department over several hours of observation his pulse ox has been 98% without any dropping. I do think he requires admission and the son is agreeable. Procedure note Laceration left orbital rim Anesthetized with 2 mL's of lidocaine locally Cleanse with normal saline 5, 5-0 monofilament sutures were placed with good wound approximation and hemostasis Wound care instructions provided] Treatment Plan: [] Disposition: [Admit] Impression: [1. Syncope 2. Head laceration with suture repair] This note was generated with [employer]. dictation software. It may contain incorrect words, spelling, and punctuation that were not noted in review of the chart prior to signing ED Disposition - Plan for ED Patient: Chief Complaint: Fall Referrals: Chris Dean MD [Primary Care Provider] - What to do if you have Problems For any increased pain, shortness of breath, bleeding, nausea or vomiting, chest pain, or any unexpected problems, contact your Primary Care Provider. Call [facility] ([phone]) or report to the closest Emergency Room. Call 911 if necessary. 10/01/17 1235 <Electronically signed by Tabitha Sahni > Date Tabitha Sahni Cosigner Signature (If Indicated): Date CC: Chris Dean MD URINALYSIS, COMPLETE Collected: 10/01/2017 Status: F Source: MERRILL 11:58 AM [facility] REPOSITORY Order Comment: Has pt arrived? Y How was Urine Obtained? TERRAZZO MECHANIC HELPER TO SPECIFY TYPE CODE TESTS RESULT OUT OF RANGE REFERENCE UNITS LAB L400.3000 Yellow COLOR Normal Yellow LAB L400.3050 Clear Normal CLARITY Clear LAB L400.3200 Normal mg/dl Normal GLUCOSE, UR Normal LAB L400.3300 Negative mg/dL Normal BILIRUBIN URINE Negative LAB L400.3400 Negative mg/dl Normal KETONE UR Negative LAB L400.3465 1.002-1.030 Normal SP.GR. DIPSTX 1.010 LAB L400.3550 5.0 - 8.0 pH UR Normal 6.0 LAB L400.3600 Negative mg/dl PROT Normal DIPSTX Negative LAB L400.3700 Normal mg/dl Normal UROBILI Normal LAB L400.3750 Negative Normal NITRITE UR Negative LAB L400.3780 Negative /ul Normal OCCULT BLOOD-UR Negative LAB L400.3800 Negative /ul LEUK Normal ESTERASE Negative LAB L400.4050 0-5 /hpf WBC 0 Normal SEEN LAB L400.4100 0-5 /hpf 0 Normal RBC-UA SEEN LAB L400.4150 0-5 /hpf SQUAM 0 Normal EPI SEEN LAB L400.4300 None Seen /hpf 0 Normal BACTERIA SEEN LAB L400.4350 <or=2+ /hpf 0 Normal MUCUS, URINE SEEN Performed By: #### L400.0001 #### [facility] [address] [place], [place], [address] CBC W/DIFF, AUTOMATED Collected: 10/01/2017 Status: F Source: [facility] 10:40 AM [facility] REPOSITORY TYPE CODE TESTS RESULT OUT OF RANGE REFERENCE UNITS LAB L100.1000 4.4-11.0 K/mm3 Normal WBC 10.3 LAB L100.1200 4.6-6.2 M/mm3 Low RBC 4.17 LAB L100.1300 13.0-16.5 g/dl Low HGB 12.3 LAB L100.1400 40-54 % Low HCT 38.0 LAB L100.1500 80-94 fL Normal MCV 91.1 LAB L100.1600 27.0-32.0 pg Normal MCH 29.5 LAB L100.1700 32-36 g/gl Normal MCHC 32.4 LAB L100.1810 11.6-14.6 % Normal RDW CV 13.9 LAB L100.1820 35.1-43.9 fl High RDW SD 46.3 LAB L100.1900 150-450 K/mm3 Normal PLT 188 LAB L100.2000 6.2-12.0 fl Normal MPV 9.9 LAB L100.2100 47-70 % High NEUT% 86.1 LAB L100.2200 19-41 % Low LY% 8.1 LAB L100.2300 0-10 % Normal MONO% 5.1 LAB L100.2400 0-5 % Normal EO% 0.4 LAB L100.2500 0-1 % Normal BASO% 0.1 LAB L100.2550 0.0-0.9 % Normal IM GRAN % 0.200 Result Comment: IG% - Immature Granulocytes (promyelocytes, myelocytes and metamyelocytes) > 1% indicates that a LEFT SHIFT is Present. LAB L100.2620 2.0-7.7 X10 3/uL High Absolute Neut 8.9 LAB L100.2720 0.83-4.51 X10 3/ul Normal Absolute Lymph 0.84 Performed By: #### L100.0100 #### [facility] [address] [place], [place], [id number] PROTHROMBIN TIME W/INR Collected: 10/01/2017 Status: F Source: [facility] 10:40 AM [facility] REPOSITORY TYPE CODE TESTS RESULT OUT OF RANGE REFERENCE UNITS LAB L300.4150 11.7-14.9 SECONDS Normal PROTIME 14.3 LAB L300.4200 Normal INR 1.1 Performed By: #### L300.3900 #### [facility] [address] [place], [place], [address] COMPREHENSIVE METABOLIC Collected: 10/01/2017 Status: F Source: [facility] 10:40 AM [facility] REPOSITORY TYPE CODE TESTS RESULT OUT OF RANGE REFERENCE UNITS LAB L501.0100 74-106 mg/dL Normal GLU 88 Result Comment: Please note revised GLUCOSE reference range effective 2017. LAB L501.1000 7-18 mg/dL High BUN 28 LAB L501.1100 0.70-1.30 mg/dL Normal CREAT,SERUM 1.04 Result Comment: The validity of the calculated GFR AND GFRAA in patients over 70 years has not been determined. Clinical correlation is essential. LAB L501.1110 >60 mL/min Normal EST GFR 73 Result Comment: Non- GFR Calc LAB L501.1115 >60 mL/min Normal EST GFR - AA 89 Result Comment: GFR Calc LAB L501.1255 ml/min Normal Estimated CRCL 57.59 LAB L501.1300 10-20 RATIO High BUN/CRE 26.9 LAB L501.1500 6.4-8. g/dL Normal 2 T PROT 6.8 LAB L501.1800 3.2-5. g/dL Normal 0 ALB 3.4 LAB L501.1950 2.2-4. g/dL Normal 2 GLOB 3.4 LAB L501.2000 0.9-2. RATIO Normal 4 A/G 1.0 LAB L501.2200 8.5-10 mg/dL Low .1 CA 8.3 LAB L501.4100 15-37 U/L Normal AST 21 LAB L501.4305 45-117 U/L High ALK P 128 LAB L501.4405 16-61 U/L Low ALT 10 LAB L501.4600 0.20-1 mg/dL Normal .00 T BILI 0.70 LAB L501.5300 136-14 mmol/L Normal 5 NA 143 LAB L501.5600 3.5-5. mmol/L Normal 1 K 4.2 LAB L501.5900 98-107 mmol/L Normal CL 106 LAB L501.6100 21.0-3 mmol/L Normal 2.0 CO2 29.0 LAB L501.6200 5-15 Normal GAP 8 Performed By: #### L500.4050, L501.2450, L501.4010 #### [facility] [address] [place], [address] LIPASE Collected: 10/01/2017 Status: F Source: [facility] 10:40 AM [facility] REPOSITORY TYPE CODE TESTS RESULT OUT OF RANGE REFERENCE UNITS LAB L501.2450 73-393 U/L Normal LIPASE 186 Performed By: #### L500.4050, L501.2450, L501.4010 #### [facility] [address] [place], [address] TROPONIN-I Collected: 10/01/2017 Status: F Source: [facility] 10:40 AM [facility] REPOSITORY TYPE CODE TESTS RESULT OUT OF RANGE REFERENCE UNITS LAB L501.4010 <0.045 ng/mL Normal < 0.015 TROPONIN-I Result Comment: TROPONIN-I EXPECTED VALUES <0.045 Negative 0.045 - 0.590 Consistent with Cardiac Damage > OR = 0.600 Critical Value Not every elevated troponin is indicative of [place]. These values should be used with clinical judgement in examining the patient's clinical picture for diagnosis. To establish a diagnosis of KS versus myocardial injury, there must be a demonstrated rise and/or fall in the troponin values, in addition to ischemic symptoms, EKG changes, new regional wall motion abnormality, and/or angiographical evidence. PLEASE NOTE: REFERENCE RANGES EDITED 17 Performed By: #### L500.4050, L501.2450, L501.4010 #### [facility] [address] [place], [address] BRAIN/HEAD WITHOUT Observed: 10/01/2017 Status: F Source: [facility] CONTRAST 10:09 AM [facility] REPOSITORY [facility] Imaging Services [address] [place] [address] Brain/Head without Contrast MR#: [id number] Acct: [id number] Name: IVAN YOUNG Rep #: [id number] : 1940 M 77 From: Pete Fernandez MD PCP: Chris Dean MD Status: REG ER Study: Brain/Head without Contrast Date of Exam: 10/01/17 Exam# [id number] Ordering Dr: Tabitha Sahni STUDY: CT BRAIN WITHOUT CONTRAST REASON FOR EXAM: Male, 77 years old. Headache after a fall RADIATION DOSAGE (If Supplied By Facility): CTDIvol = ( 60.81 ) mGy, DLP = ( 1135.50 ) mGycm TECHNIQUE: Transaxial CT imaging of the brain was performed without administration of intravenous contrast material. Individualized dose optimization techniques were used for this CT. COMPARISON: None. FINDINGS: Normal soft tissue structures. Normal calvarium. There is mild cerebral atrophy with widening of the extra- axial spaces and ventricular dilatation. There are areas of decreased attenuation within the white matter tracts of the supratentorial brain, consistent with microvascular disease changes. Normal basal ganglia and thalami. Normal brainstem. Normal cerebellum. There is no intracranial hemorrhage. There are no findings of an acute ischemic infarction. There is mucoperiosteal inflammatory disease of the paranasal sinuses consistent with mild chronic sinusitis. CT/Brain/Head without Contrast IMPRESSION: Chronic involutional changes of the brain. No acute hemorrhage or significant interval change Electronically Signed: Eulogio Fernandez MD at 11:05 EDT , Service support , CC: Tabitha Sahni; Chris Dean MD Shake Loader: Signed SPINE CERVICAL Observed: 10/01/2017 Status: F Source: [facility] WITHOUT CONTRAS 10:09 AM [facility] REPOSITORY [facility] Imaging Services [address] [place] [address] Spine Cervical without Contras MR#: [id number] Acct: [id number] Name: IVAN YOUNG Rep #: [id number] : 1940 M 77 From: Pete Fernandez MD PCP: Chris Dean MD Status: REG ER Study: Spine Cervical without Contras Date of Exam: 10/01/17 Exam# [id number] Ordering Dr: Tabitha Sahni STUDY: CT CERVICAL SPINE WITHOUT CONTRAST REASON FOR EXAM: Male, 77 years old. Neck pain after a fall RADIATION DOSAGE (If Supplied By Facility): CTDIvol = ( 23.80 ) mGy, DLP = ( 395.53 ) mGycm TECHNIQUE: High resolution transaxial imaging was performed without contrast material. Sagittal and coronal images were reconstructed. Individualized dose optimization techniques were used for this CT. COMPARISON: 11/12/2011 FINDINGS: Normal craniovertebral junction. There are degenerative changes of the anterior atlantoaxial articulation. Normal odontoid process. There is straightening of the normal cervical lordosis. Bones are demineralized with sclerotic endplate changes. There is anatomic alignment of the cervical spine. No demonstrated fracture. Prominent degenerative spurs particularly at C5- 6 and C6-7 which are causing borderline central canal stenosis. Bilateral foraminal narrowing noted throughout the C-spine. No upper rib fracture or pneumothorax. Normal visualized soft tissue structures. CT/Spine Cervical without Contras IMPRESSION: Multilevel degenerative changes, as described above. Electronically Signed: Eulogio Fernandez MD at 11:14 EDT , Service support , CC: Tabitha Sahni; Chris Dean MD Shake Loader: Signed CHEST PA AND LATERAL Observed: 10/01/2017 Status: F Source: [facility] 10:09 AM [facility] REPOSITORY [facility] Imaging Services [address] [place] [address] Chest PA and Lateral MR#: [id number] Acct: [id number] Name: HANNAHIVAN Mccarthy Rep #: [id number] : 1940 M 77 From: Pete Fernandez MD PCP: Chris Dean MD Status: REG ER Study: Chest PA and Lateral Date of Exam: 10/01/17 Exam# [id number] Ordering Dr: Tabitha Sahni STUDY: X-RAY CHEST REASON FOR EXAM: Male, 77 years old. Chest pain and cough TECHNIQUE: PA and 2 lateral views of the chest. COMPARISON: 07/17/2017 FINDINGS: EKG leads overlie the chest. Stable appearance of a left subclavian pacemaker. The lungs are clear and expanded. There is no demonstrated pleural abnormality. Sternal cerclage wires and vascular clips are present from a prior sternotomy and coronary artery bypass graft procedure (CABG). Normal mediastinum and nancy. Normal visualized pulmonary arteries. Normal visualized aortic arch and descending thoracic aorta. There are diffuse degenerative changes of the visualized thoracic spine. Normal visualized ribs, clavicles, and shoulders. There is no demonstrated abnormality of the visualized soft tissue structures of the upper abdomen. RAD/Chest PA and Lateral IMPRESSION: No acute pulmonary process Electronically Signed: Eulogio Fernandez MD at 11:15 EDT , Service support , CC: Tabitha Sahni; Chris Dean MD Shake Loader: Signed CARDIOLOGY VISIT Observed: 09/02/2017 Status: F Source: [facility] REPORT 11:18 AM [facility] REPOSITORY [facility] [place] [address] [place] [address] OFFICE VISIT Date of Service: 08/27/17 MR#: [id number] Acct: [id number] Name: IVAN YOUNG Rep #: [id number] : 1940 Provider: Karen Cano Age/Sex: 76/M [place] [facility] Status: Signed [facility] Details: IVAN YOUNG, is a 76 M who presents to the office today for a cardiovascular follow-up. He has a history of coronary artery disease with bypass surgery 1996. He had an ANG to his LAD, SVG to OM1 and RCA. He also has a pacemaker for sinus arrest. He also has a history of paroxysmal atrial fibrillation/flutter. Last month he underwent a generator change since his device is reached SNEHA. Pt does not have any chest pain/heaviness/tightness. He does not have any worsening SOB. He does not have any palpitations that he is aware of. He does occasionally have positional dizziness. He does have balance issues with does ambulates with a walker. He does have parkinson's. He does not have any near syncope/syncope. He does not have any edema. Intake Vital Signs08/27/17 Height 5 ft 10 in 08/27/17 Weight: 193 lb 08/27/17 Body Mass Index (BMI) 27.6 Intake Visit Reasons: 6 M FU Allergies acetaminophen [From Vicodin] Allergy (Verified 07/24/17 17:09) Other hydrocodone bitartrate [From Vicodin] Allergy (Verified 07/24/17 17:09) Other Sulfa (Sulfonamide Antibiotics) Allergy (Verified 07/24/17 17:09) Other Medications alfuzosin ER 10 mg tablet,extended release 24 hr 10 mg PO QDAY 02/24/17 [History Confirmed 08/27/17] aspirin 81 mg tablet,delayed release 81 mg PO QDAY 02/24/17 [History Confirmed 08/27/17] carbidopa 25 mg-levodopa 100 mg tablet 1 tab PO BID tab 02/24/17 [History Confirmed 08/27/17] clonazepam 0.5 mg tablet 0.5 mg PO QHS 02/24/17 [History Confirmed 08/27/17] finasteride 5 mg tablet 5 mg PO QDAY 02/24/17 [History Confirmed 08/27/17] isosorbide mononitrate ER 30 mg tablet,extended release 24 hr 30 mg PO QAM 02/24/17 [History Confirmed 08/27/17] memantine 10 mg tablet 10 mg PO BID 02/24/17 [History Confirmed 08/27/17] oxybutynin chloride ER 5 mg tablet,extended release 24 hr 5 mg PO QDAY 02/24/17 [History Confirmed 08/27/17] ranitidine 150 mg capsule 150 mg PO QHS 02/24/17 [History Confirmed 08/27/17] simvastatin 40 mg tablet 40 mg PO QPM 02/24/17 [History Confirmed 08/27/17] vitamins A,C,D-xovt-zmttbn 14,320 unit-226 mg-200 unit capsule 1 cap PO QDAY ea 02/24/17 [History Confirmed 08/27/17] donepezil 10 mg tablet 10 mg PO QHS 02/25/17 [History Confirmed 08/27/17] furosemide 20 mg tablet 20 mg PO QDAY #90 tab 08/05/17 [Rx Confirmed 08/27/17] PFSH Medical History Sick sinus syndrome (Chronic) Atrial flutter (Chronic) Atherosclerotic heart disease of [place] coronary artery without angina pectoris (Chronic) Atrial fibrillation (Chronic) Benign essential hypertension (Chronic) Hyperlipidemia (Chronic) CKD (chronic kidney disease), stage II (Chronic) Obstructive sleep apnea syndrome (Chronic) Parkinson's disease (Chronic) Diverticulitis (Chronic) Hiatal hernia (Chronic) Nephrolithiasis (Chronic) TIA (transient ischemic attack) (Chronic 08/2012) Surgical History History of coronary artery stent placement (Chronic) S/P CABG x 3 (Chronic) Cardiac pacemaker in situ (Chronic) History of knee replacement procedure of right knee (Chronic) History of laparoscopic cholecystectomy (Chronic) Hx of amputation (Chronic) Family History Father Cirrhosis of liver CHF (congestive heart failure) Mother CAD (coronary artery disease) Hx of CABG Social History Smoking Status: Former smoker ROS Const Const: Negative for weakness, fatigue, fever(s) or headache(s) Eyes Eyes: Negative for blind spots, loss of peripheral vision or transient loss of vision ENT ENT: Negative for headache(s), dizziness, tinnitus or Nosebleed/epistaxis Cardio Chest Pain: No Palpitations: No Edema: None Muscle aches with walking: None Resp Respiratory: Negative for SOB with activity, SOB at rest, SOB orthopnea\SOB lying down or Cough GI GI: Negative nausea, vomiting, heartburn or vomiting blood/hematemesis : Negative for hematuria Musc Musc: Negative for muscle aches/ myalgia Neuro Neuro: Negative for weakness, headache(s), dizziness, near syncope, syncope, lightheadedness or orthostatic symptoms Anthony Hematologic/Lymphatic: Negative for easy bleeding Endo Endo: Negative for fatigue Cardiology Exam Const Appearance: cooperative, healthy appearing, well developed, well groomed and no acute distress Nutritional Appearance: well nourished and average body habitus Orientation: alert, awake and oriented x3 Limitations: physical limitations Has Parkinson's Head Head: normal to inspection, normocephalic and atraumatic Ears: hearing grossly normal bilaterally and external ears normal Nose: external nose normal, nasal mucous membranes and turbinates normal, nares normal, septum normal, no nasal discharge Face and Sinus: face symmetric Mouth: oral mucosae normal, tongue normal, oropharynx normal and moist mucous membranes Teeth and gingiva: dentition normal Throat: posterior oropharynx normal, tonsils normal and uvula midline Eyes General: appearance normal, both eyes and all related structures Eyelids: eyelids normal Conjunctivae: conjunctivae normal Pupils: PERRL, normal by confrontation and accommodation normal EOM: EOM intact bilaterally Neck Neck: normal visual inspection, trachea midline and no JVD JVD: +5 Carotids: normal carotid upstroke and bounding pulses Chest Chest inspection: normal inspection of the chest, symmetric chest movement, normal respiratory effort and Pacemaker/ICD Yes left pectoral incision Auscultation: Bilateral: Clear to Auscultation Cardio Palpation: normal PMI Rate: regular rate Rhythm: regular rhythm Heart sounds: S1 normal, S2 normal and normal, physiologic split S2; negative rub, gallop or murmur GI GI: normal to inspection, soft, no hepatosplenomegaly and bowel sounds present Neuro General: alert, awake and oriented x3 Gait: ataxic and gait assisted Motor: tremor Skin Skin: no rashes or lesions noted Extremities Pulses: Normal: Right Femoral Pulse, Left Femoral Pulse Lower Extremity Edema: +1: Bilateral Musculoskel Musculoskeletal: No joint tenderness Psych Psychological: normal affect Supplemental Info Echocardiogram in 2010 demonstrates an ejection fraction of 55% with mild tricuspid insufficiency. Heart catheterization in 2008 demonstrated normal left main, LAD with moderate proximal to mid segment disease. Left circumflex with first obtuse marginal branch totally occluded. RCA with totally occluded in the mid segment. SVG to the RCA which was previously stented and noted to have patent stents with mild disease. SVG to the circumflex is patent with no significant disease. ANG nonselectively engaged which is noted to be patent. Assessment AND Plan 1. Atherosclerosis of [place] coronary artery of [place] heart without angina pectoris I25.10 Plan - MARCOS Calabrese Stable, from a cardiac standpoint patient does not have any symptoms of angina. We recommend that they continue with current aggressive medical management and risk factor modification. 2. Paroxysmal atrial fibrillation I48.0 Plan - MARCOS Calabrese Patient is not anticoagulated due to his risk of falling. 3. Cardiac pacemaker in situ Z95.0 Permanent Pacemaker insertion 04/20/09; Pacemaker generator change 2001, 04/13/09 Plan - MARCOS Calabrese Pacemaker is functioning appropriately. We will continue to monitor at routine scheduled pacemaker interrogations. Plan Detail Additional Comments - MARCOS Calabrese The above patient was discussed with Dr. Kilgore, he agrees with plan of care. Thank you for allowing us to participate in patient's plan of care, if you have any questions please do not hesitate to call. This note was generated using a voice recognition system and there may be incorrect words, spelling or punctuation errors that were not noted when reviewing the office note prior to saving. Follow Up 9 Months (BR[facility]LLER) 08/27/17 (Make appt for remote check with Jose Armando on 12/03/17- per jose armando- thanks) Coding Level of Care Code Off vis,est,level 3 Diagnoses Atherosclerosis of [place] coronary artery of [place] heart without angina pectoris I25.10 [place] vs. transplanted heart: [place] heart Paroxysmal atrial fibrillation I48.0 Atrial fibrillation type: paroxysmal Cardiac pacemaker in situ Z95.0 Coding Level of Care Code Off vis,est,level 3 Diagnoses Atherosclerosis of [place] coronary artery of [place] heart without angina pectoris I25.10 [place] vs. transplanted heart: [place] heart Paroxysmal atrial fibrillation I48.0 Atrial fibrillation type: paroxysmal Cardiac pacemaker in situ Z95.0 08/28/17 1122 <Electronically signed by Karen RODRÍGUEZ> Date Karen RODRÍGUEZ 09/02/17 1118<Electronically signed by Ed Kilgore MD> Cosigner Signature: Date (if applicable) Ed Kilgore MD CC: Chris Dean MD H AND P W/ COSIGN Observed: 07/25/2017 Status: F Source: [place] 2:14 PM [facility] REPOSITORY [facility] Medical Records Department [address] [place] [address] H AND P w/ Cosign 07/25/17 1017 MR#: [id number] Acct: [id number] Name: IVAN YOUNG Rep #: [id number] : 1940 76 From: Karen RODRÍGUEZ PCP: Chris Dean MD Status: REG SDC Y Location: [facility] Problem List (1) Atherosclerotic heart disease of [place] coronary artery without angina pectoris Status: Chronic (2) Atrial fibrillation Status: Chronic (3) Benign essential hypertension Status: Chronic (4) Cardiac pacemaker in situ Status: Chronic Comment: Permanent Pacemaker insertion 04/20/09; Pacemaker generator change 2001, 04/13/09 (5) Hyperlipidemia Status: Chronic Qualifiers: History of Present Illness Date of Admission: 07/25/17 The patient is a 76 year old M a pacemaker generator change. He He is a gentleman with a remote history of coronary artery bypass surgery in 1996 with a left internal mammary artery to the left anterior descending artery, saphenous vein graft to obtuse marginal branch, saphenous vein graft to right coronary artery. He also has a pacemaker placed for sinus arrest. He does have parkinsons and has limited mobility. His device was interrogated on 07/11/2017 and was noted to have reached ERT on 07/04/2017. He does not have any chest discomfort/heaviness/tightness. He does not have any worsening symptoms of shortness of breath. He does not have any symptoms of congestive heart failure. He does not have any palpitations that he is aware of. He does not have any lightheadedness or dizziness. He does not have any near-syncope or syncope. He does have lower extremity edema this is not new. He does not have any symptoms of claudication. Past Medical History Past Medical History (Chronic Problems): Chronic Problems (Last Updated 07/24/17 @ 17:13 by Slim Haley) Sick sinus syndrome (Chronic) Atrial flutter (Chronic) History of coronary artery stent placement (Chronic) 03/02/08 PTCA/stent to SVG to RCA; 06/30/08 PTCA/stent to SVG to RCA; S/P CABG x 3 (Chronic) CABG, ANG to LAD, saphenous vein graft to OM1 AND RCA May 1996; Cardiac pacemaker in situ (Chronic) Permanent Pacemaker insertion 04/20/09; Pacemaker generator change 04/13/09 Atherosclerotic heart disease of [place] coronary artery without angina pectoris (Chronic) Atrial fibrillation (Chronic) Benign essential hypertension (Chronic) Gastroesophageal reflux disease (Chronic) Hyperlipidemia (Chronic) CKD (chronic kidney disease), stage II (Chronic) Obstructive sleep apnea syndrome (Chronic) Parkinson's disease (Chronic) Allergies acetaminophen [From Vicodin] Allergy (Verified 07/24/17 17:09) Other hydrocodone bitartrate [From Vicodin] Allergy (Verified 07/24/17 17:09) Other Sulfa (Sulfonamide Antibiotics) Allergy (Verified 07/24/17 17:09) Other Home Medications: Ambulatory Orders Medication Instructions Recorded alfuzosin ER 10 mg tablet,extended 10 mg PO QDAY 02/24/17 Surgical History: coronary bypass surgery Smoking Status: Former smoker Review of Systems Constitutional: Denies: Chills, Fever, Weight Change Eyes: Denies: Blurred vision HEENT: Denies: Head Aches, Sinus Congestion, Sinus Drainage Cardiovascular: Denies: Chest Pain, Palpitations Respiratory: Denies: Cough, Shortness of breath at rest, Sputum production Gastrointestinal: Denies: Abdominal Pain, Nausea, Vomiting Genitourinary: Denies: Dysuria Musculoskeletal: Reports: Joint stiffness Neurological: Reports: Balance problems VTE Information - Inpt Only VTE Present on Admission: No - Physical Exam General: Alert, Oriented x3, - - Limited mobility d/t parkinsons HEENT: Atraumatic, PERRLA, EOMI Neck: Supple, No JVD, Negative Carotid Bruits, Trachea Midline Lungs: Clear to auscultation Cardiovascular: Regular rate, Regular Rhythm, Normal S1, Normal S2, Murmur, - - soft 2/6 CHARLIE Abdomen: Bowel Sounds Present, Soft, Non Tender, Non-Distended Extremities: No clubbing, No cyanosis, Edema Weight: 202 lb Body Mass Index (BMI) 29.0 Assessment/Plan 1. Sick sinus syndrome: Patient does have a pacemaker, he is scheduled to undergo a generator change as this has reached SNEHA opril 2018. He will scheduled to undergo a pacemaker change out today, he will follow up accordingly on an out patient basis. 2. CAD: stable, will continue with current home medications. 3. Hyperlipidemia: will continue with current medications. 07/25/17 1057 <Electronically signed by Karen RODRÍGUEZ> Date Karen RODRÍGUEZ 07/25/17 1414<Electronically signed by Ed Kilgore MD> Cosigner Signature (if applicable): Date Ed Kilgore MD CC: Ed Kilgore MD; Karen Cano; Chris Dean MD Signed PACEMAKER CHECK Observed: 07/22/2017 Status: F Source: [place] 12:44 PM [facility] REPOSITORY [facility] [address] [place] [address] Pacemaker Check Date of Service: 07/17/17 1551 MR#: [id number] Acct: [id number] Name: IVAN YOUNG Rep #: [id number] : 1940 From: Berkley Carson Age/Sex: 76/M Location: [facility] Status: Signed Comments Summary Comments: Pacemaker generator change written and verbal instructions given to pt and Gjsamowo-me-ets including having labs and CXR completed today and post generator change wound check appt. Device Device Date Interviewed: 07/11/17 Follow-up Location: in office Interview Reason: scheduled follow up Medical Typist: [employer] Scientific Name: Mendozaa Model: S603 Serial #: [id number] Implant Date: 04/20/09 Year(s): 8 Implant Physician: Dr. Ed Kilgore Patient Characteristics Atrial Indication: sick sinus syndrome, Paroxysmal atrial fibrillation Ejection fraction %: 55 to 59 (02/23/2011) By: Echo Underlying rhythm: Sinus rhythm Pacemaker Dependent: No Device Characteristics Device: Dual Chamber Type: Pacemaker Remote Follow-Up: No Leads Lead #1 Medical Typist Lead 1: Guidant Model Lead 1: 4269 Serial# Lead 1: [id number] Date Implanted Lead 1: 05/31/96 Position Lead 1: RA Lead #2 Medical Typist Lead 2: Guidant Model Lead 2: 4285 Serial# Lead 2: [id number] Date Implanted Lead 2: 05/31/96 Position Lead 2: RV Diagnostics Pacing % RA Pacin % RV Pacin Mode Switching Total # Episodes: 89 % Mode switched: 0 Arrhythmias Non-Sust Episodes: 0 Measurements Battery Magnet Rate (bmp): 85 Battery Status: SNEHA Additional Details: Battery reached ERT on 07/04/17. Dinesh Settings Dinesh Settings Pacemaker Mode DDDR Output/Sensing V/PW (ms) 2.6/0.6 2.2/0.4 Sensitivity RA RV LV Comments: Billing Codes Nurse, Teaching, Wound Ck (no charge): Yes Assessment AND Plan Problems 1. Cardiac pacemaker in situ Z95.0 Permanent Pacemaker insertion 04/20/09; Pacemaker generator change 2001, 04/13/09 2. Sick sinus syndrome I49.5 3. Atrial flutter I48.92 4. Atrial fibrillation I48.91 Orders Orders: 07/17/17 1607 <Electronically signed by Berkley Carson > Date Berkley Carson 07/22/17 1244<Electronically signed by Ed Kilgore MD> Cosigner Signature: Date (if applicable) Ed Kilgore MD CC: URINALYSIS, COMPLETE Collected: 07/17/2017 Status: C Source: [place] 4:20 PM [facility] REPOSITORY Order Comment: How was Urine Obtained? TERRAZZO MECHANIC HELPER TO SPECIFY TYPE CODE TESTS RESULT OUT OF RANGE REFERENCE UNITS LAB L400.3000 Yellow COLOR Normal Yellow LAB L400.3050 Clear Normal CLARITY Sl. Cloudy LAB L400.3200 Normal mg/dl Normal GLUCOSE, UR Normal LAB L400.3300 Negative mg/dL Normal BILIRUBIN URINE Negative LAB L400.3400 Negative mg/dl High 5 KETONE UR LAB L400.3465 1.002-1.030 Normal SP.GR. DIPSTX 1.015 LAB L400.3550 5.0 - 8.0 pH UR Normal 5.0 LAB L400.3600 Negative mg/dl PROT Normal DIPSTX Negative LAB L400.3700 Normal mg/dl Normal UROBILI Normal LAB L400.3750 Negative Normal NITRITE UR Negative LAB L400.3780 Negative /ul High OCCULT BLOOD-UR 250 LAB L400.3800 Negative /ul LEUK Normal ESTERASE Negative LAB L400.4050 0-5 /hpf WBC 0 Normal SEEN LAB L400.4100 0-5 /hpf Normal RBC-UA 10-25 SEEN LAB L400.4150 0-5 /hpf SQUAM Normal EPI 0-5 SEEN LAB L400.4300 None Seen /hpf 0 Normal BACTERIA SEEN LAB L400.4350 <or=2+ /hpf 0 Normal MUCUS, URINE SEEN Performed By: #### L400.0001 #### [facility] [address] [place], [place], [id number] BASIC METABOLIC Collected: 07/17/2017 Status: F Source: [facility] PROFILE ([facility]) 4:20 PM [facility] REPOSITORY TYPE CODE TESTS RESULT OUT OF RANGE REFERENCE UNITS LAB L501.0100 74-106 mg/dL Normal GLU 92 Result Comment: Please note revised GLUCOSE reference range effective 2017. LAB L501.1000 7-18 mg/dL High BUN 27 LAB L501.1100 0.70-1.30 mg/dL Normal CREAT,SERUM 1.04 Result Comment: The validity of the calculated GFR AND GFRAA in patients over 70 years has not been determined. Clinical correlation is essential. LAB L501.1110 >60 mL/min Normal EST GFR 73 Result Comment: Non- GFR Calc LAB L501.1115 >60 mL/min Normal EST GFR - AA 89 Result Comment: GFR Calc LAB L501.1300 10-20 RATIO High BUN/CRE 26.0 LAB L501.2200 8.5-10.1 mg/dL Low CA 8.2 LAB L501.5300 136-145 mmol/L NA Normal 142 LAB L501.5600 3.5-5.1 mmol/L K Normal 4.3 LAB L501.5900 98-107 mmol/L High CL 109 LAB L501.6100 21.0-32.0 mmol/L Normal CO2 25.0 LAB L501.6200 5-15 Normal GAP 8 Performed By: #### L500.2500, L300.3900 #### [facility] [address] [place], [place], [address] PROTHROMBIN TIME W/INR Collected: 07/17/2017 Status: F Source: [place] 4:20 PM [facility] REPOSITORY TYPE CODE TESTS RESULT OUT OF RANGE REFERENCE UNITS LAB L300.4150 11.7-14.9 SECONDS Normal PROTIME 14.6 LAB L300.4200 Normal INR 1.1 Performed By: #### L500.2500, L300.3900 #### [facility] [address] [place], [address] CBC-COMPLETE BLOOD CNT Collected: 07/17/2017 Status: F Source: [place] NO DIFF 4:20 PM [facility] REPOSIT[facility] TYPE CODE TESTS RESULT OUT OF RANGE REFERENCE UNITS LAB L100.1000 4.4-11.0 K/mm3 Normal WBC 7.0 LAB L100.1200 4.6-6.2 M/mm3 Low RBC 3.89 LAB L100.1300 13.0-16.5 g/dl Low HGB 11.7 LAB L100.1400 40-54 % Low HCT 35.9 LAB L100.1500 80-94 fL Normal MCV 92.3 LAB L100.1600 27.0-32.0 pg Normal MCH 30.1 LAB L100.1700 32-36 g/gl Normal MCHC 32.6 LAB L100.1810 11.6-14.6 % Normal RDW CV 13.9 LAB L100.1820 35.1-43.9 fl High RDW SD 46.3 LAB L100.1900 150-450 K/mm3 Normal PLT 189 LAB L100.2000 6.2-12.0 fl Normal MPV 10.8 Performed By: #### L100.0500 #### [facility] [address] [place], [place], [address] CHEST PA AND LATERAL Observed: 07/17/2017 Status: F Source: [place] 4:01 PM [facility] REPOSITORY [facility] Imaging Services [address] [place] [address] Chest PA and Lateral MR#: [id number] Acct: [id number] Name: IVAN YOUNG Rep #: [id number] : 1940 M 76 From: Pete Christian MD PCP: Chris Dean MD Status: REG CLI Study: Chest PA and Lateral Date of Exam: 07/17/17 Exam# [id number] Ordering Dr: Ed Kilgore MD STUDY: X-RAY CHEST REASON FOR EXAM: Male, 76 years old. Pacemaker generator change. TECHNIQUE: PA and lateral views of the chest. COMPARISON: PA and lateral chest x-ray on 3 films November 19, 2013. FINDINGS: The dual lead left subclavian cardiac pacemaker is unchanged The lungs are clear and expanded. There is no demonstrated pleural abnormality. Normal size heart. Sternal cerclage wires and vascular clips are present from a prior sternotomy and coronary artery bypass graft procedure (CABG). Normal mediastinum and nancy. Normal visualized pulmonary arteries. There is atherosclerotic calcification of the aortic arch. There are stable multilevel degenerative changes of the visualized thoracic spine. Normal visualized ribs, clavicles, and shoulders. There is no demonstrated abnormality of the visualized soft tissue structures of the upper abdomen. RAD/Chest PA and Lateral IMPRESSION: Stable x-ray examination of the chest since November 2013. Electronically Signed: Eulogio Christian MD at 12:39 EDT , Service support , CC: Ed Kilgore MD; Chris Dean MD Shake Loader: Signed 12 LEAD EKG PERFORMED Observed: 07/17/2017 Status: F [place] [facility] 3:46 PM [facility] REPOSIT[facility] [address] [place] [address] 12 Lead EKG performed by [facility] 07/17/17 1545 MR#: [id number] Acct: [id number] Name: IVAN YOUNG Rep #: [id number] : 1940 76 From: Ed Kilgore MD Attending Dr: Berkley Carson Status: DEP AMB Ordering Dr: Ed Kilgore MD Date: 07/17/17 Location: [facility] Sex: M C Admitted: BMS/12 Lead EKG performed by [facility] ECG Report Interpretation Electronic atrial pacemaker -Right atrial enlargement. -consider old anterior infarct. - Nonspecific T-abnormality. ABNORMAL Electronically signed on 07/23/2017 at 17:04 by Ed Kilgore 07/23/17 1708 Date Ed Kilgore MD CC: Chris Dean MD Date Dictated: 07/17/17 1545 Date Transcribed: 07/17/171544 Shake Loader: CO Signed PACEMAKER CHECK Observed: 07/13/2017 Status: F Source: [place] 10:58 AM [facility] REPOSITORY [facility] [address] [place] [address]. [address] [place] [address] Pacemaker Check Date of Service: 07/11/17 1425 MR#: [id number] Acct: [id number] Name: HANNAHIVAN Mccarthy Rep #: [id number] : 1940 From: Berkley Carson Age/Sex: 76/M Location: [facility] Status: Signed Comments Summary Comments: Dual Chamber Pacemaker Evaluation: Interrogation shows battery reached ERT on 07/04/17. Interrogation shows 89 MS episodes, 0% total time and no VHR episodes since 02/25/2017. Presenting rhythm shows AAI pacing @ 65 ppm. MATERIAL SPREADER=15%. Lead impedances stable. No further testing completed d/t @ ERT. Rate response is dropped with this device when ERT reached. No parameter changes made. Counters cleared. Pt scheduled for PPM generator change on 07/25/17 @ 12:30pm. Pt's [id number] to call in and schedule o.v for H AND P and teaching. Device Device Date Interviewed: 07/11/17 Follow-up Location: in office Interview Reason: scheduled follow up Medical Typist: [employer] Name: [employer] Model: S603 Serial #: [id number] Implant Date: 04/20/09 Year(s): 8 Implant Physician: Dr. Ed Kilgore Patient Characteristics Atrial Indication: sick sinus syndrome, Paroxysmal atrial fibrillation Ejection fraction %: 55 to 59 (02/23/2011) By: Echo Underlying rhythm: Sinus rhythm Pacemaker Dependent: No Device Characteristics Device: Dual Chamber Type: Pacemaker Remote Follow-Up: No Device Physical Exam Yes Incision well healed Leads Lead #1 Medical Typist Lead 1: Guidant Model Lead 1: 4269 Serial# Lead 1: [id number] Date Implanted Lead 1: 05/31/96 Position Lead 1: RA Lead #2 Medical Typist Lead 2: Guidant Model Lead 2: 4285 Serial# Lead 2: [id number] Date Implanted Lead 2: 05/31/96 Position Lead 2: RV Diagnostics Pacing % RA Pacin % RV Pacin Mode Switching Total # Episodes: 89 % Mode switched: 0 Arrhythmias Non-Sust Episodes: 0 Measurements Battery Magnet Rate (bmp): 85 Battery Status: SNEHA Additional Details: Battery reached ERT on 07/04/17. Dinesh Settings Dinesh Settings Pacemaker Mode DDDR Output/Sensing V/PW (ms) 2.6/0.6 2.2/0.4 Sensitivity RA RV LV Comments: Billing Codes PM Device Codes: PM Dev Prog Eval, Dual Assessment AND Plan Problems 1. Cardiac pacemaker in situ Z95.0 2. Sick sinus syndrome I49.5 3. Atrial flutter I48.92 4. Atherosclerotic heart disease of [place] coronary artery without angina pectoris I25.10 5. Atrial fibrillation I48.91 Orders Orders: 07/11/17 1655 <Electronically signed by Berkley Carson > Date Berkley Carson 07/13/17 1058<Electronically signed by Ed Kilgore MD> Adrienne Signature: Date (if applicable) Ed Kilgore MD CC: BASIC METABOLIC PANL Collected: 07/02/2017 Status: F Source: [place] [address]:55 PM [facility] REPOSITORY TYPE CODE TESTS RESULT OUT OF REFERENCE UNITS RANGE LAB GLU 74-99 mg/dL Glucose 92 Result Comment: The [place] Diabetes Association (ADA) provides guidance for cutoff values for fasting glucose and random glucose. The ADA defines fasting as no caloric intake for at least 8 hours. Fas ting plasma glucose results between 100 to 125 mg/dL indicate increased risk for diabetes (prediabetes). Fasting plasma glucose results greater than or equal to 126 mg/dL meet the criteria for diagnosis of diabetes. In the absence of unequivocal hyperglycemia, results should be confirmed by repeat testing. In a patient with classic symptoms of hyperglycemia or hyperglycemic crisis, random plasma glucose results greater than or equal to 200 mg/dL meet the criteria for diagnosis of diabetes. Reference: Standards of Medical Care in Diabetes 2016, [place] Diabetes Association. Diabetes Care. 2016.39(Suppl 1). LAB BUN 9-24 mg/dL BUN High 31 LAB CRET 0.73-1.22 mg/dL Creatinine 1.10 LAB NA 136-144 mmol/L Sodium 143 LAB K 3.7-5.1 mmol/L Potassium 4.7 LAB CL 97-105 mmol/L Chloride 103 LAB CO2 22-30 mmol/L CO2 25 LAB AGAP 9-18 mmol/L Anion Gap 15 LAB CA 8.5-10.2 mg/dL Calcium, Total 8.7 LAB GFRAA eGFR- Amer. >60 LAB GFRNAA . eGFR-All Other Races >60 Result Comment: eGFR (Estimated GFR) Units of measure: mL/min/1.73 meters squared eGFR is derived from the reexpressed MDRD Study equation using the following parameters: serum creatinine, age, gender and race. The creatinine assay has been calibrated to be traceable to IDMS. An eGFR <60 mL/min/1.73m2 for >3 months is consistent with chronic kidney disease. Refer to KDOQI guidelines for clinical interpretation. In patients with unstable renal function, e.g. those with acute kidney injury, the eGFR may not accurately reflect actual GFR. Performed By: #### BMP, LIPB #### [facility] [address] [place], [place] [address] LIPID PANEL, BASIC Collected: 07/02/2017 Status: F Source: [facility] 3:55 PM [facility] TYPE CODE TESTS RESULT OUT OF REFERENCE UNITS RANGE LAB CHOL <200 mg/dL Cholesterol 94 Result Comment: <200 mg/dL, Desirable 200-239 mg/dL, Borderline high >239 mg/dL, High LAB TRIGLY <150 mg/dL Triglyceride 79 Result Comment: <150 mg/dL, Normal 150-199 mg/dL, Borderline high 200-499 mg/dL, High >499 mg/dL, Very high LAB HDL >39 mg/dL HDL-Cholesterol 43 Result Comment: 40-59 mg/dL, Acceptable >59 mg/dL, High: Negative risk factor for coronary heart disease <40 mg/dL, Low: Positive risk factor for coronary heart disease LAB LDL <100 mg/dL LDL-Cholesterol 35 Result Comment: <100 mg/dL, Optimal 100-129 mg/dL, Near optimal/above optimal 130-159 mg/dL, Borderline high 160-189 mg/dL, High >189 mg/dL, Very high Secondary prevention optimal LDL Cholesterol levels are recommended to be < 70 mg/dL LAB NONHDL <130 mg/dL Non HDL Cholesterol 51 Result Comment: <130 mg/dL, Optimal 130-159 mg/dL, Near optimal/above optimal 160-189 mg/dL, Borderline high 190-219 mg/dL, High >219 mg/dL, Very high Secondary prevention optimal non HDL Cholesterol levels are recommended to be < 100 mg/dL LAB FT hrs Fasting Time 3 LAB VLDL <30 mg/dL VLDL Cholesterol 16 LAB TCHDL <5.10 TC:HDL Ratio 2.19 LAB LDLHDL <2.54 LDL:HDL Ratio 0.81 Result Comment: Reference: 1. National Cholesterol Education Program ATP III Guideline At-A-Glance Quick Desk Reference: National Heart, Lung, and Blood [place]. National Institutes of Health. 2001: NIH Publication No. 01-3305. 2. An International Atherosclerosis Society position paper: global recommendations for the management of dyslipidemia: executive summary, Atherosclerosis. 2014: 232(2):410-413. Performed By: #### BMP, LIPB #### [facility] [address] [place], [place] [address] PROGRESS Observed: 07/02/2017 Status: COMPLETED Source: [place] 3:21 PM [facility] [place] REPOSITORY HNO ID: [id number] Author: Chris Dean Service: (none) Author Type: Physician Type: Progress Notes Filed: 07/02/2017 8:45 PM Note Text: This note was created using Tyrogenexriter. Subjective Ivan Young is a 76 year old male was here with son for follow up. I last saw him 2016. He had done reasonably well and had no hospitalizations. He followed with cardiology and neurology. Patient reports mid back pain with acute onset since for a week. The pain is located in mid back midline without radiation and described as aching. Pain is worse with sitting, lying down and pressure on the spine, especially from a hard surface, and better with Aleve and changing positions. He denies any change as far as leg weakness, numbness or tingling, bowel or bladder incontinence. No fever was noted, but he's had a gradual unintended weight loss. His listed conditons in his problem list were otherwise stable. He denied depression. He just had frustration at times from limitations in his activities of daily living. He had infrequent falls. Review of Systems Constitutional: Positive for unexpected weight change. Negative for appetite change, chills, diaphoresis and fever. HENT: Negative. Respiratory: Negative. Cardiovascular: Negative. Gastrointestinal: Negative. Genitourinary: Positive for urgency. Musculoskeletal: Positive for back pain and gait problem. Neurological: Positive for tremors and speech difficulty. Negative for syncope, light-headedness and headaches. Objective BP 120/60 (BP Site: Left Arm, BP Position: Sitting, BP Cuff Size: Regular Adult) Pulse 60 Temp 36.8 ?C (98.2 ?F) (Left Tympanic) Resp 16 Wt 88.5 kg (195 lb) BMI 28.38 kg/m2 Physical Exam Constitutional: No distress. HENT: Head: Atraumatic. Eyes: Conjunctivae are normal. No scleral icterus. Neck: Rigidity present. Decreased range of motion present. Cardiovascular: Regular rhythm, S1 normal and S2 normal. Exam reveals no gallop. No murmur heard. Pulmonary/Chest: No respiratory distress. He has no wheezes. He has no rales. Abdominal: Soft. There is no tenderness. Musculoskeletal: He exhibits edema. Thoracic back: He exhibits decreased range of motion, tenderness and deformity. He exhibits no spasm. 2+ bipedal edema. Thoracic scoliosis with prominent bone ridges due to weight loss. Neurological: He is alert. He displays tremor. No cranial nerve deficit or sensory deficit. He exhibits abnormal muscle tone. Coordination and gait abnormal. Shuffling gait, freezing, slow get up and go. Psychiatric: Flat, masked facies. Assessment and Plan 1. Parkinson disease (HCC) - ICD9: 332.0, ICD10: G20 (primary diagnosis) Refer to local [facility] for Parkinson specific exercises. 2. Restless legs syndrome (RLS) - ICD9: 333.94, ICD10: G25.81 Refilled, stable. 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 I can refill if symptoms are stable. - ALFUZOSIN ER 10 MG TABLET,EXTENDED RELEASE 24 HR 4. Scoliosis of thoracolumbar spine, unspecified scoliosis type - ICD9: 737.30, ICD10: M41.9 Use padding, cushion, and continue Aleve as needed. 5. Atrial fibrillation, unspecified type (HCC) - ICD9: 427.31, ICD10: I48.91 Paroxysmal, no recent detection and not anticoagulated. 6. Essential hypertension - ICD9: 401.9, ICD10: I10 - good control - Recommend home blood pressure monitoring, to bring results in on next visit 7. Coronary artery disease involving [place] heart without angina pectoris, unspecified vessel or lesion type - ICD9: 414.01, ICD10: I25.10 Stable. Chris Dean MD CNOV Observed: 07/02/2017 Status: COMPLETED Source: [place] 2:20 PM [facility] REPOSITORY Office Visit (INTMWS) IVAN YOUNG ([id number]) 1940 M Date Time Provider Department 07/02/17 2:20 PM CHRIS DEAN INTMWS During your visit today, we recorded the following information about you: Temperature Pulse Respiration Blood pressure 98.2 degrees 60/minute 16/minute 120/60 Weight 88.5 kg Chris Dean MD 07/02/2017 8:45 PM Signed This note was created using [employer]. Subjective Ivan Young is a 76 year old male was here with son for follow up. I last saw him 2016. He had done reasonably well and had no hospitalizations. He followed with cardiology and neurology. Patient reports mid back pain with acute onset since for a week. The pain is located in mid back midline without radiation and described as aching. Pain is worse with sitting, lying down and pressure on the spine, especially from a hard surface, and better with Aleve and changing positions. He denies any change as far as leg weakness, numbness or tingling, bowel or bladder incontinence. No fever was noted, but he's had a gradual unintended weight loss. His listed conditons in his problem list were otherwise stable. He denied depression. He just had frustration at times from limitations in his activities of daily living. He had infrequent falls. Review of Systems Constitutional: Positive for unexpected weight change. Negative for appetite change, chills, diaphoresis and fever. HENT: Negative. Respiratory: Negative. Cardiovascular: Negative. Gastrointestinal: Negative. Genitourinary: Positive for urgency. Musculoskeletal: Positive for back pain and gait problem. Neurological: Positive for tremors and speech difficulty. Negative for syncope, light-headedness and headaches. Objective BP 120/60 (BP Site: Left Arm, BP Position: Sitting, BP Cuff Size: Regular Adult) Pulse 60 Temp 36.8 ?C (98.2 ?F) (Left Tympanic) Resp 16 Wt 88.5 kg (195 lb) BMI 28.38 kg/m2 Physical Exam Constitutional: No distress. HENT: Head: Atraumatic. Eyes: Conjunctivae are normal. No scleral icterus. Neck: Rigidity present. Decreased range of motion present. Cardiovascular: Regular rhythm, S1 normal and S2 normal. Exam reveals no gallop. No murmur heard. Pulmonary/Chest: No respiratory distress. He has no wheezes. He has no rales. Abdominal: Soft. There is no tenderness. Musculoskeletal: He exhibits edema. Thoracic back: He exhibits decreased range of motion, tenderness and deformity. He exhibits no spasm. 2+ bipedal edema. Thoracic scoliosis with prominent bone ridges due to weight loss. Neurological: He is alert. He displays tremor. No cranial nerve deficit or sensory deficit. He exhibits abnormal muscle tone. Coordination and gait abnormal. Shuffling gait, freezing, slow get up and go. Psychiatric: Flat, masked facies. Assessment and Plan 1. Parkinson disease (HCC) - ICD9: 332.0, ICD10: G20 (primary diagnosis) Refer to local [facility] for Parkinson specific exercises. 2. Restless legs syndrome (RLS) - ICD9: 333.94, ICD10: G25.81 Refilled, stable. 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 I can refill if symptoms are stable. - ALFUZOSIN ER 10 MG TABLET,EXTENDED RELEASE 24 HR 4. Scoliosis of thoracolumbar spine, unspecified scoliosis type - ICD9: 737.30, ICD10: M41.9 Use padding, cushion, and continue Aleve as needed. 5. Atrial fibrillation, unspecified type (HCC) - ICD9: 427.31, ICD10: I48.91 Paroxysmal, no recent detection and not anticoagulated. 6. Essential hypertension - ICD9: 401.9, ICD10: I10 - good control - Recommend home blood pressure monitoring, to bring results in on next visit 7. Coronary artery disease involving [place] heart without angina pectoris, unspecified vessel or lesion type - ICD9: 414.01, ICD10: I25.10 Stable. Chris Dean MD Referring Provider: MITCHELL PETERS ([facility]) [[id number]] Allergies As of Date: 07/02/2017 Noted Allergy Reaction SULFA (SULFONAMIDE ANTIBIOTICS) 12/21/2004 16 - Unknown Comments: childhood VICODIN (HYDROCODONE-ACETAMINOPHE*12/21/2004 2 - Rash Date Reviewed: 07/02/2017 Reviewed by: China Randall LPN - Fully Assessed Reason for Visit: F/U 6 Month [444] Primary Visit Diagnosis:Parkinson disease (HCC) [G20] Other Visit Diagnoses:Restless legs syndrome (RLS) [G25.81] BPH with obstruction/lower urinary tract symptoms [N40.1, N13.8] Scoliosis of thoracolumbar spine, unspecified scoliosis type [M41.9] Atrial fibrillation, unspecified type (HCC) [I48.91] Essential hypertension [I10] Coronary artery disease involving [place] heart without angina pectoris, unspecified vessel or lesion type [I25.10] Order(s):clonazePAM (KLONOPIN) 0.5 mg tabletTake 1 tablet by mouth daily at bedtime for 180 days.Disp: 90 tabletRfl: 1 alfuzosin SR (UROXATRAL) 10 mg 24 hr tabletTake 1 tablet by mouth once daily.Disp: 90 tabletRfl: 3 Prescriptions as of 07/02/2017 Sig: CLONAZEPAM 0.5 MG TABLET Take 1 tablet by mouth daily * ALFUZOSIN ER 10 MG TABLET,EXT* Take 1 tablet by mouth once d* DONEPEZIL 10 MG TABLET Take 1 tablet by mouth every * FUROSEMIDE 20 MG TABLET Take 1 tablet by mouth once d* FINASTERIDE 5 MG TABLET Take 1 tablet by mouth once d* OXYBUTYNIN CHLORIDE ER 5 MG T* Take 1 tablet by mouth once d* LACTULOSE 10 GRAM/15 ML ORAL * TAKE 30 ML BY MOUTH TWICE ALBERTO* RANITIDINE 150 MG TABLET TAKE 1 TABLET BY MOUTH EVERY * COMPOUNDED PRESCRIPTION ADULT PULL UP DIAPERS. X LAR* CARBIDOPA 25 MG-LEVODOPA 100 * Take 1 tablet by mouth twice * ISOSORBIDE MONONITRATE ER 30 * Take 1 tablet by mouth once d* MEMANTINE 10 MG TABLET Take 10 mg by mouth twice alberto* ASPIRIN 81 MG TABLET,DELAYED * Take 1 tablet by mouth once d* SIMVASTATIN 40 MG TABLET Take one(1) tablet daily. NITROSTAT 0.4 MG SUBLINGUAL T* Dissolve one(1) tablet under * Problem List As Of Date 07/02/2017 Noted Resolved HYPERLIPIDEMIA NEC/NOS [E78.5] INVALID FOR* Essential hypertension [I10] INVALID FOR* OVERWEIGHT [E66.9] INVALID FOR* CAD (coronary artery disease) [I25.10] INVALID FOR* More... Constipation [K59.00] INVALID FOR* HYPERGLYCEMIA [R79.89] INVALID FOR*06/18/2012 Elevated prostate specific antigen (PSA) [R97.2*INVALID FOR*06/18/2012 BPH with obstruction/lower urinary tract sympto*INVALID FOR* ATRIAL FIBRILLATION [I48.91] INVALID FOR* Right knee pain. [M25.569] INVALID FOR*03/24/2014 Cardiac pacemaker in situ [Z95.0] INVALID FOR* More... 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 GERD (Gastroesophageal Reflux Disease) [K21.9] INVALID FOR* Fatigue [R53.83] INVALID FOR*06/18/2012 Debility [R53.81] INVALID FOR* Depression [F32.9] INVALID FOR*07/02/2017 Parkinson disease [G20] INVALID FOR* More... 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 ALFUZOSIN ER 10 MG TABLET,EXTENDED R* 90 t* 3 07/02/2017 Route: ORAL Sig: Take 1 tablet by mouth once daily. Medications Discontinued During This Encounter clonazePAM (KLONOPIN) 0.5 mg tablet 30 t* 2 04/09/2017 07/02/2017 Class: Print RX Cmt: This request is for a new prescription for a controlled substance as required by Federal/State law. Sig: TAKE 1 TABLET BY MOUTH AT BEDTIME Disc: Reason for discontinue is not on file. alfuzosin SR (UROXATRAL) 10 mg 24 hr* 90 t* 3 07/09/2016 07/02/2017 Sig: TAKE 1 TABLET BY MOUTH EVERY DAY Disc: Reason for discontinue is not on file. Disposition: Return in about 6 months (around 01/01/2018). Follow-up and Disposition History Recorded Encounter Status:Closed by CHRIS DEAN MD on 07/02/17 OBSOLETE Observed: 04/04/2017 Status: COMPLETED Source: [place] 12:00 AM [facility] REPOSITORY Refill (INTMWS) IVAN YOUNG ([id number]) 1940 M Date Time Provider Department 04/04/17 MITCHELL PETERS ([facility]) INTMWS During your visit today, we recorded the following information about you: China Randall LPN 04/07/2017 3:03 PM Signed Patient has been identified by name and date of : Yes Pharmacy phones for refill(s): Pending Prescriptions Disp Refills CLONAZEPAM 0.5 MG TABLET 30 tablet Sig: TAKE 1 TABLET BY MOUTH AT BEDTIME SANDY Class: C-IV JESSICA: Yes Date of last office visit in primary care: 01/03/2017 6 month f/u scheduled w/PCP: 07/02/2017 Last 2 Encounter Wt Readings: Date: Wt: 01/03/2017 93.9 kg (207 lb) 06/05/2016 99.8 kg (220 lb) Previous labs/tests for medication: Not applicable Please advise. Thank you. China Morales Psr 04/08/2017 12:31 PM Signed Patient dtr in law called, patient will be completely out of PRESCRIPTION-clonazePAM (KLONOPIN) 0.5 mg tablet [Pharmacy Med Name: CLONAZEPAM 0.5 MG, [facility]. [facility] Claudia Reyes RN 04/08/2017 1:51 PM Signed Patient has been identified by name and date of : Yes Patient phones for refill(s): Pending Prescriptions Disp Refills CLONAZEPAM 0.5 MG TABLET 30 tablet Sig: TAKE 1 TABLET BY MOUTH AT BEDTIME SANDY Class: C-IV JESSICA: Yes Date of last office visit in primary care: 01/03/17, future appt. 07/02/17, last rx filled on 03/06/17 #30 (Needs Rx faxed to [facility] today) Last 2 Encounter Wt Readings: Date: Wt: 01/03/2017 93.9 kg (207 lb) 06/05/2016 99.8 kg (220 lb) Previous labs/tests for medication: Blood Pressure: No results found for: BUN, NA Last 1 Encounter BP Readings: Date: BP: 01/03/2017 120/50 Liver Function: No results found for: ALT, AST Please advise. Thank you. Claudia Dean MD 04/09/2017 8:16 AM Signed Patient's request for medication is as follows: Signed Prescriptions Disp Refills clonazePAM (KLONOPIN) 0.5 mg tablet 30 tablet 2 Sig: TAKE 1 TABLET BY MOUTH AT BEDTIME SANDY Class: C-IV JESSICA: No Authorizing Provider: CHRIS DEAN Prescription(s) printed as above. Please process accordingly. Magdalena Fierro LPN 04/09/2017 8:39 AM Signed rx faxed to the pharmacy. Allergies As of Date: 04/04/2017 Noted Allergy Reaction SULFA (SULFONAMIDE ANTIBIOTICS) 12/21/2004 16 - Unknown Comments: childhood VICODIN (HYDROCODONE-ACETAMINOPHE*12/21/2004 2 - Rash Date Reviewed: 01/03/2017 Reviewed by: Pepper Waters Electric Dolly Operator - Fully Assessed Reason for Visit: Refill Request [94] Primary Visit Diagnosis:Restless legs syndrome (RLS) [G25.81] Order(s):clonazePAM (KLONOPIN) 0.5 mg tabletTAKE 1 TABLET BY MOUTH AT BEDTIMEDisp: 30 tabletRfl: 2 Prescriptions as of 04/04/2017 Sig: CLONAZEPAM 0.5 MG TABLET TAKE 1 TABLET BY MOUTH AT BED* DONEPEZIL 10 MG TABLET Take 1 tablet by mouth every * FUROSEMIDE 20 MG TABLET Take 1 tablet by mouth once d* FINASTERIDE 5 MG TABLET Take 1 tablet by mouth once d* OXYBUTYNIN CHLORIDE ER 5 MG T* Take 1 tablet by mouth once d* LACTULOSE 10 GRAM/15 ML ORAL * TAKE 30 ML BY MOUTH TWICE ALBERTO* RANITIDINE 150 MG TABLET TAKE 1 TABLET BY MOUTH EVERY * ALFUZOSIN ER 10 MG TABLET,EXT* TAKE 1 TABLET BY MOUTH EVERY * COMPOUNDED PRESCRIPTION ADULT PULL UP DIAPERS. X LAR* CARBIDOPA 25 MG-LEVODOPA 100 * Take 1 tablet by mouth twice * ISOSORBIDE MONONITRATE ER 30 * Take 1 tablet by mouth once d* MEMANTINE 10 MG TABLET Take 10 mg by mouth twice alberto* ASPIRIN 81 MG TABLET,DELAYED * Take 1 tablet by mouth once d* SIMVASTATIN 40 MG TABLET Take one(1) tablet daily. NITROSTAT 0.4 MG SUBLINGUAL T* Dissolve one(1) tablet under * Problem List As Of Date 04/04/2017 Noted Resolved HYPERLIPIDEMIA NEC/NOS [E78.5] INVALID FOR* Essential hypertension [I10] INVALID FOR* OVERWEIGHT [E66.9] INVALID FOR* CAD (coronary artery disease) [I25.10] INVALID FOR* More... Constipation [K59.00] INVALID FOR* HYPERGLYCEMIA [R79.89] INVALID FOR*06/18/2012 Elevated prostate specific antigen (PSA) [R97.2*INVALID FOR*06/18/2012 HYPERTROPHY PROSTATE WITH OBST [N40.1] INVALID FOR* ATRIAL FIBRILLATION [I48.91] INVALID FOR* Right knee pain. [M25.569] INVALID FOR*03/24/2014 Cardiac pacemaker in situ [Z95.0] INVALID FOR* More... 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 GERD (Gastroesophageal Reflux Disease) [K21.9] INVALID FOR* Fatigue [R53.83] INVALID FOR*06/18/2012 Debility [R53.81] INVALID FOR* Depression [F32.9] INVALID FOR* Parkinson disease [G20] INVALID FOR* More... 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 Sig: TAKE 1 TABLET BY MOUTH AT BEDTIME Medications Discontinued During This Encounter clonazePAM (KLONOPIN) 0.5 mg tablet 30 t* 5 10/04/2016 04/09/2017 Class: Print RX Sig: TAKE 1 TABLET BY MOUTH AT BEDTIME Disc: Reason for discontinue is not on file. Encounter Status:Closed by MAGDALENA FIERRO LPN on 04/09/17 ALLERGIES ALLERGIES DATE TYPE / CODE NAME / CODE REACTION SEVERITY SOURCE 10/15/2017 Drug hydrocodone Other Unknown [place] Allergy/416 bitartrate/[id number] [facility] 055538(SNOM 555(RXNORM) [facility] ED CT) Repository 10/15/2017 Drug Sulfa (Sulfonamide Other Unknown [place] Allergy/416 Antibiotics)/F0010 [facility] 610194(SNOM 36027(RXNORM) [facility] ED CT) Repository 10/15/2017 Drug acetaminophen/F006 Other Unknown [place] Allergy/416 536942(RXNORM) [facility] 931059([facility] ED CT) Repository 12/21/2004 Drug SULFA (SULFONAMIDE UNKNOWN [facility] Class/01984 ANTIBIOTICS) [facility] 1003(SNOMED Repository CT) 12/21/2004 DRUG/935216 HYDROCODONE-ACETAM RASH [facility] 003(SNOMED INOPHEN [facility]) Repository ENCOUNTERS ENCOUNTERS ADMIT/DISCHARGE ACCOUNT ADMITTING ENCOUNTER LOCATION SOURCE NUMBER CLASS 02/20/2018 [id number] [facility] ing:OLS.[facility] Repository 01/30/2018 [id number] [facility] ing:OLS.[facility] Repository 01/05/2018 [id number] [facility] ing:OLS.[facility] Repository 11/28/2017 [id number] [facility] ing:OLS.AVED Repository 11/27/2017 [id number] [facility] ing:OLS.AVED Repository 11/15/2017 [id number] [facility] Hospital ing:OLS.AVED Repository 10/15/2017/10/16/19 [id number] Ambulatory BMSBuilding:B [place] 18 [facility] Repository 10/07/2017/10/20/19 [id number] Ambulatory BMSBuilding:W [address] Repository 10/03/2017 [id number] [place] Ambulatory BMSBuilding:Augustina Mora MS.[facility] Repository 10/03/2017 [id number] [place] Ambulatory BMSBuilding:B [place] [facility] Repository 10/03/2017/10/20/19 [id number] [place], Inpatient [place] [address] [facility] ing:RURoom: Repository [id number]: 1 10/03/2017 [id number] [place] Ambulatory BMSBuilding:Augustina Mora MS.[facility] Repository 10/03/2017 [id number] Ambulatory BMSBuilding:W [facility] Repository 10/03/2017 [id number] Ambulatory BMSBuilding:W [place] [facility] Repository 10/03/2017 [id number] [place], Ambulatory BMSBuilding:Augustina Mora MS.[facility] Repository 10/01/2017 [id number] [place], [place] Ambulatory BMSBuilding:[place]ina [place] MS.CF[facility] Repository 10/01/2017 [id number] [place], [place] Ambulatory BMSBuilding:Augustina Vines MS.[facility] Repository 10/01/2017 [id number] [place], [place] Ambulatory BMSBuilding:Augustina Vines [facility] Repository 10/01/2017 [id number] [place], [place] Ambulatory BMSBuilding:Augustina Vines MS.CF.[facility] Repository 10/01/2017 [id number] [place], [place] Ambulatory BMSBuilding:Augustina Vines [facility] Repository 10/01/2017/10/04/19 [id number] Ambulatory BMSBuilding:[place] [address] [place] [address] Repository 10/01/2017/10/04/19 [id number] Ambulatory BMSBuilding:W [address] Repository 10/01/2017/10/04/19 [id number] [place], [place] Inpatient [address] ing:PCURoom: Repository QKN850Wwt: 1 10/01/2017 [id number] [place], [place] Ambulatory BMSBuilding:Augustina Vines [facility] Repository 08/27/2017/08/28/19 [id number] Ambulatory BMSBuilding:Augustina Christopher [facility] Repository 08/22/2017 [id number] Ambulatory BMS [facility] Repository 08/05/2017 [id number] Ambulatory BMSBuilding:Augustina V[place] [facility] Repository 07/25/2017 [id number] Ambulatory BMSBuilding:[place]ina [place] MS.CF[facility] Repository 07/25/2017 [id number] Ambulatory [facility] ing:CLSP Repository 07/24/2017 [id number] Ambulatory BMSBuilding:B [place] [facility] Repository 07/17/2017 [id number] Ambulatory [facility] ing:RAD Repository 07/17/2017 [id number] Ambulatory BMSBuilding:B [place] [facility] Repository 07/17/2017/07/18/19 [id number] Ambulatory BMSBuilding:B [place] 18 [facility] Repository 07/16/2017 [id number] Ambulatory [facility] Repository 07/11/2017/07/12/19 [id number] Ambulatory BMSBuilding:B [place] 18 [facility] Repository 07/02/2017 [id number] Ambulatory [facility] Repository 07/02/2017/07/04/19 [id number] Ambulatory [address] Repository PAYERS PAYERS ENCOUNTER GUARANTOR PAYER SUBSCRIBER SOURCE 02/20/2018 IVAN Mccarthy Primary IVAN [id number] Insurance:MEDICARE MILLERDOB: [address]23[facility] Number: Repository CARE [id number] [facility] [place], Date:2018-02-20 [place] [phone]: () 02/20/2018 Secondary IVAN [place] Insurance:Nereyda PEREZ: [facility] Number: [id number] Hospital [id number] Repository Date:4331-49-05[address], [place] [address]JF: 02/20/2018 Tertiary NOT GIVENUNK [place] Insurance:SELF PAY [facility] Number: Effective Repository Date:2018-02-20 01/30/2018 IVAN Mccarthy Primary IVAN [id number] Insurance:MEDICARE MILLERDOB: [place] [id number] Number: Repository CARE [id number] [facility], Date:2018-01-30 [place] [phone]: () 01/30/2018 Secondary IVAN [place] Insurance:AARPPolicy MILLERDOB: Community Number: [id number] Hospital [id number] Repository Date:7747-25-77JU [address], [place] [address]RM: 01/30/2018 Tertiary NOT GIVENUNK [place] Insurance:SELF PAY [facility] Number: Effective Repository Date:2018-01-30 01/05/2018 IVAN H Primary NOT GIVENUNK [place] [id number] Insurance:SELF PAY [facility] Number: Effective Repository [phone]: (330) Date:2018-01-05 [phone] (HP) 11/28/2017 IAVN H Primary NOT GIVENUNK [place] [id number] Insurance:SELF [place] [facility] Number: Effective Repository [phone]: (330) Date:2017-11-28 [phone] (HP) 11/27/2017 IVAN H Primary NOT GIVENUNK [place] [id number] Insurance:SELF PA[place] [facility] Number: Effective Repository 55582Maj: (330) Date:2017-11-27 [phone] (HP) 11/15/2017 IVAN H Primary NOT GIVENUNK [place] [id number] Insurance:SELF [place] [facility] Number: Effective Repository 38927Rml: (330) Date:2017-11-15 [phone] (HP) 10/15/2017 IVAN H Primary IVAN Mccarthy [place] [id number] Insurance:MEDICARE MILLERDOB: [facility] PART A [id number] [place] Number: Repository [address]Sdt: 330 [id number] [phone] (HP) Date:2017-10-13 10/15/2017 Secondary IVAN Mccarthy [place] Insurance:AARPPolicy MILLERDOB: Community Number: [id number] Hospital [id number] Repository Date:9395-89-93[address], [place] [address]CM: 10/15/2017 Tertiary NOT GIVENUNK [place] Insurance:SELF PAY [facility] Number: Effective Repository Date:2017-10-13 10/07/2017 IVAN Mccarthy Primary IVAN [place] [id number] Insurance:MEDICARE MILLERDOB: Community [place] PART A [facility] [id number]: Repository [address]Maj: 330 [id number] () Date:2017-10-03 10/07/2017 Secondary IVAN Mccarthy [place] Insurance:AARPPolicy MILLERDOB: Community Number: [id number] Hospital [id number] Repository Date:5216-74-91MN [facility] [address], [place] [address]MX: 10/07/2017 Tertiary NOT GIVENUNK [place] Insurance:SELF PAY [facility] Number: Effective Repository Date:2017-10-07 10/03/2017 IVAN Fabio Primary [place]AN [place] [id number] Insurance:MEDICARE MILLERDOB: Community [place] PART A [facility] [id number] [place] Number: Repository [id number]: 330 [id number] () Date:2017-10-03 10/03/2017 Secondary IVAN Mccarthy [place] Insurance:AARPPolicy MILLERDOB: Community Number: [id number] Hospital [id number] Repository Date:1203-01-43KZ [facility] [id number], [place] [address]EF: 10/03/2017 Tertiary NOT GIVENUNK [place] Insurance:SELF PAY [facility] Number: Effective Repository Date:2017-10-03 10/03/2017 IVAN H Primary [place] [id number] Insurance:MEDICARE MILLERDOB: [facility] PART A [facility] [id number] [place] Number: Repository [address]Atc: 330 [id number] [phone] (HP) Date:2017-10-03 10/03/2017 Secondary IVAN Mccarthy [place] Insurance:AARPPolicy MILLERDOB: Community Number: [id number] Hospital [id number] Repository Date:5701-37-37[address]SRMSHD, [place] [address]OR: 10/03/2017 Tertiary NOT GIVENUNK [place] Insurance:SELF PAY [facility] Number: Effective Repository Date:2017-10-03 10/03/2017 IVAN Mccarthy Primary IVAN [id number] Insurance:MEDICARE MILLERDOB: Community [place] PART A [facility] [id number][place] Number: Repository [address]Aiu: 330 [id number] [phone] () Date:2017-10-03 10/03/2017 Secondary IVAN Mccarthy [place] Insurance:AARPPolicy MILLERDOB: Community Number: [id number] Hospital [id number] Repository Date:1682-12-45[address]WRQX[place], [place] [address]CL: 10/03/2017 Tertiary NOT GIVENUNK [place] Insurance:SELF PAY [facility] Number: Effective Repository Date:2017-10-03 10/03/2017 IVAN Mccarthy Primary IVAN [id number] Insurance:MEDICARE MILLERDOB: Community [place] PART A [facility] [id number] Number: Repository [address]Fng: 330 [id number] () Date:2017-10-03 10/03/2017 Secondary IVAN Mccarthy [place] Insurance:AARPPolicy MILLERDOB: Community Number: [id number] Hospital [id number] Repository Date:4333-79-96[address], [place] [address]DY: 10/03/2017 Tertiary NOT GIVENUNK [place] Insurance:SELF PAY [facility] Number: Effective Repository Date:2017-10-03 10/03/2017 IVAN Mccarthy Primary IVAN [place] [id number] Insurance:MEDICARE MILLERDOB: Community [place] PART A [facility] [id number] Number: Repository [address]Dml: 330 [id number] [phone] (HP) Date:2017-10-03 10/03/2017 Secondary IVAN Mccarthy [place] Insurance:AARPPolicy MILLERDOB: Community Number: [id number] Hospital [id number] Repository Date:5655-58-09ZR [address]FDBDIMW, [place] [address]EH: 10/03/2017 Tertiary NOT GIVENUNK [place] Insurance:SELF PAY [facility] Number: Effective Repository Date:2017-10-03 10/03/2017 IVAN Mccarthy Primary IVAN [id number] Insurance:MEDICARE MILLERDOB: Community [place] PART A olicy [id number], [place] Number: Repository [address]Klt: 330 [id number] [phone] () Date:2017-10-03 10/03/2017 Secondary IVAN Mccarthy [place] Insurance:AARPPolicy MILLERDOB: Community Number: [id number] [facility] [id number] Repository Date:7868-48-13JI [address], [place] [address]YC: 10/03/2017 Tertiary NOT GIVENUNK [place] Insurance:SELF PAY [facility] Number: Effective Repository Date:2017-10-03 10/03/2017 IVAN Mccarthy [place] [id number] Insurance:MEDICARE MILLERDOB: Community [place] PART A [facility] [id number] Number: Repository [address]Oum: 330 [id number] [phone] () Date:2017-10-03 10/03/2017 Secondary IVAN Mccarthy [place] Insurance:AARPPolicy MILLERDOB: Community Number: [id number] Hospital [id number] Repository Date:5652-02-71MO [address], [place] [address]ZT: 10/03/2017 Tertiary NOT GIVENUNK [place] Insurance:SELF PAY [facility] Number: Effective Repository Date:2017-10-03 10/01/2017 IVAN Mccarthy Primary [place] [id number] Insurance:MEDICARE MILLERDOB: Community [place] PART A [id number] [place] Number[facility] Repository [address]Qbp: 330 [id number] [phone] () Date:2017-10-01 10/01/2017 Secondary IVAN Mccarthy [place] Insurance:AARPPolicy HANNAHDOB: Community Number: [id number] [facility] [id number] Repository Date:7037-34-47FI [address], [place] [address]IU: 10/01/2017 Tertiary NOT GIVENUNK [place] Insurance:SELF PAY [facility] Number: Effective Repository Date:2017-10-01 10/01/2017 IVAN Mccarthy Primary IVAN [id number] Insurance:MEDICARE MILLERDOB: Community [place] PART A [facility] [id number] [place] Number: Repository [address]Xbj: 330 [id number] [phone] () Date:2017-10-01 10/01/2017 Secondary IVAN Mccarthy [place] Insurance:AARPPolicy MILLERDOB: Community Number: [id number] Hospital [id number] Repository Date:7311-57-11[address]QJSZFMO, [place] [address]KS: 10/01/2017 Tertiary NOT GIVENUNK [place] Insurance:SELF PAY [facility] Number: Effective Repository Date:2017-10-01 10/01/2017 IVAN H Primary IVAN [id number] Insurance:MEDICARE MILLERDOB: [facility]1983NES PART A [facility] [id number] [place] Number: Repository [address]Msu: 330 [id number] [phone] () Date:2017-10-01 10/01/2017 Secondary IVAN Mccarthy [place] Insurance:AARPPolicy MILLERDOB: Community Number: [id number] Hospital [id number] Repository Date:9124-84-34DT [address], [place] [address]EA: 10/01/2017 Tertiary NOT GIVENUNK [place] Insurance:SELF PAY [facility] Number: Effective Repository Date:2017-10-01 10/01/2017 IVAN Mccarthy Primary [place] [id number] Insurance:MEDICARE MILLERDOB: Community [place] PART A [facility] [id number] Number[place] Repository [address]Ysn: 330 [id number] [phone] (HP) Date:2017-10-01 10/01/2017 Secondary IVAN Mccarthy [place] Insurance:AARPPolicy MILLERDOB: Community Number: [id number] Hospital [id number] Repository Date:9280-18-07WE [address]BQOCQ, [place] [address]UR: 10/01/2017 Tertiary NOT GIVENUNK [place] Insurance:SELF PAY [facility] Number: Effective Repository Date:2017-10-01 10/01/2017 IVAN Fabio Primary [place] [id number] Insurance:MEDICARE MILLERDOB: Community [place] PART A [facility] [id number] [place] Number: Repository [address]Pir: 330 [id number] [phone] () Date:2017-10-01 10/01/2017 Secondary IVAN Mccarthy [place] Insurance:AARPPolicy MILLERDOB: Community Number: [id number] Hospital [id number] Repository Date:8528-93-27RL [facility] [address], [place] [address]VI: 10/01/2017 Tertiary NOT GIVENUNK [place] Insurance:SELF PAY [facility] Number: Effective Repository Date:2017-10-01 10/01/2017 IVAN Fabio Primary IVAN Mccarthy [place] [id number] Insurance:MEDICARE MILLERDOB: [facility] PART A [facility] [id number] [place] Number: Repository [address]Ncx: 330 [id number] [phone] (HP) Date:2017-10-01 10/01/2017 Secondary IVAN Mccarthy [place] Insurance:AARPPolicy MILLERDOB: Community Number: [id number] [place] [address] [id number] Repository Date:6851-16-04RJ [address]MWGYZUM, [place] [address]JZ: 10/01/2017 Tertiary NOT GIVENUNK [place] Insurance:SELF PAY [facility] Number: Effective Repository Date:2017-10-01 10/01/2017 IVAN Mccarthy Primary IVAN [id number] Insurance:MEDICARE MILLERDOB: Community [place] PART A [facility] [id number] Number: Repository [address]Obs: 330 [id number] [phone] () Date:2017-10-01 10/01/2017 Secondary IVAN Mccarthy [place] Insurance:AARPPolicy MILLERDOB: [facility] Number: [id number] Hospital [id number] Repository Date:9644-82-81FJ [address]HHXSSKH, [place] [address]DS: 10/01/2017 Tertiary NOT GIVENUNK [place] Insurance:SELF PAY [facility] Number: Effective Repository Date:2017-10-01 10/01/2017 IVAN Fabio Primary [place] [id number] Insurance:MEDICARE MILLERDOB: Community [place] PART A [facility] [id number], [place] Number: Repository [address]Ohu: 330 [id number] [phone] () Date:2017-10-01 10/01/2017 Secondary IVAN Mccarthy [place] Insurance:AARPPolicy MILLERDOB: Community Number: [id number] Hospital [id number] Repository Date:3233-36-25VU [facility] [address]40408[place]FP, [place] [address]QX: 10/01/2017 Tertiary NOT GIVENUNK [place] Insurance:SELF PAY [facility] Number: Effective Repository Date:2017-10-01 10/01/2017 IVAN Mccarthy Primary [place] [id number] Insurance:MEDICARE MILLERDOB: Community [place] PART A [facility] [id number] [place] Number: Repository [address]Riy: 330 [id number] [phone] (HP) Date:2017-10-01 10/01/2017 Secondary IVAN Mccarthy [place] Insurance:AARPPolicy MILLERDOB: Community Number: [id number] Hospital [id number] Repository Date:0582-52-55RP [address]JYNHWYT, [place] [address]RH: 10/01/2017 Tertiary NOT GIVENUNK [place] Insurance:SELF PAY [facility] Number: Effective Repository Date:2017-10-01 08/27/2017 IVAN Mccarthy Primary IVAN [id number] Insurance:MEDICARE MILLERDOB: Community [place] PART A olicy [id number] Number: Repository [address]Ind: 330 [id number] [phone] () Date:2017-02-25 08/27/2017 Secondary IVAN Mccarthy [place] Insurance:AARPPolicy MILLERDOB: Community Number: [id number] Hospital [id number] Repository Date:7954-48-34UR [address]NXICWUU, [place] [address]IB: 08/27/2017 Tertiary NOT GIVENUNK [place] Insurance:SELF PAY [facility] Number: Effective Repository Date:2017-08-27 08/22/2017 IVAN Mccarthy Primary IVAN [id number] Insurance:MEDICARE MILLERDOB: Community [place] PART A olic [id number], [place] Number: Repository [address]Hnz: [id number] [phone] Date:2017-08-22 () 08/22/2017 Secondary IVAN Mccarthy [place] Insurance:AARPPolicy MILLERDOB: Community Number: [id number] Hospital [id number] Repository Date:4518-65-26XV [address]IPLSATJ, [place] [address]ZF: 08/22/2017 Tertiary NOT GIVENUNK [place] Insurance:SELF PAY [facility] Number: Effective Repository Date:2017-08-22 08/05/2017 IVAN Mccarthy Primary IVAN [id number] Insurance:MEDICARE MILLERDOB: Community [place] PART A [facility] [id number][place] Number: Repository [address]Gdp: [id number] [phone] Date:2017-08-05 (HP) 08/05/2017 Secondary IVAN Mccarthy [place] Insurance:AARPPolicy MILLERDOB: Community Number: [id number] Hospital [id number] Repository Date:7240-34-98WW [address]CAPYJCZ, [place] [address]SI: 08/05/2017 Tertiary NOT GIVENUNK [place] Insurance:SELF PAY [facility] Number: Effective Repository Date:2017-08-05 07/25/2017 IVAN Mccarthy Primary IVAN [id number] Insurance:MEDICARE MILLERDOB: Community [place] PART A [place] [id number] [place] Number[facility] Repository [id number]: [id number] [phone] Date:2017-07-11 () 07/25/2017 Secondary IVAN Mccarthy [place] Insurance:AARPPolicy MILLERDOB: Community Number: [id number] Hospital [id number] Repository Date:1125-35-75YK [address]IMYJAEQ, [place] [address]MO: 07/25/2017 Tertiary NOT GIVENUNK [place] Insurance:SELF PAY [facility] Number: Effective Repository Date:2017-07-25 07/25/2017 IVAN H Primary [place] [id number] Insurance:MEDICARE MILLERDOB: [facility]NES PART A [facility] [id number] [facility] [place] Number: Repository [address]Ljw: [id number] [phone] Date:2017-07-11 () 07/25/2017 Secondary IVAN Mccarthy [place] Insurance:AARPPolicy MILLERDOB: Community Number: [id number] Hospital [id number] Repository Date:2704-03-30CU [address]ABTARJU, [place] [address]NW: 07/25/2017 Tertiary NOT GIVENUNK [place] Insurance:SELF PAY [facility] Number: Effective Repository Date:2017-07-11 07/24/2017 IVAN Mccarthy Primary IVAN [id number] Insurance:MEDICARE MILLERDOB: Community [place] PART A [facility] [id number], [place] Number: Repository [address]Okq: [id number] [phone] Date:2017-07-24 () 07/24/2017 Secondary IVAN Mccarthy [place] Insurance:AARPPolicy MILLERDOB: Community Number: [id number] Hospital [id number] Repository Date:9654-16-23RW [address]ATY[place]ZX, [place] [address]NT: 07/24/2017 Tertiary NOT GIVENUNK [place] Insurance:SELF PAY [facility] Number: Effective Repository Date:2017-07-24 07/17/2017 IVAN Mccarthy Primary IVAN [id number] Insurance:MEDICARE MILLERDOB: Community [place] PART A [facility] [id number] [place] Number: Repository [address]Pjm: [id number] [phone] Date:2017-07-17 () 07/17/2017 Secondary IVAN Mccarthy [place] Insurance:AARPPolicy MILLERDOB: Community Number: [id number] Hospital [id number] Repository Date:6740-86-28XR [address]SEXTDXK, [place] [address]EC: 07/17/2017 Tertiary NOT GIVENUNK [place] Insurance:SELF PAY [facility] Number: Effective Repository Date:2017-07-17 07/17/2017 IVAN Mccarthy Primary IVAN [id number] Insurance:MEDICARE MILLERDOB: Community [place] PART A [facility] [id number] [place] Number: Repository [address]Eqf: [id number] [phone] Date:2017-07-15 () 07/17/2017 Secondary IVAN Mccarthy [place] Insurance:AARPPolicy MILLERDOB: Community Number: [id number] Hospital [id number] Repository Date:7856-06-83HU [address]EFFNPUW, [place] [address]AI: 07/17/2017 Tertiary NOT GIVENUNK [place] Insurance:SELF PAY [facility] Number: Effective Repository Date:2017-07-16 07/17/2017 IVAN Mccarthy Primary IVAN [id number] Insurance:MEDICARE MILLERDOB: Community [place] PART A o[place] [id number], [place] Number: Repository [address]Dqp: [id number] [phone] Date:2017-07-15 () 07/17/2017 Secondary IVAN Mccarthy [place] Insurance:AARPPolicy MILLERDOB: Community Number: [id number] Hospital [id number] Repository Date:4011-30-72EA [address]WRVIOBQ, [place] [address]OP: 07/17/2017 Tertiary NOT GIVENUNK [place] Insurance:SELF PAY [facility] Number: Effective Repository Date:2017-07-17 07/16/2017 IVAN Mccarthy Primary IVAN [id number] Insurance:MEDICARE MILLERDOB: Community [place] PART A [facility] [id number], [place] Number: Repository [address]Vtv: [id number] [phone] Date:2017-07-16 () 07/16/2017 Secondary IVAN Mccarthy [place] Insurance:AARPPolicy MILLERDOB: Community Number: [id number] Hospital [id number] Repository Date:6528-21-02IY [address]QTMXKWD, [place] [address]SU: 07/16/2017 Tertiary NOT GIVENUNK [place] Insurance:SELF PAY [facility] Number: Effective Repository Date:2017-07-16 07/11/2017 IVAN Mccarthy Primary [place] [id number] Insurance:MEDICARE MILLERDOB: Community [place] PART A [facility] [id number] Number: Repository [address]Imd: [id number] [phone] Date:2017-07-03 () 07/11/2017 Secondary IVAN [place] Insurance:Nereyda BOATENGB: [facility] Number: [id number] Hospital [id number] Repository Date:7424-70-46VY [facility] 232372VHKCT[place]H, [place] [address]CG: 07/11/2017 Tertiary NOT [place] Insurance:SELF PAY [facility] Number: Effective Repository Date:2017-07-11
== END ==
LOC: OLS.WCC 14:00
PROVIDERS: Visit Provider Family Medicine
DX: N39.0 Urinary tract infection, site not specified (principal)
CPT/HCPCS: 87086; 87088; 87186

== ENCOUNTER → 2018-04-03 05:00 | Outpatient (REF) | payer MEDICARE, OTHER, SELFPAY ==
[2018-04-03 07:49] LABS: Hematocrit 36.9 % (40-54); Hemoglobin 11.8 g/dl (13.0-16.5); Mean Corpuscular Hgb 29.8 pg (27.0-32.0); Mean Corpuscular Volume 93.2 fL (80-94); Platelet Count 220 K/mm3 (150-450); RBC Distribution Width CV 14.9 % (11.6-14.6); Red Blood Count 3.96 M/mm3 (4.6-6.2); White Blood Count 6.7 K/mm3 (4.4-11.0)
[2018-04-03 07:54] LABS: Scan Indicated on CBC? Y/N NO
[2018-04-03 08:00] LABS: Anion Gap 7 (5-15); BUN 22 mg/dL (7-18); BUN/Creat Ratio 27.2 RATIO (10-20); Chloride 109 mmol/L (98-107); Creatinine, Serum 0.81 mg/dL (0.70-1.30); EST Glomerular Filtration Rate 98 mL/min (>60); Est Glom Filt Rate - Afr Amer 118 mL/min (>60); Glucose 68 mg/dL (74-106); Sodium Level 144 mmol/L (136-145)
== END ==
LOC: OLS.WCC 05:00
PROVIDERS: Visit Provider Family Medicine
DX: I25.10 Atherosclerotic heart disease of native coronary artery without angina pectoris (principal); I10 Essential (primary) hypertension
CPT/HCPCS: 36415; 80048; 85027

== ENCOUNTER → 2018-04-27 21:15 | Outpatient (REF) | payer MEDICARE, OTHER, SELFPAY ==
[2018-04-28 07:44] LABS: Color, Urine Yellow (Yellow); Glucose, Dipstick Normal (Normal); Ketone-Dipstick 15 mg/dl (Negative); Leukocyte Esterase-Dipstick 500 /ul (Negative); Nitrite-Dipstick Positive (Negative); Occult Blood-Urine 150 /ul (Negative); Protein-Dipstick 30 mg/dl (Negative); Specific Gravity, Urine 1.025 (1.002-1.030); Urine Bilirubin Dipstick Negative (Negative); Urine Clarity Clear (Clear); Urine Urobilinogen 1 mg/dl (Normal)
== END ==
LOC: OLS.WCC 21:15
PROVIDERS: Visit Provider Family Medicine
DX: R30.0 Dysuria (principal)
CPT/HCPCS: 81002; 87086; 87088; 87186

== ENCOUNTER → 2018-06-17 13:00 | Outpatient (REF) | payer MEDICARE, OTHER, SELFPAY ==
[2018-06-17 16:21] LABS: Color, Urine Yellow (Yellow); Glucose, Dipstick Normal (Normal); Ketone-Dipstick 5 mg/dl (Negative); Leukocyte Esterase-Dipstick 500 /ul (Negative); Nitrite-Dipstick Positive (Negative); Occult Blood-Urine 50 /ul (Negative); Protein-Dipstick 30 mg/dl (Negative); Urine Bilirubin Dipstick Negative (Negative); Urine Clarity Cloudy (Clear); Urine Urobilinogen Normal (Normal); Urine pH 6.5 (5.0 - 8.0)
== END ==
LOC: OLS.WCC 13:00
PROVIDERS: Visit Provider Family Medicine
DX: R30.0 Dysuria (principal); R50.9 Fever, unspecified
CPT/HCPCS: 81002; 87086; 87088; 87186

== ENCOUNTER → 2018-06-22 04:30 | Outpatient (REF) | payer MEDICARE, OTHER, SELFPAY ==
[2018-06-22 08:11] LABS: Hematocrit 36.9 % (40-54); Hemoglobin 11.9 g/dl (13.0-16.5); Mean Corp Hgb Conc 32.2 g/gl (32-36); Mean Corpuscular Hgb 29.5 pg (27.0-32.0); Mean Corpuscular Volume 91.3 fL (80-94); Mean Platelet Vol. 10.5 fl (6.2-12.0); Platelet Count 199 K/mm3 (150-450); RBC Distribution Width SD 46.5 fl (35.1-43.9); Red Blood Count 4.04 M/mm3 (4.6-6.2); White Blood Count 7.6 K/mm3 (4.4-11.0)
[2018-06-22 08:15] LABS: Scan Indicated on CBC? Y/N NO
[2018-06-22 08:18] LABS: AST(SGOT) 14 U/L (15-37); Alanine Aminotransfer ALT/SGPT 8 U/L (16-61); Albumin, Serum 2.9 g/dL (3.2-5.0); Alkaline Phosphatase 118 U/L (45-117); Anion Gap 5 (5-15); BUN 26 mg/dL (7-18); BUN/Creat Ratio 31.2 RATIO (10-20); Calcium,Total 7.9 mg/dL (8.5-10.1); Chloride 114 mmol/L (98-107); Creatinine, Serum 0.83 mg/dL (0.70-1.30); EST Glomerular Filtration Rate 94 mL/min (>60); Est Glom Filt Rate - Afr Amer 114 mL/min (>60); Globulin 2.9 g/dL (2.2-4.2); Glucose 70 mg/dL (74-106); Protein, Total 5.8 g/dL (6.4-8.2); Sodium Level 146 mmol/L (136-145)
== END ==
LOC: OLS.WCC 04:30
PROVIDERS: Visit Provider Family Medicine
DX: I48.91 Unspecified atrial fibrillation (principal); N39.0 Urinary tract infection, site not specified; I10 Essential (primary) hypertension
CPT/HCPCS: 36415; 80053; 85027

== ENCOUNTER → 2018-07-02 05:00 | Outpatient (REF) | payer MEDICARE, OTHER, SELFPAY ==
[2018-07-02 08:06] LABS: Hematocrit 34.8 % (40-54); Hemoglobin 11.3 g/dl (13.0-16.5); Mean Corp Hgb Conc 32.5 g/gl (32-36); Mean Corpuscular Hgb 29.7 pg (27.0-32.0); Mean Corpuscular Volume 91.3 fL (80-94); Mean Platelet Vol. 11.1 fl (6.2-12.0); Platelet Count 202 K/mm3 (150-450); RBC Distribution Width CV 14.5 % (11.6-14.6); RBC Distribution Width SD 47.1 fl (35.1-43.9); Red Blood Count 3.81 M/mm3 (4.6-6.2); White Blood Count 6.6 K/mm3 (4.4-11.0)
[2018-07-02 08:11] LABS: Scan Indicated on CBC? Y/N NO
[2018-07-02 08:14] LABS: Anion Gap 4 (5-15); BUN 23 mg/dL (7-18); BUN/Creat Ratio 32.6 RATIO (10-20); Calcium,Total 7.8 mg/dL (8.5-10.1); Chloride 110 mmol/L (98-107); EST Glomerular Filtration Rate 114 mL/min (>60); Est Glom Filt Rate - Afr Amer 139 mL/min (>60); Glucose 74 mg/dL (74-106); Potassium 3.7 mmol/L (3.5-5.1); Sodium Level 143 mmol/L (136-145)
== END ==
LOC: OLS.WCC 05:00
PROVIDERS: Visit Provider Family Medicine
DX: I10 Essential (primary) hypertension (principal); I25.10 Atherosclerotic heart disease of native coronary artery without angina pectoris
CPT/HCPCS: 36415; 80048; 85027

== ENCOUNTER → 2018-10-01 | Outpatient (REF) | payer MEDICARE, OTHER, SELFPAY ==
[2018-10-01 08:42] LABS: Hematocrit 38.2 % (40-54); Hemoglobin 12.3 g/dL (13.0-16.5); Mean Corp Hgb Conc 32.2 g/dL (32-36); Mean Corpuscular Volume 93.2 fL (80-94); Mean Platelet Vol. 10.4 fl (6.2-12.0); Platelet Count 209 K/mm3 (150-450); RBC Distribution Width SD 44.4 fl (35.1-43.9); White Blood Count 6.7 K/mm3 (4.4-11.0)
[2018-10-01 09:01] LABS: Anion Gap 5 (5-15); BUN 25 mg/dL (7-18); BUN/Creat Ratio 30.5 RATIO (10-20); Calcium,Total 8.4 mg/dL (8.5-10.1); Chloride 106 mmol/L (98-107); Creatinine, Serum 0.82 mg/dL (0.70-1.30); EST Glomerular Filtration Rate 96 mL/min (>60); Est Glom Filt Rate - Afr Amer 116 mL/min (>60); Glucose 67 mg/dL (74-106); Potassium 4.2 mmol/L (3.5-5.1); Sodium Level 139 mmol/L (136-145)
== END | disposition home or self-care (01) ==
LOC: OLS.WCC 05:00
PROVIDERS: Visit Provider Family Medicine
DX: I10 Essential (primary) hypertension (principal); F03.90 Unspecified dementia, unspecified severity, without behavioral disturbance, psychotic disturbance, mood disturbance, and anxiety; Z79.899 Other long term (current) drug therapy
CPT/HCPCS: 36415; 80048; 85027

== ENCOUNTER → 2018-10-09 10:30 | Outpatient (REF) | payer MEDICARE, OTHER, SELFPAY ==
[2018-10-09 12:42] LABS: Color, Urine Yellow (Yellow); Glucose, Dipstick Normal (Normal); Ketone-Dipstick 5 mg/dl (Negative); Leukocyte Esterase-Dipstick 500 /ul (Negative); Nitrite-Dipstick Positive (Negative); Occult Blood-Urine 50 /ul (Negative); Protein-Dipstick 15 mg/dl (Negative); Urine Bilirubin Dipstick Negative (Negative); Urine Clarity Sl. Cloudy (Clear); Urine Urobilinogen Normal (Normal)
== END ==
LOC: OLS.WCC 10:30
PROVIDERS: Visit Provider Family Medicine
DX: N39.0 Urinary tract infection, site not specified (principal)
CPT/HCPCS: 81002; 87077; 87086; 87088; 87186

== ENCOUNTER → 2019-01-01 05:00 | Outpatient (REF) | payer MEDICARE, OTHER, SELFPAY ==
[2019-01-01 07:57] LABS: Hematocrit 38.6 % (40-54); Hemoglobin 12.5 g/dL (13.0-16.5); Mean Corp Hgb Conc 32.4 g/dL (32-36); Mean Corpuscular Volume 92.6 fL (80-94); Mean Platelet Vol. 10.6 fl (6.2-12.0); Platelet Count 235 K/mm3 (150-450); RBC Distribution Width SD 43.8 fl (35.1-43.9); Red Blood Count 4.17 M/mm3 (4.6-6.2); White Blood Count 6.4 K/mm3 (4.4-11.0)
[2019-01-01 08:22] LABS: Anion Gap 4 (5-15); BUN 29 mg/dL (7-18); BUN/Creat Ratio 31.5 RATIO (10-20); Calcium,Total 8.3 mg/dL (8.5-10.1); Chloride 107 mmol/L (98-107); Creatinine, Serum 0.92 mg/dL (0.70-1.30); EST Glomerular Filtration Rate 84 mL/min (>60); Est Glom Filt Rate - Afr Amer 102 mL/min (>60); Glucose 84 mg/dL (74-106); Potassium 3.9 mmol/L (3.5-5.1); Sodium Level 140 mmol/L (136-145)
== END ==
LOC: OLS.WCC 05:00
PROVIDERS: Visit Provider Family Medicine
DX: I10 Essential (primary) hypertension (principal); F03.90 Unspecified dementia, unspecified severity, without behavioral disturbance, psychotic disturbance, mood disturbance, and anxiety; Z79.899 Other long term (current) drug therapy
CPT/HCPCS: 36415; 80048; 85027

== ENCOUNTER → 2019-02-19 13:08 | Outpatient (REF) | payer MEDICARE, OTHER, SELFPAY ==
[2019-02-20 11:14] LABS: Bacteria 0 SEEN /hpf (None Seen); Mucous, Urine 0 SEEN /hpf (<or=2+); Red Blood Cells-Urine 0 SEEN /hpf (0-5); Squamous Epithelial Cells - UA 0 SEEN /hpf (0-5); White Blood Cells 0 SEEN /hpf (0-5)
[2019-02-20 11:17] LABS: Color, Urine Brown (Yellow); Glucose, Dipstick Normal (Normal); Ketone-Dipstick 5 mg/dl (Negative); Leukocyte Esterase-Dipstick 500 /ul (Negative); Nitrite-Dipstick Positive (Negative); Occult Blood-Urine 150 /ul (Negative); Protein-Dipstick 30 mg/dl (Negative); Specific Gravity, Urine 1.015 (1.002-1.030); Urine Bilirubin Dipstick Negative (Negative); Urine Clarity Turbid (Clear); Urine Urobilinogen Normal (Normal)
[2019-02-20 11:28] LABS: Amorphous Sediment 3+; Triple Phosphate Crystals Ur 2+ /hpf (<or=1+)
[2019-02-23 12:50] VITALS: BMI 27.6
== END ==
LOC: OLS.WCC 13:08
PROVIDERS: Visit Provider Family Medicine
DX: N39.0 Urinary tract infection, site not specified (principal)
CPT/HCPCS: 81001

== ENCOUNTER → 2019-02-24 18:30 | Outpatient (REF) | payer MEDICARE, OTHER, SELFPAY ==
[2019-02-23 12:50] VITALS: BMI 27.6
== END ==
LOC: OLS.WCC 18:30
PROVIDERS: PCP Internal Medicine; Visit Provider Family Medicine
DX: R30.0 Dysuria (principal)
CPT/HCPCS: 87077; 87086; 87088; 87186

== ENCOUNTER → 2019-03-18 21:00 | Outpatient (REF) | payer MEDICARE, OTHER, SELFPAY ==
[2019-02-23 12:50] VITALS: BMI 27.6
[2019-03-19 08:25] LABS: Color, Urine Yellow (Yellow); Glucose, Dipstick Normal (Normal); Ketone-Dipstick 5 mg/dl (Negative); Leukocyte Esterase-Dipstick 500 /ul (Negative); Nitrite-Dipstick Positive (Negative); Occult Blood-Urine 250 /ul (Negative); Protein-Dipstick 30 mg/dl (Negative); Specific Gravity, Urine 1.015 (1.002-1.030); Urine Bilirubin Dipstick Negative (Negative); Urine Clarity Sl. Cloudy (Clear); Urine Urobilinogen Normal (Normal)
== END ==
LOC: OLS.WCC 21:00
PROVIDERS: PCP Internal Medicine; Visit Provider Family Medicine
DX: R30.0 Dysuria (principal)
CPT/HCPCS: 81002; 87077; 87086; 87088; 87186

== ENCOUNTER → 2019-04-05 04:00 | Outpatient (REF) | payer MEDICARE, OTHER, SELFPAY ==
[2019-02-23 12:50] VITALS: BMI 27.6
[2019-04-05 07:56] LABS: Hematocrit 36.9 % (40-54); Hemoglobin 11.8 g/dL (13.0-16.5); Mean Corpuscular Hgb 30.3 pg (27.0-32.0); Mean Corpuscular Volume 94.6 fL (80-94); Mean Platelet Vol. 10.1 fl (6.2-12.0); Platelet Count 241 K/mm3 (150-450); RBC Distribution Width CV 13.5 % (11.6-14.6); RBC Distribution Width SD 46.5 fl (35.1-43.9); White Blood Count 7.6 K/mm3 (4.4-11.0)
[2019-04-05 08:07] LABS: Anion Gap 4 (5-15); BUN 33 mg/dL (7-18); BUN/Creat Ratio 33.4 RATIO (10-20); Calcium,Total 8.2 mg/dL (8.5-10.1); Chloride 107 mmol/L (98-107); Creatinine, Serum 0.99 mg/dL (0.70-1.30); EST Glomerular Filtration Rate 78 mL/min (>60); Est Glom Filt Rate - Afr Amer 94 mL/min (>60); Glucose 77 mg/dL (74-106); Potassium 4.3 mmol/L (3.5-5.1); Sodium Level 140 mmol/L (136-145)
== END ==
LOC: OLS.WCC 04:00
PROVIDERS: PCP Internal Medicine; Visit Provider Family Medicine
DX: I10 Essential (primary) hypertension (principal); F03.90 Unspecified dementia, unspecified severity, without behavioral disturbance, psychotic disturbance, mood disturbance, and anxiety; Z79.899 Other long term (current) drug therapy
CPT/HCPCS: 36415; 80048; 85027

== ENCOUNTER → 2019-08-30 04:00 | Outpatient (REF) | payer MEDICARE, OTHER, SELFPAY ==
[2019-02-23 12:50] VITALS: BMI 27.6
[2019-08-30 07:51] LABS: Hematocrit 39.5 % (40-54); Hemoglobin 12.5 g/dL (13.0-16.5); Mean Corp Hgb Conc 31.6 g/dL (32-36); Mean Corpuscular Hgb 29.9 pg (27.0-32.0); Mean Corpuscular Volume 94.5 fL (80-94); Mean Platelet Vol. 10.5 fl (6.2-12.0); Platelet Count 239 K/mm3 (150-450); RBC Distribution Width CV 13.4 % (11.6-14.6); RBC Distribution Width SD 46.8 fl (35.1-43.9); Red Blood Count 4.18 M/mm3 (4.6-6.2); White Blood Count 7.2 K/mm3 (4.4-11.0)
[2019-08-30 08:04] LABS: Anion Gap 5 (5-15); BUN 36 mg/dL (7-18); BUN/Creat Ratio 39.5 RATIO (10-20); Calcium,Total 8.5 mg/dL (8.5-10.1); Chloride 109 mmol/L (98-107); Creatinine, Serum 0.91 mg/dL (0.70-1.30); EST Glomerular Filtration Rate 85 mL/min (>60); Est Glom Filt Rate - Afr Amer 103 mL/min (>60); Glucose 83 mg/dL (74-106); Potassium 3.9 mmol/L (3.5-5.1); Sodium Level 142 mmol/L (136-145)
== END ==
LOC: OLS.WCC 04:00
PROVIDERS: PCP Internal Medicine; Visit Provider Family Medicine
DX: F03.90 Unspecified dementia, unspecified severity, without behavioral disturbance, psychotic disturbance, mood disturbance, and anxiety (principal); I10 Essential (primary) hypertension; I25.10 Atherosclerotic heart disease of native coronary artery without angina pectoris; Z79.899 Other long term (current) drug therapy
CPT/HCPCS: 36415; 80048; 85027

== ENCOUNTER → 2019-11-03 14:25 | Outpatient (REF) | payer MEDICARE, OTHER, SELFPAY ==
[2019-02-23 12:50] VITALS: BMI 27.6
== END ==
LOC: OLS.WCC 14:25
PROVIDERS: PCP Internal Medicine; Referring Provider Family Medicine; Visit Provider Family Medicine
DX: Z20.828 Contact with and (suspected) exposure to other viral communicable diseases (principal)
CPT/HCPCS: 87635; U0003